=== PATIENT | female | born 1950 | race Caucasian/White ===

== ENCOUNTER → 2019-10-19 11:06 | Outpatient (BNVA) | payer MEDICARE, SELFPAY | PROVIDERS: Family Provider Nurse Practitioner; Visit Provider Nurse Practitioner | DX: E11.65 Type 2 diabetes mellitus with hyperglycemia (principal); E55.9 Vitamin D deficiency, unspecified; E03.9 Hypothyroidism, unspecified; J40 Bronchitis, not specified as acute or chronic; I10 Essential (primary) hypertension | CPT/HCPCS: 80053; 80061; 81000; 82044; 82306; 83036; 84443 ==

== ENCOUNTER 2019-12-28 08:28 | Inpatient (IN) | payer MEDICARE, SELFPAY ==
[2019-12-28] VITALS (12 sets, daily range): BP systolic 110–148; BP diastolic 42–72; PULSE 63–80; RESP 14–24; TEMP 36.5–37.1; O2SAT 91–99; BMI 33.5
--- NOTE | 2019-12-28 08:36 | ECG_ITS ---
[facility] Test Date: 2019-12-28 Pat Name: Teresa Garcia Department: Room: Gender: Female Industrial Relations Representative: : 1950 Requested By: Lucas Erazo Order Number: [id number] Tyler MD: Liz Farah M.D. Measurements Intervals [place] Rate: 76 P: 61 DC: 168 QRS: -9 QRSD: 85 T: 23 QT: 415 QTc: 468 Interpretive Statements SINUS RHYTHM NONSPECIFIC T-WAVE ABNORMALITY No previous ECG available for comparison Electronically Signed On 12-28-2019 18:29:19 CDT by Liz Farah M.D. [id number]
--- NOTE | 2019-12-28 08:36 | XR_ITS ---
WS: [id number] PORTABLE CHEST HISTORY: chest pain COMPARISON: 01/27/2018 Lungs are well-aerated. No pneumonia. Long-term stability granuloma RIGHT lower lobe. No pleural effu savage or pneumothorax. Cardiac size: Mildly enlarged cardiac silhouette. Mediastinum/Aorta: Mild atherosclerosis aorta. No osseous abnormality seen. XR/XR chest 1V portable [id number] IMPRESSION: Stable chest with no acute cardiopulmonary disease.
--- NOTE | 2019-12-28 08:58 | CT_ITS ---
WS: [id number] CT HEAD NONCONTRAST HISTORY: visual losses TECHNIQUE: Contiguous axial imaging performed through the brain in 2.5 mm imaging. Bone and soft tiss ue windows. Sagittal and coronal reformats reviewed. All CT scans at [facility] use at ast one of these dose optimization techniques: automated exposure control; mA and/or kV adjustment pe r patient size (includes targeted exams where dose is matched to clinical indication); or iterative r econstruction. DLP: 778.14 mGy.cm COMPARISON: None available. No acute intracranial hemorrhage, midline shift or mass effect. Mild bilateral symmetric atrophy. Areas of decreased attenuation. No focal loss of avilez-white matter differentiation. Ventricles: Normal size with no hydrocephalus. No inferior displacement of cerebellar tonsils. Moderate atherosclerosis intracranial carotid arterie s. Paranasal sinuses: As visualized are clear. Mastoid air cells: Well pneumatized. Calvarium and scalp: Skull is intact with no soft tissue edema or swelling. CT/CT head wo con* [id number] IMPRESSION: 1. No acute intracranial hemorrhage or edema. 2. Mild atrophy and chronic ischemic disease.
--- NOTE | 2019-12-28 08:59 | W.ED.CHESTPA ---
HPI - Chest Pain General: Chief Complaint: Chest Pain Stated Complaint: CHEST PAIN Time Seen by Provider: 12/28/19 08:35 History of Present Illness: HPI narrative: 69-year-old female comes in complaining of a chest heaviness. She states she is had this for several days now about 2 to 3 days a little worse this morning radiates into her neck and jaw and her left shoulder at times it will go away after she rested for 20 to 30 minutes. She also is reporting getting the chills she just cannot get warm at times she has had a productive minimally productive cough with some yellow sputum she denies fever she denies abdominal pain no GI or symptoms. No other sick contacts in the home she lives at home with her finally she had a brief episode this morning where she had some vertiginous-like symptoms and could not focus in her left eye that lasted for just a couple minutes and then resolved. She is not previously been known to have coronary artery disease. MD complaint: chest pain Pertinent past history: other (Diabetes mellitus) Onset (ago): day(s) (2-3) Timing of current episode: episodic Prior episodes: No Onset: during exertion Pain location: substernal Pain radiation: left arm, neck, jaw/teeth and left shoulder Severity: moderate Quality: heaviness Relieving factors: rest Exacerbating factors: exertion Context: recent illness (Productive cough with shortness of breath) Associated symptoms: Reports dyspnea, nausea and other (Cough); Deny fever(s) Treatment prior to arrival: none Review of Systems Const: Denies: fever(s), chills, body aches, change in appetite, fatigue or malaise ENMT: Denies: throat pain, ear or mastoid pain, nasal discharge or nasal congestion Card: Reports: chest pain (Chest heaviness) and dyspnea on exertion; Denies: edema or orthopnea Resp: Reports: dyspnea GI: Reports: nausea : Denies: flank pain, difficulty voiding, dysuria, urinary frequency or urinary urgency Skin/Breast: Denies: rash or pruritus PFSH ED PFSH: Medical History Adult hypothyroidism Controlled type 2 diabetes mellitus with hyperglycemia, without long-term current use of insulin Diverticulosis Environmental and seasonal allergies Hypertension Mixed hyperlipidemia Vitamin D deficiency Surgical History History of cholecystectomy History of foot surgery left History of lumbar surgery Rods in lumbar History of tubal ligation Family History (Updated 12/28/19 @ 11:07 by Tere Manriquez DO) Father Diabetes Mother CAD (coronary artery disease) Other Dementia Social History (Updated 12/28/19 @ 11:07 by Tere Manriquez DO) Smoking and tobacco status: current every day smoker Second hand smoke exposure: Yes Smoking risk assessment/counseling performed?: Yes Alcohol intake: never Desire information about alcohol rehabilitation?: No Counseling given: No Desire information about substance/drug rehabilitation?: No Counseling given: No Adopted: No Caregiver/support person: No Lives independently: Yes Household members: spouse Housing: House Marital status: Number of children: 3 service: No Current occupational status: unemployed History of recent travel: No Current gender identity: Female Physical Exam Const: COMMON NORMALS: no acute distress GENERAL APPEARANCE: cooperative and comfortable ORIENTATION/CONSCIOUSNESS: Yes awake, Yes oriented to person, Yes oriented to place and Yes oriented to time HENMT: COMMON NORMALS: normocephalic, atraumatic, hearing grossly normal bilaterally, external ears normal, EAC's normal, TM's normal bilaterally, Normal nasal mucous membranes and turbinates present, moist oral mucous membranes and oropharynx normal HEAD & SCALP: normocephalic and atraumatic NOSE: Normal nasal mucous membranes and turbinates present EXTERNAL EAR: Yes external ears normal EXTERNAL AUDITORY CANAL: EAC's normal TYMPANIC MEMBRANE: TM's normal bilaterally Eye: COMMON NORMALS: Equal, round and reactive pupils present, EOMs intact bilaterally, conjunctivae normal and no scleral icterus CONJUNCTIVA: Yes conjunctivae normal PUPIL: Yes Equal, round and reactive pupils present Neck/C-Spine: COMMON NORMALS: full ROM, no lymphadenopathy, supple and no JVD Lymph: LYMPHATIC: no lymphadenopathy noted and no lymphedema noted Resp: COMMON NORMALS: normal respiratory effort, No retractions, No use of accessory muscles and clear to auscultation bilaterally AUSCULTATION: clear to auscultation bilaterally Cardio: COMMON NORMALS: no JVD, regular rate, regular rhythm and No murmurs present (Cardio) RATE: regular rate RHYTHM: regular rhythm GI: COMMON NORMALS: Soft to palpation and No hepatosplenomegaly present AUSCULTATION: Yes normoactive bowel sounds PALPATION: Yes Soft to palpation, No Tenderness to palpation present (GI), No Guarding due to palpation present (GI) and Yes No hepatosplenomegaly present Extremity: COMMON NORMALS: normal to inspection, capillary refill normal, no clubbing, cyanosis or edema, no calf tenderness and no pedal edema Neuro: SENSORIUM/ORIENTATION: Yes oriented to person, Yes oriented to place and Yes oriented to time Skin: COMMON NORMALS: no rashes or lesions noted GENERAL SKIN EXAM: no rashes or lesions noted Course Vital Signs: Vital signs: Vital Signs Temperature 97.8 F 12/28/19 08:34 Pulse Rate 74 12/28/19 09:41 Respiratory Rate 18 12/28/19 09:41 Blood Pressure 148/72 12/28/19 09:41 Pulse Oximetry 97 12/28/19 09:41 MDM - Chest Pain MDM Narrative: Medical decision making narrative: Patient has multiple risk factors and elevated initial troponin concerning with her symptoms she has high heart score as well we will go ahead and put her on observation discussed with Dr. Manriquez she did have a normal stress test in 2017 but likely will require another. Lab Data: Labs: Lab Results 12/28/19 12/28/19 12/28/19 Range/Units 09:00 09:00 09:00 WBC 10.6 H (4.0-10.0) 10^3/ uL RBC 4.06 L (4.1-5.3) 10^6/u L Hgb 12.5 (11.5-15.3) g/dL Hct 39.1 (37.0-47.0) % MCV 96.3 (81-99) fL MCH 30.8 (28.0-34.0) pg MCHC 32.0 (30.0-36.0) g/dL RDW 12.1 (12.1-15.1) % Plt Count 377 (130-400) 10^3/c mm MPV 8.2 (7.4-10.4) fL Neut % (Auto) 74.5 % Lymph % (Auto) 12.5 % [place] % (Auto) 11.7 % Eos % (Auto) 0.8 % Baso % (Auto) 0.2 % Neut # (Auto) 7.9 H (1.8-7.7) 10^3/u L Lymph # (Auto) 1.3 (0.8-4.8) 10^3/u L [place] # (Auto) 1.2 H (0.2-0.9) 10^3/u L Eos # (Auto) 0.1 (0.0-0.8) 10^3/u L Baso # (Auto) 0.0 (0.0-0.1) 10^3/u L Nucleated RBC % (a uto) 0 % Nucleated RBCs # 0.0 /100WBC PT 13.30 (10.5-13.3) SECO NDS INR 0.98 (0.8-1.2) APTT 27.4 (23.9-36.7) SECO NDS Sodium 138 (136-145) mmol/L Potassium 4.1 (3.5-5.1) mmol/L Chloride 99 (98-107) mmol/L Carbon Dioxide 19 L (22-29) mmol/L Anion Gap 24.1 H (5-19) BUN 15 (8-23) mg/dL Creatinine 1.0 H (0.5-0.9) mg/dL Glucose 216 H (65-115) mg/dL Calculated Osmolal ity 289 (285-295) mOsm/k g Calcium 9.6 (8.5-10.5) mg/dL Total Bilirubin 0.3 (0.15-1.2) mg/dL AST 21 (0-32) U/L ALT 15 (0-33) U/L Alkaline Phosphata se 85 (35-105) IU/L Creatine Kinase 146 (26-192) U/L Troponin T Baselin e (0-10) ng/L Troponin T 120 Min [place] (0-10) ng/L Delta Troponin T (0-10) ABS# Total Protein 6.9 (6.6-8.7) g/dL Albumin 3.9 (3.5-5.2) g/dL Globulin 3.0 (1.3-4.6) g/dL 12/28/19 12/28/19 Range/Units 09:00 10:56 WBC (4.0-10.0) 10^3/ uL RBC (4.1-5.3) 10^6/u L Hgb (11.5-15.3) g/dL Hct (37.0-47.0) % MCV (81-99) fL MCH (28.0-34.0) pg MCHC (30.0-36.0) g/dL RDW (12.1-15.1) % Plt Count (130-400) 10^3/c mm MPV (7.4-10.4) fL Neut % (Auto) % Lymph % (Auto) % [place] % (Auto) % Eos % (Auto) % Baso % (Auto) % Neut # (Auto) (1.8-7.7) 10^3/u L Lymph # (Auto) (0.8-4.8) 10^3/u L [place] # (Auto) (0.2-0.9) 10^3/u L Eos # (Auto) (0.0-0.8) 10^3/u L Baso # (Auto) (0.0-0.1) 10^3/u L Nucleated RBC % (a uto) % Nucleated RBCs # /100WBC PT (10.5-13.3) SECO NDS INR (0.8-1.2) APTT (23.9-36.7) SECO NDS Sodium (136-145) mmol/L Potassium (3.5-5.1) mmol/L Chloride (98-107) mmol/L Carbon Dioxide (22-29) mmol/L Anion Gap (5-19) BUN (8-23) mg/dL Creatinine (0.5-0.9) mg/dL Glucose (65-115) mg/dL Calculated Osmolal ity (285-295) mOsm/k g Calcium (8.5-10.5) mg/dL Total Bilirubin (0.15-1.2) mg/dL AST (0-32) U/L ALT (0-33) U/L Alkaline Phosphata se (35-105) IU/L Creatine Kinase (26-192) U/L Troponin T Baselin e 34 H (0-10) ng/L Troponin T 120 Min [place] 32.45 H (0-10) ng/L Delta Troponin T -1.55 L (0-10) ABS# Total Protein (6.6-8.7) g/dL Albumin (3.5-5.2) g/dL Globulin (1.3-4.6) g/dL EKG Data^: EKG 1: Attestation: I personally reviewed and interpreted this EKG as follows: EKG interpretation date: 12/28/19 EKG interpretation time: 09:02 Other EKG comments: Sinus rhythm rate of 78. Right bundle branch block T waves inverted in V1 through [address] depression also isolated T wave inversion in lead III Q waves noted in V1 through 4 Discharge Plan Discharge Patient Disposition: Placed in Observation Admit Provider: Tere Manriquez Clinical Impression: Chest pain, Adult hypothyroidism, Controlled type 2 diabetes mellitus with hyperglycemia, without long-term current use of insulin, Hypertension Condition: Stable Coding Level of Care Code ED Outside Energy Sales Representatives for Chg Fwd Exam Comprehensive
[2019-12-28 09:07] LABS: Basophils % 0.2 %; Eosinophils # 0.1 10^3/uL (0.0-0.8); Eosinophils % 0.8 %; Hematocrit 39.1 % (37.0-47.0); Hemoglobin 12.5 g/dL (11.5-15.3); Lymphocytes # 1.3 10^3/uL (0.8-4.8); Lymphocytes % 12.5 %; Mean Corpuscular Hemoglobin 30.8 pg (28.0-34.0); Mean Corpuscular Volume 96.3 fL (81-99); Mean Platelet Volume 8.2 fL (7.4-10.4); Monocytes # 1.2 10^3/uL (0.2-0.9); Monocytes % 11.7 %; Neutrophils # 7.9 10^3/uL (1.8-7.7); Neutrophils % 74.5 %; Nucleated Red Blood Cells % 0 %; Platelet Count 377 10^3/cmm (130-400); Red Blood Count 4.06 10^6/uL (4.1-5.3); Red Cell Distribution Width 12.1 % (12.1-15.1); White Blood Count 10.6 10^3/uL (4.0-10.0)
[2019-12-28 09:17] LABS: INR 0.98 (0.8-1.2)
[2019-12-28 09:18] LABS: Partial Thromboplastin Time 27.4 SECONDS (23.9-36.7)
[2019-12-28 09:29] LABS: Troponin(5th) Baseline 34 ng/L (0-10)
[2019-12-28 09:49] LABS: Alanine Aminotransferase 15 U/L (0-33); Albumin Level 3.9 g/dL (3.5-5.2); Alkaline Phosphatase 85 IU/L (35-105); Anion Gap 24.1 (5-19); Aspartate Amino Transferase 21 U/L (0-32); Blood Urea Nitrogen 15 mg/dL (8-23); Calcium 9.6 mg/dL (8.5-10.5); Carbon Dioxide 19 mmol/L (22-29); Chloride 99 mmol/L (98-107); Creatine Phosphokinase 146 U/L (26-192); Glucose 216 mg/dL (65-115); Osmolality Calculated 289 mOsm/kg (285-295); Potassium 4.1 mmol/L (3.5-5.1); Sodium 138 mmol/L (136-145); Total Bilirubin 0.3 mg/dL (0.15-1.2); Total Protein 6.9 g/dL (6.6-8.7)
--- NOTE | 2019-12-28 10:36 | ECG_ITS ---
[facility] Test Date: 2019-12-28 Pat Name: Teresa Garcia Department: Room: Gender: Female Lead Front End Developer: : 1950 Requested By: Lucas Erazo Order Number: [id number] Tyler MD: Liz Farah M.D. Measurements Intervals [place] Rate: 64 P: 57 UT: 159 QRS: -11 QRSD: 81 T: 52 QT: 457 QTc: 474 Interpretive Statements SINUS RHYTHM WITH OCCASIONAL SUPRAVENTRICULAR PREMATURE COMPLEXES Compared to ECG 12/28/2019 08:40:29 T-wave abnormality no longer present Electronically Signed On 12-28-2019 18:38:11 CDT by Liz Farah M.D. [id number]
--- NOTE | 2019-12-28 11:02 | P.HP_ITS ---
Providers/Chief Complaint Admitting Physician: Tere Manriquez DO Chief Complaint: CHEST PAIN History of Present Illness Teresa Garcia is a 69 year old female with a past medical history of diabetes, hypertension, hyperlipidemia, tobacco abuse and hypothyroidism that presented to the emergency department today for chest tightness in the left side of her chest with radiation to the left neck and left shoulder. She reports that she has been feeling ill for the past 2 weeks. She states that she has had cough that is persisted with some sputum production. Patient reports chills over the past 48 hours but denies any fevers. No sick contacts, has been to the grocery store but no prolonged exposure in any public places, no exposure to anyone under investigation are positive for CO VID-19. Patient states that she is not on any oxygen at home, does not wear CPAP or BiPAP. Continues to smoke, uses nebulized treatments as needed but has not had to use them in some time. Patient denies any hemoptysis. She reports no known aggravating symptoms, no alleviating symptoms. She reports that she has had increased fatigue over the past 2 weeks. Recently had increase in levothyroxine dosing from 50 mcg to 100 mcg, is scheduled to follow-up with her primary care provider in the next 2 to 3 weeks. Patient denies any recent medication changes. Stated that she has chronic swelling in the lower extremities that is improved today. She did noted some nausea this morning with episode of dizziness and lightheadedness, this then r esolved on its own. No episodes of vomiting, no abdominal pain, no increase in heartburn or reflux, no melanotic stools Patient was seen and evaluated in the emergency department due to concern for chest pain she was admitted for observation for further monitoring and evaluation. Review of Systems Const: Reports: chills; Denies: fever(s) Eyes: Reports: change in vision (Occurred this morning with vertigo symptoms but have now resolved); Denies: photophobia ENMT: Reports: nasal congestion and other (Chronic sinus drainage and co ngestion) Card: Reports: chest pain and edema; Denies: palpitations Resp: Reports: dyspnea and productive cough; Denies: hemoptysis GI: Reports: nausea; Denies: abdominal pain, vomiting, diarrhea, constipation, hematochezia or melena : Denies: dysuria or hematuria Musc: Denies: extremity pain or muscle cramps Skin/Breast: Denies: rash or new lesions Neuro: Reports: headache(s) (Reports sinus headache that is been chronic) and dizziness Psych: Denies: anxiety or depression Endo: Reports: polyuria; Denies: hot flashes Wale/Lymph: Denies: easy bruising or easy bleeding Medications/Allergies Home Medications Medication Instructions Recorded Confirmed Last Taken Type albuterol sulfate 90 mcg/actuation 2 puff INHALATION QID PRN 10/19/19 12/28/19 12/27/19 History aerosol inhaler amlodipine 10 mg tablet 10 mg PO DAILY #90 tab 10/19/19 12/28/19 12/27/19 Rx aspirin 81 mg tablet,delayed 81 mg PO DAILY 10/19/19 12/28/19 12/28/19 History release benazepril 40 mg tablet 40 mg PO DAILY #90 tab 10/19/19 12/28/19 12/28/19 Rx furosemide 40 mg tablet 40 mg PO DAILY #90 tab 10/19/19 12/28/19 12/28/19 Rx glipizide 5 mg tablet, extended 5 mg PO BID #180 tab 10/19/19 12/28/19 12/28/19 Rx release 24 hr potassium chloride 10 mEq 10 meq PO BID #180 tab 10/19/19 12/28/19 12/28/19 Rx tablet,extended release rosuvastatin 20 mg tablet 20 mg PO DAILY #90 tab 10/19/19 12/28/19 12/27/19 Rx levothyroxine 100 mcg tablet 100 mcg PO DAILY #90 tab 10/21/19 12/28/19 12/28/19 Rx metoprolol succinate 25 mg 25 mg PO DAILY #90 tab 11/13/19 12/28/19 12/28/19 Rx tablet,extended release 24 hr Allergies Allergy/AdvReac Type Severity Reaction Status Date / Time Penicillins Allergy Severe Rash Verified 08/25/19 13:29 Sulfa (Sulfonamide Allergy Severe Rash Verified 08/25/19 13:29 Antibiotics) Latex, Natural Rubber AdvReac Severe Rash Verified 08/25/19 13:29 adhesive AdvReac Intermediate Rash Verified 08/25/19 13:29 trazodone AdvReac Do not Verified 08/25/19 13:29 tolerate PFSH Acute PFSH: Medical History Adult hypothyroidism Controlled type 2 diabetes mellitus with hyperglycemia, without long-term current use of insulin Diverticulosis Environmental and seasonal allergies Hypertension Mixed hyperlipidemia Vitamin D deficiency Surgical History History of cholecystectomy History of foot surgery left History of lumbar surgery Rods in lumbar History of tubal ligation Family History (Updated 12/28/19 @ 11:07 by Tere Manriquez DO) Father Diabetes Mother CAD (coronary artery disease) Other Dementia Social History (Updated 12/28/19 @ 11:07 by Tere Manriquez DO) Smoking and tobacco status: current every day smoker Second hand smoke exposure: Yes Smoking risk assessment/counseling performed?: Yes Alcohol intake: never Desire information about alcohol rehabilitation?: No Counseling given: No Desire information about substance/drug rehabilitation?: No Counseling given: No Adopted: No Caregiver/support person: No Lives independently: Yes Household members: spouse Housing: House Marital status: Number of children: 3 service: No Current occupational status: unemployed History of recent travel: No Current gender identity: Female Vitals/I&O/Wt Last Vital Signs Temp 97.8 F 12/28/19 08:34 Pulse 74 12/28/19 09:41 Resp 18 12/28/19 09:41 BP 148/72 12/28/19 09:41 Pulse Ox 97 12/28/19 09:41 Weight last 48 hrs Weight 83.007 kg Physical Exam Const: COMMON NORMALS: patient oriented x3 and alert GENERAL APPEARANCE: cooperative ORIENTATION/CONSCIOUSNESS: Yes awake, Yes oriented to person, Yes oriented to place and Yes oriented to time HENMT: COMMON NORMALS: normocephalic and atraumatic HEAD & SCALP: normocephalic and atraumatic Eye: COMMON NORMALS: Equal, round and reactive pupils present PUPIL: Yes Equal, round and reactive pupils present Neck/C-Spine: COMMON NORMALS: supple GENERAL: Yes normal visual inspection Resp: COMMON NORMALS: normal respiratory effort and clear to auscultation bilaterally EFFORT & INSPECTION: Yes able to speak in complete sentences AUSCULTATION: clear to auscultation bilaterally, no rhonchi and no wheezes Cardio: COMMON NORMALS: regular rate and regular rhythm RATE: regular rate RHYTHM: regular rhythm OTHER: Systolic murmur, Grade II GI: COMMON NORMALS: Soft to palpation and non-tender INSPECTION: No abdominal distension AUSCULTATION: Yes normoactive bowel sounds PALPATION: Yes Soft to palpation Extremity: OTHER: Patient with nonpitting edema in the lower extremities bilaterally, does have calf tenderness on the right. Neuro: COMMON NORMALS: patient oriented x3, CN's II-XII intact bilaterally, moves all extremities and no focal motor deficits SENSORIUM/ORIENTATION: Yes alert, Yes oriented to person, Yes oriented to place and Yes oriented to time SPEECH: speech normal Psych: COMMON NORMALS: mental status grossly normal and cooperative Skin: OTHER: Chronic erythema in the anterior shins bilaterally, secondary to venous stasis Data : 12/28/19 09:00 12/28/19 09:00 CT Head: I personally reviewed and interpreted this imaging study as follows: Radiologist's impression: No acute intracranial hemorrhage, midline shift or mass effect. Mild bilateral symmetric atrophy. Areas of decreased attenuation. No focal loss of garcia-white matter differentiation. Ventricles: Normal size with no hydrocephalus. No inferior displacement of cerebellar tonsils. Moderate atherosclerosis intr acranial carotid arteries. Paranasal sinuses: As visualized are clear. Mastoid air cells: Well pneumatized. Calvarium and scalp: Skull is intact with no soft tissue edema or swelling. CT/CT head wo con* [id number] IMPRESSION: 1. No acute intracranial hemorrhage or edema. 2. Mild atrophy and chronic ischemic disease. CXR: I personally reviewed and interpreted this imaging study as follows: Radiologist's impression: Lungs are well-aerated. No pneumonia. Long-term stability granuloma RIGHT lower lobe. No pleural effusion or pneumothorax. Cardiac size: Mildly enlarged cardiac silhouette. Mediastinum/Aorta: Mild atherosclerosis aorta. No osseous abnormality seen. XR/XR chest 1V portable [id number] IMPRESSION: Stable chest with no acute cardiopulmonary disease. A&P Assessment and plan (1) Left chest pressure: Placed on observation Serial EKG and troponin, EKG in the ED shows no acute ST segment changes at this time Monitor on telemetry Echocardiogram ordered for further evaluation due to systolic murmur and chest pressure along with presyncopal symptoms Lexiscan MIBI ordered for further evaluation, n.p.o. at midnight for stress test Status: Acute (2) Pre-syncope: Continue with neurologic checks Further cardiac work-up as noted above Faint systolic murmur will further evaluate with echocardiogram, last echocardiogram from 2016 reviewed Telemetry monitoring with serial EKG and troponin Carotid ultrasound ordered and pending CT head performed and as noted above Status: Acute (3) Hypertension: Continue metoprolol succinate 25 mg daily Continue benazepril 40 mg daily Continue amlodipine 10 mg daily, may need to discuss with primary care provider if continuing to have lower extremity edema as this can contribute to chronic lower extremity edema. Status: Chronic (4) Controlled type 2 diabetes mellitus with hyperglycemia, without long-term current use of insulin: Holding home glipizide at this time as do not wish for patient to have any hypoglycemic events in the inpatient setting Low-dose sliding scale insulin as needed Last hemoglobin A1c of 6.3 from 10/19/2019 Status: Chronic (5) Mixed hyperlipidemia: Continue on rosuvastatin 20 mg at bedtime Status: Chronic (6) Adult hypothyroidism: Due to concern for chest pressure and presyncopal symptoms will recheck TSH, patient reports recent increase in levothyroxine from 50mcg to 100 mcg daily Status: Chronic Additional A&P Information Dyspnea and chronic cough: We will check d-dimer, chest x-ray shows right chronic granuloma with no acute changes. Due to elevated d-dimer will check CT scan of the chest with PE protocol. Patient is not tachycardic but is on beta-blockers with chest pain and dyspnea and elevated d-dimer will further evaluate with CT scan and follow-up with results. Right lower extremity tenderness to palpation: We will check lower extremity chuy ous duplex Longstanding history of tobacco abuse: Strongly encourage cessation, oxygen per protocol, patient is on albuterol on an as-needed basis at home, would recommend outpatient pulmonary function testing and further follow-up based on results. DVT prophylaxis: SCDs, Lovenox Diet: Carbohydrate consistent, n.p.o. at midnight for stress test CODE STATUS: Full code Attestations Medical Necessity Statement*: Observation placement due to chest pain, expected stay less than 2 midnights Coding Level of Care Code Acute Cistern Room Operator for Chg Fwd Exam Comprehensive Diagnoses Left chest pressure R07.89 Pre-syncope R55 Hypertension I10 Controlled type 2 diabetes mellitus with hyperglycemia, without long-term current use of insulin E11.65 Mixed hyperlipidemia E78.2 Adult hypothyroidism E03.9
[2019-12-28 11:16] LABS: Troponin 5 2HR 32.45 ng/L (0-10)
[2019-12-28 11:19] LABS: Troponin 5 2HR Delta -1.55 ABS# (0-10)
--- NOTE | 2019-12-28 11:55 | USCV_ITS ---
Teresa Garcia Age: 69 Gender: F : 1950 Exam Date: 12/28/2019 15:41 Ordering Phys: Tere Manriquez DO Technologist: Jarod Murrell [place] [facility] [place] PRE [place] Risk Factors: None Previous Vascular Surgery: None Right Brachial BP: / Left Brachial BP: / Right Left Velocity (cm/s) Spectral Plaque Velocity (cm/s) Spectral Plaque Syst/Diast Broadening Syst/Diast Broadening 64.50/ 14.80 Prox CCA 62.55 / 12.00 65.20/ 14.20 Mid CCA 75.05 / 14.65 64.50/ 8.40 Distal CCA 71.85 / 12.60 49.80/ 10.70 Hetro Prox ICA 81.40 / 13.20 Hetro 65.90/ 13.00 Mid ICA 78.50 / 8.50 50.60/ 11.50 Distal ICA 71.00 / 14.20 78.90 ECA 70.30 1.01 ICA/CCA 1.04 Antegrade Vertebral Antegrade 37.80/ 5.90 cm/s 64.30/ 11.40 cm/s Bi Subclavian Bi 123.4 92.70 0 FINDINGS Minimal plaques at the bifurcations bilaterally. Intimal thickening in the common carotid arteries bilaterally. Antegrade flow in the vertebral arteries bilaterally. Normal Doppler flow velocities in the external and subclavian arteries bilaterally. CONCLUSIONS Minimal plaques at the bifurcations bilaterally. Intimal thickening in the common carotid arteries bilaterally. No significant stenosis or any unstable lesions, based on the above findings Dr Sagar Antunez MD [facility] (Electronically Signed) Final Date: 29 December 2019 07:08 S
--- NOTE | 2019-12-28 11:55 | USCV_ITS ---
Teresa Garcia Age: 69 Gender: F : 1950 Exam Date: 12/28/2019 15:25 Ordering Phys: Tere Manriquez DO Technologist: Jarod Murrell [place] [facility] [place]: SYNCOPE PRE BP: 141 / 107 HR: 72 Rhythm: Sinus Technical Quality: Adequate MEASUREMENTS (Male / Female) Normal Values 2D ECHO LV Diastolic Diameter PLAX 4.7 cm 4.2 - 5.9 / 3.9 - 5.3 cm LV Systolic Diameter PLAX 3.4 cm IVS Diastolic Thickness 0.7 cm 0.6 - 1.0 / 0.6 - 0.9 cm IVS Systolic Thickness 1.4 cm LVPW Diastolic Thickness 1.1 cm 0.6 - 1.0 / 0.6 - 0.9 cm LVPW Systolic Thickness 1.4 cm LVOT Diameter 2.0 cm LV Ejection Fraction 2D Teich 52.6 % LV Ejection Fraction MOD 2C 64.3 % LV Ejection Fraction 2C AL 66.5 % LA Diameter 3.8 cm LA Width 3.6 cm LA Height 4.8 cm RA Width 4.0 cm RA Height 4.8 cm Aorta at Sinotubular Diameter 2.1 cm M-MODE LV Diastolic Diameter MM 4.4 cm 4.2 - 5.9 / 3.9 - 5.3 cm LV Systolic Diameter MM 2.7 cm LV Ejection Fraction MM Teich 70.0 % IVS Diastolic Thickness MM 1.3 cm 0.6 - 1.0 / 0.6 - 0.9 cm IVS Systolic Thickness MM 1.9 cm LVPW Diastolic Thickness MM 1.5 cm 0.6 - 1.0 / 0.6 - 0.9 cm LVPW Systolic Thickness MM 2.1 cm RV Diastolic Diameter MM 1.8 cm Aortic Annulus Diameter 3.2 cm LA Ao Ratio MM 1.2 MV E Point Septal Separation 0.8 cm DOPPLER AV Peak Velocity 196.0 cm/s LVOT Peak Velocity 101.0 cm/s AV Area Cont Eq vti 1.5 cm squared AV Area Cont Eq pk 1.7 cm squared MV Area PHT 2.6 cm squared Mitral E to A Ratio 0.8 MV E' Velocity 7.0 cm/s Mitral E to MV E' Ratio 9.0 Mitral E to LV E' Lateral Ratio 11.3 Mitral E to LV E' Septal Ratio 7.5 TR Peak Velocity 258.0 cm/s TR Peak Gradient 26.5 mmHg TV Peak E Velocity 81.0 cm/s Right Atrial Pressure 3.0 mmHg Pulmonary Artery Systolic Pressu 29.6 mmHg FINDINGS Left Ventricle Normal left ventricular size and systolic function, EF 59 %. Mild left ventricular hypertrophy. Grade I/IV diastolic dysfunction (abnormal relaxation filling pattern), normal to mildly elevated filling pressures. Right Ventricle Normal right ventricular size and systolic function. Right Atrium Normal right atrial size. Left Atrium Mildly increased left atrial size. Mitral Valve Thickened mitral valve. Moderate mitral annular calcification. Aortic Valve Thickened aortic valve. Trace aortic valve regurgitation. Aortic valve sclerosis. Tricuspid Valve The valve morphology could not be delineated well.trace tricuspid valve regurgitation. Pulmonic Valve Pulmonic valve not well visualized. Pericardium No pericardial effusion. Aorta Normal aortic annulus size. CONCLUSIONS Normal left ventricular size and systolic function, EF 59 %. Mild left ventricular hypertrophy. Grade I/IV diastolic dysfunction (abnormal relaxation filling pattern), normal to mildly elevated filling pressures. Mildly increased left atrial size. Thickened mitral valve. Moderate mitral annular calcification. Thickened aortic valve. Trace aortic valve regurgitation. Aortic valve sclerosis. There is no pericardial effusion. Trace of tricuspid regurgitation. Estimated pulmonary artery peak systolic pressure of 27 mmHg Technically difficult study because of the poor ultrasonic window. Dr Sagar Antunez MD [facility] (Electronically Signed) Final Date: 28 December 2019 19:12 S
--- NOTE | 2019-12-28 12:19 | USCV_ITS ---
NOTE: Report was unsigned for reason: Order was edited. Original Signature date and time was: 12/29/19 @ 07:10 GarciaTeresa Age: 69 Gender: F : 1950 Exam Date: 12/28/2019 15:55 Ordering Phys: Tere Manriquez DO Technologist: Jarod Murrell Exam Location: [facility] – [place] Indication: BILAT LEG EDEMA HISTORY: Lower extremity edema. PROCEDURES: The venous duplex Doppler examination of both lower extremities was performed in the standard fashion. The following venous structures were evaluated: common femoral vein, profunda vein, proximal portion of the greater saphenous vein, superficial femoral vein, and the popliteal vein. Bilaterally, the common femoral, superficial femoral, profunda femoral, popliteal, posterior tibial, greater saphenous veins, and the peroneal trunk were identified and interrogated in the standard fashion. These veins were found to be easily compressible with spontaneous blood flow. No evidence of insufficiency or thrombus noted. FINDINGS: Normal 2-D Doppler and augmentation and compressibility throughout the lower extremity venous structures. Additional imaging through the proximal calf veins also reveals no thrombus. Limited evaluation of the greater saphenous vein is patent with no thrombus.. The veins were found to be easily compressible with spontaneous blood flow. Non pulsatile flow pattern. CONCLUSIONS No evidence of DVT in the above-mentioned identifiable veins. Dr Sagar Antunez MD [facility] (Electronically Signed) Final Date: 29 December 2019 07:10 S MTDD
[2019-12-28 12:25] LABS: Glucose Point of Care 155 mg/dL (70-110)
[2019-12-28] MEDS: enoxaparin 40 mg/0.4 mL Syringe SUBCUT (12:36)
[2019-12-28] MEDS: amlodipine 10 mg Tablet PO (12:36)
[2019-12-28 12:54] LABS: D Dimer 1.02 ug/mIFEU (0-0.59)
[2019-12-28 13:07] LABS: Magnesium 2.1 mg/dL (1.7-2.3); NT Pro B Type Natriuretic Pept 406 pg/mL (0-125); Phosphorus 3.4 mg/dL (2.5-4.5); Thyroid Stimulating Hormone 1.17 uIU/mL (0.27-4.20)
--- NOTE | 2019-12-28 13:08 | CTR_ITS ---
PROCEDURE INFORMATION: Exam: CT Angiography Chest With Contrast Exam date and time: 12/28/2019 1:11 PM Age: 69 years old Clinical indication: Pain; Shortness of breath; Chest pressure; Prior surgery; Surgery type: Gb; Additional info: Chest pain, dyspnea, elevated d-dimer TECHNIQUE: Imaging protocol: Computed tomographic angiography of the chest with intravenous contrast. 3D rendering: MIP and/or 3D reconstructed images were created by the technologist. Radiation optimization: All CT scans at this facility use at least one of these dose optimization techniques: automated exposure control; mA and/or kV adjustment per patient size (includes targeted exams where dose is matched to clinical indication); or iterative reconstruction. Contrast material: VISI 320; Contrast volume: 49 ml; Contrast route: INTRAVENOUS (IV); COMPARISON: No relevant prior studies available. RADIATION DOSE METRICS: Total DLP (mGy-cm): 564.15 FINDINGS: Pulmonary arteries: There is no evidence of filling defects within the pulmonary arterial circulation to suggest pulmonary embolism. Aorta: There are mild atherosclerotic changes in the aortic arch without evidence of aneurysm or dissection. Lungs: There is calcified granuloma in the right lower lobe. There is mild dependent atelectasis at the lung bases. Pleural space: Unremarkable. No pneumothorax. No pleural effusion. Heart: There is mild atherosclerotic calcification of the coronary arteries. Lymph nodes: There are calcified right hilar Lymph nodes in keeping with old granulomatous disease. There is mild mediastinal adenopathy with paratracheal lymph nodes measuring up to 12 x 21 mm and also mildly prominent prevascular nodes measuring up to 8 x 16 mm. Bones/joints: Unremarkable. No acute fracture. Soft tissues: Unremarkable. CT/CT angio chest PE protcl [id number] IMPRESSION: 1. No evidence of pulmonary embolism. 2. Borderline mediastinal adenopathy 3. Old granulomatous disease Radiation Dose CTDIVOL = (mGy): DLP = 564.15 (mGy-cm)
[2019-12-28] MEDS: lisinopril 20 mg Tablet 40 MG PO (14:09)
--- NOTE | 2019-12-28 14:36 | ECG_ITS ---
[facility] ED Test Date: 2019-12-28 Pat Name: Teresa Garcia Department: Room: 106 Gender: Female Manager Route: : 1950 Requested By: Lucas Erazo Order Number: [id number] Tyler MD: Liz Farah M.D. Measurements Intervals [place] Rate: 62 P: 57 MS: 167 QRS: -14 QRSD: 85 T: 68 QT: 465 QTc: 474 Interpretive Statements SINUS RHYTHM NONSPECIFIC T-WAVE ABNORMALITY Compared to ECG 12/28/2019 11:05:20 T-wave abnormality now present Electronically Signed On 12-28-2019 18:35:33 CDT by Liz Farah M.D. [id number]
[2019-12-28] MEDS: ipratropium-albuterol 3 mL Neb INHALATION ×2 (14:52→19:38)
[2019-12-28 17:10] LABS: Glucose Point of Care 113 mg/dL (70-110)
[2019-12-28] MEDS: docusate sodium 100 mg Capsule PO (17:18)
[2019-12-28] MEDS: potassium chloride ER 10 mEq Tablet PO (17:18)
[2019-12-28] MEDS: iodixanol 320 mg/mL 100mL Btl IV (18:07)
[2019-12-28 20:09] LABS: Glucose Point of Care 220 mg/dL (70-110)
--- NOTE | 2019-12-28 20:14 | PC.NURSE ---
Addendum entered by Alejandra Cabrera RN 12/28/19 20:18: Informed Dr Jasso of patient allergy. Dr Jasso to place new order for other medication. Original Note: Patient requesting something to help with sleep tonight. Informed Dr Jasso of patient request and received a one time order for Trazadone 25mg PO.
[2019-12-28] MEDS: atorvastatin 40 mg Tablet 80 MG PO (20:28)
[2019-12-28] MEDS: HYDROcodone-acetaminophen 5-325 mg Tablet 1 TAB PO (20:29)
[2019-12-28] MEDS: diphenhydrAMINE 25 mg Capsule PO (20:29)
[2019-12-28] MEDS: morphine 4 mg/mL SDV 1 mL 2 MG IVP (21:35)
--- NOTE | 2019-12-28 21:47 | PM.CONSULT ---
Providers/Reason For Consult Consulting Physican/Specialty*: Oj Antunez MD/cardiology Reason for Consult*: Patient with multiple risk factors for coronary artery disease, presenting with unstable angina Attending Physician: Tere Manriquez DO History of Present Illness History of Present Illness Teresa Garcia is a 69 year old female type 2 diabetes, dyslipidemia, overweight and smoking abuse, present with complaints of chest pain started 630 this morning. Patient was up and about in the house at that time. Without any warning, she started having the tightness and heavy feeling in the chest. It was a moderate density(6/10) . She had associated shortness of breath and some nausea. No palpitation, dizziness or syncopal episode. Because of the persistence of the symptom, the ambulance was called in. In the ambulance, the patient was given sublingual nitroglycerin x1. According the patient, she had some relief. However she continued to have the tight feeling in the chest for several hours and finally it subsided. At the time of my examination, patient is pain-free. He denies any fever, chills or cough. She has been having a cough for the last couple of weeks. Denies any abdominal pain or dysuria. No headache or blurring of vision. Specific complaints. She has been smoking for the last more than 30 years. Lately she is smoking only half pack a day. No alcohol abuse or any other substance abuse. She been using the inhalers and nebulizer at home for shortness of breath. Patient has no previous history for any coronary disease, myocardial infarction or congestive heart failure. In October 2016, she was seen in the emergency room with chest pain. Her initial cardiac work-up was negative. She had a myocardial perfusion imaging subsequently which did not reveal any evidence of ischemia. She was seen by Dr. German at that time. She has not had any follow-up evaluations. Review of Systems Narrative: CONSTITUTIONAL: She might have had a low-grade fever lately EYES: No blurring of vision or other visual disturbances lately. ENT: No hoarseness of voice, auditory disturbances or sore throat. Carotid bruit bilaterally CARDIOVASCULAR: Soft systolic murmur at the base of the heart. No diastolic murmurs. No pericardial rub. RESPIRATORY: No significant cough. GASTROINTESTINAL: No hematemesis or melena. GENITOURINARY: No dysuria or hematuria. INTEGUMENTARY: No skin rashes or history of skin cancer. NEURO: No transient ischemic attacks or amaurosis. PSYCHIATRIC: No history of psychosis or major depression. HEMATOLOGIC: No bleeding disorders or significant anemia. ENDOCRINE: No history of polyuria or polydipsia. MUSCULOSKELETAL: No recent joint pain or swelling. ALLERGY/IMMUNOLOGY: As mentioned above. Meds/Allergies Home Medications and Allergies Home Medications Medication Instructions Recorded Confirmed Last Taken Type albuterol sulfate 90 mcg/actuation 2 puff INHALATION QID PRN 10/19/19 12/28/19 12/27/19 History aerosol inhaler amlodipine 10 mg tablet 10 mg PO DAILY #90 tab 10/19/19 12/28/19 12/27/19 Rx aspirin 81 mg tablet,delayed 81 mg PO DAILY 10/19/19 12/28/19 12/28/19 History release benazepril 40 mg tablet 40 mg PO DAILY #90 tab 10/19/19 12/28/19 12/28/19 Rx furosemide 40 mg tablet 40 mg PO DAILY #90 tab 10/19/19 12/28/19 12/28/19 Rx glipizide 5 mg tablet, extended 5 mg PO BID #180 tab 10/19/19 12/28/19 12/28/19 Rx release 24 hr potassium chloride 10 mEq 10 meq PO BID #180 tab 10/19/19 12/28/19 12/28/19 Rx tablet,extended release rosuvastatin 20 mg tablet 20 mg PO DAILY #90 tab 10/19/19 12/28/19 12/27/19 Rx levothyroxine 100 mcg tablet 100 mcg PO DAILY #90 tab 10/21/19 12/28/19 12/28/19 Rx metoprolol succinate 25 mg 25 mg PO DAILY #90 tab 11/13/19 12/28/19 12/28/19 Rx tablet,extended release 24 hr Allergies Allergy/AdvReac Type Severity Reaction Status Date / Time Penicillins Allergy Severe Rash Verified 08/25/19 13:29 Sulfa (Sulfonamide Allergy Severe Rash Verified 08/25/19 13:29 Antibiotics) Latex, Natural Rubber AdvReac Severe Rash Verified 08/25/19 13:29 adhesive AdvReac Intermediate Rash Verified 08/25/19 13:29 trazodone AdvReac Do not Verified 08/25/19 13:29 tolerate Current Medications Current Medications Generic Name Dose Route Start Last Admin Trade Name Freq PRN Reason Stop Dose Admin Hydrocodone Bitart/Acetaminophen 1 tab 12/28/19 11:55 12/28/19 20:29 Eden 5-325 Mg PO 1 tab Q4H PRN Administration MODERATE TO SEVERE PAIN Albuterol/Ipratropium 3 ml 12/28/19 15:00 12/28/19 19:38 Duoneb INHALATION 3 ml Q6H.RESPIRATORY SURENDRA Administration Amlodipine Besylate 10 mg 12/28/19 11:55 12/28/19 12:36 Norvasc PO 10 mg DAILY SURENDRA Administration Atorvastatin Calcium 80 mg 12/28/19 21:00 12/28/19 20:28 Lipitor PO 80 mg BEDTIME SURENDRA Administration Docusate Sodium 100 mg 12/28/19 18:00 12/28/19 17:18 Colace PO 100 mg BID SURENDRA Administration Enoxaparin Sodium 40 mg 12/28/19 11:55 12/28/19 12:36 Lovenox SUBCUT 40 mg Q24H SURENDRA Administration Insulin Aspart 0 unit 12/28/19 21:00 12/28/19 20:28 Novolog SUBCUT 2 unit BEDTIME SURENDRA Administration Protocol Insulin Aspart 0 unit 12/28/19 12:00 12/28/19 17:16 Novolog SUBCUT Not Given TIDWM [facility] Protocol Lisinopril 40 mg 12/28/19 14:00 12/28/19 14:09 Prinivil PO 40 mg DAILY SURENDRA Administration Morphine Sulfate 2 mg 12/28/19 11:55 12/28/19 21:35 Morphine IVP 2 mg Q4H PRN Administration SEVERE PAIN Potassium Chloride 10 meq 12/28/19 18:00 12/28/19 17:18 Klor-Con 10 PO 10 meq BID SURENDRA Administration PFSH Acute PFSH: Medical History Adult hypothyroidism Controlled type 2 diabetes mellitus with hyperglycemia, without long-term current use of insulin Diverticulosis Environmental and seasonal allergies Hypertension Mixed hyperlipidemia Vitamin D deficiency Surgical History History of cholecystectomy History of foot surgery left History of lumbar surgery Rods in lumbar History of tubal ligation Family History (Updated 12/28/19 @ 11:07 by Tere Manriquez DO) Father Diabetes Mother CAD (coronary artery disease) Other Dementia Social History (Updated 12/28/19 @ 11:07 by Tere Manriquez DO) Smoking and tobacco status: current every day smoker Second hand smoke exposure: Yes Smoking risk assessment/counseling performed?: Yes Alcohol intake: never Desire information about alcohol rehabilitation?: No Counseling given: No Desire information about substance/drug rehabilitation?: No Counseling given: No Adopted: No Caregiver/support person: No Lives independently: Yes Household members: spouse Housing: House Marital status: Number of children: 3 service: No Current occupational status: unemployed History of recent travel: No Current gender identity: Female Vitals/I&O/Wt Last Vital Signs Temp 97.7 F 12/28/19 19:07 Pulse 74 12/28/19 19:42 Resp 18 12/28/19 19:38 BP 141/53 12/28/19 19:07 Pulse Ox 99 12/28/19 19:38 12/28/19 12/28/19 12/28/19 06:59 14:59 22:59 Intake Total 240 / 240 Balance 240 / 240 Weight last 48 hrs Weight 183 lb Physical Exam Narrative: EXAM NARRATIVE: GENERAL: The patient is alert and oriented times three. Not in any acute distress. HEENT: No significant pallor, icterus or lymphadenopathy. The pupils are reactant to light. Oral cavity: There are no mucous membrane lesions. Funduscopic examination: Fundus is not visualized NECK: Trachea appears to be central. No masses noted. No JVD or thyromegaly appreciated. No bruit bilaterally RESPIRATORY: Chest is symmetrical. No intercostals muscle retraction or any accessory muscle activation. There is no chest wall tenderness. Breath sounds are heard bilaterally. No rales or rhonchi heard. No evidence of any consolidation. BREASTS: Deferred. HEART: The PMI could not be palpated no other palpable precordial events. First and second heart sounds are normal. No S3. Ejection systolic murmur grade 3/6 in the aortic area. No diastolic murmurs. No pericardial rub. ABDOMEN: No vessel pulsations or distention. No tenderness. No organomegaly appreciated. No abdominal bruit. Bowel sounds are normally heard. : Deferred. RECTAL: Deferred. LYMPHATIC: No lymphadenopathy noted in the neck or groin. EXTREMITIES: No edema or cyanosis. No clubbing. The pulses are symmetrical bilaterally. The radial, femoral, dorsalis pedis and the posterior tibial pulses are palpated and found to be in good volume and amplitude. MUSCULOSKELETAL: No acute joint deformities or swelling SKIN: There are no significant scars or skin rash noted. NEUROPSYCHIATRIC: The patient is alert and oriented x3. Appears to be in a good mood. The higher functions are grossly within normal limits. No tremors or rigidity noted. Data Labs: Other Labs: Laboratory Last Values WBC 10.6 10^3/uL (4.0 -10.0) H 12/28/19 09:00 RBC 4.06 10^6/uL (4.1 -5.3) L 12/28/19 09:00 Hgb 12.5 g/dL (11.5-1 5.3) 12/28/19 09:00 Hct 39.1 % (37.0-47.0 ) 12/28/19 09:00 MCV 96.3 fL (81-99) 12/28/19 09:00 MCH 30.8 pg (28.0-34. 0) 12/28/19 09:00 MCHC 32.0 g/dL (30.0-3 6.0) 12/28/19 09:00 RDW 12.1 % (12.1-15.1 ) 12/28/19 09:00 Plt Count 377 10^3/cmm (130 -400) 12/28/19 09:00 MPV 8.2 fL (7.4-10.4) 12/28/19 09:00 Neut % (Auto) 74.5 % 12/28/19 09:00 Lymph % (Auto) 12.5 % 12/28/19 09:00 [place] % (Auto) 11.7 % 12/28/19 09:00 Eos % (Auto) 0.8 % 12/28/19 09:00 Baso % (Auto) 0.2 % 12/28/19 09:00 Neut # (Auto) 7.9 10^3/uL (1.8- 7.7) H 12/28/19 09:00 Lymph # (Auto) 1.3 10^3/uL (0.8- 4.8) 12/28/19 09:00 [place] # (Auto) 1.2 10^3/uL (0.2- 0.9) H 12/28/19 09:00 Eos # (Auto) 0.1 10^3/uL (0.0- 0.8) 12/28/19 09:00 Baso # (Auto) 0.0 10^3/uL (0.0- 0.1) 12/28/19 09:00 Nucleated RBC % (a uto) 0 % 12/28/19 09:00 Nucleated RBCs # 0.0 /100WBC 12/28/19 09:00 PT 13.30 SECONDS (10 .5-13.3) 12/28/19 09:00 INR 0.98 (0.8-1.2) 12/28/19 09:00 APTT 27.4 SECONDS (23. 9-36.7) 12/28/19 09:00 D-Dimer 1.02 ug/mIFEU (0- 0.59) H 12/28/19 09:00 Sodium 138 mmol/L (136-1 45) 12/28/19 09:00 Potassium 4.1 mmol/L (3.5-5 .1) 12/28/19 09:00 Chloride 99 mmol/L (98-107 ) 12/28/19 09:00 Carbon Dioxide 19 mmol/L (22-29) L 12/28/19 09:00 Anion Gap 24.1 (5-19) H 12/28/19 09:00 BUN 15 mg/dL (8-23) 12/28/19 09:00 Creatinine 1.0 mg/dL (0.5-0. 9) H 12/28/19 09:00 Glucose 216 mg/dL (65-115 ) H 12/28/19 09:00 POC Glucose 220 mg/dL (70-110 ) 12/28/19 20:03 Calculated Osmolal ity 289 mOsm/kg (285- 295) 12/28/19 09:00 Calcium 9.6 mg/dL (8.5-10 .5) 12/28/19 09:00 Phosphorus 3.4 mg/dL (2.5-4. 5) 12/28/19 09:00 Magnesium 2.1 mg/dL (1.7-2. 3) 12/28/19 09:00 Total Bilirubin 0.3 mg/dL (0.15-1 .2) 12/28/19 09:00 AST 21 U/L (0-32) 12/28/19 09:00 ALT 15 U/L (0-33) 12/28/19 09:00 Alkaline Phosphata se 85 IU/L (35-105) 12/28/19 09:00 Creatine Kinase 146 U/L (26-192) 12/28/19 09:00 Troponin I 6 Hour 51.40 ng/L (0-10) H 12/28/19 15:54 Troponin I Hi Sens Del 17.40 ng/L (0-12) H* 12/28/19 15:54 Troponin T Baselin e 34 ng/L (0-10) H 12/28/19 09:00 Troponin T 120 Min barrow 32.45 ng/L (0-10) H 12/28/19 10:56 Delta Troponin T -1.55 ABS# (0-10) L 12/28/19 10:56 NT-Pro-B Natriuret Pep 406 pg/mL (0-125) H 12/28/19 09:00 Total Protein 6.9 g/dL (6.6-8.7 ) 12/28/19 09:00 Albumin 3.9 g/dL (3.5-5.2 ) 12/28/19 09:00 Globulin 3.0 g/dL (1.3-4.6 ) 12/28/19 09:00 TSH 1.17 uIU/mL (0.27 -4.20) 12/28/19 09:00 Myocardial perfusion imaging in October 2016 revealed no evidence of ischemia. Imaging^: Echo: My impression: Echo cardiogram done on 12/28/2019 normal left ventricular size and systolic function, EF 59 %. Mild left ventricular hypertrophy. Grade I/IV diastolic dysfunction (abnormal relaxation filling pattern), normal to mildly elevated filling pressures. Mildly increased left atrial size. Thickened mitral valve. Moderate mitral annular calcification. Thickened aortic valve. Trace aortic valve regurgitation. Aortic valve sclerosis. There is no pericardial effusion. Trace of tricuspid regurgitation. Estimated pulmonary artery peak systolic pressure of 27 mmHg Technically difficult study because of the poor ultrasonic window. CXR: My impression: Normal cardiac silhouette with no lung infiltrate. No acute pathology noted. EKG^: EKG 1: My Interpretation: EKG revealed normal sinus rhythm with some nonspecific T wave changes. Minimal left axis deviation. A&P Assessment and plan (1) Unstable angina: In view of the patient's multiple risk factors, clinical presentation and the slightly elevated troponin I her symptoms may suggest an unstable angina. Hemodynamically she seems to be stable. The EKG changes are nonspecific. We may continue the serial cardiac enzymes and EKGs. Patient may be treated with subcu Lovenox, beta-ya, aspirin, statin and other symptomatic measures. Echocardiogram and a carotid duplex admission would be appropriate to evaluate the heart murmur, carotid bruit Status: Acute (2) Mixed hyperlipidemia: May continue on the current medications. Status: Chronic (3) Hypertension: Patient currently has stage II hypertension. Try to optimize the antihypertensive medications. Status: Chronic Qualifiers: Hypertension type: essential hypertension Qualified Code(s): I10 - Essential (primary) hypertension (4) Controlled type 2 diabetes mellitus with hyperglycemia, without long-term current use of insulin: Close monitoring of blood sugar and management as per the primary. Status: Chronic Additional A&P Information After reviewing the above and also based on the patient's clinical progress, further recommendations will be made. Most likely she may benefit from a cardiac catheterization, to further evaluate the coronary status and decide on further management. Coding Level of Care Code Acute Digital Marketing Associate for Chg Fwd History Comprehensive Exam Comprehensive Medical Decision Making High Complexity Diagnoses Unstable angina I20.0 Mixed hyperlipidemia E78.2 Hypertension I10 Hypertension type: essential hypertension Controlled type 2 diabetes mellitus with hyperglycemia, without long-term current use of insulin E11.65 Time Spent (min) 60
[2019-12-28] MEDS: enoxaparin 80 mg/0.8 mL Syringe SUBCUT (23:20)
--- NOTE | 2019-12-28 23:22 | PC.NURSE ---
Administered Lovenox as ordered. Assisted patient up to bathroom. Patient reports pain to chest is much improved as well as her chronic pain to hips and back. Patient reports having rods in her back.
[2019-12-29] VITALS (70 sets, daily range): BP systolic 102–141; BP diastolic 41–71; PULSE 64–90; RESP 13–33; TEMP 36.6–37; O2SAT 88–97
[2019-12-29 04:45] LABS: Basophils % 0.3 %; Eosinophils # 0.1 10^3/uL (0.0-0.8); Eosinophils % 1.4 %; Hemoglobin 11.7 g/dL (11.5-15.3); Lymphocytes # 2.5 10^3/uL (0.8-4.8); Lymphocytes % 26.9 %; Mean Corpuscular HGB Conc 32.5 g/dL (30.0-36.0); Mean Corpuscular Hemoglobin 31.3 pg (28.0-34.0); Mean Corpuscular Volume 96.3 fL (81-99); Mean Platelet Volume 8.6 fL (7.4-10.4); Monocytes # 1.2 10^3/uL (0.2-0.9); Monocytes % 13.3 %; Neutrophils # 5.3 10^3/uL (1.8-7.7); Neutrophils % 57.8 %; Nucleated Red Blood Cells % 0 %; Platelet Count 359 10^3/cmm (130-400); Red Blood Count 3.74 10^6/uL (4.1-5.3); Red Cell Distribution Width 12.6 % (12.1-15.1); White Blood Count 9.2 10^3/uL (4.0-10.0)
[2019-12-29 05:08] LABS: Anion Gap 17.5 (5-19); Blood Urea Nitrogen 17 mg/dL (8-23); Calcium 9.3 mg/dL (8.5-10.5); Carbon Dioxide 23 mmol/L (22-29); Chloride 104 mmol/L (98-107); Glucose 101 mg/dL (65-115); Osmolality Calculated 287 mOsm/kg (285-295); Potassium 4.5 mmol/L (3.5-5.1); Sodium 140 mmol/L (136-145)
--- NOTE | 2019-12-29 06:00 | ECG_ITS ---
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 Interpretive Statements NAME OF STUDY: LEXISCAN SESTAMIBI STRESS TEST INDICATION: Chest Pain PROCEDURE: At the baseline, the EKG revealed sinus rhythm with some nonspecific T wave changes. The baseline blood pressure was 134/60 mm Hg with a heart rate of 74 beats/min. Lexiscan was infused over a period of 20 seconds. A total of 0.4 milligrams of Lexiscan was infused. The stress phase was continued for a total of 5 minutes. Heart rate at the end of the stress phase was 95 with a blood pressure 128/44. The EKG at the peak infusion revealed no significant changes. Sestamibi was injected 20 seconds after the Lexiscan infusion. Blood pressure at the end of the recovery phase was 141/55 with a heart rate of 85 per minute. CONCLUSION: 1. No significant EKG changes with the LexiScan infusion 2. No LexiScan induced chest pain or cardiac arrhythmia 3. Normal blood pressure and heart rate response 4. Sestamibi/sestamibi perfusion scan pending; see separate report. Electronically Signed On 12-30-2019 18:19:01 CDT by Sagar Antunez M.D. [email or web address]
[2019-12-29 06:16] LABS: Glucose Point of Care 130 mg/dL (70-110)
--- NOTE | 2019-12-29 08:10 | SUR.PREOP ---
Patient reports no pain or discomfort prior to the start of the procedure.
[2019-12-29] MEDS: regadenoson 0.4 Mg/5 ml Syringe IVP (08:21)
[2019-12-29] MEDS: aminophylline 25 mg/mL SDV 10 mL IVP (08:32)
[2019-12-29] MEDS: amlodipine 10 mg Tablet PO (10:07)
[2019-12-29] MEDS: docusate sodium 100 mg Capsule PO ×2 (10:07→17:40)
[2019-12-29] MEDS: metoprolol succinate ER (24 HR) 25 mg Tablet PO (10:07)
[2019-12-29] MEDS: aspirin 81 mg EC Tablet PO (10:08)
[2019-12-29] MEDS: levothyroxine 100 mcg Tablet PO (10:08)
[2019-12-29] MEDS: FUROsemide 40 mg Tablet PO (10:08)
[2019-12-29] MEDS: potassium chloride ER 10 mEq Tablet PO ×2 (10:08→17:40)
[2019-12-29] MEDS: lisinopril 20 mg Tablet 40 MG PO (10:08)
[2019-12-29] MEDS: enoxaparin 80 mg/0.8 mL Syringe SUBCUT (10:18)
[2019-12-29] MEDS: ipratropium-albuterol 3 mL Neb INHALATION ×2 (10:57→22:00)
--- NOTE | 2019-12-29 11:10 | P.PN_ITS ---
Subjective Subjective: Interval history: Patient awake in bed at time of exam today. She reported having shortness of breath at time of stress test. Discussed with patient concern for changes on stress test and the need for further cardiac intervention with cardiac cath. Long discussion with patient about the procedure, she verbalized understanding. Reported that she feels anxious about the upcoming procedure. Discussed with patient and she reported that she has been feeling fatigued over the past several weeks, has had no energy to perform any daily activities that she wants previously enjoyed. Vitals/I&O/Wt Last Vital Signs Temp 98.1 F 12/29/19 07:55 Pulse 79 12/29/19 10:58 Resp 16 12/29/19 10:58 BP 141/55 12/29/19 08:40 Pulse Ox 97 12/29/19 10:58 12/28/19 12/29/19 12/29/19 22:59 06:59 14:59 Intake Total 1200 / 1440 Balance 1200 / 1440 Weight last 48 hrs Weight 87.09 kg Weight 83.007 kg Physical Exam Const: COMMON NORMALS: patient oriented x3 and alert GENERAL APPEARANCE: cooperative ORIENTATION/CONSCIOUSNESS: Yes awake, Yes oriented to person, Yes oriented to place and Yes oriented to time HENMT: COMMON NORMALS: normocephalic and atraumatic HEAD & SCALP: n ormocephalic and atraumatic Eye: COMMON NORMALS: Equal, round and reactive pupils present PUPIL: Yes Equal, round and reactive pupils present Neck/C-Spine: COMMON NORMALS: supple GENERAL: Yes normal visual inspection Resp: COMMON NORMALS: normal respiratory effort and clear to auscultation bilaterally EFFORT & INSPECTION: Yes able to speak in complete sentences AUSCULTATION: clear to auscultation bilaterally, no rhonchi and no wheezes Cardio: COMMON NORMALS: regular rate and regular rhythm RATE: regular rate RHYTHM: regular rhythm OTHER: Systolic murmur, Grade II GI: COMMON NORMALS: Soft to palpation and non-tender INSPECTION: No abdominal distension AUSCULTATION: Yes normoactive bowel sounds PALPATION: Yes Soft to palpation Extremity: OTHER: Trace edema in the lower extremities bilaterally, nonpitting Neuro: COMMON NORMALS: patient oriented x3, CN's II-XII intact bilaterally, moves all extremities and no focal motor deficits SENSORIUM/ORIENTATION: Yes alert, Yes oriented to person, Yes oriented to place and Yes oriented to time SPEECH: speech normal Psych: COMMON NORMALS: mental status grossly normal and cooperative Skin: OTHER: Chronic erythema in the anterior shins bilaterally, secondary to venous stasis Data : 12/29/19 03:46 12/29/19 03:46 A&P Assessment and plan (1) Left chest pressure: Change to inpatient admission due to concern for abnormal stress test Plan for cardiac cath by cardiology today With concern for unstable angina echocardiogram was ordered, cardiology consultation was obtained on date of admission. Due to mild increase in troponin patient underwent stress testing for further evaluation, abnormal stress test now patient plan for cardiac cath today Status: Acute (2) Pre-syncope: Carotid ultrasound shows no significant stenosis CT head performed as noted in H&P, no acute processes Believe this could be cardiogenic in nature Status: Acute (3) Hypertension: Continue metoprolol succinate 25 mg daily Continue benazepril 40 mg daily Continue amlodipine 10 mg daily, may need to discuss with primary care provider if continuing to have lower extremity edema as this can contribute to chronic lower extremity edema. Status: Chronic Qualifiers: Hypertension type: essential hypertension Qualified Code(s): I10 - Es sential (primary) hypertension (4) Controlled type 2 diabetes mellitus with hyperglycemia, without long-term current use of insulin: Holding home glipizide at this time as do not wish for patient to have any hypoglycemic events in the inpatient setting Low-dose sliding scale insulin as needed Last hemoglobin A1c of 6.3 from 10/19/2019 Status: Chronic (5) Mixed hyperlipidemia: Continue on rosuvastatin 20 mg at bedtime Status: Chronic (6) Adult hypothyroidism: TSH within normal limits Levothyroxine 100 mcg daily Status: Chronic Additional A&P Information Dyspnea and chronic cough: CTA of the chest shows negative for PE. Believe patient has underlying COPD, recommend outpatient pulmonary function testing. Right lower extremity tenderness to palpation: Resolved, ultrasound negative for DVT Longstanding history of tobacco abuse: Strongly encourage cessation, oxygen per protocol, patient is on albuterol on an as-needed basis at home, would recommend outpatient pulmonary function testing and further follow-up based on results. DVT prophylaxis: SCDs, Lovenox, treatment dose Diet: N.p.o. for cardiac cath CODE STATUS: Full code Attestations Medical Necessity Statement*: Change to inpatient admission as patient requires further hospitalization due to concern for chest pain with abnormal stress test and unstable angina Coding Level of Care Code Acute Sound Printer for Chg Fwd Diagnoses Left chest pressure R07.89 Pre-syncope R55 Hypertension I10 Hypertension type: essential hypertension Controlled type 2 diabetes mellitus with hyperglycemia, without long-term current use of insulin E11.65 Mixed hyperlipidemia E78.2 Adult hypothyroidism E03.9
--- NOTE | 2019-12-29 11:55 | NMCV_ITS ---
NM garth perf SPECT r/s* [id number] Teresa Garcia Age: 69 Gender: F : 1950 Exam Date: 12/29/2019 07:27 Ordering Phys: Tere Manriquez DO Technologist: DELMI Higgins Exam Location: [facility] Indications: CHEST PAIN STRESS TEST Please see separate stress test report in [facility] for full findings IMAGE PROTOCOL Rest/Stress 1 Lexiscan Day Radiopharmaceutical Dose (mCi) Administration Site Administered by Rest: Tc-99m 11.0 IV DELMI Higgins Sestamibi Stress:Tc-99m 32.7 IV Idalia Ortiz, AUTOMATIC GRINDING MACHINE OPERATOR Sestamibi Rest: 29-Dec-2019 60 Discovery 630 Stress: 29-Dec-2019 30 Discovery 630 0.4mg Lexiscan. Supine position only as patient was unable to lay prone. SPECT RESULTS Technical Quality: Good Raw Data Analysis: Normal Image Corrections: No attenuation or motion correction applied Summed Stress Score: 5 Summed Rest Score: 5 Summed Difference Score: 1 PERFUSION FINDINGS Small to moderate area of decreases uptake in the mid inferolateral, apical lateral, apical inferior and LV apex. Some reversibility was noted in the apical segments. FUNCTIONAL RESULTS (calculated via Gated SPECT) Stress Image LV EF (%): 81 Stress EDV (mL):58 TID: 1.1 Stress ESV (mL):11 FUNCTIONAL FINDINGS: Segmental wall motion analysis revealed moderate hypokinesia of the LV apex IMPRESSIONS 1. Myocardial perfusion may revealing a small to moderate area of decreased tracer uptake in the inferolateral, apical lateral, inferior and LV apex with minimal reversibility in the apical segments, suggestive of myocardial scarring with a very small area of possible makayla-infarction ischemia in the distribution of the left circumflex artery/distal right coronary artery. 2. Normal LV ejection fraction of 81%. 3. LV wall motion abnormality as mentioned above. 4. Normal LV volume. Compared to previous study report from 2017, the perfusion abnormality appears to be new Dr Sagar Antunez MD [facility] (Electronically Signed) Final Date: 29 December 2019 09:46 S
[2019-12-29 12:00] LABS: Glucose Point of Care 221 mg/dL (70-110)
--- NOTE | 2019-12-29 13:03 | PC.CHAP ---
Pastoral Care Encounter/Spiritual Assessment Type of Contact [] Declined clipper automatic visit [] Patient/Family/Request visit [] Outpatient visit [] Follow-up visit [] Physician referral [] Code/Alert [x] Routine visit [] Staff referral [] Actively dying [] Patient sleeping [] Family support [] [] Out of room [] Palliative care [] [x] Receiving care in room [] Pre-surgical visit [] Trauma [] Long length of stay [] ICU visit [] Other: Relational/Emotional Strength [x] Patient feels connected with others/family/visitors/staff [] Distress [] Loneliness/isolation [] Abandonment Spirituality of Patient [x] Person of Thais [] Attends Methodist of their Thais [x] Believes in Prayer [] Reads Bible or Hoahaoism materials [] There are Spiritual issues to be addressed Protective Services Case Worker Interventions [x] Prayer [x] Active listening [x] Non-anxious presence [x] Spiritual/emotional support [] Crisis/trauma care [x] Spiritual counseling [] Bereavement support [] Provided bereavement packet [] Provided Bible/devotional materials [] Provided toy/stuffed animal, coloring book to patient or family member [] Provided Communion [] Anointing/[place] [] Salvation [x] Completed spiritual assessment [] Other: Impact on Illness or Injury [] Angry [] Fearful [] Anxious [] Often cries [] Exhaustion [] Unable to work [] Unable to attend buddhism [] Unable to walk/stand [] Unable to read [] Unable to drive [] Unable to eat/drink [] Unable to sleep [] Unable to be with family [] Patient intubated [] Other: Summary Heart proceedure this after noon, will know later, feels good has a good attitude Time spent with patient 10 mins
[2019-12-29 16:58] LABS: Glucose Point of Care 107 mg/dL (70-110)
--- NOTE | 2019-12-29 17:24 | P.PN_ITS ---
Subjective Subjective: Interval history: Patient had few episodes of chest tightness/heaviness through the night. She had a myocardial perfusion imaging this morning. She was found to have a small to moderate area of decreased tracer uptake in the mid inferolateral, apical lateral, apical inferior and LV apex with very small areas of reversible defect in the apical segments. She denies any new symptoms. Medications: Reviewed: Yes Medication Review Details: Current Medications Acetaminophen (Tylenol) 650 mg PO Q6H PRN PRN Reason: Mild/Mod Pain Or Temp >/= 101 Hydrocodone Bitart/Acetaminophen ([place] 5-325 Mg) 1 tab PO Q4H PRN PRN Reason: MODERATE TO SEVERE PAIN Last Admin: 12/28/19 20:29 Dose: 1 tab Documented by: Albuterol Sulfate (Ventolin) 2 puff INHALATION QID.RESPIRATORY PRN PRN Reason: Shortness Of Breath Albuterol/Ipratropium (Duoneb) 3 ml INHALATION Q6H.RESPIRATORY SURENDRA Last Admin: 12/29/19 09:08 Dose: Not Given Documented by: Albuterol/Ipratropium (Duoneb) 3 ml INHALATION Q6H.RESPIRATORY PRN PRN Reason: SHORTNESS OF BREATH Last Admin: 12/29/19 10:57 Dose: 3 ml Documented by: Aminophylline (Aminophylline) 25 mg IVP Q2M PRN PRN Reason: see dose instructions Stop: 12/30/19 06:50 Last Admin: 12/29/19 08:32 Dose: 25 mg Documented by: Amlodipine Besylate (Norvasc) 10 mg PO DAILY [facility] Last Admin: 12/29/19 10:07 Dose: 10 mg Documented by: Aspirin (Aspirin Ec) 81 mg PO DAILY [facility] Last Admin: 12/29/19 10:08 Dose: 81 mg Documented by: Atorvastatin Calcium (Lipitor) 80 mg PO BEDTIME [facility] Last Admin: 12/28/19 20:28 Dose: 80 mg Documented by: Dextrose (D50w) 25 ml IVP ONCE PRN; Protocol PRN Reason: hypoglycemia protocol Dextrose (D50w) 50 ml IVP PRN PRN; Protocol PRN Reason: hypoglycemia protocol Diphenhydramine HCl (Benadryl) 50 mg PO ONCE ONE Stop: 12/29/19 17:31 Docusate Sodium (Colace) 100 mg PO BID [facility] Last Admin: 12/29/19 10:07 Dose: 100 mg Documented by: Enoxaparin Sodium (Lovenox) 80 mg SUBCUT Q12H [facility] Last Admin: 12/29/19 10:18 Dose: 80 mg Documented by: Furosemide (Lasix) 40 mg PO DAILY [facility] Last Admin: 12/29/19 10:08 Dose: 40 mg Documented by: Glucagon (Glucagen) 1 mg IM ONCE PRN; Protocol PRN Reason: Adult Acute Hypoglycemia Prot. Dextrose (D5w) 500 mls @ 100 mls/hr IV ONCE PRN; Protocol PRN Reason: Adult Acute Hypoglycemia Prot Sodium Chloride (Sodium Chloride 0.9%) 1,000 mls @ 50 mls/hr IV .Q20H ONE Stop: 12/30/19 13:29 Insulin Aspart (Novolog) 0 unit SUBCUT BEDTIME [facility]; Protocol Last Admin: 12/28/19 20:28 Dose: 2 unit Documented by: Insulin Aspart (Novolog) 0 unit SUBCUT TIDWM [facility]; Protocol Last Admin: 12/29/19 16:59 Dose: Not Given Documented by: Levothyroxine Sodium (Synthroid) 100 mcg PO DAILY [facility] Last Admin: 12/29/19 10:08 Dose: 100 mcg Documented by: Lisinopril (Prinivil) 40 mg PO DAILY [facility] Last Admin: 12/29/19 10:08 Dose: 40 mg Documented by: Metoprolol Succinate (Toprol Xl) 25 mg PO DAILY [facility] Last Admin: 12/29/19 10:07 Dose: 25 mg Documented by: Morphine Sulfate (Morphine) 2 mg IVP Q4H PRN PRN Reason: SEVERE PAIN Last Admin: 12/28/19 21:35 Dose: 2 mg Documented by: Naloxone HCl (Narcan) 0.1 mg IVP Q2M PRN PRN Reason: OPIATERV Nitroglycerin (Nitrostat) 0.4 mg SUBLINGUAL Q5M PRN PRN Reason: CHEST PAIN Stop: 12/30/19 06:50 Ondansetron HCl (Zofran) 4 mg PO Q8H PRN PRN Reason: NAUSEA Ondansetron HCl (Zofran) 4 mg IVP Q2M PRN PRN Reason: NAUSEA Potassium Chloride (Klor-Con 10) 10 meq PO BID [facility] Last Admin: 06/23/20 10:08 Dose: 10 meq Documented by: Vitals/I&O/Wt Last Vital Signs Temp 98.2 F 12/29/19 16:00 Pulse 73 12/29/19 16:00 Resp 23 H 12/29/19 16:00 BP 133/57 12/29/19 16:00 Pulse Ox 93 12/29/19 16:00 12/29/19 12/29/19 12/29/19 06:59 14:59 22:59 Intake Total 1200 / 1440 120 / 120 Balance 1200 / 1440 120 / 120 Weight last 48 hrs Weight 192 lb Weight 183 lb Physical Exam Narrative: EXAM NARRATIVE: GENERAL: The patient is alert and oriented times three. Not in any acute distress. HEENT: No significant pallor, icterus or lymphadenopathy. The pupils are reactant to light. Oral cavity: There are no mucous membrane lesions. NECK: Trachea appears to be central. No masses noted. No JVD or thyromegaly dianelys reciated. No bruit bilaterally RESPIRATORY: Chest is symmetrical. No intercostals muscle retraction or any accessory muscle activation. There is no chest wall tenderness. Breath sounds are heard bilaterally. No rales or rhonchi heard. No evidence of any consolidation. BREASTS: Deferred. HEART: The PMI could not be palpated no other palpable precordial events. First and second heart sounds are normal. No S3. Ejection systolic murmur grade 3/6 in the aortic area. No diastolic murmurs. No pericardial rub. ABDOMEN: No vessel pulsations or distention. No tenderness. No organomegaly appreciated. No abdominal bruit. Bowel sounds are normally heard. : Deferred. RECTAL: Deferred. LYMPHATIC: No lymphadenopathy noted in the neck or groin. EXTREMITIES: No edema or cyanosis. No clubbing. The pulses are symmetrical bilaterally. The radial, femoral, dorsalis pedis and the posterior tibial pulses are palpated and found to be in good volume and amplitude. MUSCULOSKELETAL: No acute joint deformities or swelling SKIN: There are no significant scars or skin rash noted. NEUROPSYCHIATRIC: The patient is alert and oriented x3. Appears to be in a good mood. The higher functions are grossly within normal limits. No tremors or rigidity noted. Data : 12/29/19 03:46 12/29/19 03:46 A&P Assessment and plan (1) Chest pain: Patient clinical features may suggest a non-ST elevation myocardial infarction. She has a small area of ischemia, based on the perfusion scan. I discussed with the patient and her daughter in detail, the implication of the test findings. In view of her recurrent episodes of chest pain, in order to further evaluate her coronary status, a cardiac catheterization would be approp riate. The option of continue the medical treatment and optimizing the medication also was discussed. The patient and the family wanted to go ahead with the angiogram because of recurrent episodes of chest pain/shortness of breath. The risk of bleeding, hematoma, vascular injury, myocardial infarction, CVA, renal failure and other concomitant complications were explained in detail. Patient understood this well and consented to proceed. Status: Acute Qualifiers: Chest pain type: other chest pain Qualified Code(s): R07.89 - Other chest pain (2) Mixed hyperlipidemia: May continue on the current medications. Status: Chronic (3) Hypertension: Currently the blood pressure is in normal range. May continue on the current medications. Status: Chronic Qualifiers: Hypertension type: essential hypertension Qualified Code(s): I10 - Essential (primary) hypertension (4) Controlled type 2 diabetes mellitus with hyperglycemia, without long-term current use of insulin: Close monitoring of blood sugar and management as per the primary. Status: Chronic Additional A&P Information Based on the cardiac catheterization data, further recommendations will be made. Attestations Medical Necessity Statement*: Patient requires continued hospital stay for close monitoring and further management Coding Level of Care Code Acute Roll Coverer for [facility] Diagnoses Chest pain R07.89 Chest pain type: other chest pain Mixed hyperlipidemia E78.2 Hypertension I10 Hypertension type: essential hypertension Controlled type 2 diabetes mellitus with hyperglycemia, without long-term current use of insulin E11.65
[2019-12-29] MEDS: diphenhydrAMINE 50 mg Capsule PO (17:40)
[2019-12-29] MEDS: sodium chloride 0.9% 1,000 ML 50 ML IV (17:40)
--- NOTE | 2019-12-29 18:00 | XACV_ITS ---
Exam Room: [facility] Ht: 157 cm Wt: 87 kg BSA: 1.99 m2 Gender: Female : 1950 Any Known Allergies: Other Exam Priority: Routine Procedure(s): Procedure Description: Diagnostic procedure Procedure Description: Left Heart Catheterization Procedure Description: Left ventriculography Procedure Description: Coronary Angiography Diagnostic Cath Status: Elective Diagnostic Findings Atypical chest pain with several risk factors. Coronary angiography recommended. Anatomy reveals right coronary artery dominance. The left main, LAD, circumflex and right coronary arteries are normal. Interventional RX Recommendation: none Diagnostic RX Recommendation: none Anticoagulation: Heparin Ejection Fraction: 65.0 % Pressures Phase:Rest AO : 111 mmHg / 53 mmHg ( 64 mmHg ) @ 2:00:00 PM 75 mmHg / 40 mmHg ( 55 mmHg ) @ 2:01:00 PM 122 mmHg / 49 mmHg ( 76 mmHg ) @ 2:07:00 PM 123 mmHg / 49 mmHg ( 76 mmHg ) @ 2:07:00 PM LV : 138 mmHg / -8 mmHg / @ 2:06:00 PM 139 mmHg / -5 mmHg / @ 2:07:00 PM 139 mmHg / -4 mmHg / @ 2:07:00 PM Valves Phase:DefaultPhase AV : 17.0 mmHg @ 7:12:00 PM AV Mean Gradient: 14.0 mmHg @ 7:12:00 PM Clinical Evaluation EBL: 5mL-10mL Procedural Details Procedure Consent Obtained. Pre-Procedure Time Out. Identified patient by full name and date of as verbalized by the patient/guarantor. Does the consent match the physician's order: Yes. Accurate & Complete Informed Consent: Yes. Inpatient/Outpatient History & Physical on Chart: Yes. If H&P is completed, is and addenduem needed: No; If yes, is the addendum complete: N/A. Visualize and Verify Site with Patient/Guarantor: N/A. Relevant Radiology Images available: N/A. Pre-op teaching completed and patient verbalized understanding. The risks, benefits, and alternatives of sedation and/or procedure were discussed by physician. The patient agrees to continue. Procedure started. [facility] Clinical Fraility Score: 3: Managing Well. 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 Chest Pain Symptom Assessment: Atypical Angina. Cardiovascular Instability: No. Correct patient, site and procedure confirmed by cath team. PERRLA. Strong, equal hand packaging sales bilaterally. Lungs clear x 5 lobes. IV Site on Arrival: 20 gauge in the left anticubital. IV Fluids: 0.9% NaCl at KVO. 0 mL infused prior to laborer livestock. Pre Procedural Pulses: bilateral dorsalis pedis was 3+. Pre Procedural Pulses: bilateral posterior tibial was 3+. Pre Procedural Pulses: bilateral radial was 3+. Oxygen started at 2liters/min via nasal canula. Physician arrived. Equipment: 6F - Radial. Cardiac Cath Pack. ACIST Manifold Kit Model BT 2000. Heparinized Saline (2 units/mL), 1000 mL bag. bilateral groins was prepped with chloroprep then draped in the usual sterile fashion. right radial was prepped with chloroprep then draped in the usual sterile fashion. Baseline sample Acquired. HR: 73 BPM. Physician scrubbed in. Immediate Pre-Procedure Time Out. Correct Patient: Yes; Correct Procedure: Yes; Correct Site: Yes; Correct Patient Position: Yes; Correct Supplies: Yes; Dried Flammable Prep: Yes; Blood Products Available: N/A;. Lidocaine 1% infiltrated to the right radial. Arterial access obtained. A 6 nepali TIG catheter in over wire. Multiple views taken of left coronary artery. Catheter redirected to the RCA. Multiple views taken of right coronary artery. Catheter out. A 6 nepali Angled Pig catheter in over wire. EDP Sample taken: LV 138/-9,17; HR: 90 BPM; SpO2: 89%. LV gram performed in HERRERA @ 10 mL/second for a total of 30 mL. EDP Sample taken: LV 139/-6,19; HR: 89 BPM; SpO2: 88%. Pullback taken: LV 139/-5,19; AO 122/49(76); Mean: 14mmHg, Peak to Peak: 17mmHg, SEP: 22sec/min; HR: 89 BPM; SpO2: 84%. Catheter out. Physician scrubbed out. A TR Band was successful obtaining hemostatsis at the Right Radial artery insertion site. TR band placed. Hemostasis obtained. Post Procedure: Pulses reassessed and unchanged. PERRLA. Strong, equal hand packaging sales bilaterally. No VTE prophylaxis required. Medication's Wasted: Nitro = 49.8 mg. Medication's Wasted: Lidocaine 1% = 18 mL. Medication's Wasted: Heparin = 1000 units. Total IV fluids: 75 mL. Post-op diagnosis: chest pain. Complications: none. Estimated blood loss: 5mL-10mL. Procedure completed. Patient transferred by wheelchair to 1st floor. Vital chart was stopped. Site: Right Radial artery Sheath Size: 6 Fr Hemostasis Method: TR Band Hemostasis Success: Successful Procedure Medications Start: 6:49 PM Stop: 6:49 PM Medication: Versed Amount: 1 mg Route: I.V. Start: 6:49 PM Stop: 6:49 PM Medication: Fentanyl Amount: 50 mcg Route: I.V. Start: 6:57 PM Stop: 6:57 PM Medication: Verapamil Amount: 5 mg Route: I.A. Start: 6:57 PM Stop: 6:57 PM Medication: Nitrogylcerin Amount: 200 mcg Route: I.A. Start: 7:00 PM Stop: 7:00 PM Medication: Heparin Amount: 5000 units Route: I.V. Start: 7:01 PM Stop: 7:01 PM Medication: Versed Amount: 1 mg Route: I.V. Start: 7:01 PM Stop: 7:01 PM Medication: Fentanyl Amount: 50 mcg Route: I.V. I, the attending physician, have reviewed and verified all procedure medications. Yes, all medications given per verbal order History/Risk Factors Hypertension: Yes Dyslipidemia: Yes Diabetic Therapy: Insulin Peripheral Arterial Disease (PAD): No Myocardial Infarction (FL): No Obesity: No Renal Disease: No Tobacco Use: Current/Recent(w/in 1 year) Prior Interventions PCI: No CABG: No Valve Surgery: No Report Signatures Finalized by:Dr. Jordi Bales MD on 12/29/2019 7:21:10 PM
--- NOTE | 2019-12-29 18:55 | PC.NURSE ---
Received report from Ana Lance RN. Patient currently in cardiac label drier.
--- NOTE | 2019-12-29 19:48 | PC.NURSE ---
Patient received from label machine operator at 1924 via wheelchair. Patient is s/p [facility] with right radial access and has TR band in place. No s/s of bleeding or hematoma formation observed. Instructed patient on site care and restrictions. Patient demonstrated and verbalized understanding stating I don't want to do anything to cause me problems.
[2019-12-29 20:29] LABS: Glucose Point of Care 128 mg/dL (70-110)
[2019-12-29] MEDS: quetiapine 25 mg Tablet PO (21:14)
[2019-12-29] MEDS: sodium chloride 0.9% 1,000 ML 100 ML IV (21:14)
[2019-12-29] MEDS: atorvastatin 40 mg Tablet 80 MG PO (21:14)
--- NOTE | 2019-12-29 21:22 | PC.NURSE ---
Initiated TR band removal at 2014 removing 3ml of air from the band. Continued to remove 3ml of air every 10 to 15min until all air removed and band removed at this time. No s/s of bleeding or hematoma formation observed. Covered site with 2x2 and bio-occlusive. Reinforced site care and restrictions. Patient verbalized complete understanding. Informed Dr Jasso of patient request for something to help with sleep. Order was placed by Dr Jasso.
--- NOTE | 2019-12-29 22:02 | PC.NURSE ---
Patient c/o severe itching to legs. Applied thin layer of Aloe Ariel cream to bilateral lower legs. Patient expressed thanks.
[2019-12-30] VITALS: BP 127/58; PULSE 80; RESP 24
[2019-12-30 00:03] VITALS: BP 127/58; PULSE 77; RESP 26; O2SAT 99
[2019-12-30 03:35] VITALS: BP 111/51; PULSE 73; RESP 24; TEMP 36.8; O2SAT 92
[2019-12-30 03:53] LABS: Basophils % 0.6 %; Eosinophils # 0.2 10^3/uL (0.0-0.8); Eosinophils % 2.5 %; Hematocrit 33.5 % (37.0-47.0); Lymphocytes # 2.3 10^3/uL (0.8-4.8); Lymphocytes % 33.8 %; Mean Corpuscular HGB Conc 32.8 g/dL (30.0-36.0); Mean Corpuscular Hemoglobin 31.4 pg (28.0-34.0); Mean Corpuscular Volume 95.7 fL (81-99); Mean Platelet Volume 8.3 fL (7.4-10.4); Monocytes # 1.1 10^3/uL (0.2-0.9); Monocytes % 16.5 %; Neutrophils # 3.1 10^3/uL (1.8-7.7); Neutrophils % 46.5 %; Nucleated Red Blood Cells % 0 %; Platelet Count 317 10^3/cmm (130-400); Red Cell Distribution Width 12.7 % (12.1-15.1); White Blood Count 6.8 10^3/uL (4.0-10.0)
[2019-12-30 04:17] LABS: Anion Gap 17.1 (5-19); Blood Urea Nitrogen 18 mg/dL (8-23); Carbon Dioxide 22 mmol/L (22-29); Chloride 102 mmol/L (98-107); Glucose 121 mg/dL (65-115); Osmolality Calculated 282 mOsm/kg (285-295); Potassium 4.1 mmol/L (3.5-5.1); Sodium 137 mmol/L (136-145)
[2019-12-30] MEDS: sodium chloride 0.9% 1,000 ML 100 ML IV (04:46)
--- NOTE | 2019-12-30 05:29 | PC.NURSE ---
Patient up to bathroom and up to chair. Coffee provided as requested. Patient offered shower this am but refused for now stating, I am supposed to go home today. Dressing to right wrist remains c,d,i. No s/s of bleeding or hematoma formation observed.
[2019-12-30 06:19] LABS: Glucose Point of Care 187 mg/dL (70-110)
[2019-12-30] MEDS: levothyroxine 100 mcg Tablet PO (08:26)
[2019-12-30] MEDS: docusate sodium 100 mg Capsule PO (08:26)
[2019-12-30] MEDS: FUROsemide 40 mg Tablet PO (08:26)
[2019-12-30] MEDS: potassium chloride ER 10 mEq Tablet PO (08:26)
[2019-12-30] MEDS: lisinopril 20 mg Tablet 40 MG PO (08:27)
[2019-12-30] MEDS: metoprolol succinate ER (24 HR) 25 mg Tablet PO (08:27)
[2019-12-30] MEDS: amlodipine 10 mg Tablet PO (08:28)
[2019-12-30] MEDS: aspirin 81 mg EC Tablet PO (08:29)
[2019-12-30] MEDS: ipratropium-albuterol 3 mL Neb INHALATION (09:48)
--- NOTE | 2019-12-30 09:51 | P.DS_ITS ---
Discharge Providers Date of Admission: 12/29/19 11:16 Date of Discharge: December 30, 2019 Attending Provider at Admission: Tere Manriquez DO Attending Provider at Discharge: Tere Manriquez DO Diagnoses at Discharge Discharge Diagnosis (1) Chest pain: Status: Acute Problem details: With normal coronary angiogram on 12/29/2019 Qualifiers: Chest pain type: other chest pain Qualified Code(s): R07.89 - Other chest pain (2) Mixed hyperlipidemia: Status: Chronic (3) Hypertension: Status: Chronic Qualifiers: Hypertension type: essential hypertension Qualified Code(s): I10 - Essential (primary) hypertension (4) Controlled type 2 diabetes mellitus with hyperglycemia, without long-term current use of insulin: Status: Chronic Reason for Visit Reason for Visit: CHEST PAIN Hospital Course Hospital Course: Patient was seen and evaluated in the emergency department noted to have concern for chest pain and dyspnea as well as presyncopal episode. Patient was admitted for further evaluation and treatment. Had serial EKG and troponin, EKG showed nonspecific changes. Third troponin did have increase in delta therefore cardiology was consulted due to question of non-ST elevation CO. Due to very minimal delta patient was scheduled for cardiac stress testing, cardiac stress testing revealed small area with question of ischemic changes that appeared to be reversible. Patient was taken for cardiac cath on 12/29/2019, coronary arteries were noted to be normal with no obstructive coronar y artery disease. Normal LVEF. Patient also had a CTA of her chest performed which showed granulomatous disease, prior, no acute pulmonary embolism, no infiltrate. Discussed with patient the recommendation to stop smoking and recommendation for outpatient pulmonary function testing. Patient did report some increasing depression over the past several months, discussed with patient consideration of treatment and she verbalized that she did not wish to start any medical management at this time. Discussed with patient and encouraged tobacco cessation, discussed nicotine teen supplementation and medications, she verbalized understanding, counseling of 5 minutes. On date of discharge patient denied any chest pain or shortness of breath, stated that feels she was feeling well and ready for discharge to home Physical Exam Const: COMMON NORMALS: patient oriented x3 and alert GENERAL APPEARANCE: cooperative ORIENTATION/CONSCIOUSNESS: Yes awake, Yes oriented to person, Yes oriented to place and Yes oriented to time HENMT: COMMON NORMALS: normocephalic and atraumatic HEAD & SCALP: normocephalic and atraumatic Eye: COMMON NORMALS: Equal, round and reactive pupils present PUPIL: Yes Equal, round and reactive pupils present Neck/C-Spine: COMMON NORMALS: supple GENERAL: Yes normal visual inspection Resp: COMMON NORMALS: normal respiratory effort and clear to auscultation bilaterally EFFORT & INSPECTION: Yes able to speak in complete sentences AUSCULTATION: clear to auscultation bilaterally, no rhonchi and no wheezes Cardio: COMMON NORMALS: regular rate and regular rhythm RATE: regular rate RHYTHM: regular rhythm OTHER: Systolic murmur, Grade II GI: COMMON NORMALS: Soft to palpation and non-tender INSPECTION: No abdominal distension AUSCULTATION: Yes normoactive bowel sounds PALPATION: Yes Soft to palpation Extremity: OTHER: Trace edema in the lower extremities bilaterally, nonpitting Neuro: COMMON NORMALS: patient oriented x3, CN's II-XII intact bilaterally, moves all extremities and no focal motor deficits SENSORIUM/ORIENTATION: Yes alert, Yes oriented to person, Yes oriented to place and Yes oriented to time SPEECH: speech normal Psych: COMMON NORMALS: mental status grossly normal and cooperative Skin: OTHER: Chronic erythema in the anterior shins bilaterally, secondary to venous stasis Discharge Data Data Completed and Pending: Completed Studies During Hospitalization Category Date Time Status CT angio chest PE protcl [id number] Rout ine Cat Scan 12/28/19 13:[address] head wo con* [id number] Stat Cat Scan 12/28/19 08:58 Completed STYLE ADVISOR request for service Routin e Exams 12/29/19 18:00 Completed Sestamibi Stress Test Request Routi ne Exams 12/29/19 06:00 Draft XR chest 1V trevor ble [id number] Stat Exams 12/28/19 08:36 Completed NM garth perf SPECT r/s* [id number] Routin e Nuc Med 12/29/19 11:55 Completed CV carotid duplex BI* [id number] Routine Ultrasound 12/28/19 11:55 Completed CV echo complete* [id number] Routine Ultrasound 12/28/19 11:55 [place] [id number] Routin e Ultrasound 12/28/19 12:19 Completed Pending at discharge Category Date Time Status Sestamibi Stress Test Request Routi ne Exams 12/28/19 11:55 Stop Req Basic Metabolic P [place] AM LABS Lab 12/31/19 04:00 Ordered Complete Blood Co unt w/Auto AM LABS Lab 12/31/19 04:00 Ordered Labs from last 24 hours 12/30/19 12/30/19 12/30/19 06:15 03:37 03:37 WBC 6.8 RBC 3.50 L Hgb 11.0 L Hct 33.5 L MCV 95.7 MCH 31.4 MCHC 32.8 RDW 12.7 Plt Count 317 MPV 8.3 Neut % (Auto) 46.5 Lymph % (Auto) 33.8 [place] % (Auto) 16.5 Eos % (Auto) 2.5 Baso % (Auto) 0.6 Neut # (Auto) 3.1 Lymph # (Auto) 2.3 [place] # (Auto) 1.1 H Eos # (Auto) 0.2 Baso # (Auto) 0.0 Nucleated RBC % (a uto) 0 Nucleated RBCs # 0.0 Sodium 137 Potassium 4.1 Chloride 102 Carbon Dioxide 22 Anion Gap 17.1 BUN 18 Creatinine 1.1 H Glucose 121 H POC Glucose 187 Calculated Osmolal ity 282 L Calcium 9.0 12/29/19 12/29/19 12/29/19 20:16 16:47 11:47 WBC RBC Hgb Hct MCV MCH MCHC RDW Plt Count MPV Neut % (Auto) Lymph % (Auto) [place] % (Auto) Eos % (Auto) Baso % (Auto) Neut # (Auto) Lymph # (Auto) [place] # (Auto) Eos # (Auto) Baso # (Auto) Nucleated RBC % (a uto) Nucleated RBCs # Sodium Potassium Chloride Carbon Dioxide Anion Gap BUN Creatinine Glucose POC Glucose 128 107 221 Calculated Osmolal ity Calcium Vitals: Last Vital Signs Temp 98.3 F 12/30/19 03:35 Pulse 73 12/30/19 03:35 Resp 24 H 12/30/19 03:35 BP 111/51 12/30/19 03:35 Pulse Ox 92 12/30/19 03:35 Discharge Plan Discharge Patient Disposition: Home, Self-Care Condition: Stable Prescriptions: New nitroglycerin 0.4 mg tablet, sublingual 0.4 mg SUBLINGUAL Q5M PRN (Reason: chest pain) Qty: 20 RF: 0 Continued aspirin 81 mg tablet,delayed release (DR/EC) 81 mg PO DAILY RF: 0 albuterol sulfate [Ventolin HFA] 90 mcg/actuation HFA aerosol inhaler 2 puff INHALATION QID PRN (Reason: Shortness Of Breath) RF: 0 amlodipine 10 mg tablet 10 mg PO DAILY Qty: 90 RF: 0 benazepril 40 mg tablet 40 mg PO DAILY Qty: 90 RF: 0 furosemide 40 mg tablet 40 mg PO DAILY Qty: 90 RF: 0 glipizide 5 mg tablet extended release 24hr 5 mg PO BID Qty: 180 RF: 0 potassium chloride 10 mEq tablet extended release 10 meq PO BID Qty: 180 RF: 0 rosuvastatin [Crestor] 20 mg tablet 20 mg PO DAILY Qty: 90 RF: 0 levothyroxine 100 mcg tablet 100 mcg PO DAILY Qty: 90 RF: 0 metoprolol succinate [Toprol XL] 25 mg tablet extended release 24 hr 25 mg PO DAILY Qty: 90 RF: 0 Discharge Orders: Discharge Order (Routine); Ordered 12/30/19 Ordered By: Tere Manriquez Other Ambulatory Orders: Pulmonary Function Screen with Bronchodilator (Routine) Timeframe: 1 Month Facility: [facility] - Location: Respiratory Therapy Ordered By: Tere Manriquez Referrals: Karla Gallegos FNP-C [Family Provider] - 4-7 days (Recommend outpatient pulmonary function testing in 2 to 4 weeks) Discharge Diet: Advance as tolerated and Diabetic Discharge Activity: Increase activity as tolerated Activity Restrictions/Additional Instructions: You were admitted for chest pain and dizziness which resulted in a presyncopal episode, near passing out episode. You had a stress test performed as well as a CT scan of your chest performed. Also had a cardiac catheterization which revealed normal coronary arteries with no obstructive coronary artery disease. CT scan did show some prior granulomatous disease, would recommend outpatient follow-up per screening guidelines with a low-dose CT scan due to history of tobacco abuse Follow-up with your primary care provider in 5 to 7 days Recommend outpatient pulmonary function test for further evaluation due to long history of tobacco use On date of discharge discussed concern for depression, could be situational due to significant changes with CO VID-19, continue to monitor symptoms closely and would recommend further discussion with your primary care provider about the symptoms. Discussed medication options, however patient wished to hold off at this time. Recommended tobacco cessation, consider use of nicotine patches or nicotine gum with a gradual taper off. Discussed with patient consideration of bupropion 100 mg twice daily to help with depression and tobacco cessation, however patient wished to hold off at this time, recommend to continue to discuss with your primary care provider. Call your physician or present to the ED for any acute illness or concern. Continue to monitor blood sugars and present a log to your primary care provider for adjustment of medication as indicated With chronic swelling in the legs follow-up with your primary care provider, sometimes amlodipine can contribute to this, if this persist would recommend further discussion with your primary care provider for potentially adjusting blood pressure medications. Discharge Attestations Time Spent in Discharge Care*: greater than 30 min Specific Discharge Activities: Specific discharge activities: educating patient, educating and/or supporting family/caregiver and documenting/other paperwork Time Spent in Smoking Cessation: Time spent discussing smoking cessation with patient: 3 to 10 minutes Details of Smoking Cessation Education: Discussed tobacco cessation including risk of benefits of stopping smoking. Discussed consideration of medication to help including bupropion, however patient did not wish to start any medications at this time. Quality Metrics Clinical Quality Measures During this hospital stay, did patient experience: None Coding Level of Care Code Acute Senior Planning Manager for Ian Navarro Diagnoses Chest pain R07.89 Chest pain type: other chest pain Mixed hyperlipidemia E78.2 Hypertension I10 Hypertension type: essential hypertension Controlled type 2 diabetes mellitus with hyperglycemia, without long-term current use of insulin E11.65
--- NOTE | 2019-12-30 09:51 | PC.CHAP ---
Pastoral Care Encounter/Spiritual Assessment Type of Contact [] Declined gas appliance servicer visit [] Patient/Family/Request visit [] Outpatient visit [] Follow-up visit [] Physician referral [] Code/Alert [x] Routine visit [] Staff referral [] Actively dying [] Patient sleeping [] Family support [] [] Out of room [] Palliative care [] [] Receiving care in room [] Pre-surgical visit [] Trauma [] Long length of stay [] ICU visit [] Other: Relational/Emotional Strength [] Patient feels connected with others/family/visitors/staff [] Distress [] Loneliness/isolation [] Abandonment Spirituality of Patient [] Person of Thais [] Attends Rastafarian of their Thais [] Believes in Prayer [] Reads Bible or Scientologist materials [] There are Spiritual issues to be addressed Capacity Planning Manager Interventions [x] Prayer [x] Active listening [x] Non-anxious presence [x] Spiritual/emotional support [] Crisis/trauma care [] Spiritual counseling [] Bereavement support [] Provided bereavement packet [] Provided Bible/devotional materials [] Provided toy/stuffed animal, coloring book to patient or family member [] Provided Communion [] Anointing/[place] [] Salvation [x] Completed spiritual assessment [] Other: Impact on Illness or Injury [] Angry [] Fearful [] Anxious [] Often cries [] Exhaustion [] Unable to work [] Unable to attend mandaeism [] Unable to walk/stand [] Unable to read [] Unable to drive [] Unable to eat/drink [] Unable to sleep [] Unable to be with family [] Patient intubated [] Other: Summary Patient setting up.Feeling stronger Time spent with patient 10 min
[2019-12-30 10:28] VITALS: BP 111/51; PULSE 73; RESP 24; TEMP 36.8; O2SAT 92
[2019-12-30 11:00] VITALS: BP 111/51; PULSE 73; RESP 24; TEMP 36.8; O2SAT 92
--- NOTE | 2019-12-30 15:16 | PC.RESP ---
Smoking Cessation information and a schedule of classes sent to patient.
== END 2019-12-30 11:00 | disposition home or self-care (01) | DRG 287 ==
LOC: ER 09:16 → CSU 11:26
PROVIDERS: Family Medicine; Internal Medicine Cardiovascular Disease; Admitting Provider Family Medicine; Family Provider Nurse Practitioner; Visit Provider Family Medicine
DX: I20.0 Unstable angina (principal); E78.2 Mixed hyperlipidemia; F17.210 Nicotine dependence, cigarettes, uncomplicated; I10 Essential (primary) hypertension; E11.65 Type 2 diabetes mellitus with hyperglycemia; E03.9 Hypothyroidism, unspecified; E55.9 Vitamin D deficiency, unspecified; E66.3 Overweight; Z68.34 Body mass index [BMI] 34.0-34.9, adult; Z79.4 Long term (current) use of insulin
CPT/HCPCS: 12345; 36415; 36416; 70450; 71045; 71275; 78452; 80048; 80053; 82550; 82962; 83735; 83880; 84100; 84443; 84484; 85025; 85378; 85610; 85730; 93005; 93017; 93306; 93452; 93880; 93970; 93971; 94640; 94664; 96372; 96374; 99283; A9500; C1769; C1887; C1894; G0378; J0280; J1644; J1650; J1815; J2001; J2250; J2270; J2785; J3010; J3490; J7030; Q0163; Q9967

== ENCOUNTER → 2020-01-04 11:32 | Outpatient (BNVA) | payer MEDICARE, SELFPAY | PROVIDERS: Family Provider Nurse Practitioner; Visit Provider Nurse Practitioner | DX: E11.65 Type 2 diabetes mellitus with hyperglycemia (principal); I10 Essential (primary) hypertension; E03.9 Hypothyroidism, unspecified; F41.9 Anxiety disorder, unspecified | CPT/HCPCS: 83036 ==

== ENCOUNTER → 2020-02-01 16:06 | Outpatient (BNVA) | payer MEDICARE, SELFPAY | PROVIDERS: Family Provider Nurse Practitioner; Visit Provider Nurse Practitioner | DX: J02.9 Acute pharyngitis, unspecified (principal); R50.9 Fever, unspecified; Z11.59 Encounter for screening for other viral diseases; J40 Bronchitis, not specified as acute or chronic; B37.0 Candidal stomatitis | CPT/HCPCS: 80053; 81000; 85025; 87071; 87635; 87880 ==

== ENCOUNTER → 2020-03-28 09:39 | Outpatient (BNVA) | payer MEDICARE, SELFPAY | PROVIDERS: Family Provider Nurse Practitioner; Visit Provider Nurse Practitioner | DX: E03.9 Hypothyroidism, unspecified (principal); E11.65 Type 2 diabetes mellitus with hyperglycemia | CPT/HCPCS: 80053; 80061; 81000; 82043; 83036; 84443 ==

== ENCOUNTER 2020-06-07 15:43 | Outpatient (CLI) | payer MEDICARE, SELFPAY ==
--- NOTE | 2020-06-07 15:50 | CT_ITS ---
WS: [id number] CT HEAD NONCONTRAST HISTORY: S09.90XA - Unspecified injury of head, initial encounter TECHNIQUE: Contiguous axial imaging performed through the brain in 2.5 mm imaging. Bone and soft tiss ue windows. All CT scans at [facility] use at least one of these dose optimization techniq ues: automated exposure control; mA and/or kV adjustment per patient size (includes targeted exams wh ere dose is matched to clinical indication); or iterative reconstruction. DLP: 992.04 mGycm COMPARISON: 12/28/2019 No acute intracranial hemorrhage, midline shift or mass effect. Very mild atrophy. Minimal chronic ischemic disease. Ventricles: Normal size with no hydrocephalus. Paranasal sinuses: As visualized are clear. Mastoid air cells: Well pneumatized. Calvarium and scalp: No skull fracture. There is a small scalp hematoma centered over the posterior L EFT parietal occipital region. CT/CT head wo con* [id number] IMPRESSION: 1. No acute intracranial hemorrhage or edema. 2. Small scalp hematoma LEFT parietal occipital region. Notified HANK James at 06/07/2020 4:12 PM.
== END 2020-06-07 15:44 | disposition home or self-care (01) ==
LOC: RADWPI 15:50
PROVIDERS: PCP Nurse Practitioner; Visit Provider Nurse Practitioner
DX: S00.03XA Contusion of scalp, initial encounter (principal); W19.XXXA Unspecified fall, initial encounter
CPT/HCPCS: 70450; 73630

== ENCOUNTER → 2020-06-24 09:16 | Outpatient (BNVA) | payer MEDICARE, SELFPAY | PROVIDERS: PCP Nurse Practitioner; Visit Provider Nurse Practitioner | DX: E11.65 Type 2 diabetes mellitus with hyperglycemia (principal); E55.9 Vitamin D deficiency, unspecified; E78.2 Mixed hyperlipidemia; E03.9 Hypothyroidism, unspecified | CPT/HCPCS: 80053; 80061; 82306; 84443 ==

== ENCOUNTER → 2020-06-27 09:55 | Outpatient (BNVA) | payer MEDICARE, SELFPAY | PROVIDERS: PCP Nurse Practitioner; Visit Provider Nurse Practitioner | DX: E11.65 Type 2 diabetes mellitus with hyperglycemia (principal); J44.9 Chronic obstructive pulmonary disease, unspecified; E55.9 Vitamin D deficiency, unspecified; E78.2 Mixed hyperlipidemia; E03.9 Hypothyroidism, unspecified | CPT/HCPCS: 83036; 85025 ==

== ENCOUNTER → 2020-09-23 08:06 | Outpatient (BNVA) | payer MEDICARE, SELFPAY | PROVIDERS: PCP Nurse Practitioner; Visit Provider Nurse Practitioner | DX: E55.9 Vitamin D deficiency, unspecified (principal); E11.65 Type 2 diabetes mellitus with hyperglycemia; E78.2 Mixed hyperlipidemia; E03.9 Hypothyroidism, unspecified | CPT/HCPCS: 80053; 80061; 82306; 83036; 84443; 85025 ==

== ENCOUNTER → 2020-10-21 08:58 | Outpatient (BNVA) | payer MEDICARE, SELFPAY | PROVIDERS: PCP Nurse Practitioner; Referring Provider Internal Medicine; Visit Provider Internal Medicine | DX: Z20.822 Contact with and (suspected) exposure to COVID-19 (principal) | CPT/HCPCS: 87635 ==

== ENCOUNTER 2020-10-26 12:52 | Outpatient (CLI) | payer MEDICARE, SELFPAY ==
--- NOTE | 2020-10-26 13:30 | MM_ITS ---
WS: [id number] BILATERAL DIGITAL SCREENING MAMMOGRAPHY WITH CAD CLINICAL INFORMATION: Z12.39 - Encounter for other screening for malignant neoplasm of breast HISTORY: Screening mammogram. No current complaints. COMPARISON: May 14, 2019 TECHNIQUE: Bilateral CC and MLO views. FINDINGS: Scattered fibroglandular densities bilaterally. No suspicious focal mass, asymmetry, calcifications, or architectural distortion. No evidence of malignancy. Punctate calcifications. Secretory calcificat ions. MM/[place] [id number] IMPRESSION: BI-RADS: 2-Benign FOLLOW UP: 1 Year Follow-up Recommend return to annual screening mammography.
== END 2020-10-26 12:53 | disposition home or self-care (01) ==
LOC: RADSHAW 12:56
PROVIDERS: PCP Nurse Practitioner; Visit Provider Nurse Practitioner
DX: Z12.31 Encounter for screening mammogram for malignant neoplasm of breast (principal)
CPT/HCPCS: 77067

== ENCOUNTER 2020-10-28 08:30 | Day surgery (SDC) | payer MEDICARE, SELFPAY ==
--- NOTE | 2020-10-28 09:17 | ANES.PREANE2 ---
Pre-Anesthetic Assessment Pre-Anesthetic Assessment: Height/Weight: Height 1.57 m Proposed Procedure: Operation Date: 10/28/20 09:45 Proposed Procedures p Colonoscopy G0105 Z80.0(Not Applicable) - Danial Melendez MD Was Beta Heather taken within 24 hours: Yes Was Clonidine taken within 24 hours: N/A Social: Social History: Tobacco and No alcohol Exam: Pre-Anes Outpt Exam: alert, oriented x 3 and regular rate & rhythm Airway: Submandibular: WNL Cervical ROM: WNL MP: 2 Dentition: False Pulmonary: Pulmonary: COPD CV/HEM: CV/HEM: HTN Metabolic: Metabolic: DM and Thyroid Neuropsych: Neuropsych: Anxiety, Depression and Neuropathy Anesthetic Plan: ASA status: 3 Anesthesia: MAC Risk of > 500 ml blood loss (7ml/kg in children): No PFSH Anesthesia PFSH: Medical History Adult hypothyroidism Controlled type 2 diabetes mellitus with hyperglycemia, without long-term current use of insulin COPD (chronic obstructive pulmonary disease) Diverticulosis Environmental and seasonal allergies Hypertension Mixed hyperlipidemia Unstable angina Vitamin D deficiency Surgical History History of cholecystectomy History of foot surgery left History of lumbar surgery Rods in lumbar History of tubal ligation Family History Father Diabetes Mother CAD (coronary artery disease) Other Dementia Social History Smoking and tobacco status: current every day smoker Second hand smoke exposure: Yes Smoking risk assessment/counseling performed?: Yes Alcohol intake: never Desire information about alcohol rehabilitation?: No Counseling given: No Desire information about substance/drug rehabilitation?: No Counseling given: No Adopted: No Caregiver/support person: No Lives independently: Yes Household members: spouse Housing: House Marital status: Number of children: 3 service: No Current occupational status: unemployed History of recent travel: No Current gender identity: Female Data Anesthesia Cardiac Studies: No Data to Display
[2020-10-28 09:19] VITALS: BP 159/76; PULSE 77; RESP 18; TEMP 36.7; O2SAT 98
[2020-10-28] MEDS: sodium chloride 0.9% 1,000 ML 30 ML IV (09:22)
--- NOTE | 2020-10-28 09:28 | W.PM.OPSFHP ---
Same Day Surgery H&P Indication for Procedure/HPI DATE OF PROCEDURE: October 28, 2020 CHIEF COMPLAINT/INDICATIONFOR SURGICAL PROCEDURE: Family history of colon cancer PREOP DIAGNOSIS: Family history of colon cancer PLANNED PROCEDRUE: Operation Date: 10/28/20 09:45 Proposed Procedures p Colonoscopy G0105 Z80.0(Not Applicable) - Danial Melendez MD Medications/Allergies* Home Medications Medication Instructions Recorded Confirmed Type albuterol sulfate 90 mcg/actuation 2 puff INHALATION QID PRN 10/19/19 10/28/20 History aerosol inhaler aspirin 81 mg tablet,delayed 81 mg PO DAILY 10/19/19 10/27/20 History release cholecalciferol (vitamin D3) 25 mcg PO DAILY 10/27/20 10/28/20 History [Vitamin D3] guaifenesin [Diabetic Tussin EX] 100 mg PO Q4H PRN 10/27/20 10/28/20 History omega-3 fatty acids-vitamin E 1 cap PO DAILY 10/27/20 10/28/20 History [Fish Oil] vitamin E 400 unit PO DAILY 10/27/20 10/28/20 History Allergies/Adverse Reactions Allergy/AdvReac Type Severity Reaction Status Date / Time Penicillins Allergy Severe Rash Verified 10/28/20 09:22 Sulfa (Sulfonamide Allergy Severe Rash Verified 10/28/20 09:22 Antibiotics) Latex, Natural Rubber AdvReac Severe Rash Verified 10/28/20 09:22 adhesive AdvReac Intermediate Rash Verified 10/28/20 09:22 trazodone AdvReac Do not Verified 10/28/20 09:22 tolerate Current Medications: Generic Name Dose Route Start Last Admin Trade Name Freq PRN Reason Stop Dose Admin Sodium Chloride 1,000 mls @ 30 mls/hr 10/28/20 09:15 10/28/20 09:22 Sodium Chloride 0.9% IV 10/29/20 09:14 30 mls/hr .Q24H SURENDRA Administration Pertinent History/Comorbid Conditions* Medical History (Updated 10/19/20 @ 11:17 by Danial Melendez MD) Adult hypothyroidism Controlled type 2 diabetes mellitus with hyperglycemia, without long-term current use of insulin COPD (chronic obstructive pulmonary disease) Diverticulosis Environmental and seasonal allergies Hypertension Mixed hyperlipidemia Unstable angina Vitamin D deficiency Surgical History (Updated 10/19/19 @ 11:06 by Glennette R Rosy, LAST REMODELER REPAIRER-C) History of cholecystectomy History of foot surgery left History of lumbar surgery Rods in lumbar History of tubal ligation Family History (Updated 12/28/19 @ 11:07 by Tere Manriquez DO) Diabetes Father CAD (coronary artery disease) Mother Dementia Social History Smoking and tobacco status: current every day smoker Second hand smoke exposure: Yes Smoking risk assessment/counseling performed?: Yes Alcohol intake: never Desire information about alcohol rehabilitation?: No Counseling given: No Desire information about substance/drug rehabilitation?: No Counseling given: No Adopted: No Caregiver/support person: No Lives independently: Yes Household members: spouse Housing: House Marital status: Number of children: 3 service: No Current occupational status: unemployed History of recent travel: No Current gender identity: Female Pertinent Exam Findings alert, oriented x 3, clear to auscultation bilaterally, regular rate & rhythm and procedure specific exam findings Recommendations Surgery/Procedure today Coding Level of Care Code Acute Route Service Representative for Ina Navarro
[2020-10-28 09:32] VITALS: BMI 34.0
[2020-10-28 09:38] LABS: Glucose Point of Care 140 mg/dL (70-110)
[2020-10-28 10:35] VITALS: BP 123/62; PULSE 73; RESP 16; TEMP 36.6; O2SAT 98
--- NOTE | 2020-10-28 10:36 | ANE.PACU2 ---
Inpatient post-anesthesia follow up: Airway intact: Yes Vital signs: Temperature 98.0 F Pulse Rate 77 Respiratory Rate 18 Blood Pressure 159/76 Pulse Oximetry 98 Oxygen Delivery Me thod Room Air Oxygen Flow Rate Fraction of Inspir ed Oxygen Hydration adequate: Yes Nausea and vomiting: No Pain level: 1 Mental status: Baseline
[2020-10-28 10:44] VITALS: BP 104/56; PULSE 68; RESP 16; O2SAT 93
[2020-10-28 10:45] VITALS: BP 104/56; PULSE 68; RESP 16; O2SAT 93
== END 2020-10-28 11:06 | disposition home or self-care (01) ==
PROVIDERS: PCP Nurse Practitioner; Visit Provider Internal Medicine
PROC: 0DJD8ZZ Inspection of Lower Intestinal Tract, Via Natural or Artificial Opening Endoscopic (ICD-10-PCS; CPT 45378; principal; 2020-10-28 09:45)
DX: D12.5 Benign neoplasm of sigmoid colon (principal); Z80.0 Family history of malignant neoplasm of digestive organs; J44.9 Chronic obstructive pulmonary disease, unspecified; I10 Essential (primary) hypertension; E11.9 Type 2 diabetes mellitus without complications; E11.40 Type 2 diabetes mellitus with diabetic neuropathy, unspecified; F41.9 Anxiety disorder, unspecified; F32.9 Major depressive disorder, single episode, unspecified; E03.9 Hypothyroidism, unspecified; E78.2 Mixed hyperlipidemia; F17.210 Nicotine dependence, cigarettes, uncomplicated
CPT/HCPCS: 36416; 45385; 82962; 88305; 96360; 96361; J2704; J7030

== ENCOUNTER → 2020-12-16 09:26 | Outpatient (BNVA) | payer MEDICARE, SELFPAY | PROVIDERS: PCP Nurse Practitioner; Visit Provider Nurse Practitioner | DX: E11.40 Type 2 diabetes mellitus with diabetic neuropathy, unspecified (principal); E03.9 Hypothyroidism, unspecified; E11.65 Type 2 diabetes mellitus with hyperglycemia; E55.9 Vitamin D deficiency, unspecified; E78.2 Mixed hyperlipidemia | CPT/HCPCS: 80053; 80061; 82306; 82607; 83036; 84443 ==

== ENCOUNTER → 2021-03-14 09:23 | Outpatient (BNVA) | payer MEDICARE, SELFPAY | PROVIDERS: PCP Nurse Practitioner; Visit Provider Nurse Practitioner | DX: E11.65 Type 2 diabetes mellitus with hyperglycemia (principal) | CPT/HCPCS: 80053; 83036 ==

== ENCOUNTER → 2021-05-31 08:38 | Outpatient (BNVA) | payer MEDICARE, SELFPAY | PROVIDERS: PCP Nurse Practitioner; Visit Provider Nurse Practitioner | DX: E03.9 Hypothyroidism, unspecified (principal); E11.65 Type 2 diabetes mellitus with hyperglycemia; E55.9 Vitamin D deficiency, unspecified | CPT/HCPCS: 80053; 80061; 82306; 83036; 84443; 85025 ==

== ENCOUNTER → 2021-08-29 09:14 | Outpatient (BNVA) | payer MEDICARE, SELFPAY | PROVIDERS: PCP Nurse Practitioner; Visit Provider Nurse Practitioner | DX: E11.65 Type 2 diabetes mellitus with hyperglycemia (principal); E03.9 Hypothyroidism, unspecified | CPT/HCPCS: 80053; 80061; 83036; 84443 ==

== ENCOUNTER → 2021-09-04 08:58 | Outpatient (BNVA) | payer MEDICARE, SELFPAY | PROVIDERS: PCP Nurse Practitioner; Visit Provider Nurse Practitioner | DX: R19.7 Diarrhea, unspecified (principal); E11.65 Type 2 diabetes mellitus with hyperglycemia; I10 Essential (primary) hypertension; J44.9 Chronic obstructive pulmonary disease, unspecified; E11.40 Type 2 diabetes mellitus with diabetic neuropathy, unspecified; B37.9 Candidiasis, unspecified; E03.9 Hypothyroidism, unspecified; E78.2 Mixed hyperlipidemia; F41.9 Anxiety disorder, unspecified; J30.89 Other allergic rhinitis | CPT/HCPCS: 81000; 85025 ==

== ENCOUNTER → 2021-09-05 09:15 | Outpatient (BNVA) | payer MEDICARE, SELFPAY | PROVIDERS: PCP Nurse Practitioner; Visit Provider Nurse Practitioner | DX: R19.7 Diarrhea, unspecified (principal) | CPT/HCPCS: 83630; 87506 ==

== ENCOUNTER → 2021-09-08 08:54 | Outpatient (BNVA) | payer MEDICARE, SELFPAY | PROVIDERS: PCP Nurse Practitioner; Visit Provider Nurse Practitioner | DX: R05.9 Cough, unspecified (principal); J44.9 Chronic obstructive pulmonary disease, unspecified | CPT/HCPCS: 71046 ==

== ENCOUNTER → 2021-09-18 13:56 | Outpatient (BNVA) | payer MEDICARE, SELFPAY | PROVIDERS: PCP Nurse Practitioner; Visit Provider Nurse Practitioner | DX: J44.9 Chronic obstructive pulmonary disease, unspecified (principal) | CPT/HCPCS: 85025 ==

== ENCOUNTER 2021-11-14 09:04 | Outpatient (CLI) | payer MEDICARE, SELFPAY ==
--- NOTE | 2021-11-14 09:21 | MM_ITS ---
WS: [id number] BILATERAL SCREENING DIGITAL BREAST TOMOSYNTHESIS MAMMOGRAM WITH CAD HISTORY: Z12.39 - Encounter for other screening for malignant neoplasm. COMPARISON: 10/26/2020, 05/14/2019 Bilateral CC and MLO views with tomosynthesis and synthetic mammography submitted. Computer aided det ection analyzed. Breast composition: There are scattered areas of fibroglandular density. No suspicious masses, microc alcifications or architectural distortion. Numerous calcifications throughout the breasts. There are rodlike and round calcifications. Several groups of calcifications in the LEFT breast have been prese nt over the last several years. No increase in size or number. MM/[place] [id number] IMPRESSION: BI-RADS: 2-Benign FOLLOW UP: 1 Year Follow-up
== END 2021-11-14 09:05 | disposition home or self-care (01) ==
LOC: RAD 09:07
PROVIDERS: PCP Nurse Practitioner; Visit Provider Nurse Practitioner
DX: Z12.31 Encounter for screening mammogram for malignant neoplasm of breast (principal)
CPT/HCPCS: 77063; 77067

== ENCOUNTER → 2021-11-27 08:43 | Outpatient (BNVA) | payer MEDICARE, SELFPAY | PROVIDERS: PCP Nurse Practitioner; Visit Provider Nurse Practitioner | DX: E55.9 Vitamin D deficiency, unspecified (principal); E11.65 Type 2 diabetes mellitus with hyperglycemia; E03.9 Hypothyroidism, unspecified | CPT/HCPCS: 80053; 80061; 82306; 83036; 84443 ==

== ENCOUNTER → 2022-02-20 08:28 | Outpatient (BNVA) | payer MEDICARE, SELFPAY | PROVIDERS: PCP Nurse Practitioner; Visit Provider Nurse Practitioner | DX: E55.9 Vitamin D deficiency, unspecified (principal); E03.9 Hypothyroidism, unspecified; E11.65 Type 2 diabetes mellitus with hyperglycemia | CPT/HCPCS: 80053; 80061; 82306; 83036; 84443 ==

== ENCOUNTER → 2022-05-14 08:35 | Outpatient (BNVA) | payer MEDICARE, SELFPAY | PROVIDERS: PCP Nurse Practitioner; Visit Provider Nurse Practitioner | DX: E03.9 Hypothyroidism, unspecified (principal); E11.40 Type 2 diabetes mellitus with diabetic neuropathy, unspecified; E11.65 Type 2 diabetes mellitus with hyperglycemia; E55.9 Vitamin D deficiency, unspecified; I10 Essential (primary) hypertension | CPT/HCPCS: 80053; 80061; 82306; 83036; 84443; 85025 ==

== ENCOUNTER → 2022-07-03 09:30 | Outpatient (BNVA) | payer MEDICARE, SELFPAY | PROVIDERS: PCP Nurse Practitioner; Visit Provider Nurse Practitioner Family | DX: J44.9 Chronic obstructive pulmonary disease, unspecified (principal); I51.7 Cardiomegaly | CPT/HCPCS: 71046 ==

== ENCOUNTER → 2022-08-13 09:24 | Outpatient (BNVA) | payer MEDICARE, SELFPAY | PROVIDERS: PCP Nurse Practitioner; Visit Provider Nurse Practitioner | DX: E11.65 Type 2 diabetes mellitus with hyperglycemia (principal) | CPT/HCPCS: 80053; 80061; 82043; 83036; 85025 ==

== ENCOUNTER → 2022-09-28 15:17 | Outpatient (BNVA) | payer MEDICARE, SELFPAY | PROVIDERS: PCP Nurse Practitioner; Visit Provider Student in an Organized Health Care Education/Training Program | DX: M18.12 Unilateral primary osteoarthritis of first carpometacarpal joint, left hand (principal); M19.032 Primary osteoarthritis, left wrist | CPT/HCPCS: 20600; 73130; 99204; J3301; J3490 ==

== ENCOUNTER → 2022-10-31 08:52 | Outpatient (BNVA) | payer MEDICARE, SELFPAY | PROVIDERS: PCP Nurse Practitioner; Visit Provider Nurse Practitioner | DX: E11.65 Type 2 diabetes mellitus with hyperglycemia (principal); E55.9 Vitamin D deficiency, unspecified; I10 Essential (primary) hypertension; E03.9 Hypothyroidism, unspecified | CPT/HCPCS: 80053; 80061; 82306; 83036; 84443; 85025 ==

== ENCOUNTER 2022-11-15 09:52 | Outpatient (CLI) | payer MEDICARE, SELFPAY ==
--- NOTE | 2022-11-15 09:58 | MM_ITS ---
WS: [id number] . SCREENING DIGITAL BREAST TOMOSYNTHESIS MAMMOGRAM WITH CAD HISTORY: Screening COMPARISON: 11/14/2021, 10/26/2020 Bilateral CC and MLO with tomosynthesis and synthetic mammography submitted. Computer aided detection analyzed. Breast composition: There are scattered areas of fibroglandular density. Cluster of calcifications in the posterior medial inferior LEFT breast needs to be further evaluated. The remaining calcification s are stable. No masses. MM/[place] [id number] IMPRESSION: BI-RADS: 0-Incomplete: Need additional imaging evaluation FOLLOW UP: Need Additional Imaging LEFT BREAST: Magnification views of suspicious calcification CC and MLO. True M L. Views
== END 2022-11-15 09:53 | disposition home or self-care (01) ==
PROVIDERS: PCP Nurse Practitioner; Visit Provider Nurse Practitioner
DX: Z12.39 Encounter for other screening for malignant neoplasm of breast (principal)
CPT/HCPCS: 77063; 77067

== ENCOUNTER 2022-11-26 12:21 | Outpatient (CLI) | payer MEDICARE, SELFPAY ==
--- NOTE | 2022-11-26 12:32 | MM_ITS ---
WS: [id number] ADDITIONAL VIEWS LEFT MAMMOGRAM WITH DIGITAL BREAST TOMOSYNTHESIS. HISTORY: Calcifications LEFT breast. Seen on screening mammogram. COMPARISON: 11/15/2022, 11/14/2021 and 10/26/2020 Magnification views LEFT breast in CC, MLO projections and true ML submitted with digital breast cadence synthesis and SM. Calcifications are very difficult to visualize. Cluster of calcifications in the posterior medial drake ast is very vague. These could be arterial calcifications. 6 month follow-up will be necessary to con firm stability. MM/[id number] IMPRESSION: BI-RADS: 3-Probably Benign FOLLOW UP: 6 Month Follow-up Follow up: Magnification views calcifications LEFT breast.
== END 2022-11-26 12:22 | disposition home or self-care (01) ==
LOC: RAD 12:28
PROVIDERS: PCP Nurse Practitioner; Visit Provider Nurse Practitioner
DX: R92.1 Mammographic calcification found on diagnostic imaging of breast (principal); R92.8 Other abnormal and inconclusive findings on diagnostic imaging of breast
CPT/HCPCS: 77061; G0279

== ENCOUNTER 2022-12-06 12:26 | Outpatient (CLI) | payer MEDICARE, SELFPAY ==
--- NOTE | 2022-12-06 12:45 | CT_ITS ---
WS: [id number] LDCT LUNG CANCER SCREENING HISTORY: F17.210 - Nicotine dependence, cigarettes, uncomplicated TECHNIQUE: Axial imaging performed from the apices to 1 cm below the costophrenic angles. Coronal and sagittal reformats are submitted with axial MIP series. All CT scans at [facility] use at least one of these dose optimization techniques: automated exposure control; mA and/or kV adjustment per patient size (includes targeted exams where dose is matched to clinical indication); or iterativ e reconstruction. DLP: 83.09 mGy.cm DIvol: Mean CTDIvol: 1.80 (mGy) COMPARISON: 12/28/2019 Diagnostic quality: Satisfactory Lungs: Pulmonary nodule or mass. No endobronchial lesions. Benign calcified granuloma RIGHT lower lob e. Heart: Normal size heart with no pericardial effusion.. Other findings: Mild atherosclerosis aorta. Small subcentimeter mediastinal and hilar lymph nodes. So ft tissue masses upper poles of each kidney. Very similar to prior studies. Cortical scarring upper p ole RIGHT kidney. Mild thickening the LEFT adrenal gland. Moderate increase in thoracic kyphosis. CT/CT lung screening [id number] IMPRESSION: LUNG-RADS: 1-Negative FOLLOW UP: 12 Month: Continue annual screening with LDCT OTHER FINDINGS (S MODIFIER): None.
--- NOTE | 2022-12-06 13:30 | XR_ITS ---
WS: [id number] DEXA (DUAL ENERGY X-RAY ABSORPTIOMETRY) Bone mineral density was performed using a [employer] machine. HISTORY: Z78.0 - Asymptomatic menopausal state COMPARISON: None available. Left forearm BMD: 0.675 g/cm2. T score: -2.3 Z score: -0.1 Total hip BMD: Left: 0.849 g/cm2. T score: -1.3 Z score: 0.1 Right: 0.940 g/cm2. T score: -0.5 Z score: 0.8 10 year probability of a major osteoporotic fracture is 25.8%. XR/XR DEXA axial skeleton* [id number] IMPRESSION: OSTEOPENIA based upon the WHO classification for females.
== END 2022-12-06 12:27 | disposition home or self-care (01) ==
PROVIDERS: PCP Nurse Practitioner; Visit Provider Nurse Practitioner
DX: Z12.2 Encounter for screening for malignant neoplasm of respiratory organs (principal); F17.210 Nicotine dependence, cigarettes, uncomplicated; Z13.820 Encounter for screening for osteoporosis; Z78.0 Asymptomatic menopausal state; M85.80 Other specified disorders of bone density and structure, unspecified site
CPT/HCPCS: 71271; 77080

== ENCOUNTER → 2023-01-18 08:58 | Outpatient (BNVA) | payer MEDICARE, SELFPAY | PROVIDERS: PCP Nurse Practitioner; Visit Provider Nurse Practitioner | DX: E11.65 Type 2 diabetes mellitus with hyperglycemia (principal); E55.9 Vitamin D deficiency, unspecified | CPT/HCPCS: 80053; 80061; 82306; 83036; 84443; 85025 ==

== ENCOUNTER → 2023-03-06 11:56 | Outpatient (BNVA) | payer MEDICARE, SELFPAY | PROVIDERS: PCP Nurse Practitioner; Visit Provider Internal Medicine Cardiovascular Disease | DX: R55 Syncope and collapse (principal) | CPT/HCPCS: 93005; 99205 ==

== ENCOUNTER 2023-03-28 09:46 | Outpatient (CLI) | payer MEDICARE, SELFPAY ==
[2023-03-28 10:12] VITALS: BMI 31.8
--- NOTE | 2023-03-28 10:13 | ECG_ITS ---
[facility] Test Date: 2023-03-28 Pat Name: Teresa Garcia Department: Room: Gender: Female Development Expert: Cindymatteo ZavalaMarbella : 1950 Requested By: Sagar Antunez Order Number: [id number] Reading MD: Sagar Antunez M.D. Interpretive Statements NAME OF STUDY: LEXISCAN SESTAMIBI STRESS TEST INDICATION: Chest Pain, PROCEDURE: At the baseline, the EKG revealed sinus rhythm with a diffuse nonspecific T wave changes. The baseline heart was bpm with a blood pressue of mm of Hg Lexiscan was infused over a period of 20 seconds. A total of 0.4 milligrams of Lexiscan was infused. The stress phase was continued for a total of 5 minutes. Heart rate at the end of the stress phase was 82 bpm with a blood pressure 137/54 mm of Hg. The EKG at the peak infusion revealed no significant changes. Sestamibi was injected 20 seconds after the Lexiscan infusion. Heart rate at the end of the recovery phase was left anterior descending artery bpm with a blood pressure of 137/56 mm of Hg. CONCLUSION: 1. No significant EKG changes with the LexiScan infusion 2. No LexiScan induced chest pain or cardiac arrhythmia 3. Normal blood pressure and heart rate response 4. Sestamibi/sestamibi perfusion scan pending; see separate report. Electronically Signed On 03-29-2023 20:01:56 CDT by aSgar Antunez M.D. [email or web address]
--- NOTE | 2023-03-28 10:13 | NMCV_ITS ---
NM garth perf SPECT r/s* [id number] Teresa Garcia Age: 72 Gender: F : 1950 Exam Date: 03/28/2023 10:13 Ordering Phys: Sagar Antunez MD ([email or web address]) Technologist: DELMI Ramos Exam Location: [facility] Indications: cp STRESS TEST Please see separate stress test report in [facility] for full findings IMAGE PROTOCOL Rest/Stress 1 Day Radiopharmaceutical Dose (mCi) Administration Site Administered by Rest: Tc-99m 10.7 IV DELMI Ramos Sestamibi Stress:Tc-99m 32.5 IV DELMI Ramos Sestamijag Rest: 28-Mar-2023 60 Discovery 630 Stress: 28-Mar-2023 30 Discovery 630 0.4mg Lexiscan. Images obtained in supine and prone position. SPECT RESULTS Technical Quality: Excellent Raw Data Analysis: Normal Image Corrections: No attenuation or motion correction applied Summed Stress Score: 0 Summed Rest Score: 4 Summed Difference Score: 0 PERFUSION FINDINGS Fairly uniform myocardial tracer uptake with no significant perfusion abnormalities. FUNCTIONAL RESULTS (calculated via Gated SPECT) Stress Image LV EF (%): 79 Stress EDV (mL):61 TID: 0.81 Stress ESV (mL):13 FUNCTIONAL FINDINGS: Segmental wall motion analysis revealing no gross wall motion abnormalities IMPRESSIONS 1. Myocardial perfusion imaging is normal. 2. LV ejection fraction estimated to be 79%. 3. LV wall motion analysis revealing no gross wall motion abnormalities. 4. Normal LV volume Low probability for coronary ischemia, based on the above findings Dr Sagar Antunez MD FACC (Electronically Signed) Final Date: 28 March 2023 14:02 S
[2023-03-28] MEDS: regadenoson 0.4 Mg/5 ml Syringe IVP (11:55)
[2023-03-28 12:04] VITALS: BP 137/76; PULSE 81
== END 2023-03-28 09:47 | disposition home or self-care (01) ==
LOC: CDL 09:46
PROVIDERS: PCP Nurse Practitioner; Visit Provider Internal Medicine Cardiovascular Disease
DX: Z98.61 Coronary angioplasty status (principal)
CPT/HCPCS: 36415; 78452; 93017; 96374; A9500; J2785

== ENCOUNTER → 2023-04-11 09:07 | Outpatient (BNVA) | payer MEDICARE, SELFPAY | PROVIDERS: PCP Nurse Practitioner; Visit Provider Nurse Practitioner | DX: E03.9 Hypothyroidism, unspecified (principal); E11.65 Type 2 diabetes mellitus with hyperglycemia; E55.9 Vitamin D deficiency, unspecified; E78.2 Mixed hyperlipidemia | CPT/HCPCS: 80053; 80061; 82306; 83036; 84443; 85025 ==

== ENCOUNTER 2023-06-03 08:52 | Outpatient (CLI) | payer MEDICARE, SELFPAY ==
--- NOTE | 2023-06-03 08:59 | MM_ITS ---
WS: [id number] DIAGNOSTIC LEFT DIGITAL BREAST TOMOSYNTHESIS MAMMOGRAPHY WITH CAD HISTORY: Follow-up calcifications. COMPARISON: 11/26/2022, 11/15/2022 and 10/26/2020 TECHNIQUE: LEFT breast magnification views of the calcifications in the posterior medial breast. Breast composition: There are scattered areas of fibroglandular density. Calcifications are reidentif ied in a small cluster in the posterior medial breast. These have not significantly changed since tommie or study. IMPRESSION: MM/[place] [id number] BI-RADS: 3-Probably Benign FOLLOW UP: 6 Month Follow-up Patient return in 6 months for diagnostic mammogram. Additional magnification v iews of the LEFT breast calcifications should be performed at that time.
== END 2023-06-03 08:53 | disposition home or self-care (01) ==
LOC: RAD 08:53
PROVIDERS: PCP Nurse Practitioner; Visit Provider Nurse Practitioner
DX: R92.8 Other abnormal and inconclusive findings on diagnostic imaging of breast (principal); R92.1 Mammographic calcification found on diagnostic imaging of breast
CPT/HCPCS: 77061; G0279

== ENCOUNTER → 2023-08-01 13:13 | Outpatient (BNVA) | payer MEDICARE, SELFPAY | PROVIDERS: PCP Nurse Practitioner; Visit Provider Nurse Practitioner Family | DX: L82.0 Inflamed seborrheic keratosis (principal); L82.1 Other seborrheic keratosis; D22.5 Melanocytic nevi of trunk | CPT/HCPCS: 11102; 17000; 17110; 99213 ==

== ENCOUNTER → 2023-09-26 09:05 | Outpatient (BNVA) | payer MEDICARE, SELFPAY | PROVIDERS: PCP Nurse Practitioner; Visit Provider Nurse Practitioner | DX: M81.0 Age-related osteoporosis without current pathological fracture (principal); E11.65 Type 2 diabetes mellitus with hyperglycemia; E03.9 Hypothyroidism, unspecified; E11.9 Type 2 diabetes mellitus without complications | CPT/HCPCS: 80053; 80061; 82306; 82607; 83036; 84443; 85025 ==

== ENCOUNTER 2023-12-03 15:25 | Outpatient (CLI) | payer MEDICARE, SELFPAY ==
--- NOTE | 2023-12-03 15:30 | MM_ITS ---
WS: [id number] DIAGNOSTIC BILATERAL DIGITAL BREAST TOMOSYNTHESIS MAMMOGRAPHY WITH CAD HISTORY: R92.8 - Other abnormal and inconclusive findings on prior imaging. Follow-up calcifications. COMPARISON: 06/03/2023, 11/26/2022, 11/14/2021 TECHNIQUE: Bilateral craniocaudad, mediolateral oblique, and mediolateral views are submitted with to mosynthesis and SM. Magnification views calcifications LEFT breast. Computer aided detection utilized . Breast composition: There are scattered areas of fibroglandular density. Numerous benign calcifications in each breast. The previously described calcifications in the posteri or medial LEFT breast are reidentified and very similar in appearance to 06/03/2023 without progressi on. There are no new areas of distortion or mass. MM/[place] [id number] IMPRESSION: BI-RADS: 3-Probably Benign FOLLOW UP: 6 Month Follow-up 6-month diagnostic mammogram follow-up of calcifications in the LEFT breast wit h magnification views.
== END 2023-12-03 15:26 | disposition home or self-care (01) ==
PROVIDERS: PCP Nurse Practitioner; Visit Provider Nurse Practitioner
DX: Z12.31 Encounter for screening mammogram for malignant neoplasm of breast (principal); R92.323 Mammographic fibroglandular density, bilateral breasts; R92.1 Mammographic calcification found on diagnostic imaging of breast
CPT/HCPCS: 77062; G0279

== ENCOUNTER → 2023-12-12 08:23 | Outpatient (BNVA) | payer MEDICARE, SELFPAY | PROVIDERS: PCP Nurse Practitioner; Visit Provider Nurse Practitioner | DX: E55.9 Vitamin D deficiency, unspecified (principal); I10 Essential (primary) hypertension; E53.8 Deficiency of other specified B group vitamins; E11.65 Type 2 diabetes mellitus with hyperglycemia; E11.40 Type 2 diabetes mellitus with diabetic neuropathy, unspecified | CPT/HCPCS: 80053; 80061; 82306; 82607; 83036; 84443; 85025 ==

== ENCOUNTER → 2023-12-24 09:58 | Outpatient (BNVA) | payer MEDICARE, SELFPAY | PROVIDERS: PCP Nurse Practitioner; Visit Provider Nurse Practitioner | DX: M25.50 Pain in unspecified joint (principal) | CPT/HCPCS: 85651; 86140; 86431 ==

== ENCOUNTER → 2024-01-07 10:14 | Outpatient (BNVA) | payer MEDICARE, SELFPAY | PROVIDERS: PCP Nurse Practitioner; Visit Provider Physician Assistant | DX: M18.11 Unilateral primary osteoarthritis of first carpometacarpal joint, right hand (principal); M19.031 Primary osteoarthritis, right wrist | CPT/HCPCS: 20600; 20605; 73130; 99213; J3301; J3490 ==

== ENCOUNTER → 2024-01-16 11:12 | Outpatient (CLI) | payer MEDICARE, SELFPAY ==
--- NOTE | 2024-01-16 11:15 | CT_ITS ---
WS: [email or web address] LDCT LUNG CANCER SCREENING TECHNIQUE: Noncontrast CT of the chest with coronal and sagittal reformatted images. CLINICAL INFORMATION: Z87.891 - Personal history of nicotine dependence COMPARISON: 12/06/2022 DLP: 72.02 mGy.cm DIvol: Mean CTDIvol: 1.70 (mGy) All CT scans at [facility] use at least one of these dose optimization techniques: automat ed exposure control; mA and/or kV adjustment per patient size (includes targeted exams where dose is matched to clinical indication); or iterative reconstruction. FINDINGS: Fibrosis in the lung apices. No suspicious pulmonary parenchymal abnormalities. Normal caliber thoracic aorta. Aortic calcification. Coronary calcification. Stable mediastinal and p arabronchial lymph nodes. No axillary lymphadenopathy. RIGHT renal cortical cyst measuring 2.[address] able nodular thickening LEFT adrenal gland. RIGHT adrenal gland is normal. Cortical scarring in the L EFT upper kidney with a small hemorrhagic or proteinaceous cortical cyst. Normal GE junction. Moderate thoracic kyphosis. Advanced spondylitic changes thoracic spine. Mild tho racic curve. Cardiomegaly. CT/CT lung screening [id number] IMPRESSION: LUNG-RADS: 1-Negative FOLLOW UP: 12 Month: Continue annual screening with LDCT
== END | disposition home or self-care (01) ==
LOC: RAD 11:12
PROVIDERS: PCP Nurse Practitioner; Visit Provider Nurse Practitioner
DX: M19.041 Primary osteoarthritis, right hand (principal); M19.042 Primary osteoarthritis, left hand; M05.79 Rheumatoid arthritis with rheumatoid factor of multiple sites without organ or systems involvement; N18.9 Chronic kidney disease, unspecified; Z79.899 Other long term (current) drug therapy; Z71.85 Encounter for immunization safety counseling; F17.200 Nicotine dependence, unspecified, uncomplicated; Z11.1 Encounter for screening for respiratory tuberculosis
CPT/HCPCS: 71271; 99204

== ENCOUNTER 2024-02-28 15:01 | Outpatient (CLI) | payer MEDICARE, SELFPAY ==
--- NOTE | 2024-02-28 15:15 | US_ITS ---
WS: [id number] RENAL ULTRASOUND HISTORY: N28.1 - Cyst of kidney, acquired COMPARISON: 04/09/2016 TECHNIQUE: 2-D and color Doppler imaging of the kidney submitted. Right kidney: 9.8 cm x 3.6 cm x 3.7 cm. Cortex: 1.2 cm Normal size. No hydronephrosis. Simple cyst superior pole 2.5 x 2.4 x 2.9 cm. Left kidney: 9.9 cm x 4.8 cm x 4.3 cm. Cortex: 1.0 cm Normal size kidney. Cortical cyst superior pole 1.5 x 1.6 x 1.8 cm. No hydronephrosis. Aorta: Normal. Urinary Bladder: Nondistended. US/US renal BI* [id number] IMPRESSION: 1. No hydronephrosis. Normal size kidneys. 2. Simple superior pole bilateral cortical cyst.
== END 2024-02-28 15:02 | disposition home or self-care (01) ==
LOC: RAD 15:04
PROVIDERS: PCP Nurse Practitioner; Visit Provider Nurse Practitioner
DX: N28.1 Cyst of kidney, acquired (principal)
CPT/HCPCS: 76770

== ENCOUNTER → 2024-03-05 08:49 | Outpatient (BNVA) | payer MEDICARE, SELFPAY | PROVIDERS: PCP Nurse Practitioner; Visit Provider Nurse Practitioner | DX: E55.9 Vitamin D deficiency, unspecified (principal); E11.65 Type 2 diabetes mellitus with hyperglycemia; M06.9 Rheumatoid arthritis, unspecified; Z79.899 Other long term (current) drug therapy | CPT/HCPCS: 80053; 80061; 80076; 82306; 82565; 82607; 83036; 84443; 85025; 85651; 86140; 86480; 86704; 86803; 87340 ==

== ENCOUNTER → 2024-04-30 11:31 | Outpatient (BNVA) | payer MEDICARE, SELFPAY | PROVIDERS: PCP Nurse Practitioner; Visit Provider Internal Medicine Rheumatology | DX: Z79.899 Other long term (current) drug therapy (principal); M05.79 Rheumatoid arthritis with rheumatoid factor of multiple sites without organ or systems involvement; Z71.85 Encounter for immunization safety counseling; M19.041 Primary osteoarthritis, right hand; M19.042 Primary osteoarthritis, left hand | CPT/HCPCS: 99214 ==

== ENCOUNTER → 2024-05-14 09:31 | Outpatient (BNVA) | payer MEDICARE, SELFPAY | PROVIDERS: PCP Nurse Practitioner; Visit Provider Nurse Practitioner | DX: E11.9 Type 2 diabetes mellitus without complications (principal); E55.9 Vitamin D deficiency, unspecified | CPT/HCPCS: 80053; 80061; 82306; 82607; 83036; 83721; 84443; 85025 ==

== ENCOUNTER 2024-06-29 15:07 | Outpatient (CLI) | payer MEDICARE, SELFPAY ==
[2024-06-29 15:32] LABS: Basophils % 0.5 %; Eosinophils # 0.1 10^3/uL (0.0-0.8); Hematocrit 36.4 % (36-47); Lymphocytes # 1.3 10^3/uL (0.8-4.8); Lymphocytes % 14.6 %; Mean Corpuscular HGB Conc 32.7 g/dL (30-55); Mean Corpuscular Hemoglobin 31.2 pg (27-33); Mean Corpuscular Volume 95.3 fl (85-98); Monocytes # 1.4 10^3/uL (0.2-0.9); Monocytes % 15.8 %; Neutrophils # 5.93 10^3/uL (1.8-7.7); Neutrophils % 67.5 %; Nucleated Red Blood Cells % 0 %; Platelet Count 412 10^3/cmm (157-399); Red Blood Count 3.82 10^6/uL (3.85-5.65); White Blood Count 8.78 10^3/uL (3.29-11.43)
[2024-06-29 15:58] LABS: Alanine Aminotransferase 32 U/L (0-33); Alkaline Phosphatase 61 U/L (35-105); Aspartate Amino Transferase 39 U/L (0-32); C Reactive Protein 4.2 mg/L (0.0-4.9); Erythrocyte Sedimentation Rate 30 mm/hr (0-15); Globulin 3.2 g/dL (1.3-4.6); Total Bilirubin 0.3 mg/dL (0.15-1.2); Total Protein 7.2 g/dL (6.6-8.7)
== END 2024-06-29 15:08 | disposition home or self-care (01) ==
LOC: LAB 15:13
PROVIDERS: PCP Nurse Practitioner; Visit Provider Internal Medicine Rheumatology
DX: Z79.899 Other long term (current) drug therapy (principal); M05.79 Rheumatoid arthritis with rheumatoid factor of multiple sites without organ or systems involvement
CPT/HCPCS: 36415; 80076; 82565; 85025; 85651; 86140

== ENCOUNTER → 2024-07-21 08:46 | Outpatient (BNVA) | payer MEDICARE, SELFPAY | PROVIDERS: PCP Nurse Practitioner; Visit Provider Clinical Nurse Specialist Adult Health | DX: E11.65 Type 2 diabetes mellitus with hyperglycemia (principal); R19.7 Diarrhea, unspecified; J22 Unspecified acute lower respiratory infection; Z79.4 Long term (current) use of insulin | CPT/HCPCS: 80053; 82962; 85025; 85651; 86140 ==

== ENCOUNTER → 2024-07-27 14:59 | Outpatient (BNVA) | payer MEDICARE, SELFPAY | PROVIDERS: PCP Nurse Practitioner; Visit Provider Nurse Practitioner | DX: E11.9 Type 2 diabetes mellitus without complications (principal) | CPT/HCPCS: 80053; 82607; 83036 ==

== ENCOUNTER 2024-07-28 11:24 | Outpatient (CLI) | payer MEDICARE, SELFPAY ==
--- NOTE | 2024-07-28 11:36 | MM_ITS ---
WS: [email or web address] DIAGNOSTIC LEFT DIGITAL TOMOSYNTHESIS MAMMOGRAPHY WITH CAD. HISTORY: 6-month follow-up LEFT breast calcifications. COMPARISON: 12/03/2023, 06/03/2023, 11/26/2022 Technique: Magnification views LEFT CC and MLO. LEFT ML view. Breast composition: The breasts are almost entirely fatty. Reidentified is the cluster of calcifications previously described in the posterior medial LEFT breas t. Minimal if any change in the calcification. There may be slight increase in size and number. No so ft tissue mass. MM/MM diag LT tomosynthesis [id number] IMPRESSION: BI-RADS: 3 - Probably Benign. FOLLOW UP: 6 Month Follow-up Patient to return in 6 months for bilateral mammogram. Additional magnification views can be performed at that time.
== END 2024-07-28 11:25 | disposition home or self-care (01) ==
LOC: RAD 11:25
PROVIDERS: PCP Nurse Practitioner; Visit Provider Nurse Practitioner
DX: R92.8 Other abnormal and inconclusive findings on diagnostic imaging of breast (principal); R92.342 Mammographic extreme density, left breast; R92.1 Mammographic calcification found on diagnostic imaging of breast
CPT/HCPCS: 77061; G0279

== ENCOUNTER → 2024-07-30 09:54 | Outpatient (BNVA) | payer MEDICARE, SELFPAY | PROVIDERS: PCP Nurse Practitioner; Visit Provider Nurse Practitioner | DX: I10 Essential (primary) hypertension (principal); R19.7 Diarrhea, unspecified; J44.9 Chronic obstructive pulmonary disease, unspecified | CPT/HCPCS: 71046; 80053; 85025; 87045; 87427; 87449; 87493 ==

== ENCOUNTER → 2024-08-04 09:46 | Outpatient (BNVA) | payer MEDICARE, SELFPAY | PROVIDERS: PCP Nurse Practitioner; Visit Provider Nurse Practitioner Family | DX: D22.5 Melanocytic nevi of trunk (principal); L57.8 Other skin changes due to chronic exposure to nonionizing radiation; L81.4 Other melanin hyperpigmentation; L82.1 Other seborrheic keratosis; L82.0 Inflamed seborrheic keratosis; R20.8 Other disturbances of skin sensation; R58 Hemorrhage, not elsewhere classified; L29.89 Other pruritus; L53.8 Other specified erythematous conditions; D48.5 Neoplasm of uncertain behavior of skin | CPT/HCPCS: 11102; 17110; 99213 ==

== ENCOUNTER → 2024-09-07 10:41 | Outpatient (BNVA) | payer MEDICARE, SELFPAY | PROVIDERS: PCP Nurse Practitioner; Visit Provider Internal Medicine Rheumatology | DX: M05.79 Rheumatoid arthritis with rheumatoid factor of multiple sites without organ or systems involvement (principal); Z79.899 Other long term (current) drug therapy; Z71.85 Encounter for immunization safety counseling; M19.041 Primary osteoarthritis, right hand; M19.042 Primary osteoarthritis, left hand | CPT/HCPCS: 99214 ==

== ENCOUNTER → 2024-10-28 09:08 | Outpatient (BNVA) | payer MEDICARE, SELFPAY | PROVIDERS: PCP Nurse Practitioner; Visit Provider Internal Medicine Rheumatology | DX: M05.79 Rheumatoid arthritis with rheumatoid factor of multiple sites without organ or systems involvement (principal); Z79.899 Other long term (current) drug therapy | CPT/HCPCS: 85025 ==

== ENCOUNTER 2024-11-02 13:03 | Inpatient (IN) | payer MEDICARE, SELFPAY ==
--- NOTE | 2024-11-02 13:19 | ECG_ITS ---
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: : 1950 Requested By: Yasemin Erazo Order Number: [id number] Reading MD: LEANNA FRIAS Measurements Intervals [place] Rate: 109 P: 74 DC: 160 QRS: -4 QRSD: 86 T: 106 QT: 344 QTc: 463 Interpretive Statements SINUS TACHYCARDIA ST DEVIATION AND MODERATE T-WAVE ABNORMALITY, CONSIDER LATERAL ISCHEMIA [-0.1+ mV T-WAVE IN I/aVL/V5/V6] Compared to ECG 03/06/2023 12:14:27 T-wave abnormality now present Possible ischemia now present Sinus rhythm no longer present Electronically Signed On 11-02-2024 20:57:57 CDT by LEANNA FRIAS [id number]
--- NOTE | 2024-11-02 13:19 | XRR_ITS ---
PROCEDURE INFORMATION: Exam: XR Chest Exam date and time: 11/02/2024 1:33 PM Age: 74 years old Clinical indication: Shortness of breath TECHNIQUE: Imaging protocol: Radiologic exam of the chest. Views: 1 view. COMPARISON: CR XR chest 2V* [id number] 07/30/2024 9:52 AM FINDINGS: Lungs: The pulmonary vessels are within normal limits. The lungs are clear. Pleural spaces: No pneumothorax. Heart/Mediastinum: The cardiomediastinal silhouette is within normal limits. Bones/joints: Osseous structure is unremarkable. XR/XR chest 1V portable [id number] IMPRESSION: No acute pulmonary finding.
[2024-11-02 13:20] VITALS: BP 132/57; PULSE 103; RESP 20; TEMP 36.9; O2SAT 95
--- NOTE | 2024-11-02 13:38 | W.ED.SOB ---
HPI - SOB/Dyspnea General: Chief Complaint: Shortness of Breath/Dyspnea Stated Complaint: SOB - headache Time Seen by Provider: 11/02/24 13:14 History of Present Illness: HPI Narrative: 74-year-old female with a history of hypertension, obesity, diabetes, COPD and hypothyroidism who presents the emergency room with headache and shortness of breath. She says has been going on for about 3 days. She presents by ambulance. She said she has been feeling more short of breath for the last few days. She has had shakes/tremors. She says she has not had a fever. She has some generalized weakness but no focal motor deficits. No confusion. Related Data Home Medications ?Medication ?Instructions ?Recorded ?Confirmed aspirin 81 mg tablet,delayed 81 mg PO DAILY 10/19/19 11/02/24 release cholecalciferol (vitamin D3) 25 25 mcg PO DAILY 10/27/20 11/02/24 mcg (1,000 unit) capsule (Vitamin D3) vitamin E 268 mg (400 unit) capsule 400 unit PO DAILY 10/27/20 11/02/24 mnbkjuttszvw-puuossmyqzd-zabmn 100 mcg IM Q30D 04/30/24 11/02/24 amlodipine 5 mg tablet 10 mg PO DAILY 11/02/24 11/02/24 calcium 500 mg (as 1 tab PO BID 11/02/24 11/02/24 carbonate)-vitamin D3 15 mcg (600 unit) tablet (Os-Jose Luis 500 + D3) dextromethorphan-guaifenesin 10 10 ml PO Q4H PRN Congestion 11/02/24 11/02/24 mg-100 mg/5 mL oral liquid fluconazole 150 mg tablet 150 mg PO DAILY 11/02/24 11/02/24 omega-3 fatty acids 1,000 mg 1,000 mg PO DAILY 11/02/24 11/02/24 capsule Previous Rx's ?Medication ?Instructions ?Recorded Diabetic shoes #1 ea 10/14/20 nitroglycerin 0.4 mg sublingual 0.4 mg sublingual Q5M PRN chest 01/22/23 tablet pain #20 tabs lancets (Accu-Chek Softclix #100 ea 04/16/23 Lancets) right cmc splint #1 ea 01/07/24 metformin 500 mg tablet,extended 1,500 mg (3 x 500 mg) PO DAILY 05/18/24 release 24 hr #270 tabs Held on 07/27/24. Instructions: Diarrhea albuterol sulfate 90 mcg/actuation 2 puff inhalation QID PRN 07/27/24 aerosol inhaler (Ventolin HFA) Shortness Of Breath #25.5 grams alendronate 70 mg tablet (Fosamax) 70 mg PO .weekly #12 tabs 07/27/24 benazepril 40 mg tablet 40 mg PO DAILY #90 tabs 07/27/24 blood sugar diagnostic (Accu-Chek #100 ea 07/27/24 Guide test strips) doxepin 25 mg capsule 25 - 50 mg (1 - 2 x 25 mg) PO 07/27/24 DAILY #180 caps duloxetine 20 mg capsule,delayed 20 mg PO BID #180 caps 07/27/24 release (Cymbalta) fenofibrate nanocrystallized 145 145 mg PO DAILY #90 tabs 07/27/24 mg tablet (Tricor) fluticasone 250 mcg-salmeterol 50 1 inh inhalation Q12H #180 ea 07/27/24 mcg/dose blistr powdr for inhalation (Advair Diskus) furosemide 40 mg tablet 40 mg PO DAILY #90 tabs 07/27/24 glipizide 5 mg tablet, extended 5 mg PO BID #180 tabs 07/27/24 release 24 hr hydralazine 25 mg tablet 25 mg PO Q12H #180 tabs 07/27/24 insulin glargine 100 unit/mL (3 35 unit (0.35 mL) SUBCUT QAM #31.5 07/27/24 mL) subcutaneous pen (Lantus mL Solostar U-100 Insulin) levothyroxine 100 mcg tablet 100 mcg PO DAILY #90 tabs 07/27/24 metoprolol succinate 100 mg 100 mg PO DAILY #90 tabs 07/27/24 tablet,extended release 24 hr pen needle, diabetic 33 gauge x #100 ea 07/27/24 potassium chloride 10 mEq 10 meq PO BID #180 tabs 07/27/24 tablet,extended release cholestyramine-aspartame 4 gram 4 g PO TID #210 grams 07/30/24 oral powder (Questran Light) leflunomide 20 mg tablet 20 mg PO DAILY #90 tabs 03/03/25 prednisone 5 mg tablet 5 mg PO DAILY #90 tabs 09/07/24 tizanidine 2 mg tablet 2 mg PO .at bedtime PRN muscle 10/14/24 spasticity #90 tabs Allergies Allergy/AdvReac Type Severity Reaction Status Date / Time Penicillins Allergy Severe Rash Verified 11/02/24 11:14 Sulfa (Sulfonamide Allergy Severe Rash Verified 11/02/24 11:14 Antibiotics) Latex, Natural Rubber AdvReac Severe Rash Verified 11/02/24 11:14 adhesive AdvReac Intermediate Rash Verified 11/02/24 11:14 leflunomide AdvReac Intermediate diarrhea Verified 11/02/24 11:14 trazodone AdvReac Do not Verified 11/02/24 11:14 tolerate Review of Systems Narrative: Constitutional symptoms: Negative except as documented in HPI. Skin symptoms: Negative except as documented in HPI. Eye symptoms: Negative except as documented in HPI. ENMT symptoms: Negative except as documented in HPI. Respiratory symptoms: Negative except as documented in HPI. Cardiovascular symptoms: Negative except as documented in HPI. Gastrointestinal symptoms: Negative except as documented in HPI. Genitourinary symptoms: Negative except as documented in HPI. Musculoskeletal symptoms: Negative except as documented in HPI. Neurologic symptoms: Negative except as documented in HPI. Psychiatric symptoms: Negative except as documented in HPI. Endocrine symptoms: Negative except as documented in HPI. PFSH ED PFSH: Medical History Diabetes mellitus with hyperglycemia, with long-term current use of insulin Osteoarthritis of hands, bilateral Immunization counseling High risk medication use Seropositive rheumatoid arthritis of multiple sites Osteoporosis Cigarette smoker COPD (chronic obstructive pulmonary disease) Unstable angina Hypertension Environmental and seasonal allergies Vitamin D deficiency Mixed hyperlipidemia Diverticulosis Adult hypothyroidism Surgical History History of lumbar surgery Rods in lumbar History of cholecystectomy History of tubal ligation History of foot surgery left Family History Father Diabetes Mother CAD (coronary artery disease) Other Dementia Social History Smoking and tobacco/nicotine status: current every day tobacco/nicotine user Second hand smoke exposure: Yes Alcohol intake: never Substance/Drug Use: never Adopted: No Caregiver/support person: No Lives independently: Yes Household members: spouse Housing: House Marital status: Number of children: 3 service: No Current occupational status: unemployed Do you think of yourself as: Straight/Heterosexual Current gender identity: Female Physical Exam Narrative: EXAM NARRATIVE: General: Alert, no acute distress. Skin: Warm, dry. Head: Normocephalic, atraumatic. Neck: Supple, trachea midline. Eye: Extraocular movements are intact. Ears, nose, mouth and throat: Oral mucosa moist. Cardiovascular: Regular, tachycardic, Normal peripheral perfusion. Respiratory: some expiratory wheeze, mild increased wob, breath sounds are equal, Symmetrical chest wall expansion. Gastrointestinal: Soft, Nontender, Non distended, Normal bowel sounds. Musculoskeletal: Normal ROM, no deformity. Neurological: Alert and oriented, No focal neurological deficit observed. Psychiatric: Cooperative, appropriate mood & affect. Course Vital Signs: Vital signs: Vital Signs Temperature 98.4 F 11/02/24 13:20 Pulse Rate 103 H 11/02/24 13:20 Respiratory Rate 20 H 11/02/24 13:20 Blood Pressure 132/57 11/02/24 13:20 Pulse Oximetry 95 11/02/24 13:20 Oxygen Delivery Me thod Room Air 11/02/24 13:20 Clincial Decision Support The following clinical decision support tools were used to aid in care of the patient HEART Score -> History: Moderately Suspicious, EKG: Non-specific Changes, Age: 65 or more yrs, Risk Factors: >/=3 Risk Factors, Troponin: Baseline Trop >45 ng/L. Resulting HEART Score: 8. MDM - SOB/Dyspnea Medical Decision Making Differential diagnosis for patient with shortness of breath includes but is not limited to and based on the above HPI, review of systems and physical exam: Pneumonia. Bronchitis. Asthma or COPD with acute exacerbation. Acute coronary syndrome / ND. Pulmonary embolism. Anxiety. Congestive heart failure. Viral infections including influenza and Covid-19. Atrial fibrillation. Anxiety. Pleural effusion. Pneumothorax. Orders placed to evaluate differential diagnosis based on the above differential, HPI and physical exam EKG: Time 1314. Rate 109. Sinus tachycardia, nonspecific ST changes, no ectopy, normal SD & QRS intervals, This was reviewed and interpreted by myself the ER physician at 1316. Chest x-ray: No acute process. No infiltrate. No pneumothorax. This was reviewed and interpreted by myself the emergency room physician. I also reviewed the radiology report. Repeat EKG: Time 1508. Rate 103. Sinus tachycardia, nonspecific ST changes/depression, no ectopy, normal SD & QRS intervals, This was reviewed and interpreted by myself the ER physician at 1510. No significant changes from EKG done previously today in the emergency room Lab Review: Laboratory results were reviewed and interpreted by myself the emergency room physician. No leukocytosis. No anemia. Renal function is slightly worse than previous but near her baseline. BUN and creatinine are 24 and 1.4. Flu COVID and RSV are negative. Urinalysis is negative for infection but she does have quite a bit of glucose and her glucose in her serum is over 300. proBNP is slightly elevated over previous. It is 2000 where it was 400 on previous measurement. HEART Pathway for Early Discharge in Acute Chest Pain from [facility] on 11/02/2024 All calculations should be rechecked by clinician prior to use RESULT SUMMARY: 8 points HEART Pathway Score High risk 12-65% 30-day MACE Cardiology consultation and admission recommended. Further testing indicated. INPUTS: History ?> 1 = Moderately suspicious EKG ?> 1 = Non-specific repolarization disturbance Age ?> 2 = >=5 Risk factors ?> 2 = >= risk factors or history of atherosclerotic disease Initial troponin ?> 2 = >3x normal limit I reviewed the patient's medical record. Reexamination: Patient remained stable. No increased work of breathing. No altered mental status. No focal motor deficits. I discussed findings with the patient and her family. They agree that admission for continued workup seems appropriate. Consultation: I spoke with Dr. Mix who is on-call for the hospital service who agrees to admission. Assessment and plan: Chest pain Edema Congestive heart failure -I discussed the patient with the hospitalist on-call who is admitting the patient. - Discussed findings and plan with patient. Answered any questions. - All laboratory values were reviewed and interpreted personally by myself, the ER physician - All imaging was reviewed and interpreted personally by myself, the ER physician. - Evaluation and treatment of this problem were appropriate in the emergency setting Lab Data 11/02/24 13:45 11/02/24 13:45 Labs/Radiology: Radiology Impressions Chest X-Ray 11/02/24 13:19 IMPRESSION: No acute pulmonary finding. Laboratory Results WBC 7.84 10^3/uL (3.29-11.43) 11/02/24 13:45 RBC 3.97 10^6/uL (3.85-5.65) 11/02/24 13:45 Hgb 12.30 g/dL (11.27-16.99) 11/02/24 13:45 Hct 38.9 % (36-47) 11/02/24 13:45 MCV 98.0 fl (85-98) 11/02/24 13:45 MCH 31.0 pg (27-33) 11/02/24 13:45 MCHC 31.6 g/dL (30-55) 11/02/24 13:45 RDW 14.6 % (12.1-15.1) 11/02/24 13:45 Plt Count 346 10^3/cmm (157-399) 11/02/24 13:45 MPV 9.1 fL (7.4-10.4) 11/02/24 13:45 Neut % (Auto) 77.9 % 11/02/24 13:45 Lymph % (Auto) 10.3 % 11/02/24 13:45 [place] % (Auto) 10.6 % 11/02/24 13:45 Eos % (Auto) 0.3 % 11/02/24 13:45 Baso % (Auto) 0.4 % 11/02/24 13:45 Neut # (Auto) 6.11 10^3/uL (1.8-7.7) 11/02/24 13:45 Lymph # (Auto) 0.8 10^3/uL (0.8-4.8) 11/02/24 13:45 [place] # (Auto) 0.8 10^3/uL (0.2-0.9) 11/02/24 13:45 Eos # (Auto) 0.0 10^3/uL (0.0-0.8) 11/02/24 13:45 Baso # (Auto) 0.0 10^3/uL (0.0-0.1) 11/02/24 13:45 Nucleated RBC % (auto) 0 % 11/02/24 13:45 Nucleated RBCs # 0.0 /100WBC 11/02/24 13:45 Sodium 137 mmol/L (136-145) 11/02/24 13:45 Potassium 3.5 mmol/L (3.5-5.1) 11/02/24 13:45 Chloride 97 mmol/L (98-107) L 11/02/24 13:45 Carbon Dioxide 24 mmol/L (22-29) 11/02/24 13:45 Anion Gap 19.5 (5-19) H 11/02/24 13:45 BUN 24 mg/dL (8-23) H 11/02/24 13:45 Creatinine 1.4 mg/dL (0.5-0.9) H 11/02/24 13:45 GFR Calculation Not Reportable 11/02/24 13:45 Glucose 337 mg/dL (65-115) H 11/02/24 13:45 Calculated Osmolality 301 mOsm/kg (285-295) H 11/02/24 13:45 Lactic Acid 2.7 mmol/L (0.5-2.2) H 11/02/24 13:45 Calcium 9.3 mg/dL (8.5-10.5) 11/02/24 13:45 Magnesium 1.8 mg/dL (1.7-2.3) 11/02/24 13:45 Total Bilirubin 0.5 mg/dL (0.15-1.2) 11/02/24 13:45 AST 48 U/L (0-32) H 11/02/24 13:45 ALT 33 U/L (0-33) 11/02/24 13:45 Alkaline Phosphatase 59 U/L (35-105) 11/02/24 13:45 Troponin T Baseline 60 ng/L (0-10) H 11/02/24 13:45 C-Reactive Protein 3.2 mg/L (0.0-4.9) 11/02/24 13:45 NT-Pro-B Natriuret Pep 2283 pg/mL (0-450) H 11/02/24 13:45 Total Protein 7.0 g/dL (6.6-8.7) 11/02/24 13:45 Albumin 4.1 g/dL (3.5-5.2) 11/02/24 13:45 Globulin 2.9 g/dL (1.3-4.6) 11/02/24 13:45 TSH 1.57 uIU/mL (0.27-4.20) 11/02/24 13:45 Urine Color Yellow (Yellow) 11/02/24 13:35 Urine Appearance Clear (CLEAR) 11/02/24 13:35 Urine pH 6.0 (5-7) 11/02/24 13:35 Ur Specific [place] 1.010 (1.005-1.030) 11/02/24 13:35 Urine Protein Negative (Negative) 11/02/24 13:35 Urine Glucose (UA) 3+ (Normal) H 11/02/24 13:35 Urine Ketones Negative (Negative) 11/02/24 13:35 Urine Blood Negative (Negative) 11/02/24 13:35 Urine Nitrate Negative (Negative) 11/02/24 13:35 Urine Bilirubin Negative (Negative) 11/02/24 13:35 Urine Urobilinogen 0.2 mg/dL (Negative) 11/02/24 13:35 Ur Leukocyte Esterase Negative (Negative) 11/02/24 13:35 Urine RBC 0-2 /hpf (0-2) 11/02/24 13:35 Urine WBC 0-5 /hpf (0-5) 11/02/24 13:35 Ur Squamous Epith Cells 0-5 /hpf (0-5) 11/02/24 13:35 Amorphous Sediment Not Reportable 11/02/24 13:35 Urine Bacteria None seen /hpf (NONE) 11/02/24 13:35 Hyaline Casts 1.21 /lpf 11/02/24 13:35 Influenza A (PCR) Negative (Negative) 11/02/24 13:35 Influenza Type B (PCR) Negative (Negative) 11/02/24 13:35 RSV (PCR) Negative (Negative) 11/02/24 13:35 SARS-CoV-2 (PCR) Negative (Negative) 11/02/24 13:35 All radiology interpretation(s) finalized by discharge Discharge Plan Discharge Patient Disposition: Admitted As Inpatient Clinical Impression: Chest pain, Congestive heart failure, Dyspnea Condition: Stable Coding Level of Care Code ED Poultry Buyer for Ian Navarro
[2024-11-02 13:47] LABS: Bilirubin Urine Negative (Negative); Blood Urine Negative (Negative); Glucose Urine UA 3+ (Normal); Ketones Urine Negative (Negative); Leukocyte Esterase Urine Negative (Negative); Nitrate Urine Negative (Negative); Protein Urine Negative (Negative); Urine Appearance Clear (CLEAR); Urine Color Yellow (Yellow); Urobilinogen Urine 0.2 mg/dL (Negative)
[2024-11-02 13:49] LABS: Bacteria Urine None Seen /hpf; Hyaline Casts Urine 1.21 /lpf; RBC Urine 0-2 /hpf (0-2); Squamous Epithelial Cell Urine 0-5 /hpf (0-5); WBC Urine 0-5 /hpf (0-5)
[2024-11-02 13:53] LABS: Basophils % 0.4 %; Eosinophils % 0.3 %; Hematocrit 38.9 % (36-47); Lymphocytes # 0.8 10^3/uL (0.8-4.8); Lymphocytes % 10.3 %; Mean Corpuscular HGB Conc 31.6 g/dL (30-55); Mean Platelet Volume 9.1 fL (7.4-10.4); Monocytes # 0.8 10^3/uL (0.2-0.9); Monocytes % 10.6 %; Neutrophils # 6.11 10^3/uL (1.8-7.7); Neutrophils % 77.9 %; Nucleated Red Blood Cells % 0 %; Platelet Count 346 10^3/cmm (157-399); Red Blood Count 3.97 10^6/uL (3.85-5.65); Red Cell Distribution Width 14.6 % (12.1-15.1); White Blood Count 7.84 10^3/uL (3.29-11.43)
[2024-11-02 13:57] LABS: Add Urine Culture? No
[2024-11-02 14:17] LABS: Lactic Sepsis W/Reflex 2.7 mmol/L (0.5-2.2)
[2024-11-02 14:19] LABS: Troponin(5th) Baseline 60 ng/L (0-10)
[2024-11-02 14:22] LABS: Influenza A NEGATIVE (Negative); Influenza B NEGATIVE (Negative); Respiratory Syncytial Virus Ce NEGATIVE (Negative); SARS-CoV-2 PCR NEGATIVE (Negative)
[2024-11-02 14:27] LABS: Alanine Aminotransferase 33 U/L (0-33); Albumin Level 4.1 g/dL (3.5-5.2); Alkaline Phosphatase 59 U/L (35-105); Anion Gap 19.5 (5-19); Aspartate Amino Transferase 48 U/L (0-32); Blood Urea Nitrogen 24 mg/dL (8-23); C Reactive Protein 3.2 mg/L (0.0-4.9); Calcium 9.3 mg/dL (8.5-10.5); Carbon Dioxide 24 mmol/L (22-29); Chloride 97 mmol/L (98-107); Creatinine Clr Calc Pharmacy 32.6732; Globulin 2.9 g/dL (1.3-4.6); Glucose 337 mg/dL (65-115); Magnesium 1.8 mg/dL (1.7-2.3); NT Pro B Type Natriuretic Pept 2283 pg/mL (0-450); Osmolality Calculated 301 mOsm/kg (285-295); Potassium 3.5 mmol/L (3.5-5.1); Sodium 137 mmol/L (136-145); Thyroid Stimulating Hormone 1.57 uIU/mL (0.27-4.20); Total Bilirubin 0.5 mg/dL (0.15-1.2)
[2024-11-02] MEDS: insulin regular-human 100 units/1 mL 10 UNIT IVP (15:04)
--- NOTE | 2024-11-02 15:08 | ECG_ITS ---
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
[2024-11-02 15:37] LABS: Reflex Lactate Order REFLEX LACTIC ORDERD
[2024-11-02 15:39] VITALS: BP 149/72; PULSE 107; O2SAT 96
--- NOTE | 2024-11-02 16:08 | PM.HP ---
Providers/Chief Complaint Admitting Physician: Emory Aquino MD Primary Care Provider: Karla Gallegos, [employer] Chief Complaint: SOB - headache History of Present Illness Teresa Garcia is a 74 year old female with a past medical history of rheumatoid arthritis, chronic pain, leflunomide type 2 diabetes, COPD, hyperlipidemia, hypothyroidism, who presents [facility] due to increased lower extremity edema, shortness of breath, she reports increased shortness of breath on exertion, lower extreme edema, does report sinus symptoms does report a cough, no fevers, chills, nausea, vomiting, abdominal pain, no dysuria, denies chest pain does report shortness of breath, Review of Systems Const: Reports: fatigue and malaise Card: Denies: chest pain Resp: Reports: dyspnea GI: Denies: abdominal pain Medications/Allergies Home Medications ?Medication ?Instructions ?Recorded ?Confirmed ?Last Taken ?Type aspirin 81 mg tablet,delayed 81 mg PO DAILY 10/19/19 11/02/24 11/02/24 History release Diabetic shoes #1 ea 10/14/20 11/02/24 Unknown Rx cholecalciferol (vitamin D3) 25 25 mcg PO DAILY 10/27/20 11/02/24 11/02/24 History mcg (1,000 unit) capsule (Vitamin D3) vitamin E 268 mg (400 unit) capsule 400 unit PO DAILY 10/27/20 11/02/24 11/02/24 History nitroglycerin 0.4 mg sublingual 0.4 mg sublingual Q5M PRN chest 01/22/23 11/02/24 Unknown Rx tablet pain #20 tabs lancets (Accu-Chek Softclix #100 ea 04/16/23 11/02/24 Unknown Rx Lancets) right cmc splint #1 ea 01/07/24 11/02/24 Unknown Rx vckzqgoovdyg-pcuazimaqne-phwow 100 mcg IM Q30D 04/30/24 11/02/24 Unknown History metformin 500 mg tablet,extended 1,500 mg (3 x 500 mg) PO DAILY 05/18/24 11/02/24 11/02/24 Rx release 24 hr #270 tabs Held on 07/27/24. Instructions: Diarrhea albuterol sulfate 90 mcg/actuation 2 puff inhalation QID PRN 07/27/24 11/02/24 Unknown Rx aerosol inhaler (Ventolin HFA) Shortness Of Breath #25.5 grams alendronate 70 mg tablet (Fosamax) 70 mg PO .weekly #12 tabs 07/27/24 11/02/24 Unknown Rx benazepril 40 mg tablet 40 mg PO DAILY #90 tabs 07/27/24 11/02/24 11/02/24 Rx blood sugar diagnostic (Accu-Chek #100 ea 07/27/24 11/02/24 Unknown Rx Guide test strips) doxepin 25 mg capsule 25 - 50 mg (1 - 2 x 25 mg) PO 07/27/24 11/02/24 11/02/24 Rx DAILY #180 caps duloxetine 20 mg capsule,delayed 20 mg PO BID #180 caps 07/27/24 11/02/24 11/02/24 Rx release (Cymbalta) fenofibrate nanocrystallized 145 145 mg PO DAILY #90 tabs 07/27/24 11/02/24 11/02/24 Rx mg tablet (Tricor) fluticasone 250 mcg-salmeterol 50 1 inh inhalation Q12H #180 ea 07/27/24 11/02/24 11/02/24 Rx mcg/dose blistr powdr for inhalation (Advair Diskus) furosemide 40 mg tablet 40 mg PO DAILY #90 tabs 07/27/24 11/02/24 11/02/24 Rx glipizide 5 mg tablet, extended 5 mg PO BID #180 tabs 07/27/24 11/02/24 11/02/24 Rx release 24 hr hydralazine 25 mg tablet 25 mg PO Q12H #180 tabs 07/27/24 11/02/24 11/02/24 Rx insulin glargine 100 unit/mL (3 35 unit (0.35 mL) SUBCUT QAM #31.5 07/27/24 11/02/24 11/02/24 Rx mL) subcutaneous pen (Lantus mL Solostar U-100 Insulin) levothyroxine 100 mcg tablet 100 mcg PO DAILY #90 tabs 07/27/24 11/02/24 11/02/24 Rx metoprolol succinate 100 mg 100 mg PO DAILY #90 tabs 07/27/24 11/02/24 11/02/24 Rx tablet,extended release 24 hr pen needle, diabetic 33 gauge x #100 ea 07/27/24 11/02/24 Unknown Rx potassium chloride 10 mEq 10 meq PO BID #180 tabs 07/27/24 11/02/24 11/02/24 Rx tablet,extended release cholestyramine-aspartame 4 gram 4 g PO TID #210 grams 07/30/24 11/02/24 11/02/24 Rx oral powder (Questran Light) leflunomide 20 mg tablet 20 mg PO DAILY #90 tabs 09/07/24 11/02/24 11/02/24 Rx prednisone 5 mg tablet 5 mg PO DAILY #90 tabs 09/07/24 11/02/24 11/02/24 Rx tizanidine 2 mg tablet 2 mg PO .at bedtime PRN muscle 10/14/24 11/02/24 Unknown Rx spasticity #90 tabs amlodipine 5 mg tablet 10 mg PO DAILY 11/02/24 11/02/24 11/02/24 History calcium 500 mg (as 1 tab PO BID 11/02/24 11/02/24 11/02/24 History carbonate)-vitamin D3 15 mcg (600 unit) tablet (Os-[place] 500 + D3) dextromethorphan-guaifenesin 10 10 ml PO Q4H PRN Congestion 11/02/24 11/02/24 Unknown History mg-100 mg/5 mL oral liquid fluconazole 150 mg tablet 150 mg PO DAILY 11/02/24 11/02/24 11/02/24 History omega-3 fatty acids 1,000 mg 1,000 mg PO DAILY 11/02/24 11/02/24 11/02/24 History capsule Allergies Allergy/AdvReac Type Severity Reaction Status Date / Time Penicillins Allergy Severe Rash Verified 11/02/24 11:14 Sulfa (Sulfonamide Allergy Severe Rash Verified 11/02/24 11:14 Antibiotics) Latex, Natural Rubber AdvReac Severe Rash Verified 11/02/24 11:14 adhesive AdvReac Intermediate Rash Verified 11/02/24 11:14 leflunomide AdvReac Intermediate diarrhea Verified 11/02/24 11:14 trazodone AdvReac Do not Verified 11/02/24 11:14 tolerate PFSH Acute PFSH: Medical History Diabetes mellitus with hyperglycemia, with long-term current use of insulin Osteoarthritis of hands, bilateral Immunization counseling High risk medication use Seropositive rheumatoid arthritis of multiple sites Osteoporosis Cigarette smoker COPD (chronic obstructive pulmonary disease) Unstable angina Hypertension Environmental and seasonal allergies Vitamin D deficiency Mixed hyperlipidemia Diverticulosis Adult hypothyroidism Surgical History History of lumbar surgery Rods in lumbar History of cholecystectomy History of tubal ligation History of foot surgery left Family History Father Diabetes Mother CAD (coronary artery disease) Other Dementia Social History Smoking and tobacco/nicotine status: current every day tobacco/nicotine user Second hand smoke exposure: Yes Alcohol intake: never Substance/Drug Use: never Adopted: No Caregiver/support person: No Lives independently: Yes Household members: spouse Housing: House Marital status: Number of children: 3 service: No Current occupational status: unemployed Do you think of yourself as: Straight/Heterosexual Current gender identity: Female Vitals/I&O/Wt Last Vital Signs Temp 98.4 F 11/02/24 13:20 Pulse 107 H 11/02/24 15:39 Resp 20 H 11/02/24 13:20 BP 149/72 11/02/24 15:39 Pulse Ox 96 11/02/24 15:39 O2 Del Method Room Air 11/02/24 15:39 Weight last 48 hrs Weight 76.204 kg Physical Exam Const: COMMON NORMALS: no acute distress and patient oriented x3 HENMT: COMMON NORMALS: normocephalic HEAD & SCALP: normocephalic Eye: COMMON NORMALS: Equal, round and reactive pupils present Neck/C-Spine: COMMON NORMALS: no JVD Resp: COMMON NORMALS: normal respiratory effort, No retractions, No use of accessory muscles and clear to auscultation bilaterally AUSCULTATION: clear to auscultation bilaterally Cardio: COMMON NORMALS: regular rate, regular rhythm, S1 normal heart sound present and S2 normal heart sound present RATE: regular rate RHYTHM: regular rhythm HEART SOUNDS: S1 normal heart sound present and S2 normal heart sound present GI: COMMON NORMALS: Normal to inspection, nondistended, normoactive bowel sounds present, Soft to palpation and non-tender Extremity: COMMON NORMALS: no calf tenderness Neuro: COMMON NORMALS: patient oriented x3, CN's II-XII intact bilaterally and moves all extremities Psych: COMMON NORMALS: mental status grossly normal Skin: NARRATIVE SKIN EXAM: 2+ pitting edema Sepsis: Is patient septic: No Focused sepsis exam performed: Yes Focused sepsis exam: Pitting edema, no mottling Date exam was performed: 11/02/24 Time exam was performed: 16:10 Data 11/02/24 13:45 11/02/24 13:45 Micro: Microbiology 11/02/24 13:45 Blood Culture - Preliminary Blood SPECIMEN COLLECTED 11/02/24 13:45 Blood Culture - Preliminary Blood SPECIMEN COLLECTED A&P Assessment and plan (1) NSTEMI (non-ST elevated myocardial infarction): (2) Congestive heart failure: Plan NSTEMI - Complaints of shortness of breath - Serial EKGs, serial troponins, telemetry monitoring - Continue aspirin, statin, metoprolol - Cardiac echo Diastolic CHF exacerbation - Lasix 40 IV twice daily - Monitor urine output, monitor creatinine - Cardiac echo Bilateral edema, venous ultrasound Type II days mellitus, continue Lantus 20 units daily, low-dose sliding scale, History of rheumatoid arthritis, continue prednisone hold leflunomide Full code Lovenox for DVT prophylaxis PDMP PDMP Reviewed: Not Reviewed Attestations Medical Necessity Statement*: Patient requires hospitalization for NSTEMI, diastolic CHF, inpatient, greater than 2 midnights Diagnoses NSTEMI (non-ST elevated myocardial infarction) I21.4 Congestive heart failure I50.9
[2024-11-02 16:13] LABS: Troponin 5 2HR 63.29 ng/L (0-10); Troponin 5 2HR Delta 3.29 ABS# (0-10)
--- NOTE | 2024-11-02 16:13 | USCV_ITS ---
Teresa Garcia Age: 74 Gender: F : 1950 Exam Date: 11/02/2024 20:46 Ordering Phys: Emory Aquino MD Technologist: Anival Alcaraz [place] [facility] [place]: SOB, history of COPD, HL, rheumatoid arthritis, now with bilateral lower extremity edema. BP: 136 / 78 HR: 94 Rhythm: Sinus Technical Quality: Adequate MEASUREMENTS (Male / Female) Normal Values 2D ECHO LV Diastolic Diameter PLAX 3.7 cm 4.2 - 5.9 / 3.9 - 5.3 cm IVS Diastolic Thickness 1.7 cm 0.6 - 1.0 / 0.6 - 0.9 cm IVS Systolic Thickness 2.2 cm LVPW Diastolic Thickness 1.5 cm 0.6 - 1.0 / 0.6 - 0.9 cm LVPW Systolic Thickness 2.3 cm LVOT Diameter 1.5 cm LV Ejection Fraction 2D Teich 72.9 % LV Ejection Fraction MOD 4C 59.8 % LV Ejection Fraction MOD 2C 56.2 % LV Ejection Fraction 2C AL 59.6 % LA Diameter 3.4 cm Aorta at Sinotubular Diameter 2.5 cm IVC Diameter 0.9 cm M-MODE LA Ao Ratio MM 1.5 AV Cusp Separation MM 1.3 cm DOPPLER AV Peak Velocity 219.0 cm/s LVOT Peak Velocity 135.0 cm/s AV Area Cont Eq vti 1.2 cm squared AV Area Cont Eq pk 1.1 cm squared MV Peak Velocity 175.0 cm/s MV Area PHT 2.4 cm squared Mitral E to A Ratio 0.6 TV Peak Velocity 317.7 cm/s TR Peak Velocity 319.0 cm/s TR Peak Gradient 40.7 mmHg TV Peak E Velocity 46.0 cm/s PV Peak Velocity 132.0 cm/s FINDINGS Left Ventricle Left ventricle is normal in size. LV systolic function is normal with EF of 60-65%. No regional wall motion abnormalities. Moderate left ventricular hypertrophy. Grade 1 diastolic dysfunction Right Ventricle Normal in size and function Right Atrium Normal in size Left Atrium Normal in size Mitral Valve Moderate mitral annular calcification. Mild mitral regurgitation Aortic Valve Grossly normal. Mild to moderate aortic stenosis with aortic valve area of 1.23cm2 and mean gradient across aortic valve of 8.15mmHg. Tricuspid Valve Mild tricuspid regurgitation. RVSP is 40-45mmHg. This is consistent with mild pulmonary hypertension. Pulmonic Valve Not well visualized Pericardium Normal Aorta Normal in size IVC Appears to bne normal CONCLUSIONS LV systolic function is normal with EF of 60-65% Moderate left ventricular hypertrophy. Grade 1 diastolic dysfunction Mild mitral regurgitation Mild to moderate aortic stenosis with aortic valve area of 1.23cm2 and mean gradient across aortic valve of 8.15mmHg. Mild tricuspid regurgitation. mild pulmonary hypertension. Manoj Carrillo MD (Electronically Signed) Final Date: 03 November 2024 20:39 S
[2024-11-02 16:26] LABS: Glucose Point of Care 208 mg/dL (70-110)
[2024-11-02 16:36] LABS: D Dimer 0.52 ug/mLFEU (0-0.59)
[2024-11-02 16:50] LABS: Procalcitonin 0.07 ng/mL (0-0.5); Thyroid Stimulating Hormone 1.67 uIU/mL (0.27-4.20)
[2024-11-02 16:50] LABS: ABG PCO2 36.2 mmHg (35-45); ABG PH Result 7.47 (7.35-7.45); Arterial Blood Gas Hematocrit 38.8 % (37-47); Base Excess ABG 2.6 mmol/L (-2.0-2.0); Blood Gas Allen Test Pos; Blood Gas Operator Identificat BROMA; Blood Gas Sample Site Radial, right; Blood Gas Sample Type Arterial; Carboxyhemoglobin 1.4 %THgb (0.4-20.1); HCO3 ABG 26.2 mmol/L (22-26); HGB O2 Sat 90.6 % (95-100); Ionized Calcium Level - ABG 1.2 mmol/L (1.1-1.4); Methemoglobin 0.9 % (0.4-1.5); Oxygen Device ROOM AIR; Oxygen Saturation ABG 92.8; PO2 ABG 73.3 mmHg (80.0-100.0); PO2 FiO2 Ratio Arterial Blood 349; Potassium Level - ABG 3.5 mmol/L (3.5-5.0); Total Hemoglobin 12.7 g/dL (12-16)
[2024-11-02] MEDS: potassium chloride ER 20 mEq Tablet PO (16:59)
[2024-11-02] MEDS: hyDRALAzine 25 mg Tablet PO (16:59)
[2024-11-02] MEDS: enoxaparin 40 mg/0.4 mL Syringe SUBCUT (16:59)
[2024-11-02] MEDS: FUROsemide 10 mg/mL SDV 4mL 40 MG IVP (17:00)
[2024-11-02 17:06] LABS: Lactic Acid level (Lactate) 1.9 mmol/L (0.5-2.2)
[2024-11-02 17:24] VITALS: BP 136/78; PULSE 102; O2SAT 94
[2024-11-02 19:01] LABS: Glucose Point of Care 245 mg/dL (70-110)
[2024-11-02] MEDS: potassium chloride ER 10 mEq Tablet PO (19:09)
[2024-11-02] MEDS: duloxetine 20 mg Capsule PO (19:09)
[2024-11-02] MEDS: insulin lispro 100 unit/1 mL SUBCUT (19:10)
--- NOTE | 2024-11-02 19:19 | ECG_ITS ---
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1950 Requested By: Yasemin Erazo Order Number: [id number] Reading MD: LEANNA FRIAS Measurements Intervals [place] Rate: 108 P: 47 IL: 149 QRS: 13 QRSD: 88 T: 134 QT: 352 QTc: 473 Interpretive Statements SINUS TACHYCARDIA POSSIBLE LEFT ATRIAL ENLARGEMENT [-0.1mV P-WAVE IN V1/V2] ST DEVIATION AND MODERATE T-WAVE ABNORMALITY, CONSIDER LATERAL ISCHEMIA [-0.1+ mV T-WAVE IN I/aVL/V5/V6] Compared to ECG 11/02/2024 15:08:39 T-wave abnormality now present Possible ischemia now present ST (T wave) deviation no longer present Electronically Signed On 11-02-2024 21:00:24 CDT by LEANNA FRIAS [id number]
[2024-11-02 19:45] VITALS: BP 174/72; PULSE 108; O2SAT 95
[2024-11-02 20:14] LABS: Troponin 5 6HR 69.58 ng/L (0-10); Troponin 5 6HR Delta 9.58 ng/L (0-12)
[2024-11-02 21:23] VITALS: BMI 30.5
[2024-11-02 21:27] VITALS: BP 150/62; PULSE 87; RESP 18; TEMP 36.4; O2SAT 95
[2024-11-03] VITALS (7 sets, daily range): BP systolic 125–167; BP diastolic 64–84; PULSE 68–119; RESP 15–19; TEMP 36.4–36.8; O2SAT 93–95
[2024-11-03 04:59] LABS: Basophils # 0.1 10^3/uL (0.0-0.1); Basophils % 0.8 %; Eosinophils # 0.1 10^3/uL (0.0-0.8); Eosinophils % 1.8 %; Lymphocytes # 1.8 10^3/uL (0.8-4.8); Lymphocytes % 27.2 %; Mean Corpuscular HGB Conc 31.6 g/dL (30-55); Mean Corpuscular Volume 98.1 fl (85-98); Mean Platelet Volume 9.2 fL (7.4-10.4); Monocytes # 1.3 10^3/uL (0.2-0.9); Monocytes % 18.9 %; Neutrophils # 3.39 10^3/uL (1.8-7.7); Neutrophils % 50.8 %; Nucleated Red Blood Cells % 0 %; Platelet Count 328 10^3/cmm (157-399); Red Blood Count 3.77 10^6/uL (3.85-5.65); Red Cell Distribution Width 14.8 % (12.1-15.1); White Blood Count 6.66 10^3/uL (3.29-11.43)
[2024-11-03 05:17] LABS: Alanine Aminotransferase 28 U/L (0-33); Albumin Level 3.3 g/dL (3.5-5.2); Alkaline Phosphatase 47 U/L (35-105); Anion Gap 16.5 (5-19); Aspartate Amino Transferase 41 U/L (0-32); Blood Urea Nitrogen 25 mg/dL (8-23); Calcium 8.5 mg/dL (8.5-10.5); Carbon Dioxide 24 mmol/L (22-29); Chloride 100 mmol/L (98-107); Creatinine Clr Calc Pharmacy 30.4219; Globulin 3.1 g/dL (1.3-4.6); Glucose 134 mg/dL (65-115); Magnesium 1.7 mg/dL (1.7-2.3); Osmolality Calculated 290 mOsm/kg (285-295); Potassium 3.5 mmol/L (3.5-5.1); Sodium 137 mmol/L (136-145); Total Bilirubin 0.5 mg/dL (0.15-1.2); Total Protein 6.4 g/dL (6.6-8.7)
[2024-11-03 05:30] LABS: NT Pro B Type Natriuretic Pept 2411 pg/mL (0-450)
[2024-11-03] MEDS: FUROsemide 10 mg/mL SDV 4mL 40 MG IVP (05:35)
[2024-11-03] MEDS: hyDRALAzine 25 mg Tablet PO ×2 (05:35→17:17)
[2024-11-03 07:06] LABS: Glucose Point of Care 185 mg/dL (70-110)
[2024-11-03] MEDS: insulin lispro 100 unit/1 mL SUBCUT ×3 (07:42→17:17)
[2024-11-03] MEDS: insulin glargine 100 units/1 mL 25 UNIT SUBCUT (07:42)
[2024-11-03] MEDS: cholecalciferol (vitamin D3) 1,000 unit Tablet 1000 UNIT PO (07:42)
[2024-11-03] MEDS: lisinopril 20 mg Tablet 40 MG PO (07:42)
[2024-11-03] MEDS: metoprolol succinate ER (24 HR) 100 mg Tablet PO (07:43)
[2024-11-03] MEDS: amlodipine 5 mg Tablet 10 MG PO (07:43)
[2024-11-03] MEDS: doxepin 25 mg Capsule PO (07:43)
[2024-11-03] MEDS: predniSONE 5 mg Tablet PO (07:43)
[2024-11-03] MEDS: aspirin 81 mg EC Tablet PO (07:43)
[2024-11-03] MEDS: calcium carb-vit d 600mg/400unit 1 Tablet 1 EACH PO ×2 (07:43→17:18)
[2024-11-03] MEDS: omega-3 fatty acids 1,000 mg Capsule 1000 MG PO (07:43)
[2024-11-03] MEDS: duloxetine 20 mg Capsule PO ×2 (07:43→17:18)
[2024-11-03] MEDS: fenofibrate 145 mg Tablet PO (07:44)
[2024-11-03] MEDS: levothyroxine 100 mcg Tablet PO (07:44)
[2024-11-03] MEDS: potassium chloride ER 10 mEq Tablet PO ×2 (07:44→17:18)
--- NOTE | 2024-11-03 10:06 | PC.CHAP ---
Pastoral Care Encounter/Spiritual Assessment Type of Contact [] Declined mechanical engineering manager visit [] Patient/Family/Request visit [] Outpatient visit [] Follow-up visit [] Physician referral [] Code/Alert [x] Routine visit [] Staff referral [] Actively dying [] Patient sleeping [] Family support [] [] Out of room [] Palliative care [] [] Receiving care in room [] Pre-surgical visit [] Trauma [] Long length of stay [] ICU visit [] Other: Relational/Emotional Strength [x] Patient feels connected with others/family/visitors/staff [] Distress [] Loneliness/isolation [] Abandonment Spirituality of Patient [x] Person of Thais [] Attends Anabaptist of their Thais [x] Believes in Prayer [] Reads Bible or Baptism materials [] There are Spiritual issues to be addressed Special Education Science Teacher Interventions [x] Prayer [x] Active listening [] Non-anxious presence [x] Spiritual/emotional support [] Crisis/trauma care [] Spiritual counseling [] Bereavement support [] Provided bereavement packet [] Provided Bible/devotional materials [] Provided toy/stuffed animal, coloring book to patient or family member [] Provided Communion [] Anointing/Midnight [] Salvation [x] Completed spiritual assessment [] Other: Impact on Illness or Injury [] Angry [] Fearful [] Anxious [] Often cries [] Exhaustion [] Unable to work [] Unable to attend episcopal [] Unable to walk/stand [] Unable to read [] Unable to drive [] Unable to eat/drink [] Unable to sleep [] Unable to be with family [] Patient intubated [] Other: Summary Time spent with patient 5 min
[2024-11-03 10:42] LABS: Glucose Point of Care 280 mg/dL (70-110)
--- NOTE | 2024-11-03 11:01 | ECG_ITS ---
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
--- NOTE | 2024-11-03 16:25 | P.PN_ITS ---
Subjective 2 Subjective: Patient was seen this morning, her edema is improving, she does report persistent shortness of breath with exertion, no nausea, no vomiting, abdominal pain, Vitals/I&O/Wt Last Vital Signs Temp 98.3 F 11/03/24 11:03 Pulse 86 11/03/24 11:03 Resp 15 11/03/24 11:03 BP 125/75 11/03/24 11:03 Pulse Ox 94 11/03/24 11:03 O2 Del Method Room Air 11/03/24 11:03 O2 Flow Rate 3 11/03/24 04:10 11/03/24 11/03/24 11/03/24 06:59 14:59 22:59 Intake Total 480 / 480 360 / 360 Balance 480 / 480 360 / 360 Weight last 48 hrs Weight 75.863 kg Weight 75.841 kg Weight 76.204 kg Physical Exam 2 Const: COMMON NORMALS: no acute distress and patient oriented x3 Neck/C-Spine: COMMON NORMALS: no JVD Resp: COMMON NORMALS: normal respiratory effort, No retractions and No use of accessory muscles AUSCULTATION: crackles and wheezes Cardio: COMMON NORMALS: no JVD, regular rate, regular rhythm, S1 normal heart sound present and S2 normal heart sound present RATE: regular rate RHYTHM: regular rhythm HEART SOUNDS: S1 normal heart sound present and S2 normal heart sound present GI: COMMON NORMALS: Normal to inspection, nondistended, normoactive bowel sounds present and non-tender Extremity: COMMON NORMALS: no pedal edema Neuro: COMMON NORMALS: patient oriented x3 Psych: COMMON NORMALS: mental status grossly normal Data 11/03/24 04:41 11/03/24 04:41 Micro: Microbiology 11/02/24 13:45 Blood Culture - Preliminary Blood NEGATIVE TO DATE 11/02/24 13:45 Blood Culture - Preliminary Blood NEGATIVE TO DATE A&P Assessment and plan (1) NSTEMI (non-ST elevated myocardial infarction): (2) Congestive heart failure: Plan NSTEMI - Complaints of shortness of breath - Serial EKGs, serial troponins, telemetry monitoring - Continue aspirin, statin, metoprolol - Cardiac echo pending - N.p.o. midnight, for stress test tomorrow Diastolic CHF exacerbation - Lasix 40 IV twice daily - Monitor urine output, monitor creatinine - Cardiac echo pending Bilateral edema, venous ultrasound Type II days mellitus, continue Lantus 20 units daily, low-dose sliding scale, History of rheumatoid arthritis, continue prednisone hold leflunomide Full code Lovenox for DVT prophylaxis Blood stress test tomorrow, cardiac echo, IV diuresis PDMP PDMP Reviewed: Not Reviewed Attestations 2 Medical Necessity Statement*: Patient requires hospitalization for NSTEMI, CHF Diagnoses NSTEMI (non-ST elevated myocardial infarction) I21.4 Congestive heart failure I50.9
[2024-11-03 16:56] LABS: Glucose Point of Care 219 mg/dL (70-110)
[2024-11-03] MEDS: enoxaparin 30 mg/0.3 mL Syringe SUBCUT (17:18)
[2024-11-03 20:45] LABS: Glucose Point of Care 201 mg/dL (70-110)
[2024-11-04 05:46] VITALS: BP 142/74; PULSE 70; RESP 20; TEMP 36.6; O2SAT 94
[2024-11-04 05:48] LABS: Basophils % 0.5 %; Eosinophils # 0.2 10^3/uL (0.0-0.8); Hematocrit 37.3 % (36-47); Lymphocytes # 1.6 10^3/uL (0.8-4.8); Lymphocytes % 21.6 %; Mean Corpuscular HGB Conc 31.9 g/dL (30-55); Mean Corpuscular Hemoglobin 31.2 pg (27-33); Mean Corpuscular Volume 97.6 fl (85-98); Mean Platelet Volume 9.3 fL (7.4-10.4); Monocytes # 1.4 10^3/uL (0.2-0.9); Neutrophils # 4.32 10^3/uL (1.8-7.7); Neutrophils % 57.4 %; Nucleated Red Blood Cells % 0 %; Platelet Count 333 10^3/cmm (157-399); Red Blood Count 3.82 10^6/uL (3.85-5.65); Red Cell Distribution Width 14.6 % (12.1-15.1); White Blood Count 7.54 10^3/uL (3.29-11.43)
[2024-11-04 06:10] LABS: Alanine Aminotransferase 31 U/L (0-33); Albumin Level 3.7 g/dL (3.5-5.2); Alkaline Phosphatase 51 U/L (35-105); Aspartate Amino Transferase 44 U/L (0-32); Blood Urea Nitrogen 32 mg/dL (8-23); Calcium 9.8 mg/dL (8.5-10.5); Carbon Dioxide 25 mmol/L (22-29); Chloride 102 mmol/L (98-107); Creatinine Clr Calc Pharmacy 30.4263; Globulin 3.2 g/dL (1.3-4.6); Glucose 163 mg/dL (65-115); Magnesium 1.9 mg/dL (1.7-2.3); Osmolality Calculated 300 mOsm/kg (285-295); Sodium 140 mmol/L (136-145); Total Bilirubin 0.5 mg/dL (0.15-1.2); Total Protein 6.9 g/dL (6.6-8.7)
[2024-11-04 06:47] LABS: Glucose Point of Care 208 mg/dL (70-110)
--- NOTE | 2024-11-04 07:01 | PC.NURSE ---
Pt to [facility] for stress test
[2024-11-04 07:52] VITALS: BP 138/60; PULSE 90
[2024-11-04] MEDS: regadenoson 0.4 Mg/5 ml Syringe IVP (07:56)
[2024-11-04 08:40] VITALS: BP 151/78; PULSE 76; RESP 18; TEMP 36.8; O2SAT 96
[2024-11-04] MEDS: insulin glargine 100 units/1 mL 25 UNIT SUBCUT (08:45)
[2024-11-04] MEDS: insulin lispro 100 unit/1 mL SUBCUT ×3 (08:45→17:12)
[2024-11-04] MEDS: duloxetine 20 mg Capsule PO ×2 (08:45→17:13)
[2024-11-04] MEDS: aspirin 81 mg EC Tablet PO (08:46)
[2024-11-04] MEDS: fenofibrate 145 mg Tablet PO (08:46)
[2024-11-04] MEDS: calcium carb-vit d 600mg/400unit 1 Tablet 1 EACH PO ×2 (08:46→17:13)
[2024-11-04] MEDS: lisinopril 20 mg Tablet 40 MG PO (08:46)
[2024-11-04] MEDS: omega-3 fatty acids 1,000 mg Capsule 1000 MG PO (08:46)
[2024-11-04] MEDS: potassium chloride ER 10 mEq Tablet PO ×2 (08:46→17:13)
[2024-11-04] MEDS: cholecalciferol (vitamin D3) 1,000 unit Tablet 1000 UNIT PO (08:46)
[2024-11-04] MEDS: amlodipine 5 mg Tablet 10 MG PO (08:46)
[2024-11-04] MEDS: predniSONE 5 mg Tablet PO (08:46)
[2024-11-04] MEDS: metoprolol succinate ER (24 HR) 100 mg Tablet PO (08:46)
[2024-11-04] MEDS: FUROsemide 10 mg/mL SDV 4mL 40 MG IVP (08:46)
[2024-11-04] MEDS: levothyroxine 100 mcg Tablet PO (08:46)
[2024-11-04] MEDS: doxepin 25 mg Capsule PO (08:46)
--- NOTE | 2024-11-04 10:26 | PC.SOCIAL ---
IMM Update Updated pt on IMM. No questions voiced. Provided pt a copy. Initialed, dated, & timed a copy & placed in chart.
--- NOTE | 2024-11-04 11:01 | NMCV_ITS ---
NM garth perf SPECT r/s* [id number] Teresa Garcia Age: 74 Gender: F : 1950 Exam Date: 11/04/2024 07:00 Ordering Phys: Emory Aquino MD Technologist: DELMI Willoughby Exam Location: [facility] Indications: cp STRESS TEST Please see separate stress test report in [facility] for full findings IMAGE PROTOCOL Rest/Stress 1 Lexiscan Day Radiopharmaceutical Dose (mCi) Administration Site Administered by Rest: Tc-99m 10.7 IV Una Israel, TEXTILE CONVERTER Sestamibi Stress:Tc-99m 32.4 IV Una Perezgle, TEXTILE CONVERTER Sestamibi Rest: 04-Nov-2024 60 Discovery 630 Stress: 04-Nov-2024 30 Discovery 630 0.4mg Lexiscan. Supine position only as patient was unable to lay prone. SPECT RESULTS Technical Quality: Good Raw Data Analysis: Normal Image Corrections: No attenuation or motion correction applied Summed Stress Score: 2 Summed Rest Score: 0 Summed Difference Score: 2 PERFUSION FINDINGS There is a small area of partially reversible perfusion defect seen in the apical lateral wall. This is consistent with small area of prior infarct with minimal makayla-infarct ischemia in the left circumflex artery territory. FUNCTIONAL RESULTS (calculated via Gated SPECT) Stress Image LV EF (%): 79 Stress EDV (mL):56 TID: 0.92 Stress ESV (mL):12 FUNCTIONAL FINDINGS: There is normal left ventricular systolic function. IMPRESSIONS 1. Small area of prior infarct with minimal makayla-infarct ischemia seen in the left circumflex artery territory. 2. LV systolic function is normal Manoj Carrillo MD (Electronically Signed) Final Date: 04 November 2024 12:02 S
[2024-11-04 11:15] LABS: Glucose Point of Care 272 mg/dL (70-110)
[2024-11-04 12:03] VITALS: BP 127/77; PULSE 93; RESP 16; TEMP 36.6; O2SAT 93
[2024-11-04 16:03] VITALS: BP 116/77; PULSE 75; RESP 16; TEMP 36.5; O2SAT 95
[2024-11-04 16:28] LABS: Glucose Point of Care 254 mg/dL (70-110)
--- NOTE | 2024-11-04 17:08 | P.CONIM_ITS ---
<Statement entered by Manoj Carrillo M.D - 11/06/24 10:13> Patient was evaluated and cared for in conjunction with an advanced practice practitioner.? I personally examined the patient and reviewed the chart and all pertinent data including imaging, telemetry, and laboratory results.? I discussed the patient in detail with the advanced practice practitioner.? Please see? their note for complete consult note, testing results and agreed upon plan of care for the patient. Patient's presentation is consistent with diastolic CHF exacerbation. Stress test does not show significant abnormalities/ischemia. At this time medical therapy is appropriate. GENERAL: Patient is alert, awake and oriented x3. HEART: Regular S1 and S2 LUNGS: Clear to auscultate bilaterally. CENTRAL NERVOUS SYSTEM: Grossly nonfocal. EXTREMITIES: Lower extremities with 1+ edema bilaterally. Providers/Reason For Consult 2 Consulting Physician/Specialty*: Dr. Carrillo Reason for Consult*: Shortness of breath, CHF exacerbation, abnormal stress test Requesting Physician: Dr. Aquino Attending Physician: Emory Aquino MD Primary Care Provider: HANK James History of Present Illness History of Present Illness Teresa Garcia is a 74 year old female With a history of hypertension, obesity, diabetes, CKD, COPD and hypothyroidism who presented to the ER with headache and shortness of breath and edema. She states it been going on for a few days. She states she has chronic shortness of breath on exertion. Denies any chest pain at this time.In 2019 she has had an angiogram that was negative for coronary blockages. Echo in the hospital showed EF of 60 to 65% with moderate left ventricular hypertrophy grade 1 diastolic dysfunction with mild to moderate aortic stenosis with aortic valve area of 1.23 cm and normal mean gradient of 8.15 mmHg.Mild pulmonary hypertension was seen. She has been getting Lasix 40 every 12 with significant improvement of her edema per patient and family member.Troponins were elevated but stable at 60?60 3?69.58.Creatinine was 1.5. A stress test was done that showed small area of prior infarct with minimal makayla- infarct ischemia seen in the left circumflex territory with normal LV function. Prone imaging was not done.EKG showed sinus tachycardia with no acute ST or T wave abnormalities.Currently she states she feels better and her swelling is down. She denies any orthopnea as well.If he was elevated at 2411.Vital signs are stable.O2 saturation 95% room air. Review of Systems 2 Narrative: Consitutional: denies fever, chills, body aches, or changes in appetite, denies abnormal weight loss Eyes: Denies changes in vision Card: Denies chest pain, palpitations, irregular heart rhythm, edema, syncope, orthopnea, leg pain with exertion Resp: reports shortness of breath on exertion relieved with rest, denies hemoptysis, denies cough GI: denies abdominal pain, denies nausea or voimting, denies blood in stool : denies blood in urine, denies dysuria Musc: Denies extremity pain, denies limited range of motion or recent injury Skin: Denies rash, lesions, or wounds, denies changes to skin color Neuro: Denies nubmness in extremities, h/a, s/s of stroke Wale: Denies easy bruiding/bleeding Medications/Allergies Home Medications ?Medication ?Instructions ?Recorded ?Confirmed ?Last Taken ?Type aspirin 81 mg tablet,delayed 81 mg PO DAILY 10/19/19 0 11/02/24 11/02/24 History release Diabetic shoes #1 ea 10/14/20 11/02/24 Unkn own Rx cholecalciferol (vitamin D3) 25 25 mcg PO DAILY 11/02/24 11/02/24 History mcg (1,000 unit) capsule (Vitamin D3) vitamin E 268 mg (400 unit) capsule 400 unit PO DAILY 10/27/20 11/02/24 11/02/24 History nitroglycerin 0.4 mg sublingual 0.4 mg sublingual Q5M PRN chest 01/22/23 11/02/24 Unknown Rx tablet pain #20 tabs lancets (Accu-Chek Softclix #100 ea 04/16/23 11/02/24 Unknown Rx Lancets) right cmc splint #1 ea 01/07/24 11/02/24 Unkn own Rx [id number] 100 mcg IM Q30D 4 11/02/24 Unknown History metformin 500 mg tablet,extended 1,500 mg (3 x 500 mg) PO DAILY 05/18/24 11/02/24 11/02/24 Rx release 24 hr #270 tabs albuterol sulfate 90 mcg/actuation 2 puff inhalation Q ID PRN 07/27/24 11/02/24 Unknown Rx aerosol inhaler (Ventolin HFA) Shortness Of Breath #25 .5 grams alendronate 70 mg tablet (Fosamax) 70 mg PO .weekly #1 2 tabs 07/27/24 11/02/24 Unknown Rx benazepril 40 mg tablet 40 mg PO DAILY #90 tabs 07/0911/02/24 11/02/24 Rx blood sugar diagnostic (Accu-Chek #100 ea 07/27/24 Unknown Rx Guide test strips) doxepin 25 mg capsule 25 - 50 mg (1 - 2 x 25 mg) P O 07/27/24 11/02/24 11/02/24 Rx DAILY #180 caps duloxetine 20 mg capsule,delayed 20 mg PO BID #180 cap s 07/27/24 11/02/24 11/02/24 Rx release (Cymbalta) fenofibrate nanocrystallized 145 145 mg PO DAILY #90 t abs 07/27/24 11/02/24 11/02/24 Rx mg tablet (Tricor) fluticasone 250 mcg-salmeterol 50 1 inh inhalation Q12 H #180 ea 07/27/24 11/02/24 11/02/24 Rx mcg/dose blistr powdr for inhalation (Advair Diskus) furosemide 40 mg tablet 40 mg PO DAILY #90 tabs 07/0911/02/24 11/02/24 Rx glipizide 5 mg tablet, extended 5 mg PO BID #180 tabs 07/27/24 11/02/24 11/02/24 Rx release 24 hr hydralazine 25 mg tablet 25 mg PO Q12H #180 tabs 07/0911/02/24 11/02/24 Rx insulin glargine 100 unit/mL (3 35 unit (0.35 mL) SUBC UT QAM #31.5 07/27/24 11/02/24 11/02/24 Rx mL) subcutaneous pen (Lantus mL Solostar U-100 Insulin) levothyroxine 100 mcg tablet 100 mcg PO DAILY #90 tabs 07/27/24 11/02/24 11/02/24 Rx metoprolol succinate 100 mg 100 mg PO DAILY #90 tabs 0 07/27/24 11/02/24 11/02/24 Rx tablet,extended release 24 hr pen needle, diabetic 33 gauge x #100 ea 07/27/2411/02 Unknown Rx potassium chloride 10 mEq 10 meq PO BID #180 tabs 07/0911/02/24 11/02/24 Rx tablet,extended release cholestyramine-aspartame 4 gram 4 g PO TID #210 grams 07/30/24 11/02/24 11/02/24 Rx oral powder (Questran Light) leflunomide 20 mg tablet 20 mg PO DAILY #90 tabs 09/2911/02/24 11/02/24 Rx prednisone 5 mg tablet 5 mg PO DAILY #90 tabs 09/0711/02/24 11/02/24 Rx tizanidine 2 mg tablet 2 mg PO .at bedtime PRN musc le 10/14/24 11/02/24 Unknown Rx spasticity #90 tabs amlodipine 5 mg tablet 10 mg PO DAILY 11/02/2410/0711/02/24 History calcium 500 mg (as 1 tab PO BID 11/02/2411/02/24 History carbonate)-vitamin D3 15 mcg (600 unit) tablet (Os-Jose Luis 500 + D3) dextromethorphan-guaifenesin 10 10 ml PO Q4H PRN Alexge stion 11/02/24 11/02/24 Unknown History mg-100 mg/5 mL oral liquid fluconazole 150 mg tablet 150 mg PO DAILY 11/02/2411/02/24 History omega-3 fatty acids 1,000 mg 1,000 mg PO DAILY 5 11/02/24 11/02/24 History capsule Allergies Allergy/AdvReac Type Severity Reaction Status Date / Time Penicillins Allergy Severe Rash Verified 11/02/24 11:14 Sulfa (Sulfonamide Allergy Severe Rash Verified 11/02/24 11:14 Antibiotics) Latex, Natural Rubber AdvReac Severe Rash Verified 11/02/24 11:14 adhesive AdvReac Intermediate Rash Verified 11/02/24 11:14 leflunomide AdvReac Intermediate diarrhea Verified 11/02/24 11:14 trazodone AdvReac Do not Verified 11/02/24 11:14 tolerate Current Medications Generic Name Dose Route Start Last Admin Trade Name Monika PRN Reason Stop Dose Admin Amlodipine Besylate 10 mg 11/03/24 09:00 11/04/24 08:46 Amlodipine 5 Mg Tablet PO 10 mg DAILY SURENDRA Administration Aspirin 81 mg 11/03/24 09:00 11/04/24 08:46 Aspirin 81 Mg Ec Tablet PO 81 mg DAILY SURENDRA Administration Calcium Carbonate 1 each 11/03/24 09:00 11/04/24 08:46 Calcium Carb-Vit D 600mg/400unit 1 Tablet PO 1 each BID SURENDRA Administration Doxepin HCl 25 mg 11/03/24 09:00 11/04/24 08:46 Doxepin 25 Mg Capsule PO 25 mg DAILY SURENDRA Administration Duloxetine HCl 20 mg 11/02/24 18:00 11/04/24 08:45 Duloxetine 20 Mg Capsule PO 20 mg BID SURENDRA Administration Enoxaparin Sodium 30 mg 11/03/24 17:00 11/03/24 17:18 Enoxaparin 30 Mg/0.3 Ml Syringe SUBCUT 30 mg Q24H SURENDRA Administration Fenofibrate 145 mg 11/03/24 09:00 11/04/24 08:46 Fenofibrate 145 Mg Tablet PO 145 mg DAILY SURENDRA Administration Furosemide 40 mg 11/04/24 09:00 11/04/24 08:46 Furosemide 10 Mg/Ml Sdv 4ml IVP 40 mg Q24H SURENDRA Administration Hydralazine HCl 25 mg 11/02/24 16:13 11/04/24 06:30 Hydralazine 25 Mg Tablet PO Not Given Q12H [facility] Insulin Glargine 25 unit 11/03/24 06:00 11/04/24 08:45 Insulin Glargine 100 Units/1 Ml SUBCUT 25 unit QAM [facility] Administration Insulin Human Lispro 0 unit 11/02/24 18:00 11/04/24 11:35 Insulin Lispro 100 Unit/1 Ml SUBCUT 8 unit TIDWM [facility] Administration Protocol Levothyroxine Sodium 100 mcg 11/03/24 09:00 11/04/24 08:46 Levothyroxine 100 Mcg Tablet PO 100 mcg DAILY SURENDRA Administration Lisinopril 40 mg 11/03/24 09:00 11/04/24 08:46 Lisinopril 20 Mg Tablet PO 40 mg DAILY SURENDRA Administration Metoprolol Succinate 100 mg 11/03/24 09:00 11/04/24 08:46 Metoprolol Succinate Er (24 Hr) 100 Mg Tablet PO 100 mg DAILY SURENDRA Administration Non-Formulary Medication 4 gm 11/02/24 21:00 11/04/24 11:24 Cholestyramine-Aspartame [Questran Light] PO Not Given TID SURENDRA Hldci-7-Gfqy Ethyl Esters 1,000 mg 11/03/24 09:00 11/04/24 08:46 [place]-3 Fatty Acids 1,000 Mg Capsule PO 1,000 mg DAILY SURENDRA Administration Potassium Chloride 10 meq 11/02/24 18:00 11/04/24 08:46 Potassium Chloride Er 10 Meq Tablet PO 10 meq BID SURENDRA Administration Prednisone 5 mg 11/03/24 09:00 11/04/24 08:46 Prednisone 5 Mg Tablet PO 5 mg DAILY SURENDRA Administration Vitamin D 1,000 unit 11/03/24 09:00 11/04/24 08:46 Cholecalciferol (Vitamin D3) 1,000 Unit Tablet PO 1,000 unit DAILY SURENDRA Administration PFSH Acute 2 PFSH: Medical History Diabetes mellitus with hyperglycemia, with long-term current use of insulin Osteoarthritis of hands, bilateral Immunization counseling High risk medication use Seropositive rheumatoid arthritis of multiple sites Osteoporosis Cigarette smoker COPD (chronic obstructive pulmonary disease) Unstable angina Hypertension Environmental and seasonal allergies Vitamin D deficiency Mixed hyperlipidemia Diverticulosis Adult hypothyroidism Surgical History History of lumbar surgery Rods in lumbar History of cholecystectomy History of tubal ligation History of foot surgery left Family History Father Diabetes Mother CAD (coronary artery disease) Other Dementia Social History Smoking and tobacco/nicotine status: current every day tobacco/nicotine user Second hand smoke exposure: Yes Alcohol intake: never Substance/Drug Use: never Adopted: No Caregiver/support person: No Lives independently: Yes Household members: spouse Housing: House Marital status: Number of children: 3 service: No Current occupational status: unemployed Do you think of yourself as: Straight/Heterosexual Current gender identity: Female Vitals/I&O/Wt Last Vital Signs Temp 97.7 F 11/04/24 16:03 Pulse 75 11/04/24 16:03 Resp 16 11/04/24 16:03 BP 116/77 11/04/24 16:03 Pulse Ox 95 11/04/24 16:03 O2 Del Method Room Air 11/04/24 16:03 O2 Flow Rate 0 11/04/24 08:00 11/04/24 11/04/24 11/04/24 06:59 14:59 22:59 Intake Total 600 / 1500 360 / 360 Balance 600 / 1500 360 / 360 Weight last 48 hrs Weight 167 lb 4 oz Weight 167 lb 4 oz Weight 167 lb 3.2 oz Physical Exam 2 Narrative: General: No apparent distress, healthy appearing, well nourished HENMT: normoceophalic Respiratory: Normal respiratory effort, clear to auscultation bilaterally throughout all lung beach, no use of accessory muscles Cardio: No JVD, regular rate, regular rhythm, S1 S2 normal, no murmurs, peripheral pulses 2+ radial palpated bilaterally GI: Normal to inspection, nondistended Extremities: Full ROM, normal, normal capillary refill, no cyanosis, 1+ pitting edema bilateral lower extremities Neuro: Alert and oriented x4, no focal motor deficits Psych: Affect normal, denies suicidal ideation, mental status grossly normal Skin: No rashes or lesions noted, no wounds Data 11/04/24 05:16 11/04/24 05:16 Micro: Microbiology 11/02/24 13:45 Blood Culture - Preliminary Blood NEGATIVE TO DATE 11/02/24 13:45 Blood Culture - Preliminary Blood NEGATIVE TO DATE A&P Assessment and plan (1) Mixed hyperlipidemia: (2) Hypertension: (3) Cigarette smoker: (4) Palpitations: (5) Congestive heart failure: Plan Patient has signs and symptoms most consistent with diastolic heart failure. Patient has improved from diuresis. She appears to be back to baseline per patient. Denies any chest pain. Stress test mildly abnormal without prone imaging as well. At this time we will recommend continued medical management with diuretics. Continue to monitor I&O and patient response. Thank you, Dr. Aquino, for allowing us to care for this very plesant 74 year old female. PDMP PDMP Reviewed: Not Reviewed Coding Level of Care Code Acute Code for Chg Fwd Diagnoses Mixed hyperlipidemia E78.2 Essential hypertension I10 Hypertension type: essential hypertension Cigarette smoker F17.210 Palpitations R00.2 Congestive heart failure I50.9
[2024-11-04] MEDS: enoxaparin 30 mg/0.3 mL Syringe SUBCUT (17:13)
[2024-11-04] MEDS: hyDRALAzine 25 mg Tablet PO (17:13)
--- NOTE | 2024-11-04 17:15 | P.DS_ITS ---
Discharge Providers Date of Admission: 11/02/24 16:04 Date of Discharge: November 04, 2024 Attending Provider at Admission: Emory Aquino MD Attending Provider at Discharge: Emory Aquino MD Primary Care Provider: HANK James Diagnoses at Discharge Discharge Diagnosis (1) NSTEMI (non-ST elevated myocardial infarction): Status: Acute (2) Congestive heart failure: Status: Acute Reason for Visit Reason for Visit: SOB - headache Hospital Course Hospital Course Teresa Garcia is a 74 year old female with a past medical history of rheumatoid arthritis, chronic pain, leflunomide type 2 diabetes, COPD, hyperlipidemia, hypothyroidism, who presents [facility] due to increased lower extremity edema, shortness of breath, she reports increased shortness of breath on exertion, lower extreme edema, does report sinus symptoms does report a cough, no fevers, chills, nausea, vomiting, abdominal pain, no dysuria, denies chest pain does report shortness of breath, Patient was admitted to [facility] for NSTEMI stress test IMPRESSIONS 1. Small area of prior infarct with minimal makayla-infarct ischemia seen in the left circumflex artery territory. 2. LV systolic function is normal echo CONCLUSIONS LV systolic function is normal with EF of 60-65% Moderate left ventricular hypertrophy. Grade 1 diastolic dysfunction Mild mitral regurgitation Mild to moderate aortic stenosis with aortic valve area of 1.23cm2 and mean gradient across aortic valve of 8.15mmHg. Mild tricuspid regurgitation. mild pulmonary hypertension. -Cardiology consulted, recommended medical management continue aspirin, beta- ya Diastolic CHF exacerbation, received IV Lasix, overall clinically improved, discharged on home Lasix dosing For aortic valve stenosis, follow-up with cardiology as outpatient Physical Exam Const: COMMON NORMALS: no acute distress and patient oriented x3 Resp: COMMON NORMALS: normal respiratory effort, No retractions, No use of accessory muscles and clear to auscultation bilaterally AUSCULTATION: clear to auscultation bilaterally Cardio: COMMON NORMALS: regular rate, regular rhythm, S1 normal heart sound present and S2 normal heart sound present RATE: regular rate RHYTHM: regular rhythm HEART SOUNDS: S1 normal heart sound present and S2 normal heart sound present GI: COMMON NORMALS: Normal to inspection, nondistended, normoactive bowel sounds present and non-tender Extremity: COMMON NORMALS: no pedal edema Neuro: COMMON NORMALS: patient oriented x3 Psych: COMMON NORMALS: mental status grossly normal Discharge Data Studies Completed and Pending Completed Studies During Hospitalization Category Date Time Status Sestamibi Stress Test Request Routine Exams 11/03/24 11:01 Draft XR chest 1V portable [id number] Stat Exams 11/02/24 13:19 Completed NM garth perf SPECT r/s* [id number] Routine Nuc Med 11/04/24 11:01 Completed CV. echo complete* [id number] Routine Ultrasound 11/02/24 16:13 Completed Pending at discharge Category Date Time Status Blood Culture Stat Lab 11/02/24 13:45 Results Complete Blood Count w/Auto AM LABS Lab 11/05/24 04:00 Ordered Comprehensive Metabolic Panel AM LABS Lab 11/05/24 04:00 Ordered Magnesium AM LABS Lab 11/05/24 04:00 Ordered Radiology Impressions Chest X-Ray 11/02/24 13:19 IMPRESSION: No acute pulmonary finding. Laboratory Results WBC 7.54 10^3/uL (3.29-11.43) 11/04/24 05:16 RBC 3.82 10^6/uL (3.85-5.65) L 11/04/24 05:16 Hgb 11.90 g/dL (11.27-16.99) 11/04/24 05:16 Hct 37.3 % (36-47) 11/04/24 05:16 MCV 97.6 fl (85-98) 11/04/24 05:16 MCH 31.2 pg (27-33) 11/04/24 05:16 MCHC 31.9 g/dL (30-55) 11/04/24 05:16 RDW 14.6 % (12.1-15.1) 11/04/24 05:16 Plt Count 333 10^3/cmm (157-399) 11/04/24 05:16 MPV 9.3 fL (7.4-10.4) 11/04/24 05:16 Neut % (Auto) 57.4 % 11/04/24 05:16 Lymph % (Auto) 21.6 % 11/04/24 05:16 [place] % (Auto) 18.0 % 11/04/24 05:16 Eos % (Auto) 2.0 % 11/04/24 05:16 Baso % (Auto) 0.5 % 11/04/24 05:16 Neut # (Auto) 4.32 10^3/uL (1.8-7.7) 11/04/24 05:16 Lymph # (Auto) 1.6 10^3/uL (0.8-4.8) 11/04/24 05:16 [place] # (Auto) 1.4 10^3/uL (0.2-0.9) H 11/04/24 05:16 Eos # (Auto) 0.2 10^3/uL (0.0-0.8) 11/04/24 05:16 Baso # (Auto) 0.0 10^3/uL (0.0-0.1) 11/04/24 05:16 Nucleated RBC % (auto) 0 % 11/04/24 05:16 Nucleated RBCs # 0.0 /100WBC 11/04/24 05:16 D-Dimer 0.52 ug/mLFEU (0-0.59) 11/02/24 13:45 Specimen Type Arterial 11/02/24 16:38 Sample Site Radial, right 11/02/24 16:38 ABG pH 7.47 (7.35-7.45) H 11/02/24 16:38 ABG pCO2 36.2 mmHg (35-45) 11/02/24 16:38 ABG pO2 73.3 mmHg (80.0-100.0) L 11/02/24 16:38 ABG PO2/FiO2 Ratio 349 11/02/24 16:38 ABG HCO3 26.2 mmol/L (22-26) H 11/02/24 16:38 ABG O2 Saturation 92.8 11/02/24 16:38 ABG Base Excess 2.6 mmol/L (-2.0-2.0) H 11/02/24 16:38 Apolinar Test Pos 11/02/24 16:38 A-a O2 Gradient 4.0 mmHg (5-10) L 11/02/24 16:38 Hematocrit 38.8 % (37-47) 11/02/24 16:38 Hgb O2 Saturation 90.6 % (95-100) L 11/02/24 16:38 Carboxyhemoglobin 1.4 %THgb (0.4-20.1) 11/02/24 16:38 Methemoglobin 0.9 % (0.4-1.5) 11/02/24 16:38 Total Hemoglobin 12.7 g/dL (12-16) 11/02/24 16:38 Sodium 139.0 mmol/L (131-143) 11/02/24 16:38 Potassium 3.5 mmol/L (3.5-5.0) 11/02/24 16:38 Glucose 168.0 mg/dL (70-115) H 11/02/24 16:38 Ionized Calcium 1.2 mmol/L (1.1-1.4) 11/02/24 16:38 O2 Delivery Device Room air 11/02/24 16:38 FiO2 21.0 % 11/02/24 16:38 Line Assigner ID Broma 11/02/24 16:38 Sodium 140 mmol/L (136-145) 11/04/24 05:16 Potassium 4.0 mmol/L (3.5-5.1) 11/04/24 05:16 Chloride 102 mmol/L (98-107) 11/04/24 05:16 Carbon Dioxide 25 mmol/L (22-29) 11/04/24 05:16 Anion Gap 17.0 (5-19) 11/04/24 05:16 BUN 32 mg/dL (8-23) H 11/04/24 05:16 Creatinine 1.5 mg/dL (0.5-0.9) H 11/04/24 05:16 GFR Calculation Not Reportable 11/04/24 05:16 Glucose 163 mg/dL (65-115) H 11/04/24 05:16 POC Glucose 254 mg/dL (70-110) H 11/04/24 16:12 Calculated Osmolality 300 mOsm/kg (285-295) H 11/04/24 05:16 Lactic Acid 2.7 mmol/L (0.5-2.2) H 11/02/24 13:45 Lactic Acid (Sepsis) 1.9 mmol/L (0.5-2.2) 11/02/24 16:42 Calcium 9.8 mg/dL (8.5-10.5) 11/04/24 05:16 Magnesium 1.9 mg/dL (1.7-2.3) 11/04/24 05:16 Total Bilirubin 0.5 mg/dL (0.15-1.2) 11/04/24 05:16 AST 44 U/L (0-32) H 11/04/24 05:16 ALT 31 U/L (0-33) 11/04/24 05:16 Alkaline Phosphatase 51 U/L (35-105) 11/04/24 05:16 Troponin T Baseline 60 ng/L (0-10) H 11/02/24 13:45 Troponin T 120 Minute 63.29 ng/L (0-10) H 11/02/24 15:30 Delta Troponin T 3.29 ABS# (0-10) 11/02/24 15:30 Troponin T Hi Sens 6Hr 69.58 ng/L (0-10) H 11/02/24 19:38 Troponin T Hi Sens 6Hr Delta 9.58 ng/L (0-12) 11/02/24 19:38 C-Reactive Protein 3.2 mg/L (0.0-4.9) 11/02/24 13:45 NT-Pro-B Natriuret Pep 2411 pg/mL (0-450) H 11/03/24 04:41 Total Protein 6.9 g/dL (6.6-8.7) 11/04/24 05:16 Albumin 3.7 g/dL (3.5-5.2) 11/04/24 05:16 Globulin 3.2 g/dL (1.3-4.6) 11/04/24 05:16 Procalcitonin 0.07 ng/mL (0-0.5) 11/02/24 13:45 TSH 1.57 uIU/mL (0.27-4.20) 11/02/24 13:45 TSH 1.67 uIU/mL (0.27-4.20) 11/02/24 13:45 Urine Color Yellow (Yellow) 11/02/24 13:35 Urine Appearance Clear (CLEAR) 11/02/24 13:35 Urine pH 6.0 (5-7) 11/02/24 13:35 Ur Specific [place] 1.010 (1.005-1.030) 11/02/24 13:35 Urine Protein Negative (Negative) 11/02/24 13:35 Urine Glucose (UA) 3+ (Normal) H 11/02/24 13:35 Urine Ketones Negative (Negative) 11/02/24 13:35 Urine Blood Negative (Negative) 11/02/24 13:35 Urine Nitrate Negative (Negative) 11/02/24 13:35 Urine Bilirubin Negative (Negative) 11/02/24 13:35 Urine Urobilinogen 0.2 mg/dL (Negative) 11/02/24 13:35 Ur Leukocyte Esterase Negative (Negative) 11/02/24 13:35 Urine RBC 0-2 /hpf (0-2) 11/02/24 13:35 Urine WBC 0-5 /hpf (0-5) 11/02/24 13:35 Ur Squamous Epith Cells 0-5 /hpf (0-5) 11/02/24 13:35 Amorphous Sediment Not Reportable 11/02/24 13:35 Urine Bacteria None seen /hpf (NONE) 11/02/24 13:35 Hyaline Casts 1.21 /lpf 11/02/24 13:35 Influenza A (PCR) Negative (Negative) 11/02/24 13:35 Influenza Type B (PCR) Negative (Negative) 11/02/24 13:35 RSV (PCR) Negative (Negative) 11/02/24 13:35 SARS-CoV-2 (PCR) Negative (Negative) 11/02/24 13:35 Vitals Last Vital Signs Temp 97.7 F 11/04/24 16:03 Pulse 75 11/04/24 16:03 Resp 16 11/04/24 16:03 BP 116/77 11/04/24 16:03 Pulse Ox 95 11/04/24 16:03 O2 Del Method Room Air 11/04/24 16:03 O2 Flow Rate 0 11/04/24 08:00 Discharge Plan Discharge Patient Disposition: Home Condition: Stable Prescriptions: Continued aspirin 81 mg tablet,delayed release (DR/EC) 81 mg PO DAILY nitroglycerin 0.4 mg tablet, sublingual 0.4 mg SUBLINGUAL Q5M PRN (Reason: chest pain) Qty: 20 0RF Rx Instructions: do not exceed 3 doses per episode prednisone 5 mg tablet 5 mg PO DAILY Qty: 90 1RF leflunomide 20 mg tablet 20 mg PO DAILY Qty: 90 0RF kuidhqkopupp-lphorjijqzf-topxv 100 mcg IM Q30D metformin 500 mg tablet extended release 24 hr 1,500 mg PO DAILY Qty: 270 1RF albuterol sulfate [Ventolin HFA] 90 mcg/actuation HFA aerosol inhaler 2 puff INHALATION QID PRN (Reason: Shortness Of Breath) Qty: 25.5 1RF alendronate [Fosamax] 70 mg tablet 70 mg PO .weekly Qty: 12 1RF benazepril 40 mg tablet 40 mg PO DAILY Qty: 90 1RF doxepin 25 mg capsule 25 - 50 mg PO DAILY Qty: 180 1RF duloxetine [Cymbalta] 20 mg capsule,delayed release(DR/EC) 20 mg PO BID Qty: 180 1RF fenofibrate nanocrystallized [Tricor] 145 mg tablet 145 mg PO DAILY Qty: 90 1RF fluticasone propion-salmeterol [Advair Diskus] 250-50 mcg/dose blister with device 1 inh inhalation Q12H Qty: 180 1RF furosemide 40 mg tablet 40 mg PO DAILY Qty: 90 1RF glipizide 5 mg tablet extended release 24hr 5 mg PO BID Qty: 180 1RF hydralazine 25 mg tablet 25 mg PO Q12H Qty: 180 1RF insulin glargine [Lantus Solostar U-100 Insulin] 100 unit/mL (3 mL) insulin pen 35 unit SUBCUT QAM Qty: 31.5 1RF levothyroxine 100 mcg tablet 100 mcg PO DAILY Qty: 90 1RF metoprolol succinate 100 mg tablet extended release 24 hr 100 mg PO DAILY Qty: 90 1RF potassium chloride 10 mEq tablet extended release 10 meq PO BID Qty: 180 1RF Questran Light 4 gram powder 4 g PO TID Qty: 210 0RF tizanidine 2 mg tablet 2 mg PO .at bedtime PRN (Reason: muscle spasticity) Qty: 90 0RF vitamin E 400 unit Capsule 400 unit PO DAILY cholecalciferol (vitamin D3) [Vitamin D3] 25 mcg (1,000 unit) Capsule 25 mcg PO DAILY omega-3 fatty acids 1,000 mg Capsule 1,000 mg PO DAILY fluconazole 150 mg tablet 150 mg PO DAILY dextromethorphan-guaifenesin [Diabetic Tussin] 10-100 mg/5 mL Liquid 10 ml PO Q4H PRN (Reason: Congestion) amlodipine 5 mg tablet 10 mg PO DAILY calcium carbonate-vitamin D3 [Os-Jose Luis 500 + D3] 500 mg-15 mcg (600 unit) tablet 1 tab PO BID No Action (DME) Diabetic shoes See Rx Instructions .Route .MEDSUPPLY Qty: 1 0RF Rx Instructions: As directed (DME) lancets [Accu-Chek Softclix Lancets] Misc See Rx Instructions .Route Qty: 100 3RF Rx Instructions: use 1 day (DME) right cmc splint See Rx Instructions .Route .MEDSUPPLY Qty: 1 0RF Rx Instructions: As directed (DME) Accu-Chek Guide test strips Strip See Rx Instructions .Route Qty: 100 5RF Rx Instructions: use one daily (DME) pen needle, diabetic 33 gauge x 5/32 needle See Rx Instructions .ROUTE .MEDSUPPLY Qty: 100 5RF Rx Instructions: 1 time day Discharge Orders: Discharge Order (Routine); Ordered 11/04/24 Ordered By: Emory Aquino Referrals: Karla Gallegos FNP-C [Primary Care Provider, [facility]] - 11/10/24 11:40 am Manoj Carrillo M.D [Physician, Cardiology] - 1 week Referral Note: We have notified your physician's clinic of the need for a follow-up appointment to be scheduled. If you have not heard from them within the next 2 business days, please call them directly. Discharge Diet: Cardiac Discharge Activity: Resume usual activity Patient Instructions: Shortness of Breath (GEN), CHF Stoplight, Opioid Safety Activity Restrictions/Additional Instructions: - If any chest pain or shortness of breath go to emergency room Discharge Attestations Time Spent in Discharge Care*: greater than 30 min Quality Metrics Clinical Quality Measures [ No reported AMI, CVA or VTE this stay] Coding Level of Care Code 76101 Total time (in minutes) for Discharge: 45 Diagnoses NSTEMI (non-ST elevated myocardial infarction) I21.4 Congestive heart failure I50.9
[2024-11-04 17:18] VITALS: BP 116/77; PULSE 75; RESP 16; TEMP 36.5; O2SAT 95
--- NOTE | 2024-11-04 17:20 | PC.NURSE ---
Discharge instructions provided to pt and her daughter. No questions or concerns voiced at this time. To private vehicle via wheelchair with all belongings.
== END 2024-11-04 17:45 | disposition home or self-care (01) | DRG 280 ==
LOC: ER 15:33 → ER IP 16:04 → MEDSURG 18:10
PROVIDERS: Admitting Provider Family Medicine; Emergency Provider Emergency Medicine; PCP Nurse Practitioner; Visit Provider Family Medicine
DX: I11.0 Hypertensive heart disease with heart failure (principal); I50.33 Acute on chronic diastolic (congestive) heart failure; I21.4 Non-ST elevation (NSTEMI) myocardial infarction; M06.9 Rheumatoid arthritis, unspecified; G89.29 Other chronic pain; J44.9 Chronic obstructive pulmonary disease, unspecified; E03.9 Hypothyroidism, unspecified; E66.9 Obesity, unspecified; M19.042 Primary osteoarthritis, left hand; M19.041 Primary osteoarthritis, right hand; M05.89 Other rheumatoid arthritis with rheumatoid factor of multiple sites; M81.0 Age-related osteoporosis without current pathological fracture; E78.2 Mixed hyperlipidemia; F17.200 Nicotine dependence, unspecified, uncomplicated; E11.9 Type 2 diabetes mellitus without complications; Z79.82 Long term (current) use of aspirin; Z79.899 Other long term (current) drug therapy; Z79.84 Long term (current) use of oral hypoglycemic drugs; Z79.69 Long term (current) use of other immunomodulators and immunosuppressants; Z68.30 Body mass index [BMI] 30.0-30.9, adult; Z79.890 Hormone replacement therapy; Z88.0 Allergy status to penicillin; Z88.2 Allergy status to sulfonamides; Z88.8 Allergy status to other drugs, medicaments and biological substances; Z91.048 Other nonmedicinal substance allergy status; Z79.4 Long term (current) use of insulin; Z11.52 Encounter for screening for COVID-19; Z91.040 Latex allergy status
CPT/HCPCS: 36415; 36416; 36600; 71045; 78452; 80051; 80053; 81001; 82330; 82805; 82962; 83605; 83735; 83880; 84145; 84443; 84484; 85025; 85378; 86140; 87040; 87637; 93005; 93017; 93306; 96372; 96374; 96375; 97116; 97161; 97165; 99285; A9500; J1650; J1815; J1940; J2785; J7512; J9999

== ENCOUNTER → 2024-11-24 12:55 | Outpatient (BNVA) | payer MEDICARE, SELFPAY | PROVIDERS: PCP Nurse Practitioner; Visit Provider Internal Medicine | DX: I11.0 Hypertensive heart disease with heart failure (principal); I50.30 Unspecified diastolic (congestive) heart failure; Z09 Encounter for follow-up examination after completed treatment for conditions other than malignant neoplasm; E78.2 Mixed hyperlipidemia; I35.0 Nonrheumatic aortic (valve) stenosis; Z79.82 Long term (current) use of aspirin; F17.200 Nicotine dependence, unspecified, uncomplicated | CPT/HCPCS: 99214 ==

== ENCOUNTER 2024-12-24 09:58 | Inpatient (IN) | payer MEDICARE, SELFPAY ==
[2024-12-24] VITALS (15 sets, daily range): BP systolic 112–157; BP diastolic 47–75; PULSE 64–98; RESP 17–22; TEMP 36.5–36.7; O2SAT 92–96; BMI 29.8
--- NOTE | 2024-12-24 10:14 | W.ED.WEAKNES ---
HPI - Weakness General: Chief complaint: Weakness Stated complaint: weakness - diarrhea Time Seen by Provider: 12/24/24 10:00 History of Present Illness: 74-year-old female brought in via EMS. Patient complains of not feeling well for quite some time. She reports that she is having some dark stool that is loose has been going on for a week or 2. He reports now she is having some pain in her belly and in her mid and upper back. Denies any significant changes. Over the last couple days. Associated symptoms: Reports nausea; Denies chest pain or dysuria Review of Systems Card: Denies: chest pain or palpitations Resp: Reports: wheezing (mild); Denies: dyspnea GI: Reports: abdominal pain, nausea and diarrhea : Denies: flank pain, difficulty voiding or dysuria Musc: Reports: back pain Skin/Breast: Denies: rash or pruritus Psych: Denies: anxiety or depression [facility] ED PFSH: Medical History (Updated 12/24/24 @ 13:06 by Hardeep Warren DO) Diastolic dysfunction with chronic heart failure Diabetes mellitus with hyperglycemia, with long-term current use of insulin Osteoarthritis of hands, bilateral Immunization counseling High risk medication use Seropositive rheumatoid arthritis of multiple sites Osteoporosis Cigarette smoker COPD (chronic obstructive pulmonary disease) Unstable angina Hypertension Environmental and seasonal allergies Vitamin D deficiency Mixed hyperlipidemia Diverticulosis Adult hypothyroidism Surgical History History of lumbar surgery Rods in lumbar History of cholecystectomy History of tubal ligation History of foot surgery left Family History Father Diabetes Mother CAD (coronary artery disease) Other Dementia Social History Smoking and tobacco/nicotine status: current every day tobacco/nicotine user Second hand smoke exposure: Yes Alcohol intake: never Substance/Drug Use: never Adopted: No Caregiver/support person: No Lives independently: Yes Household members: spouse Housing: House Marital status: Number of children: 3 service: No Current occupational status: unemployed Do you think of yourself as: Straight/Heterosexual Current gender identity: Female Physical Exam Const: COMMON NORMALS: no acute distress, patient oriented x3 and no limitations Resp: COMMON NORMALS: normal respiratory effort and clear to auscultation bilaterally AUSCULTATION: clear to auscultation bilaterally Cardio: COMMON NORMALS: regular rate and regular rhythm RATE: regular rate RHYTHM: regular rhythm GI: COMMON NORMALS: Soft to palpation PALPATION: Yes Soft to palpation and Yes Tenderness to palpation present (GI) (diffuse but more in epigastric ) Neuro: COMMON NORMALS: patient oriented x3, moves all extremities and no focal motor deficits Psych: COMMON NORMALS: mental status grossly normal, cooperative and normal affect Course Vital Signs: Vital signs: Vital Signs Temperature 97.8 F 12/24/24 10:01 Pulse Rate 76 12/24/24 12:30 Respiratory Rate 22 H 12/24/24 10:01 Blood Pressure 113/50 12/24/24 12:30 Pulse Oximetry 95 12/24/24 12:30 Oxygen Delivery Me thod Room Air 12/24/24 12:30 MDM - Weakness Medical Decision Making Patient diagnostic studies were ordered and reviewed. Patient has mild increase in her white count. She has BUN and creatinine consistent with acute on chronic kidney injury likely due to some dehydration from her chronic diarrhea. Family clarifies that she has been having chronic diarrhea for a couple years and they are unsure why. She has also been taking a lot of Pepto and Maalox for her diarrhea. I did obtain a CT abdomen pelvis that shows no acute findings. Patient will be gently rehydrated as she is currently on Lasix and do not want to over hydrate too quickly. Patient will be admitted to Dr. Aquino for further inpatient management. Patient was stable upon admission to the floor. Lab Data 12/24/24 10:38 12/24/24 10:38 Radiology Impressions Abdomen/Pelvis CT 12/24/24 11:17 IMPRESSION: 1. No acute findings. 2. A benign renal cyst or cysts have been detected. No further follow-up imaging is required. 3. Sigmoi buttock d diverticulosis COMMENTS: Consistent with the [place] [employer]'s Incidental Findings Committee white paper (J Am Richard Radiol 2018): Any incidental renal lesion less than 1 cm or classified as too small to characterize, or any incidental cystic renal lesion characterized as simple-appearing, is likely benign. No follow-up imaging is recommended for these lesions per consensus recommendations based on imaging criteria. ADDENDUM: 12/24/24 1227 Impression 3. should read sigmoid diverticulosis . Laboratory Results WBC 12.12 10^3/uL (3.29-11.43) H 12/24/24 10:38 RBC 3.38 10^6/uL (3.85-5.65) L 12/24/24 10:38 Hgb 10.50 g/dL (11.27-16.99) L 12/24/24 10:38 Hct 31.7 % (36-47) L 12/24/24 10:38 MCV 93.8 fl (85-98) 12/24/24 10:38 MCH 31.1 pg (27-33) 12/24/24 10:38 MCHC 33.1 g/dL (30-55) 12/24/24 10:38 RDW 13.9 % (12.1-15.1) 12/24/24 10:38 Plt Count 417 10^3/cmm (157-399) H 12/24/24 10:38 MPV 9.1 fL (7.4-10.4) 12/24/24 10:38 Neut % (Auto) 79.5 % 12/24/24 10:38 Lymph % (Auto) 7.1 % 12/24/24 10:38 [place] % (Auto) 12.5 % 12/24/24 10:38 Eos % (Auto) 0.1 % 12/24/24 10:38 Baso % (Auto) 0.2 % 12/24/24 10:38 Neut # (Auto) 9.64 10^3/uL (1.8-7.7) H 12/24/24 10:38 Lymph # (Auto) 0.9 10^3/uL (0.8-4.8) 12/24/24 10:38 [place] # (Auto) 1.5 10^3/uL (0.2-0.9) H 12/24/24 10:38 Eos # (Auto) 0.0 10^3/uL (0.0-0.8) 12/24/24 10:38 Baso # (Auto) 0.0 10^3/uL (0.0-0.1) 12/24/24 10:38 Nucleated RBC % (auto) 0 % 12/24/24 10:38 Nucleated RBCs # 0.0 /100WBC 12/24/24 10:38 Sodium 138 mmol/L (136-145) 12/24/24 10:38 Potassium 4.5 mmol/L (3.5-5.1) 12/24/24 10:38 Chloride 96 mmol/L (98-107) L 12/24/24 10:38 Carbon Dioxide 22 mmol/L (22-29) 12/24/24 10:38 Anion Gap 24.5 (5-19) H 12/24/24 10:38 BUN 61 mg/dL (8-23) H 12/24/24 10:38 Creatinine 3.4 mg/dL (0.5-0.9) H 12/24/24 10:38 GFR Calculation Not Reportable 12/24/24 10:38 Glucose 79 mg/dL (65-115) 12/24/24 10:38 Calculated Osmolality 302 mOsm/kg (285-295) H 12/24/24 10:38 Lactic Acid 2.3 mmol/L (0.5-2.2) H 12/24/24 10:38 Calcium 10.9 mg/dL (8.5-10.5) H 12/24/24 10:38 Magnesium 2.2 mg/dL (1.7-2.3) 12/24/24 10:38 Total Bilirubin 0.5 mg/dL (0.15-1.2) 12/24/24 10:38 AST 43 U/L (0-32) H 12/24/24 10:38 ALT 26 U/L (0-33) 12/24/24 10:38 Alkaline Phosphatase 41 U/L (35-105) 12/24/24 10:38 Total Protein 6.9 g/dL (6.6-8.7) 12/24/24 10:38 Albumin 3.6 g/dL (3.5-5.2) 12/24/24 10:38 Globulin 3.3 g/dL (1.3-4.6) 12/24/24 10:38 Urine Color Dark yellow (Yellow) A 12/24/24 12:00 Urine Appearance Clear (CLEAR) 12/24/24 12:00 Urine pH 6.5 (5-7) 12/24/24 12:00 Ur Specific [place] 1.017 (1.005-1.030) 12/24/24 12:00 Urine Protein 1+ (Negative) A 12/24/24 12:00 Urine Glucose (UA) Negative (Normal) 12/24/24 12:00 Urine Ketones Negative (Negative) 12/24/24 12:00 Urine Blood Negative (Negative) 12/24/24 12:00 Urine Nitrate Negative (Negative) 12/24/24 12:00 Urine Bilirubin Negative (Negative) 12/24/24 12:00 Urine Urobilinogen 1.0 mg/dL (Negative) 12/24/24 12:00 Ur Leukocyte Esterase 1+ (Negative) A 12/24/24 12:00 Urine RBC 0-2 /hpf (0-2) 12/24/24 12:00 Urine WBC 11-20 /hpf (0-5) H 12/24/24 12:00 Ur Squamous Epith Cells 11-20 /hpf (0-5) H 12/24/24 12:00 Amorphous Sediment Not Reportable 12/24/24 12:00 Urine Bacteria 1+ /hpf (NONE) H 12/24/24 12:00 Hyaline Casts 23.57 /lpf 12/24/24 12:00 All radiology interpretation(s) finalized by discharge Discharge Plan Discharge Patient Disposition: Admitted As Inpatient Clinical Impression: Acute kidney injury, Dehydration, Chronic diarrhea Condition: Stable Coding Level of Care Code ED Lead Manufacturing Engineer for Chg Fwd Related Data Home Medications ?Medication ?Instructions ?Recorded ?Confirmed aspirin 81 mg tablet,delayed 81 mg PO DAILY 10/19/19 12/24/24 release cholecalciferol (vitamin D3) 25 25 mcg PO DAILY 10/27/20 12/24/24 mcg (1,000 unit) capsule (Vitamin D3) vitamin E 268 mg (400 unit) capsule 400 unit PO DAILY 10/27/20 12/24/24 amlodipine 5 mg tablet 10 mg PO DAILY 11/02/24 12/24/24 calcium 500 mg (as 1 tab PO BID 11/02/24 12/24/24 carbonate)-vitamin D3 15 mcg (600 unit) tablet (Os-Jose Luis 500 + D3) omega-3 fatty acids 1,000 mg 1,000 mg PO DAILY 11/02/24 12/24/24 capsule cholestyramine 4 gram oral powder 4 g PO TID 12/24/24 12/24/24 (Questran Light) cyanocobalamin (vitamin B-12) 1,000 mcg SUBCUT Q30D 12/24/24 12/24/24 1,000 mcg/mL injection solution guaifenesin 100 mg/5 mL oral liquid 200 mg PO Q4H PRN Cough 12/24/24 12/24/24 Previous Rx's ?Medication ?Instructions ?Recorded Diabetic shoes #1 ea 10/14/20 nitroglycerin 0.4 mg sublingual 0.4 mg sublingual Q5M PRN chest 01/22/23 tablet pain #20 tabs lancets (Accu-Chek Softclix #100 ea 04/16/23 Lancets) right cmc splint #1 ea 01/07/24 alendronate 70 mg tablet (Fosamax) 70 mg PO .weekly #12 tabs 07/27/24 blood sugar diagnostic (Accu-Chek #100 ea 07/27/24 Guide test strips) doxepin 25 mg capsule 25 - 50 mg (1 - 2 x 25 mg) PO 07/27/24 DAILY #180 caps duloxetine 20 mg capsule,delayed 20 mg PO BID #180 caps 07/27/24 release (Cymbalta) fenofibrate nanocrystallized 145 145 mg PO DAILY #90 tabs 07/27/24 mg tablet (Tricor) fluticasone 250 mcg-salmeterol 50 1 inh inhalation Q12H #180 ea 07/27/24 mcg/dose blistr powdr for inhalation (Advair Diskus) furosemide 40 mg tablet 40 mg PO DAILY #90 tabs 07/27/24 glipizide 5 mg tablet, extended 5 mg PO BID #180 tabs 07/27/24 release 24 hr insulin glargine 100 unit/mL (3 35 unit (0.35 mL) SUBCUT QAM #31.5 07/27/24 mL) subcutaneous pen (Lantus mL Solostar U-100 Insulin) levothyroxine 100 mcg tablet 100 mcg PO DAILY #90 tabs 07/27/24 metoprolol succinate 100 mg 100 mg PO DAILY #90 tabs 07/27/24 tablet,extended release 24 hr pen needle, diabetic 33 gauge x #100 ea 07/27/24 potassium chloride 10 mEq 10 meq PO BID #180 tabs 07/27/24 tablet,extended release prednisone 5 mg tablet 5 mg PO DAILY #90 tabs 09/07/24 tizanidine 2 mg tablet 2 mg PO .at bedtime PRN muscle 10/14/24 spasticity #90 tabs leflunomide 20 mg tablet 20 mg PO DAILY #90 tabs 11/24/24 spironolactone 25 mg tablet 25 mg PO DAILY #90 tabs 12/01/24 valsartan 320 mg tablet (Diovan) 320 mg PO DAILY #90 tabs 12/01/24 hydralazine 25 mg tablet 25 mg PO TID #270 tabs 12/02/24 albuterol sulfate 90 mcg/actuation 2 puff inhalation QID PRN 12/19/24 aerosol inhaler (Ventolin HFA) Shortness Of Breath #25.5 grams Allergies Allergy/AdvReac Type Severity Reaction Status Date / Time Penicillins Allergy Severe Rash Verified 11/24/24 13:28 Sulfa (Sulfonamide Allergy Severe Rash Verified 11/24/24 13:28 Antibiotics) Latex, Natural Rubber AdvReac Severe Rash Verified 11/24/24 13:28 adhesive AdvReac Intermediate Rash Verified 11/24/24 13:28 trazodone AdvReac Do not Verified 11/24/24 13:28 tolerate
[2024-12-24] MEDS: sodium chloride 0.9% 500 ML IV (10:16)
[2024-12-24 10:51] LABS: Basophils % 0.2 %; Eosinophils % 0.1 %; Hematocrit 31.7 % (36-47); Lymphocytes # 0.9 10^3/uL (0.8-4.8); Lymphocytes % 7.1 %; Mean Corpuscular HGB Conc 33.1 g/dL (30-55); Mean Corpuscular Hemoglobin 31.1 pg (27-33); Mean Corpuscular Volume 93.8 fl (85-98); Mean Platelet Volume 9.1 fL (7.4-10.4); Monocytes # 1.5 10^3/uL (0.2-0.9); Monocytes % 12.5 %; Neutrophils # 9.64 10^3/uL (1.8-7.7); Neutrophils % 79.5 %; Nucleated Red Blood Cells % 0 %; Platelet Count 417 10^3/cmm (157-399); Red Blood Count 3.38 10^6/uL (3.85-5.65); Red Cell Distribution Width 13.9 % (12.1-15.1); White Blood Count 12.12 10^3/uL (3.29-11.43)
[2024-12-24] MEDS: ketorolac 30 mg/mL INJ 7.5 MG IVP (11:02)
[2024-12-24 11:10] LABS: Slide Review Slide Review Perform
[2024-12-24 11:12] LABS: Alanine Aminotransferase 26 U/L (0-33); Albumin Level 3.6 g/dL (3.5-5.2); Alkaline Phosphatase 41 U/L (35-105); Anion Gap 24.5 (5-19); Aspartate Amino Transferase 43 U/L (0-32); Blood Urea Nitrogen 61 mg/dL (8-23); Calcium 10.9 mg/dL (8.5-10.5); Carbon Dioxide 22 mmol/L (22-29); Chloride 96 mmol/L (98-107); Globulin 3.3 g/dL (1.3-4.6); Glucose 79 mg/dL (65-115); Magnesium 2.2 mg/dL (1.7-2.3); Osmolality Calculated 302 mOsm/kg (285-295); Potassium 4.5 mmol/L (3.5-5.1); Sodium 138 mmol/L (136-145); Total Bilirubin 0.5 mg/dL (0.15-1.2); Total Protein 6.9 g/dL (6.6-8.7)
[2024-12-24 11:14] LABS: Lactic Sepsis W/Reflex 2.3 mmol/L (0.5-2.2)
--- NOTE | 2024-12-24 11:17 | CTR_ITS ---
PROCEDURE INFORMATION: Exam: CT Abdomen And Pelvis Without Contrast Exam date and time: 12/24/2024 11:43 AM Age: 74 years old Clinical indication: Abdominal pain; Generalized; Prior surgery; Surgery date: 6+ months; Surgery type: Gb, lumbar; Back pain, lower back pain, diarrhea x 2 years, dehydration; Additional info: Abd pain, back pain, diarrhea TECHNIQUE: Imaging protocol: Computed tomography of the abdomen and pelvis without contrast. Radiation optimization: All CT scans at this facility use at least one of these dose optimization techniques: automated exposure control; mA and/or kV adjustment per patient size (includes targeted exams where dose is matched to clinical indication); or iterative reconstruction. COMPARISON: CT abdomen pelvis wo con [id number] 06/29/2019 9:54 AM RADIATION DOSE METRICS: Total DLP (mGy-cm): 667.2 FINDINGS: Lungs: Lung bases are clear. No pleural effusion. Liver: Normal. No mass. Gallbladder and biliary ducts: The gallbladder has been resected. Pancreas: Normal. No ductal dilation. Spleen: Normal. No splenomegaly. Adrenal glands: Normal. No mass. Kidneys and ureters: 3 cm simple cyst involves the right kidney. Stomach and bowel: Multiple diverticula involve the sigmoid colon. There is no sign of diverticulitis. Appendix: No evidence of appendicitis. Intraperitoneal space: Unremarkable. No free air. No significant fluid collection. Vasculature: Unremarkable. No abdominal aortic aneurysm. Lymph nodes: Unremarkable. No enlarged lymph nodes. Urinary bladder: Unremarkable as visualized. Reproductive: Unremarkable as visualized. Bones/joints: Metallic surgical hardware can be seen in the lumbar spine. Soft tissues: Unremarkable. CT/CT abdomen pelvis wo con [id number] IMPRESSION: 1. No acute findings. 2. A benign renal cyst or cysts have been detected. No further follow-up imaging is required. 3. Sigmoi buttock d diverticulosis COMMENTS: Consistent with the [employer]'s Incidental Findings Committee white paper (J Am Richard Radiol 2018): Any incidental renal lesion less than 1 cm or classified as too small to characterize, or any incidental cystic renal lesion characterized as simple-appearing, is likely benign. No follow-up imaging is recommended for these lesions per consensus recommendations based on imaging criteria.
--- NOTE | 2024-12-24 11:23 | PC.NURSE ---
this nurse took over pt care at 1120.
[2024-12-24] MEDS: sodium chloride 0.9% 1,000 ML 125 ML IV (11:37)
--- NOTE | 2024-12-24 12:03 | PC.NURSE ---
pt was taken to the restroom where pt urinated, pt states that she did not have to have a bm for the stool sample, pt aware of stool sample ordered. urine was clean catch.
[2024-12-24 12:15] LABS: Bilirubin Urine Negative (Negative); Blood Urine Negative (Negative); Glucose Urine UA Negative (Normal); Ketones Urine Negative (Negative); Leukocyte Esterase Urine 1+ (Negative); Nitrate Urine Negative (Negative); Protein Urine 1+ (Negative); Specific Gravity, Urine 1.017 (1.005-1.030); Urine Appearance Clear (CLEAR); Urine Color Dark Yellow (Yellow); pH Urine 6.5 (5-7)
[2024-12-24 12:20] LABS: Add Urine Microscopic? YES; Bacteria Urine 1+ /hpf; Hyaline Casts Urine 23.57 /lpf; RBC Urine 0-2 /hpf (0-2)
[2024-12-24 12:24] LABS: UA Slide Review UA Slide Review Perf
[2024-12-24 12:25] LABS: Add Urine Culture? No
[2024-12-24 12:34] LABS: Reflex Lactate Order REFLEX LACTIC ORDERD
--- NOTE | 2024-12-24 13:18 | PC.NURSE ---
Pt requesting food, Dr. Aquino in room and this nurse asked if pt could eat/drink, per Dr. Aquino okayed. Pt given pudding, jello, and a sprite zero.
--- NOTE | 2024-12-24 13:33 | PC.NURSE ---
pt report called to Janell angela. [id number].
--- NOTE | 2024-12-24 13:51 | PM.HP ---
Providers/Chief Complaint Admitting Physician: Emory Aquino MD Primary Care Provider: Karla Gallegos, MACHINE ENGRAVER-C Chief Complaint: weakness - diarrhea History of Present Illness Teresa Garcia is a 74 year old female with a with a past medical history of CHF, type 2 diabetes mellitus, osteoarthritis, chronic prednisone, seropositive rheumatoid arthritis, COPD, hypertension, who presents [facility] due to acute on chronic diarrhea, weakness, fatigue, poor appetite. Patient reports that she has chronic history of diarrhea, denies any fevers, no chills, no nausea, no vomiting, she is status post cholecystectomy, she is on Questran as outpatient but she is not sure if she is taking it? She is on chronic prednisone, Review of Systems Const: Denies: fever(s) or chills Card: Denies: chest pain Resp: Denies: dyspnea GI: Reports: nausea and diarrhea; Denies: abdominal pain or vomiting Medications/Allergies Home Medications ?Medication ?Instructions ?Recorded ?Confirmed ?Last Taken ?Type aspirin 81 mg tablet,delayed 81 mg PO DAILY 10/19/19 12/24/24 12/24/24 History release Diabetic shoes #1 ea 10/14/20 12/24/24 Unknown Rx cholecalciferol (vitamin D3) 25 25 mcg PO DAILY 10/27/20 12/24/24 12/23/24 History mcg (1,000 unit) capsule (Vitamin D3) vitamin E 268 mg (400 unit) capsule 400 unit PO DAILY 10/27/20 12/24/24 12/24/24 History nitroglycerin 0.4 mg sublingual 0.4 mg sublingual Q5M PRN chest 01/22/23 12/24/24 Unknown Rx tablet pain #20 tabs lancets (Accu-Chek Softclix #100 ea 04/16/23 12/24/24 Unknown Rx Lancets) right cmc splint #1 ea 01/07/24 12/24/24 Unknown Rx alendronate 70 mg tablet (Fosamax) 70 mg PO .weekly #12 tabs 07/27/24 12/24/24 Unknown Rx blood sugar diagnostic (Accu-Chek #100 ea 07/27/24 12/24/24 Unknown Rx Guide test strips) doxepin 25 mg capsule 25 - 50 mg (1 - 2 x 25 mg) PO 0112/24/24 12/24/24 Rx DAILY #180 caps duloxetine 20 mg capsule,delayed 20 mg PO BID #180 caps 07/27/24 12/24/24 12/24/24 Rx release (Cymbalta) fenofibrate nanocrystallized 145 145 mg PO DAILY #90 tabs 07/27/24 12/24/24 12/24/24 Rx mg tablet (Tricor) fluticasone 250 mcg-salmeterol 50 1 inh inhalation Q12H #180 ea 07/27/24 12/24/24 11/02/24 Rx mcg/dose blistr powdr for inhalation (Advair Diskus) furosemide 40 mg tablet 40 mg PO DAILY #90 tabs 07/27/24 12/24/24 12/24/24 Rx glipizide 5 mg tablet, extended 5 mg PO BID #180 tabs 07/27/24 12/24/24 12/24/24 Rx release 24 hr insulin glargine 100 unit/mL (3 35 unit (0.35 mL) SUBCUT QAM #31.5 07/27/24 12/24/24 12/24/24 Rx mL) subcutaneous pen (Lantus mL Solostar U-100 Insulin) levothyroxine 100 mcg tablet 100 mcg PO DAILY #90 tabs 07/27/24 12/24/24 12/24/24 Rx metoprolol succinate 100 mg 100 mg PO DAILY #90 tabs 07/27/24 12/24/24 12/24/24 Rx tablet,extended release 24 hr pen needle, diabetic 33 gauge x #100 ea 07/27/24 12/24/24 Unknown Rx potassium chloride 10 mEq 10 meq PO BID #180 tabs 07/27/24 12/24/24 12/24/24 Rx tablet,extended release prednisone 5 mg tablet 5 mg PO DAILY #90 tabs 09/07/24 12/24/24 12/24/24 Rx tizanidine 2 mg tablet 2 mg PO .at bedtime PRN muscle 10/14/24 12/24/24 12/24/24 Rx spasticity #90 tabs amlodipine 5 mg tablet 10 mg PO DAILY 11/02/24 12/24/24 12/24/24 History calcium 500 mg (as 1 tab PO BID 11/02/24 12/24/24 12/24/24 History carbonate)-vitamin D3 15 mcg (600 unit) tablet (Os-Jose Luis 500 + D3) omega-3 fatty acids 1,000 mg 1,000 mg PO DAILY 11/02/24 12/24/24 12/24/24 History capsule leflunomide 20 mg tablet 20 mg PO DAILY #90 tabs 11/24/24 12/24/24 12/24/24 Rx spironolactone 25 mg tablet 25 mg PO DAILY #90 tabs 12/01/24 12/24/24 12/24/24 Rx valsartan 320 mg tablet (Diovan) 320 mg PO DAILY #90 tabs 12/01/24 12/24/24 12/24/24 Rx hydralazine 25 mg tablet 25 mg PO TID #270 tabs 12/02/24 12/24/24 12/24/24 Rx albuterol sulfate 90 mcg/actuation 2 puff inhalation QID PRN 12/19/24 12/24/24 Unknown Rx aerosol inhaler (Ventolin HFA) Shortness Of Breath #25.5 grams cholestyramine 4 gram oral powder 4 g PO TID 12/24/24 12/24/24 Unknown History (Questran Light) cyanocobalamin (vitamin B-12) 1,000 mcg SUBCUT Q30D 12/24/24 12/24/24 Unknown History 1,000 mcg/mL injection solution guaifenesin 100 mg/5 mL oral liquid 200 mg PO Q4H PRN Cough 12/24/24 12/24/24 Unknown History Allergies Allergy/AdvReac Type Severity Reaction Status Date / Time Penicillins Allergy Severe Rash Verified 11/24/24 13:28 Sulfa (Sulfonamide Allergy Severe Rash Verified 11/24/24 13:28 Antibiotics) Latex, Natural Rubber AdvReac Severe Rash Verified 11/24/24 13:28 adhesive AdvReac Intermediate Rash Verified 11/24/24 13:28 trazodone AdvReac Do not Verified 11/24/24 13:28 tolerate PFSH Acute PFSH: Medical History Diastolic dysfunction with chronic heart failure Diabetes mellitus with hyperglycemia, with long-term current use of insulin Osteoarthritis of hands, bilateral Immunization counseling High risk medication use Seropositive rheumatoid arthritis of multiple sites Osteoporosis Cigarette smoker COPD (chronic obstructive pulmonary disease) Unstable angina Hypertension Environmental and seasonal allergies Vitamin D deficiency Mixed hyperlipidemia Diverticulosis Adult hypothyroidism Surgical History History of lumbar surgery Rods in lumbar History of cholecystectomy History of tubal ligation History of foot surgery left Family History Father Diabetes Mother CAD (coronary artery disease) Other Dementia Social History Smoking and tobacco/nicotine status: current every day tobacco/nicotine user Second hand smoke exposure: Yes Alcohol intake: never Substance/Drug Use: never Adopted: No Caregiver/support person: No Lives independently: Yes Household members: spouse Housing: House Marital status: Number of children: 3 service: No Current occupational status: unemployed Do you think of yourself as: Straight/Heterosexual Current gender identity: Female Vitals/I&O/Wt Last Vital Signs Temp 97.8 F 12/24/24 10:01 Pulse 76 12/24/24 13:00 Resp 22 H 12/24/24 10:01 BP 127/51 12/24/24 13:00 Pulse Ox 94 12/24/24 13:00 O2 Del Method Room Air 12/24/24 13:00 12/23/24 12/24/24 12/24/24 22:59 06:59 14:59 Intake Total 500 / 500 Balance 500 / 500 Weight last 48 hrs Weight 74.389 kg Physical Exam Const: COMMON NORMALS: no acute distress ORIENTATION/CONSCIOUSNESS: Yes awake, Yes oriented to person, Yes oriented to place and Yes oriented to time Lymph: LYMPHATIC: no lymphadenopathy noted Resp: COMMON NORMALS: normal respiratory effort, No retractions, No use of accessory muscles and clear to auscultation bilaterally AUSCULTATION: clear to auscultation bilaterally Cardio: COMMON NORMALS: no JVD, regular rate, regular rhythm, S1 normal heart sound present and S2 normal heart sound present RATE: regular rate RHYTHM: regular rhythm HEART SOUNDS: S1 normal heart sound present and S2 normal heart sound present GI: COMMON NORMALS: Normal to inspection, nondistended, normoactive bowel sounds present, Soft to palpation and non-tender Extremity: COMMON NORMALS: no pedal edema Neuro: COMMON NORMALS: patient oriented x3 and CN's II-XII intact bilaterally Psych: COMMON NORMALS: mental status grossly normal Data 12/24/24 10:38 12/24/24 10:38 A&P Assessment and plan (1) Chronic diarrhea: (2) Dehydration: (3) Acute kidney injury: Plan Acute on chronic diarrhea CT/CT abdomen pelvis wo con [id number] IMPRESSION: 1. No acute findings. 2. A benign renal cyst or cysts have been detected. No further follow-up imaging is required. 3. Sigmoi buttock d diverticulosis - Etiology unclear - Perhaps related to gallbladder pain syndrome continue cholestyramine - Stool studies, CMV, cortisol, cosyntropin testing Acute kidney injury, creatinine 3.1. IV fluids Diastolic CHF Type 2 diabetes mellitus, decrease Lantus to 15 minutes daily, low-dose of scale Rheumatoid arthritis, continue home prednisone PDMP PDMP Reviewed: Not Reviewed Attestations Medical Necessity Statement*: Patient requires hospitalization for dehydration, JAMES, inpatient, greater than 2 midnights Diagnoses Chronic diarrhea K52.9 Dehydration E86.0 Acute kidney injury N17.9
[2024-12-24 14:04] LABS: C Reactive Protein 24.5 mg/L (0.0-4.9)
[2024-12-24 14:08] LABS: Erythrocyte Sedimentation Rate 66 mm/hr (0-15)
[2024-12-24 14:28] LABS: Lactic Acid level (Lactate) 1.2 mmol/L (0.5-2.2)
[2024-12-24 14:45] LABS: Cortisol Random 17.23 ug/dL (2.47-19.5)
[2024-12-24 15:12] LABS: Thyroid Stimulating Hormone 1.88 uIU/mL (0.27-4.20)
[2024-12-24] MEDS: cosyntropin 0.25 mg SDV IVP (15:34)
--- NOTE | 2024-12-24 15:38 | PC.NURSE ---
Notified lab Cosyntropin was given at 1536
[2024-12-24 16:24] LABS: Cosyntropin Baseline 8.65 mcg/dL
[2024-12-24 16:25] LABS: NT Pro B Type Natriuretic Pept 2268 pg/mL (0-450)
[2024-12-24 16:26] LABS: Glucose Point of Care 50 mg/dL (70-110)
[2024-12-24 16:37] LABS: Cosyntropin 30 Minute 27.29 mcg/dL
[2024-12-24 16:51] LABS: Glucose Point of Care 65 mg/dL (70-110)
[2024-12-24 17:09] LABS: Cosyntropin 1 Hour 40.74 mcg/dL
--- NOTE | 2024-12-24 17:11 | PC.NURSE ---
notified Dr. Aquino of patients blood sugar 50. Gave 2 orange juice, recheck and up to 65. Giving patient something to eat and rechecking. Will notify Dr. Aquino once it is complete
[2024-12-24] MEDS: enoxaparin 30 mg/0.3 mL Syringe SUBCUT (17:31)
[2024-12-24] MEDS: duloxetine 20 mg Capsule PO (17:31)
[2024-12-24] MEDS: hyDRALAzine 25 mg Tablet PO (17:31)
[2024-12-24 17:40] LABS: C.Diff PCR (Lab) POSITIVE (Negative)
[2024-12-24 17:49] LABS: Glucose Point of Care 92 mg/dL (70-110)
[2024-12-24] MEDS: vancomycin 125 mg Capsule PO ×2 (18:42→23:32)
--- NOTE | 2024-12-24 19:01 | PC.NURSE ---
Patient pulled IV out accidently. Night nursing trying to put one back in
[2024-12-24 20:29] LABS: Clostridioides Difficile Toxin NEGATIVE (Negative)
[2024-12-24 20:30] LABS: Glucose Point of Care 225 mg/dL (70-110)
[2024-12-24] MEDS: insulin lispro 100 unit/1 mL SUBCUT (20:59)
[2024-12-24] MEDS: cholestyramine powder 4 gm Pkt PO (21:00)
[2024-12-24] MEDS: acetaminophen 325 mg Tablet 650 MG PO (22:17)
[2024-12-24] MEDS: cefTRIAXone 1,000 mg SDV 1000 MG IVP (23:32)
[2024-12-24] MEDS: sodium chloride 0.9% 1,000 ML 75 ML IV (23:33)
[2024-12-25] VITALS (7 sets, daily range): BP systolic 109–165; BP diastolic 59–76; PULSE 67–81; RESP 16–19; TEMP 36.3–36.9; O2SAT 94–96
[2024-12-25 05:27] LABS: Basophils % 0.3 %; Eosinophils # 0.1 10^3/uL (0.0-0.8); Hematocrit 29.6 % (36-47); Lymphocytes # 1.7 10^3/uL (0.8-4.8); Mean Corpuscular HGB Conc 32.1 g/dL (30-55); Mean Corpuscular Hemoglobin 31.7 pg (27-33); Mean Corpuscular Volume 98.7 fl (85-98); Mean Platelet Volume 9.1 fL (7.4-10.4); Monocytes # 1.5 10^3/uL (0.2-0.9); Monocytes % 15.4 %; Neutrophils # 6.34 10^3/uL (1.8-7.7); Neutrophils % 65.6 %; Nucleated Red Blood Cells % 0 %; Platelet Count 320 10^3/cmm (157-399); Red Cell Distribution Width 13.8 % (12.1-15.1); White Blood Count 9.68 10^3/uL (3.29-11.43)
[2024-12-25 05:44] LABS: Alanine Aminotransferase 24 U/L (0-33); Alkaline Phosphatase 40 U/L (35-105); Anion Gap 19.1 (5-19); Aspartate Amino Transferase 39 U/L (0-32); Blood Urea Nitrogen 58 mg/dL (8-23); Calcium 8.9 mg/dL (8.5-10.5); Carbon Dioxide 20 mmol/L (22-29); Chloride 99 mmol/L (98-107); Globulin 3.2 g/dL (1.3-4.6); Osmolality Calculated 291 mOsm/kg (285-295); Potassium 4.1 mmol/L (3.5-5.1); Sodium 134 mmol/L (136-145); Total Bilirubin 0.3 mg/dL (0.15-1.2); Total Protein 6.2 g/dL (6.6-8.7)
[2024-12-25] MEDS: vancomycin 125 mg Capsule PO ×3 (05:50→17:16)
[2024-12-25 06:23] LABS: Glucose Point of Care 45 mg/dL (70-110)
[2024-12-25 06:27] LABS: Glucose 38 mg/dL (65-115)
[2024-12-25 06:57] LABS: Glucose Point of Care 85 mg/dL (70-110)
[2024-12-25] MEDS: cholestyramine powder 4 gm Pkt PO ×3 (08:32→17:16)
[2024-12-25] MEDS: aspirin 81 mg EC Tablet PO (09:48)
[2024-12-25] MEDS: fenofibrate 145 mg Tablet PO (09:48)
[2024-12-25] MEDS: spironolactone 25 mg Tablet PO (09:48)
[2024-12-25] MEDS: metoprolol succinate ER (24 HR) 100 mg Tablet PO (09:48)
[2024-12-25] MEDS: duloxetine 20 mg Capsule PO ×2 (09:48→17:16)
[2024-12-25] MEDS: losartan 50 mg Tablet 100 MG PO (09:48)
[2024-12-25] MEDS: hyDRALAzine 25 mg Tablet PO ×2 (09:48→17:16)
[2024-12-25] MEDS: doxepin 25 mg Capsule PO (09:48)
[2024-12-25] MEDS: levothyroxine 100 mcg Tablet PO (09:48)
[2024-12-25] MEDS: predniSONE 5 mg Tablet PO (09:48)
[2024-12-25] MEDS: dextrose 5%-sod chloride 0.9% 1,000 ML 75 ML IV (09:49)
--- NOTE | 2024-12-25 10:33 | PC.SOCIAL ---
IMM Updated Updated pt on IMM. no questions voiced. Provided pt a copy. Initialed, dated, & timed a copy & placed in chart.
[2024-12-25 10:38] LABS: Glucose Point of Care 89 mg/dL (70-110)
--- NOTE | 2024-12-25 14:17 | PM.PN ---
Subjective Subjective: Patient was seen this morning, she is sitting up in a chair, she tells me her diarrhea is improving, no fevers, no chills, no cough Vitals/I&O/Wt Last Vital Signs Temp 97.7 F 12/25/24 11:41 Pulse 75 12/25/24 11:41 Resp 17 12/25/24 11:41 BP 151/75 12/25/24 11:41 Pulse Ox 96 12/25/24 11:41 O2 Del Method Room Air 12/25/24 07:38 12/24/24 12/25/24 12/25/24 22:59 06:59 14:59 Intake Total 2384 / 2884 300 / 3184 1283.75 / 1283.75 Balance 2384 / 2884 300 / 3184 1283.75 / 1283.75 Weight last 48 hrs Weight 74.888 kg Weight 74.021 kg Weight 74.389 kg Physical Exam Const: COMMON NORMALS: no acute distress and patient oriented x3 Resp: COMMON NORMALS: normal respiratory effort, No retractions, No use of accessory muscles and clear to auscultation bilaterally AUSCULTATION: clear to auscultation bilaterally Cardio: COMMON NORMALS: regular rate, regular rhythm, S1 normal heart sound present and S2 normal heart sound present RATE: regular rate RHYTHM: regular rhythm HEART SOUNDS: S1 normal heart sound present and S2 normal heart sound present GI: COMMON NORMALS: Normal to inspection, nondistended, normoactive bowel sounds present and non-tender Extremity: COMMON NORMALS: no pedal edema Neuro: COMMON NORMALS: patient oriented x3 Psych: COMMON NORMALS: mental status grossly normal Data 12/25/24 05:13 12/25/24 05:13 Micro: Microbiology 12/24/24 14:42 Stool Lactoferrin - Final Stool Occult Blood (FIT) - Final A&P Assessment and plan (1) Chronic diarrhea: (2) Dehydration: (3) Acute kidney injury: (4) C. difficile colitis: Plan Acute on chronic diarrhea CT/CT abdomen pelvis wo con [id number] IMPRESSION: 1. No acute findings. 2. A benign renal cyst or cysts have been detected. No further follow-up imaging is required. 3. Sigmoi buttock d diverticulosis - C. difficile positive, C. difficile colitis, placed on isolation precautions, start p.o. vancomycin - Perhaps related to gallbladder pain syndrome continue cholestyramine - Stool studies, CMV, cortisol, cosyntropin testing within normal limits Acute kidney injury, creatinine 3.2, encourage p.o. intake stop IV fluids due to risk of fluid overload Hypoglycemia, monitor blood sugars closely blood sugars improving to 89 Diastolic CHF Type 2 diabetes mellitus, decrease Lantus to 15 minutes daily, low-dose of scale Rheumatoid arthritis, continue home prednisone Plan for today p.o. vancomycin will stop insulin sliding scale monitor blood sugars every 4 hours, stop IV fluids due to risk of fluid overload, blood sugars are improving we will monitor closely PDMP PDMP Reviewed: Not Reviewed Attestations Medical Necessity Statement*: Patient requires hospitalization for dehydration, JAMES, hypoglycemia, acute diarrhea, acute C. difficile colitis Coding Level of Care Code Acute Code for [facility] Diagnoses Chronic diarrhea K52.9 Dehydration E86.0 Acute kidney injury N17.9 C. difficile colitis A04.72
[2024-12-25 14:34] LABS: Glucose Point of Care 177 mg/dL (70-110)
[2024-12-25 14:56] LABS: Estmated Average Glucose 171; Hemoglobin A1C 7.6 % (4.0-6.0)
[2024-12-25 16:01] LABS: Cytomegalovirus Antibody (IGG) >10.00 U/mL; Cytomegalovirus Antibody (IGM) <30.00 AU/mL
[2024-12-25] MEDS: albuterol 2.5 mg/3 mL Neb INHALATION (16:08)
[2024-12-25 16:27] LABS: Glucose Point of Care 192 mg/dL (70-110)
[2024-12-25] MEDS: enoxaparin 30 mg/0.3 mL Syringe SUBCUT (17:16)
[2024-12-25 20:53] LABS: Glucose Point of Care 212 mg/dL (70-110)
[2024-12-25] MEDS: cefTRIAXone 1,000 mg SDV 1000 MG IVP (21:06)
[2024-12-26] VITALS (8 sets, daily range): BP systolic 128–160; BP diastolic 65–89; PULSE 66–85; RESP 17–18; TEMP 36.5–36.9; O2SAT 94–96
[2024-12-26] MEDS: vancomycin 125 mg Capsule PO ×5 (01:22→23:00)
[2024-12-26 04:04] LABS: Basophils % 0.4 %; Eosinophils # 0.1 10^3/uL (0.0-0.8); Eosinophils % 1.4 %; Hematocrit 31.2 % (36-47); Lymphocytes # 1.2 10^3/uL (0.8-4.8); Mean Corpuscular HGB Conc 31.4 g/dL (30-55); Mean Corpuscular Hemoglobin 30.2 pg (27-33); Mean Platelet Volume 9.3 fL (7.4-10.4); Monocytes % 13.2 %; Neutrophils # 4.92 10^3/uL (1.8-7.7); Neutrophils % 68.4 %; Nucleated Red Blood Cells % 0 %; Platelet Count 342 10^3/cmm (157-399); Red Blood Count 3.25 10^6/uL (3.85-5.65); Red Cell Distribution Width 13.8 % (12.1-15.1); White Blood Count 7.19 10^3/uL (3.29-11.43)
[2024-12-26 04:10] LABS: Anion Gap 18.1 (5-19); Blood Urea Nitrogen 48 mg/dL (8-23); Carbon Dioxide 18 mmol/L (22-29); Chloride 106 mmol/L (98-107); Glucose 79 mg/dL (65-115); Osmolality Calculated 298 mOsm/kg (285-295); Potassium 4.1 mmol/L (3.5-5.1); Sodium 138 mmol/L (136-145)
[2024-12-26 06:46] LABS: Glucose Point of Care 89 mg/dL (70-110)
[2024-12-26] MEDS: albuterol 2.5 mg/3 mL Neb INHALATION (10:00)
[2024-12-26] MEDS: duloxetine 20 mg Capsule PO ×2 (10:26→17:15)
[2024-12-26] MEDS: losartan 50 mg Tablet 100 MG PO (10:26)
[2024-12-26] MEDS: aspirin 81 mg EC Tablet PO (10:26)
[2024-12-26] MEDS: fenofibrate 145 mg Tablet PO (10:26)
[2024-12-26] MEDS: cholestyramine powder 4 gm Pkt PO ×3 (10:26→17:15)
[2024-12-26] MEDS: predniSONE 5 mg Tablet PO (10:27)
[2024-12-26] MEDS: hyDRALAzine 25 mg Tablet PO ×2 (10:27→17:15)
[2024-12-26] MEDS: doxepin 25 mg Capsule PO (10:27)
[2024-12-26] MEDS: spironolactone 25 mg Tablet PO (10:27)
[2024-12-26] MEDS: metoprolol succinate ER (24 HR) 100 mg Tablet PO (10:27)
[2024-12-26] MEDS: levothyroxine 100 mcg Tablet PO (10:28)
[2024-12-26 11:03] LABS: Glucose Point of Care 122 mg/dL (70-110)
--- NOTE | 2024-12-26 15:23 | P.PN_ITS ---
Subjective 2 Subjective: Patient was seen this morning, currently alert oriented x 3, following all commands, she is complaining of persistent diarrhea but improving, encouraged continued p.o. intake of fluids Vitals/I&O/Wt Last Vital Signs Temp 97.7 F 12/26/24 12:11 Pulse 85 12/26/24 12:11 Resp 17 12/26/24 12:11 BP 160/65 12/26/24 12:11 Pulse Ox 96 12/26/24 12:11 O2 Del Method Room Air 12/26/24 12:11 12/26/24 12/26/24 12/26/24 06:59 14:59 22:59 Intake Total 850 / 3111.25 720 / 720 Balance 850 / 3111.25 720 / 720 Weight last 48 hrs Weight 73.074 kg Weight 74.888 kg Physical Exam 2 Const: COMMON NORMALS: no acute distress and patient oriented x3 HENMT: COMMON NORMALS: normocephalic HEAD & SCALP: normocephalic Resp: COMMON NORMALS: normal respiratory effort, No retractions, No use of accessory muscles and clear to auscultation bilaterally AUSCULTATION: clear to auscultation bilaterally Cardio: COMMON NORMALS: regular rate, regular rhythm, S1 normal heart sound present and S2 normal heart sound present RATE: regular rate RHYTHM: r egular rhythm HEART SOUNDS: S1 normal heart sound present and S2 normal heart sound present GI: COMMON NORMALS: Normal to inspection, nondistended, normoactive bowel sounds present and non-tender Extremity: COMMON NORMALS: no pedal edema Neuro: COMMON NORMALS: patient oriented x3 Psych: COMMON NORMALS: mental status grossly normal Data 12/26/24 03:41 12/26/24 03:41 A&P Assessment and plan (1) Chronic diarrhea: (2) Dehydration: (3) Acute kidney injury: (4) C. difficile colitis: Plan Acute on chronic diarrhea CT/CT abdomen pelvis wo con [id number] IMPRESSION: 1. No acute findings. 2. A benign renal cyst or cysts have been detected. No further follow-up imaging is required. 3. Sigmoi buttock d diverticulosis - C. difficile positive, C. difficile colitis, placed on isolation precautions, continue p.o. vancomycin - Perhaps related to gallbladder pain syndrome continue cholestyramine - Stool studies, CMV, cortisol, cosyntropin testing within normal limits Acute kidney injury, creatinine 2.5, encourage p.o. intake stop IV fluids due to risk of fluid overload Hypoglycemia resolved, start low-dose sliding scale Diastolic CHF Type 2 diabetes mellitus low-dose sliding scale Rheumatoid arthritis, continue home prednisone Urinary tract infection, IV Rocephin Plan for today p.o. vancomycin PDMP PDMP Reviewed: Not Reviewed Attestations 2 Medical Necessity Statement*: Patient requires hospitalization for C. difficile colitis, UTI, dehydration, JAMES Diagnoses Chronic diarrhea K52.9 Dehydration E86.0 Acute kidney injury N17.9 C. difficile colitis A04.72
[2024-12-26 15:38] LABS: Glucose Point of Care 280 mg/dL (70-110)
[2024-12-26] MEDS: enoxaparin 30 mg/0.3 mL Syringe SUBCUT (17:14)
[2024-12-26] MEDS: insulin lispro 100 unit/1 mL SUBCUT (17:16)
[2024-12-26 21:05] LABS: Glucose Point of Care 131 mg/dL (70-110)
[2024-12-26] MEDS: cefTRIAXone 1,000 mg SDV 1000 MG IVP (21:30)
[2024-12-26] MEDS: zolpidem 5 mg Tablet PO (23:01)
[2024-12-27] VITALS (12 sets, daily range): BP systolic 129–180; BP diastolic 52–75; PULSE 63–82; RESP 17–20; TEMP 36.4–36.9; O2SAT 95–98
[2024-12-27 01:40] LABS: Glucose Point of Care 116 mg/dL (70-110)
[2024-12-27] MEDS: ondansetron 2 mg/ML SDV 2 mL 4 MG IVP ×2 (03:48→23:32)
[2024-12-27 05:00] LABS: Basophils % 0.6 %; Eosinophils # 0.1 10^3/uL (0.0-0.8); Eosinophils % 2.2 %; Hematocrit 32.8 % (36-47); Lymphocytes # 1.2 10^3/uL (0.8-4.8); Lymphocytes % 18.4 %; Mean Corpuscular HGB Conc 31.1 g/dL (30-55); Mean Corpuscular Hemoglobin 31.1 pg (27-33); Mean Platelet Volume 9.1 fL (7.4-10.4); Monocytes % 16.2 %; Neutrophils # 3.87 10^3/uL (1.8-7.7); Nucleated Red Blood Cells % 0 %; Platelet Count 347 10^3/cmm (157-399); Red Blood Count 3.28 10^6/uL (3.85-5.65); Red Cell Distribution Width 13.8 % (12.1-15.1); White Blood Count 6.25 10^3/uL (3.29-11.43)
[2024-12-27 05:17] LABS: Anion Gap 20.4 (5-19); Blood Urea Nitrogen 36 mg/dL (8-23); Calcium 8.5 mg/dL (8.5-10.5); Carbon Dioxide 15 mmol/L (22-29); Chloride 108 mmol/L (98-107); Glucose 109 mg/dL (65-115); Osmolality Calculated 297 mOsm/kg (285-295); Potassium 4.4 mmol/L (3.5-5.1); Sodium 139 mmol/L (136-145)
[2024-12-27] MEDS: vancomycin 125 mg Capsule PO ×3 (05:30→17:23)
[2024-12-27 06:45] LABS: Glucose Point of Care 129 mg/dL (70-110)
[2024-12-27 07:14] LABS: Gliadin Ab.IgA <1.0 U/mL; Gliadin Ab.IgG <1.0 U/mL
[2024-12-27 07:29] LABS: Tissue Transglutaminase IgA Ab <1.0 U/mL; Tissue transglutaminase Ab.IgG <1.0 U/mL
[2024-12-27] MEDS: cholestyramine powder 4 gm Pkt PO ×3 (08:25→17:22)
[2024-12-27] MEDS: levothyroxine 100 mcg Tablet PO (08:26)
[2024-12-27] MEDS: spironolactone 25 mg Tablet PO (08:26)
[2024-12-27] MEDS: fenofibrate 145 mg Tablet PO (08:26)
[2024-12-27] MEDS: aspirin 81 mg EC Tablet PO (08:26)
[2024-12-27] MEDS: metoprolol succinate ER (24 HR) 100 mg Tablet PO (08:26)
[2024-12-27] MEDS: duloxetine 20 mg Capsule PO ×2 (08:26→17:23)
[2024-12-27] MEDS: losartan 50 mg Tablet 100 MG PO (08:26)
[2024-12-27] MEDS: doxepin 25 mg Capsule PO (08:26)
[2024-12-27] MEDS: hyDRALAzine 25 mg Tablet PO ×2 (08:27→17:23)
[2024-12-27] MEDS: predniSONE 5 mg Tablet PO (08:27)
[2024-12-27 10:58] LABS: Glucose Point of Care 173 mg/dL (70-110)
[2024-12-27] MEDS: insulin lispro 100 unit/1 mL SUBCUT ×2 (11:54→17:23)
[2024-12-27 13:00] LABS: Blood Urea Nitrogen 34 mg/dL (8-23); Calcium 8.5 mg/dL (8.5-10.5); Carbon Dioxide 16 mmol/L (22-29); Chloride 105 mmol/L (98-107); Glucose 212 mg/dL (65-115); Osmolality Calculated 298 mOsm/kg (285-295); Sodium 137 mmol/L (136-145)
[2024-12-27 13:05] LABS: Anion Gap 20.4 (5-19); Potassium 4.4 mmol/L (3.5-5.1)
[2024-12-27 16:38] LABS: Glucose Point of Care 224 mg/dL (70-110)
--- NOTE | 2024-12-27 17:12 | P.PN_ITS ---
Subjective 2 Subjective: Patient was seen this morning, currently alert and oriented x 3, following commands she reports an episode of diarrhea early this morning, lasting a few hours, feeling nauseous after, and has resolved Vitals/I&O/Wt Last Vital Signs Temp 97.6 F 12/27/24 16:36 Pulse 65 12/27/24 16:36 Resp 19 H 12/27/24 16:36 BP 177/71 12/27/24 16:36 Pulse Ox 97 12/27/24 16:36 O2 Del Method Room Air 12/27/24 16:36 12/27/24 12/27/24 12/27/24 06:59 14:59 22:59 Intake Total 480 / 480 Output Total Balance 478 / 478 Weight last 48 hrs Weight 76.022 kg Weight 73.074 kg Physical Exam 2 Const: COMMON NORMALS: no acute distress and patient oriented x3 Resp: COMMON NORMALS: normal respiratory effort, No retractions, No use of accessory muscles and clear to auscultation bilaterally AUSCULTATION: clear to auscultation bilaterally Cardio: COMMON NORMALS: regular rate, regular rhythm, S1 normal heart sound present and S2 normal heart sound present RATE: regular rate RHYTHM: r egular rhythm HEART SOUNDS: S1 normal heart sound present and S2 normal heart sound present GI: COMMON NORMALS: Normal to inspection, nondistended, normoactive bowel sounds present and non-tender Extremity: COMMON NORMALS: no clubbing, cyanosis or edema and no pedal edema Neuro: COMMON NORMALS: patient oriented x3 Psych: COMMON NORMALS: mental status grossly normal Data 12/27/24 04:33 12/27/24 12:25 A&P Assessment and plan (1) Chronic diarrhea: (2) Dehydration: (3) Acute kidney injury: (4) C. difficile colitis: Plan Acute on chronic diarrhea CT/CT abdomen pelvis wo con [id number] IMPRESSION: 1. No acute findings. 2. A benign renal cyst or cysts have been detected. No further follow-up imaging is required. 3. Sigmoi buttock d diverticulosis - C. difficile positive, C. difficile colitis, placed on isolation precautions, continue p.o. vancomycin - Perhaps related to gallbladder pain syndrome continue cholestyramine - Stool studies, CMV, cortisol, cosyntropin testing within normal limits Acute kidney injury, creatinine 1 point, encourage p.o. intake stop IV fluids due to risk of fluid overload Increase anion gap metabolic acidosis likely secondary dehydration, encourage p.o. intake, start bicarb tablets Hypoglycemia resolved, start low-dose sliding scale Diastolic CHF Type 2 diabetes mellitus low-dose sliding scale Rheumatoid arthritis, continue home prednisone Urinary tract infection, IV Rocephin Plan for today p.o. vancomycin Plan for today, continue p.o. intake encouragement, p.o. vancomycin, recheck BMP this afternoon, start Lovenox PDMP PDMP Reviewed: Not Reviewed Attestations 2 Medical Necessity Statement*: Patient requires hospitalization for C. difficile colitis, diarrhea Diagnoses Chronic diarrhea K52.9 Dehydration E86.0 Acute kidney injury N17.9 C. difficile colitis A04.72
[2024-12-27] MEDS: enoxaparin 30 mg/0.3 mL Syringe SUBCUT (17:23)
[2024-12-27] MEDS: sodium bicarbonate 650 mg Tablet PO (17:23)
[2024-12-27] MEDS: amlodipine 10 mg Tablet PO (17:23)
[2024-12-27 20:33] LABS: Glucose Point of Care 184 mg/dL (70-110)
[2024-12-27] MEDS: cefTRIAXone 1,000 mg SDV 1000 MG IVP (21:25)
[2024-12-27] MEDS: temazepam 15 mg Capsule PO (21:38)
[2024-12-28] MEDS: sodium bicarbonate 650 mg Tablet PO ×2 (00:31→08:41)
[2024-12-28] MEDS: vancomycin 125 mg Capsule PO ×2 (00:32→06:14)
[2024-12-28 01:09] LABS: Glucose Point of Care 141 mg/dL (70-110)
[2024-12-28 04:00] VITALS: BP 134/61; PULSE 73; RESP 18; TEMP 37.1; O2SAT 95
[2024-12-28 06:00] VITALS: PULSE 69
[2024-12-28 06:24] LABS: Basophils % 0.6 %; Eosinophils # 0.2 10^3/uL (0.0-0.8); Eosinophils % 2.4 %; Lymphocytes # 1.1 10^3/uL (0.8-4.8); Lymphocytes % 16.5 %; Mean Corpuscular HGB Conc 30.6 g/dL (30-55); Mean Corpuscular Hemoglobin 31.3 pg (27-33); Mean Corpuscular Volume 102.3 fl (85-98); Mean Platelet Volume 9.1 fL (7.4-10.4); Monocytes # 0.9 10^3/uL (0.2-0.9); Monocytes % 13.6 %; Neutrophils # 4.46 10^3/uL (1.8-7.7); Neutrophils % 66.5 %; Nucleated Red Blood Cells % 0 %; Platelet Count 370 10^3/cmm (157-399); Red Blood Count 3.52 10^6/uL (3.85-5.65); Red Cell Distribution Width 13.7 % (12.1-15.1); White Blood Count 6.71 10^3/uL (3.29-11.43)
[2024-12-28 06:43] LABS: Glucose Point of Care 126 mg/dL (70-110)
[2024-12-28 06:46] LABS: Anion Gap 18.5 (5-19); Blood Urea Nitrogen 26 mg/dL (8-23); Calcium 8.5 mg/dL (8.5-10.5); Carbon Dioxide 17 mmol/L (22-29); Chloride 107 mmol/L (98-107); Glucose 120 mg/dL (65-115); Osmolality Calculated 292 mOsm/kg (285-295); Potassium 4.5 mmol/L (3.5-5.1); Sodium 138 mmol/L (136-145)
[2024-12-28 07:10] VITALS: BP 159/73; PULSE 86; RESP 19; TEMP 36.5; O2SAT 97
[2024-12-28] MEDS: fenofibrate 145 mg Tablet PO (08:40)
[2024-12-28] MEDS: aspirin 81 mg EC Tablet PO (08:40)
[2024-12-28] MEDS: doxepin 25 mg Capsule PO (08:41)
[2024-12-28] MEDS: metoprolol succinate ER (24 HR) 100 mg Tablet PO (08:41)
[2024-12-28] MEDS: spironolactone 25 mg Tablet PO (08:41)
[2024-12-28] MEDS: losartan 50 mg Tablet 100 MG PO (08:41)
[2024-12-28] MEDS: levothyroxine 100 mcg Tablet PO (08:41)
[2024-12-28] MEDS: hyDRALAzine 25 mg Tablet PO (08:41)
[2024-12-28] MEDS: amlodipine 10 mg Tablet PO (08:41)
[2024-12-28] MEDS: predniSONE 5 mg Tablet PO (08:41)
[2024-12-28] MEDS: cholestyramine powder 4 gm Pkt PO (08:41)
[2024-12-28] MEDS: duloxetine 20 mg Capsule PO (08:41)
[2024-12-28 08:42] VITALS: PULSE 83; RESP 18; O2SAT 97
[2024-12-28 10:19] VITALS: BP 159/73; PULSE 83; RESP 16; TEMP 36.5; O2SAT 97
--- NOTE | 2024-12-28 11:35 | PC.SOCIAL ---
IMM Update pg 2 of IMM Updated and reviewed w/ patient. Copy provided and copy dated, initialed and placed in chart.
[2024-12-28 17:49] LABS: Immunoglobulin A 167 mg/dL (70-320)
--- NOTE | 2025-01-10 12:52 | PM.DCS ---
Discharge Providers Date of Admission: 12/24/24 13:24 Date of Discharge: January 10, 2025 Attending Provider at Admission: Emory Aquino MD Attending Provider at Discharge: Emory Aquino MD Primary Care Provider: HANK James Diagnoses at Discharge Discharge Diagnosis (1) Chronic diarrhea: Status: Inactive (2) Dehydration: Status: Acute (3) Acute kidney injury: Status: Acute (4) C. difficile colitis: Status: Acute Reason for Visit Reason for Visit: weakness - diarrhea Hospital Course Hospital Course Teresa Garcia is a 74 year old female with a with a past medical history of CHF, type 2 diabetes mellitus, osteoarthritis, chronic prednisone, seropositive rheumatoid arthritis, COPD, hypertension, who presents [facility] due to acute on chronic diarrhea, weakness, fatigue, poor appetite. Patient reports that she has chronic history of diarrhea, denies any fevers, no chills, no nausea, no vomiting, she is status post cholecystectomy, she is on Questran as outpatient but she is not sure if she is taking it? She is on chronic prednisone, Patient was admitted to [facility] for acute on chronic diarrhea, acute C. difficile colitis CT/CT abdomen pelvis wo con [id number] IMPRESSION: 1. No acute findings. 2. A benign renal cyst or cysts have been detected. No further follow-up imaging is required. 3. Sigmoi buttock d diverticulosis - C. difficile positive, C. difficile colitis, placed on isolation precautions, continue p.o. vancomycin during inpatient stay - Perhaps related to gallbladder pain syndrome continue cholestyramine - Overall clinically improved, discharged on p.o. vancomycin, cholestyramine Acute kidney injury, initially managed with IV fluids, transition to p.o. hydration For UTI received IV Rocephin during inpatient stay Physical Exam Const: COMMON NORMALS: no acute distress and patient oriented x3 Resp: COMMON NORMALS: normal respiratory effort, No retractions, No use of accessory muscles and clear to auscultation bilaterally AUSCULTATION: clear to auscultation bilaterally Cardio: COMMON NORMALS: regular rate, regular rhythm, S1 normal heart sound present and S2 normal heart sound present RATE: regular rate RHYTHM: regular rhythm HEART SOUNDS: S1 normal heart sound present and S2 normal heart sound present GI: COMMON NORMALS: Normal to inspection, nondistended, normoactive bowel sounds present and non-tender Extremity: COMMON NORMALS: no pedal edema Neuro: COMMON NORMALS: patient oriented x3 Psych: COMMON NORMALS: mental status grossly normal Discharge Data Studies Completed and Pending Completed Studies During Hospitalization Category Date Time Status CT abdomen pelvis jennifer shah [id number] Stat Cat Scan 12/24/24 11:17 Completed OVA and Parasites, Conc and PE Routine Lab 12/24/24 14:42 Completed Salmonella / Shigella / Campy Routine Lab 12/24/24 14:42 Completed Radiology Impressions Abdomen/Pelvis CT 12/24/24 11:17 IMPRESSION: 1. No acute findings. 2. A benign renal cyst or cysts have been detected. No further follow-up imaging is required. 3. Sigmoi buttock d diverticulosis COMMENTS: Consistent with the [employer]'s Incidental Findings Committee white paper (J Am Richard Radiol 2018): Any incidental renal lesion less than 1 cm or classified as too small to characterize, or any incidental cystic renal lesion characterized as simple-appearing, is likely benign. No follow-up imaging is recommended for these lesions per consensus recommendations based on imaging criteria. ADDENDUM: 12/24/24 1227 Impression 3. should read sigmoid diverticulosis . Laboratory Results WBC 6.71 10^3/uL (3.29-11.43) 12/28/24 06:03 RBC 3.52 10^6/uL (3.85-5.65) L 12/28/24 06:03 Hgb 11.00 g/dL (11.27-16.99) L 12/28/24 06:03 Hct 36.0 % (36-47) 12/28/24 06:03 MCV 102.3 fl (85-98) H 12/28/24 06:03 MCH 31.3 pg (27-33) 12/28/24 06:03 MCHC 30.6 g/dL (30-55) 12/28/24 06:03 RDW 13.7 % (12.1-15.1) 12/28/24 06:03 Plt Count 370 10^3/cmm (157-399) 12/28/24 06:03 MPV 9.1 fL (7.4-10.4) 12/28/24 06:03 Neut % (Auto) 66.5 % 12/28/24 06:03 Lymph % (Auto) 16.5 % 12/28/24 06:03 [place] % (Auto) 13.6 % 12/28/24 06:03 Eos % (Auto) 2.4 % 12/28/24 06:03 Baso % (Auto) 0.6 % 12/28/24 06:03 Neut # (Auto) 4.46 10^3/uL (1.8-7.7) 12/28/24 06:03 Lymph # (Auto) 1.1 10^3/uL (0.8-4.8) 12/28/24 06:03 [place] # (Auto) 0.9 10^3/uL (0.2-0.9) 12/28/24 06:03 Eos # (Auto) 0.2 10^3/uL (0.0-0.8) 12/28/24 06:03 Baso # (Auto) 0.0 10^3/uL (0.0-0.1) 12/28/24 06:03 Nucleated RBC % (auto) 0 % 12/28/24 06:03 Nucleated RBCs # 0.0 /100WBC 12/28/24 06:03 ESR 66 mm/hr (0-15) H 12/24/24 10:38 Sodium 138 mmol/L (136-145) 12/28/24 06:03 Potassium 4.5 mmol/L (3.5-5.1) 12/28/24 06:03 Chloride 107 mmol/L (98-107) 12/28/24 06:03 Carbon Dioxide 17 mmol/L (22-29) L 12/28/24 06:03 Anion Gap 18.5 (5-19) 12/28/24 06:03 BUN 26 mg/dL (8-23) H 12/28/24 06:03 Creatinine 1.7 mg/dL (0.5-0.9) H 12/28/24 06:03 GFR Calculation Not Reportable 12/28/24 06:03 Glucose 120 mg/dL (65-115) H 12/28/24 06:03 POC Glucose 126 mg/dL (70-110) H 12/28/24 06:15 Estimat Average Glucose 171 12/25/24 05:13 Hemoglobin A1c 7.6 % (4.0-6.0) H 12/25/24 05:13 Calculated Osmolality 292 mOsm/kg (285-295) 12/28/24 06:03 Lactic Acid 2.3 mmol/L (0.5-2.2) H 12/24/24 10:38 Lactic Acid (Sepsis) 1.2 mmol/L (0.5-2.2) 12/24/24 13:38 Calcium 8.5 mg/dL (8.5-10.5) 12/28/24 06:03 Magnesium 2.2 mg/dL (1.7-2.3) 12/24/24 10:38 Total Bilirubin 0.3 mg/dL (0.15-1.2) 12/25/24 05:13 AST 39 U/L (0-32) H 12/25/24 05:13 ALT 24 U/L (0-33) 12/25/24 05:13 Alkaline Phosphatase 40 U/L (35-105) 12/25/24 05:13 C-Reactive Protein 24.5 mg/L (0.0-4.9) H 12/24/24 10:38 NT-Pro-B Natriuret Pep 2268 pg/mL (0-450) H 12/24/24 14:52 Total Protein 6.2 g/dL (6.6-8.7) L 12/25/24 05:13 Albumin 3.0 g/dL (3.5-5.2) L 12/25/24 05:13 Globulin 3.2 g/dL (1.3-4.6) 12/25/24 05:13 Procalcitonin 0.10 ng/mL (0-0.5) 12/24/24 10:38 TSH 1.88 uIU/mL (0.27-4.20) 12/24/24 10:38 Random Cortisol 17.23 ug/dL (2.47-19.5) 12/24/24 10:38 Cortisol Response 12/24/24 14:52 Urine Color Dark yellow (Yellow) A 12/24/24 12:00 Urine Appearance Clear (CLEAR) 12/24/24 12:00 Urine pH 6.5 (5-7) 12/24/24 12:00 Ur Specific [place] 1.017 (1.005-1.030) 12/24/24 12:00 Urine Protein 1+ (Negative) A 12/24/24 12:00 Urine Glucose (UA) Negative (Normal) 12/24/24 12:00 Urine Ketones Negative (Negative) 12/24/24 12:00 Urine Blood Negative (Negative) 12/24/24 12:00 Urine Nitrate Negative (Negative) 12/24/24 12:00 Urine Bilirubin Negative (Negative) 12/24/24 12:00 Urine Urobilinogen 1.0 mg/dL (Negative) 12/24/24 12:00 Ur Leukocyte Esterase 1+ (Negative) A 12/24/24 12:00 Urine RBC 0-2 /hpf (0-2) 12/24/24 12:00 Urine WBC 11-20 /hpf (0-5) H 12/24/24 12:00 Ur Squamous Epith Cells 11-20 /hpf (0-5) H 12/24/24 12:00 Amorphous Sediment Not Reportable 12/24/24 12:00 Urine Bacteria 1+ /hpf (NONE) H 12/24/24 12:00 Hyaline Casts 23.57 /lpf 12/24/24 12:00 IgA 167 mg/dL (70-320) 12/24/24 14:52 Tiss Transglutamin IgG <1.0 U/mL 12/24/24 14:52 Tiss Transglutamin IgA <1.0 U/mL 12/24/24 14:52 Anti-Gliadin IgG ELIZABETH Res <1.0 U/mL 12/24/24 14:52 Anti-Gliad IgA ELIZABETH Res <1.0 U/mL 12/24/24 14:52 C. difficile (PCR) Positive (Negative) H 12/24/24 14:42 C.difficile Tox Confrm Negative (Negative) 12/24/24 14:42 CMV IgG Ab >10.00 U/mL H 12/24/24 10:38 CMV IgM Ab <30.00 AU/mL 12/24/24 10:38 Vitals Last Vital Signs Temp 97.7 F 12/28/24 10:19 Pulse 83 12/28/24 10:19 Resp 16 12/28/24 10:19 BP 159/73 12/28/24 10:19 Pulse Ox 97 12/28/24 10:19 O2 Del Method Room Air 12/28/24 08:42 Discharge Plan Discharge Patient Disposition: Home Condition: Stable Prescriptions: New glucagon HCl [Glucagon (HCl) Emergency Kit] 1 mg recon soln 1 mg IM Q20M PRN (Reason: hypoglycemia) Qty: 1 0RF Rx Instructions: until target blood sugar attained Continued aspirin 81 mg tablet,delayed release (DR/EC) 81 mg PO DAILY nitroglycerin 0.4 mg tablet, sublingual 0.4 mg SUBLINGUAL Q5M PRN (Reason: chest pain) Qty: 20 0RF Rx Instructions: do not exceed 3 doses per episode prednisone 5 mg tablet 5 mg PO DAILY Qty: 90 1RF alendronate [Fosamax] 70 mg tablet 70 mg PO .weekly Qty: 12 1RF doxepin 25 mg capsule 25 - 50 mg PO DAILY Qty: 180 1RF duloxetine [Cymbalta] 20 mg capsule,delayed release(DR/EC) 20 mg PO BID Qty: 180 1RF fenofibrate nanocrystallized [Tricor] 145 mg tablet 145 mg PO DAILY Qty: 90 1RF fluticasone propion-salmeterol [Advair Diskus] 250-50 mcg/dose blister with device 1 inh inhalation Q12H Qty: 180 1RF furosemide 40 mg tablet 40 mg PO DAILY Qty: 90 1RF glipizide 5 mg tablet extended release 24hr 5 mg PO BID Qty: 180 1RF levothyroxine 100 mcg tablet 100 mcg PO DAILY Qty: 90 1RF metoprolol succinate 100 mg tablet extended release 24 hr 100 mg PO DAILY Qty: 90 1RF potassium chloride 10 mEq tablet extended release 10 meq PO BID Qty: 180 1RF tizanidine 2 mg tablet 2 mg PO .at bedtime PRN (Reason: muscle spasticity) Qty: 90 0RF spironolactone 25 mg tablet 25 mg PO DAILY Qty: 90 3RF valsartan [Diovan] 320 mg tablet 320 mg PO DAILY Qty: 90 3RF hydralazine 25 mg tablet 25 mg PO TID Qty: 270 1RF albuterol sulfate [Ventolin HFA] 90 mcg/actuation HFA aerosol inhaler 2 puff INHALATION QID PRN (Reason: Shortness Of Breath) Qty: 25.5 1RF vitamin E 400 unit Capsule 400 unit PO DAILY cholecalciferol (vitamin D3) [Vitamin D3] 25 mcg (1,000 unit) Capsule 25 mcg PO DAILY omega-3 fatty acids 1,000 mg Capsule 1,000 mg PO DAILY amlodipine 5 mg tablet 10 mg PO DAILY calcium carbonate-vitamin D3 [Os-Jose Luis 500 + D3] 500 mg-15 mcg (600 unit) tablet 1 tab PO BID guaifenesin 100 mg/5 mL Liquid 200 mg PO Q4H PRN (Reason: Cough) cyanocobalamin (vitamin B-12) 1,000 mcg/mL solution 1,000 mcg SUBCUT Q30D Changed insulin glargine [Lantus Solostar U-100 Insulin] 100 unit/mL (3 mL) insulin pen 10 unit SUBCUT QAM Qty: 31.5 1RF Questran Light 4 gram Powder 2 g PO BID 30 Days Qty: 210 0RF Rx Instructions: administer w/meal; avoid other meds within 1hr before or 4-6hr after dose Held leflunomide 20 mg tablet 20 mg PO DAILY Qty: 90 0RF Hold Instructions: Resume on 02/08/25. hold until you see rheumatology No Action (DME) Diabetic shoes See Rx Instructions .Route .MEDSUPPLY Qty: 1 0RF Rx Instructions: As directed (DME) lancets [Accu-Chek Softclix Lancets] Misc See Rx Instructions .Route Qty: 100 3RF Rx Instructions: use 1 day fluconazole [Diflucan] 100 mg tablet 100 mg PO DAILY Qty: 12 0RF quetiapine [Seroquel] 50 mg tablet 50 mg PO .at bedtime Qty: 30 0RF Probiotic Digestive Care 20 billion cell capsule See Rx Instructions PO .2 times day Qty: 60 2RF Rx Instructions: 20 billion cell PO .2 times day; (DME) right cmc splint See Rx Instructions .Route .MEDSUPPLY Qty: 1 0RF Rx Instructions: As directed (DME) Accu-Chek Guide test strips Strip See Rx Instructions .Route Qty: 100 5RF Rx Instructions: use one daily (DME) pen needle, diabetic 33 gauge x 5/32 needle See Rx Instructions .ROUTE .MEDSUPPLY Qty: 100 5RF Rx Instructions: 1 time day Discharge Orders: Discharge Order (Routine); Ordered 12/28/24 Ordered By: Emory Aquino Referrals: Abran Garcia MD [Physician, General Surgery] - 01/12/25 8:00 am Referral Note: egd and colonoscopy for chronic diarrhea Karla Gallegos, REGISTER REPAIRER-C [Primary Care Provider, [facility]] - 01/04/25 10:20 am Referral Note: Discharge Diet: GI Soft Discharge Activity: Resume usual activity Patient Instructions: Clostridium Difficile, Glucagon (By injection), Vancomycin (By mouth), Cefdinir (By mouth), Sodium Bicarbonate (By mouth), C. Diff (Clostridioides Difficile) Infection (GEN), Opioid Safety Activity Restrictions/Additional Instructions: - For your C. difficile colitis continue hand wash, to avoid fecal oral transmission - Follow-up with primary care provider in 1 week - Questran twice daily -Please monitor your blood sugars closely -Your Lantus has been decreased to 10 units subcu a.m. -If your blood sugars start to elevate, consistently greater than 300 -Then you can increase your Lantus to 20 units subcu a.m. -Monitor your blood sugars 3 times daily as after meals -Please record your blood sugars, and a blood sugar log -If your blood sugar is greater than 500 go to the emergency room -If your blood sugar is less than 60 or at anytime you feel lightheaded or dizzy or diaphoretic or have chest palpitations check your blood sugar, and eat a hard candy or drink orange juice and go immediately to the emergency room -Remember hypoglycemia kills, so if his blood sugar is less than 60 we have to increase it by taking in a sugary meal such as a hard candy or orange juice and go to the emergency room -If you have any questions please call us where here to help - For your chronic diarrhea please follow-up test results with your primary care provider - Referral has been sent to general surgery in 1 month if you continue to have diarrhea for consideration of EGD and colonoscopy - Please recheck your creatinine through primary care provider, creatinine discharge 1.7 - Please hydrate well, drink at least 2 L of fluid a day - Start taking your Lasix tomorrow Discharge Attestations Time Spent in Discharge Care*: greater than 30 min Quality Metrics Clinical Quality Measures [ No reported AMI, CVA or VTE this stay] Coding Level of Care Code 75754 Total time (in minutes) for Discharge: 45 Diagnoses Chronic diarrhea K52.9 Dehydration E86.0 Acute kidney injury N17.9 C. difficile colitis A04.72
== END 2024-12-28 10:00 | disposition home or self-care (01) | DRG 372 ==
LOC: ER 13:06 → MEDSURG 13:24
PROVIDERS: Internal Medicine; Admitting Provider Family Medicine; Emergency Provider Student in an Organized Health Care Education/Training Program; PCP Nurse Practitioner; Visit Provider Family Medicine
DX: A04.72 Enterocolitis due to Clostridium difficile, not specified as recurrent (principal); I13.0 Hypertensive heart and chronic kidney disease with heart failure and stage 1 through stage 4 chronic kidney disease, or unspecified chronic kidney disease; N17.9 Acute kidney failure, unspecified; I50.32 Chronic diastolic (congestive) heart failure; N39.0 Urinary tract infection, site not specified; E86.0 Dehydration; N18.9 Chronic kidney disease, unspecified; E11.22 Type 2 diabetes mellitus with diabetic chronic kidney disease; M19.042 Primary osteoarthritis, left hand; M19.041 Primary osteoarthritis, right hand; M05.9 Rheumatoid arthritis with rheumatoid factor, unspecified; J44.9 Chronic obstructive pulmonary disease, unspecified; E03.9 Hypothyroidism, unspecified; K52.9 Noninfective gastroenteritis and colitis, unspecified; F17.210 Nicotine dependence, cigarettes, uncomplicated; Z79.52 Long term (current) use of systemic steroids; Z79.899 Other long term (current) drug therapy; Z79.82 Long term (current) use of aspirin; Z79.84 Long term (current) use of oral hypoglycemic drugs; Z90.49 Acquired absence of other specified parts of digestive tract
CPT/HCPCS: 36415; 36416; 74176; 80048; 80053; 81001; 82274; 82533; 82784; 82962; 83036; 83516; 83605; 83630; 83735; 83880; 84145; 84443; 85025; 85651; 86140; 87045; 87177; 87209; 87324; 87427; 87449; 87493; 94640; 94664; 96372; 96374; 99285; J0696; J0834; J1650; J1815; J1885; J2405; J7030; J7040; J7042; J7512; J7613; J9999

== ENCOUNTER 2025-01-10 14:57 | Inpatient (IN) | payer MEDICARE, SELFPAY ==
[2025-01-10 14:59] VITALS: BP 150/58; PULSE 79; RESP 17; TEMP 36.9; O2SAT 96; BMI 28.8
--- NOTE | 2025-01-10 15:00 | XRR_ITS ---
PROCEDURE INFORMATION: Exam: XR Chest Exam date and time: 01/10/2025 3:24 PM Age: 74 years old Clinical indication: Cough; Additional info: Dyspnea; Cough; Weakness TECHNIQUE: Imaging protocol: Radiologic exam of the chest. Views: 1 view. COMPARISON: CR XR chest 1V portable [id number] 11/02/2024 1:33 PM FINDINGS: Lungs: Calcified granuloma in the right lower lung. No consolidation. Pleural spaces: Unremarkable. No pleural effusion. No pneumothorax. Heart/Mediastinum: Unremarkable. No cardiomegaly. Vasculature: Atherosclerotic aortic plaques. Bones/joints: Unremarkable. Other findings: Overlying clothing artifact. XR/XR chest 1V portable [id number] IMPRESSION: No acute cardiopulmonary findings.
--- NOTE | 2025-01-10 15:00 | ECG_ITS ---
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[id number] Requested By: Lucas Erazo Order Number: [id number] Reading MD: Measurements Intervals [place] Rate: 74 P: 77 WI: 189 QRS: -17 QRSD: 93 T: 79 QT: 404 QTc: 451 Interpretive Statements SINUS RHYTHM INCOMPLETE RIGHT BUNDLE BRANCH BLOCK [90+ ms QRS DURATION, TERMINAL R IN V1/V2, 40+ ms S IN I/aVL/V4/V5/V6] NONSPECIFIC ST & T-WAVE ABNORMALITY Compared to ECG 11/02/2024 19:29:21 Incomplete right bundle-branch block now present Sinus tachycardia no longer present Possible ischemia no longer present T-wave abnormality still present [email or web address]
--- OUTSIDE RECORDS SUMMARY | 2025-01-10 15:04 | XMS_ITS | Clinical Summary ---
Author Organization [facility] Address [address] [place]: Epic Prelude ADT [place] [id number] Care Team Providers Care Neon Technician Name Role Phone Unavailable Primary Care Provider Unavailabl e Encounters Date Type Department Care Team Description 12/22/2024 External Device Data ST[facility] ABSTRACTION Provider, Abstract 12/01/2024 External Device Data [facility] ABSTRACTION Provider, Abstract 11/26/2024 External Device Data [facility] ABSTRACTION Provider, Abstract 11/25/2024 External Device Data [facility] ABSTRACTION Provider, Abstract 11/24/2024 External Device Data [facility] ABSTRACTION Provider, Abstract from Last 3 Months Social History Tobacco Use Types Packs/Day Years Used Date Smoking Tobacco: Never Assessed Comments Unknown Sex and Gender Information Value Date Recorded Sex Assigned at Not on file 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
--- NOTE | 2025-01-10 15:14 | W.ED.WEAKNES ---
HPI - Weakness General: Chief complaint: Weakness Stated complaint: weakness Time Seen by Provider: 01/10/25 15:00 History of Present Illness: 74-year-old female presents emergency room with complaint of generalized weakness. Recently hospitalized at time of discharge was discharged home with a diagnosis of C. difficile colitis. Appears to be discharged home on 12/28/2024 current discharge summary discharged home on p.o. vancomycin Associated symptoms: Reports nausea; Denies chest pain, chills, melena, dysuria, fever(s) or vomiting Related Data Home Medications ?Medication ?Instructions ?Recorded ?Confirmed aspirin 81 mg tablet,delayed 81 mg PO DAILY 10/19/19 01/18/25 release cholecalciferol (vitamin D3) 25 25 mcg PO DAILY 10/27/20 01/18/25 mcg (1,000 unit) capsule (Vitamin D3) vitamin E 268 mg (400 unit) capsule 400 unit PO DAILY 10/27/20 01/18/25 amlodipine 5 mg tablet 10 mg PO DAILY 11/02/24 01/18/25 calcium 500 mg (as 1 tab PO BID 11/02/24 01/18/25 carbonate)-vitamin D3 15 mcg (600 unit) tablet (Os-Jose Luis 500 + D3) omega-3 fatty acids 1,000 mg 1,000 mg PO DAILY 11/02/24 01/18/25 capsule cyanocobalamin (vitamin B-12) 1,000 mcg SUBCUT Q30D 12/24/24 01/18/25 1,000 mcg/mL injection solution Previous Rx's ?Medication ?Instructions ?Recorded Diabetic shoes #1 ea 10/14/20 nitroglycerin 0.4 mg sublingual 0.4 mg sublingual Q5M PRN chest 01/22/23 tablet pain #20 tabs lancets (Accu-Chek Softclix #100 ea 04/16/23 Lancets) right cmc splint #1 ea 01/07/24 alendronate 70 mg tablet (Fosamax) 70 mg PO .weekly #12 tabs 07/27/24 blood sugar diagnostic (Accu-Chek #100 ea 07/27/24 Guide test strips) doxepin 25 mg capsule 25 - 50 mg (1 - 2 x 25 mg) PO 07/27/24 DAILY #180 caps duloxetine 20 mg capsule,delayed 20 mg PO BID #180 caps 07/27/24 release (Cymbalta) fenofibrate nanocrystallized 145 145 mg PO DAILY #90 tabs 07/27/24 mg tablet (Tricor) fluticasone 250 mcg-salmeterol 50 1 inh inhalation Q12H #180 ea 07/27/24 mcg/dose blistr powdr for inhalation (Advair Diskus) glipizide 5 mg tablet, extended 5 mg PO BID #180 tabs 07/27/24 release 24 hr levothyroxine 100 mcg tablet 100 mcg PO DAILY #90 tabs 07/27/24 metoprolol succinate 100 mg 100 mg PO DAILY #90 tabs 07/27/24 tablet,extended release 24 hr pen needle, diabetic 33 gauge x #100 ea 07/27/24 potassium chloride 10 mEq 10 meq PO BID #180 tabs 07/27/24 tablet,extended release prednisone 5 mg tablet 5 mg PO DAILY #90 tabs 09/07/24 tizanidine 2 mg tablet 2 mg PO .at bedtime PRN muscle 10/14/24 spasticity #90 tabs valsartan 320 mg tablet (Diovan) 320 mg PO DAILY #90 tabs 12/01/24 hydralazine 25 mg tablet 25 mg PO TID #270 tabs 12/02/24 albuterol sulfate 90 mcg/actuation 2 puff inhalation QID PRN 12/19/24 aerosol inhaler (Ventolin HFA) Shortness Of Breath #25.5 grams cholestyramine 4 gram oral powder 2 g PO BID 30 days #210 grams 12/28/24 (Questran Light) glucagon HCl 1 mg solution for 1 mg IM Q20M PRN hypoglycemia #1 ea 12/28/24 injection (Glucagon (HCl) Emergency Kit) insulin glargine 100 unit/mL (3 10 unit (0.1 mL) SUBCUT QAM #31.5 12/28/24 mL) subcutaneous pen (Lantus mL Solostar U-100 Insulin) Lactobacillus rhamnosus GG 20 See Rx Instructions PO .2 times 01/01/25 billion cell capsule (Probiotic day #60 caps [facility]) fluconazole 100 mg tablet 100 mg PO DAILY #12 tabs 01/01/25 (Diflucan) quetiapine 50 mg tablet (Seroquel) 50 mg PO .at bedtime #30 tabs 01/01/25 acetaminophen 325 mg tablet 650 mg (2 x 325 mg) PO Q6H PRN 01/14/25 Mild Pain #30 tabs fidaxomicin 200 mg tablet (Dificid) 200 mg PO BID #30 tabs 01/14/25 sodium bicarbonate 650 mg tablet 650 mg PO TID #15 tabs 01/14/25 sodium di- and 1 tab PO BID #20 tabs 01/14/25 monophosphate-potassium phos monobasic 250 mg tablet (Phospha Neutral) vancomycin 125 mg capsule 125 mg PO QID #40 caps 01/14/25 Allergies Allergy/AdvReac Type Severity Reaction Status Date / Time Penicillins Allergy Severe Rash Verified 01/18/25 11:39 Sulfa (Sulfonamide Allergy Severe Rash Verified 01/18/25 11:39 Antibiotics) Latex, Natural Rubber AdvReac Severe Rash Verified 01/18/25 11:39 adhesive AdvReac Intermediate Rash Verified 01/18/25 11:39 trazodone AdvReac Do not Verified 01/18/25 11:39 tolerate Review of Systems Const: Denies: fever(s) or chills Card: Denies: chest pain Resp: Denies: dyspnea GI: Reports: nausea, diarrhea and mucus in stool; Denies: abdominal pain, vomiting, hematemesis, coffee ground emesis, hematochezia or melena : Denies: dysuria, urinary frequency or urinary urgency Musc: Denies: neck pain or back pain Skin/Breast: Denies: rash PFSH ED PFSH: Medical History Diastolic dysfunction with chronic heart failure Diabetes mellitus with hyperglycemia, with long-term current use of insulin Osteoarthritis of hands, bilateral Immunization counseling High risk medication use Seropositive rheumatoid arthritis of multiple sites Osteoporosis Cigarette smoker COPD (chronic obstructive pulmonary disease) Unstable angina Hypertension Environmental and seasonal allergies Vitamin D deficiency Mixed hyperlipidemia Diverticulosis Adult hypothyroidism Surgical History History of lumbar surgery Rods in lumbar History of cholecystectomy History of tubal ligation History of foot surgery left Family History Father Diabetes Mother CAD (coronary artery disease) Other Dementia Social History (Reviewed 01/19/25 @ 16:05 by JACKIE Garcia Smoking and tobacco/nicotine status: current every day tobacco/nicotine user Second hand smoke exposure: Yes Alcohol intake: never Substance/Drug Use: never Adopted: No Caregiver/support person: No Lives independently: Yes Household members: spouse Housing: House Marital status: Number of children: 3 service: No Current occupational status: retired Do you think of yourself as: Straight/Heterosexual Current gender identity: Female Physical Exam Const: GENERAL APPEARANCE: cooperative ORIENTATION/CONSCIOUSNESS: Yes awake, Yes oriented to person, Yes oriented to place and Yes oriented to time HENMT: COMMON NORMALS: normocephalic, atraumatic and hearing grossly normal bilaterally HEAD & SCALP: normocephalic and atraumatic Resp: COMMON NORMALS: normal respiratory effort, No retractions, No use of accessory muscles and clear to auscultation bilaterally AUSCULTATION: clear to auscultation bilaterally Cardio: COMMON NORMALS: regular rate, regular rhythm and No murmurs present (Cardio) RATE: regular rate RHYTHM: regular rhythm GI: COMMON NORMALS: Soft to palpation and No hepatosplenomegaly present AUSCULTATION: Yes normoactive bowel sounds PALPATION: Yes Soft to palpation, No Tenderness to palpation present (GI), No Guarding due to palpation present (GI) and Yes No hepatosplenomegaly present Extremity: COMMON NORMALS: normal to inspection, capillary refill normal, no clubbing, cyanosis or edema, no calf tenderness and no pedal edema Neuro: SENSORIUM/ORIENTATION: Yes oriented to person, Yes oriented to place and Yes oriented to time Skin: COMMON NORMALS: no rashes or lesions noted GENERAL SKIN EXAM: no rashes or lesions noted Course Vital Signs: Vital signs: Vital Signs Temperature 98.0 F 01/14/25 14:20 Pulse Rate 69 01/14/25 14:20 Respiratory Rate 18 01/14/25 14:20 Blood Pressure 131/77 01/14/25 14:20 Pulse Oximetry 97 01/14/25 14:20 Oxygen Delivery Me thod Room Air 01/14/25 11:04 MDM - Weakness Medical Decision Making Will admit patient has mild metabolic acidosis anion gap of 25.2.. Patient has mild dehydration C. difficile colitis. Chronic kidney disease is at approximately baseline. IV fluids monitor hyponatremia. Discussed with hospitalist orders written Medical Records I reviewed the patient's medical records. Lab Data I reviewed the patient's lab results. 01/13/25 04:43 01/14/25 03:59 Radiology Impressions Chest X-Ray 01/10/25 15:00 IMPRESSION: No acute cardiopulmonary findings. Abdomen/Pelvis CT 01/10/25 15:23 IMPRESSION: 1. Mild urinary bladder wall thickening. Correlate with physical exam findings and urinalysis to assess for cystitis. 2. Hepatomegaly. 3. Stable bilateral renal cysts. 4. Stable 10 mm hyperdense focus in the upper pole of the left kidney, possibly a hemorrhagic cyst. Consider nonemergent renal ultrasound or MRI abdomen without and with contrast for further assessment. 5. Sigmoid diverticulosis without diverticulitis. COMMENTS: Consistent with the [employer]'s Incidental Findings Committee white paper (J Am Richard Radiol 2017): For any incidental adrenal lesion greater than or equal to 1 cm but less than or equal to 4 cm classified in this report as benign, likely benign, or containing fat (including classification as an adenoma or myelolipoma), no follow-up imaging is recommended per consensus recommendations based on imaging criteria. Further lab evaluation could be pursued if warranted based on clinical findings. Laboratory Results WBC 10.69 10^3/uL (3.29-11.43) 01/10/25 15:22 RBC 3.43 10^6/uL (3.85-5.65) L 01/10/25 15:22 Hgb 10.70 g/dL (11.27-16.99) L 01/10/25 15:22 Hct 33.7 % (36-47) L 01/10/25 15:22 MCV 98.3 fl (85-98) H 01/10/25 15:22 MCH 31.2 pg (27-33) 01/10/25 15:22 MCHC 31.8 g/dL (30-55) 01/10/25 15:22 RDW 14.2 % (12.1-15.1) 01/10/25 15:22 Plt Count 459 10^3/cmm (157-399) H 01/10/25 15:22 MPV 8.8 fL (7.4-10.4) 01/10/25 15:22 Neut % (Auto) 77.7 % 01/10/25 15:22 Lymph % (Auto) 9.2 % 01/10/25 15:22 [place] % (Auto) 11.5 % 01/10/25 15:22 Eos % (Auto) 0.4 % 01/10/25 15:22 Baso % (Auto) 0.5 % 01/10/25 15:22 Neut # (Auto) 8.31 10^3/uL (1.8-7.7) H 01/10/25 15:22 Lymph # (Auto) 1.0 10^3/uL (0.8-4.8) 01/10/25 15:22 [place] # (Auto) 1.2 10^3/uL (0.2-0.9) H 01/10/25 15:22 Eos # (Auto) 0.0 10^3/uL (0.0-0.8) 01/10/25 15:22 Baso # (Auto) 0.1 10^3/uL (0.0-0.1) 01/10/25 15:22 Nucleated RBC % (auto) 0 % 01/10/25 15:22 Nucleated RBCs # 0.0 /100WBC 01/10/25 15:22 Specimen Type Arterial 01/10/25 15:52 Sample Site Radial, right 01/10/25 15:52 ABG pH 7.36 (7.35-7.45) 01/10/25 15:52 ABG pCO2 30.8 mmHg (35-45) L 01/10/25 15:52 ABG pO2 83.2 mmHg (80.0-100.0) 01/10/25 15:52 ABG PO2/FiO2 Ratio 396 01/10/25 15:52 ABG HCO3 17.3 mmol/L (22-26) L 01/10/25 15:52 ABG O2 Saturation 97.0 01/10/25 15:52 ABG Base Excess -7.3 mmol/L (-2.0-2.0) L 01/10/25 15:52 Apolinar Test Pos 01/10/25 15:52 A-a O2 Gradient 3.5 mmHg (5-10) L 01/10/25 15:52 Hematocrit 32.0 % (37-47) L 01/10/25 15:52 Hgb O2 Saturation 93.1 % (95-100) L 01/10/25 15:52 Carboxyhemoglobin 3.5 %THgb (0.4-20.1) 01/10/25 15:52 Methemoglobin 0.6 % (0.4-1.5) 01/10/25 15:52 Total Hemoglobin 10.5 g/dL (12-16) L 01/10/25 15:52 Sodium 130.0 mmol/L (131-143) L 01/10/25 15:52 Potassium 5.1 mmol/L (3.5-5.0) H 01/10/25 15:52 Glucose 241.0 mg/dL (70-115) H 01/10/25 15:52 Ionized Calcium 1.2 mmol/L (1.1-1.4) 01/10/25 15:52 O2 Delivery Device Room air 01/10/25 15:52 FiO2 21.0 % 01/10/25 15:52 Roller Repairer ID glc 01/10/25 15:52 Sodium 126 mmol/L (136-145) L 01/10/25 15:22 Potassium 5.2 mmol/L (3.5-5.1) H 01/10/25 15:22 Chloride 92 mmol/L (98-107) L 01/10/25 15:22 Carbon Dioxide 14 mmol/L (22-29) L 01/10/25 15:22 Anion Gap 25.2 (5-19) H 01/10/25 15:22 BUN 40 mg/dL (8-23) H 01/10/25 15:22 Creatinine 1.8 mg/dL (0.5-0.9) H 01/10/25 15:22 GFR Calculation Not Reportable 01/10/25 15:22 Glucose 236 mg/dL (65-115) H 01/10/25 15:22 Calculated Osmolality 279 mOsm/kg (285-295) L 01/10/25 15:22 Calcium 9.5 mg/dL (8.5-10.5) 01/10/25 15:22 Total Bilirubin 0.4 mg/dL (0.15-1.2) 01/10/25 15:22 AST 45 U/L (0-32) H 01/10/25 15:22 ALT 45 U/L (0-33) H 01/10/25 15:22 Alkaline Phosphatase 59 U/L (35-105) 01/10/25 15:22 Creatine Kinase 51 U/L (26-192) 01/10/25 15:22 Total Protein 7.2 g/dL (6.6-8.7) 01/10/25 15:22 Albumin 3.7 g/dL (3.5-5.2) 01/10/25 15:22 Globulin 3.5 g/dL (1.3-4.6) 01/10/25 15:22 Urine Color Yellow (Yellow) 01/10/25 15:20 Urine Appearance Clear (CLEAR) 01/10/25 15:20 Urine pH 5.5 (5-7) 01/10/25 15:20 Ur Specific [place] 1.006 (1.005-1.030) 01/10/25 15:20 Urine Protein Negative (Negative) 01/10/25 15:20 Urine Glucose (UA) Negative (Normal) 01/10/25 15:20 Urine Ketones Negative (Negative) 01/10/25 15:20 Urine Blood Negative (Negative) 01/10/25 15:20 Urine Nitrate Negative (Negative) 01/10/25 15:20 Urine Bilirubin Negative (Negative) 01/10/25 15:20 Urine Urobilinogen 0.2 mg/dL (Negative) 01/10/25 15:20 Ur Leukocyte Esterase 1+ (Negative) A 01/10/25 15:20 Urine RBC 0-2 /hpf (0-2) 01/10/25 15:20 Urine WBC 21-50 /hpf (0-5) H 01/10/25 15:20 Ur Squamous Epith Cells 6-10 /hpf (0-5) 01/10/25 15:20 Amorphous Sediment Not Reportable 01/10/25 15:20 Urine Bacteria Trace /hpf (NONE) 01/10/25 15:20 Hyaline Casts 2.46 /lpf 01/10/25 15:20 All radiology interpretation(s) finalized by discharge Discharge Plan Discharge Patient Disposition: Admitted As Inpatient Admit Provider: Criselda Garcia Clinical Impression: Metabolic acidosis, Acute kidney injury, C. difficile colitis, Cystitis, Anemia, macrocytic, Acute hyperkalemia, Hyponatremia Condition: Stable Discharge Diet: Diabetic Discharge Activity: Increase activity as tolerated Coding Level of Care Code ED Wheel Installer for Daviong Ramon
--- NOTE | 2025-01-10 15:23 | CTR_ITS ---
PROCEDURE INFORMATION: Exam: CT Abdomen And Pelvis Without Contrast Exam date and time: 01/10/2025 3:33 PM Age: 74 years old Clinical indication: Abdominal pain; Generalized TECHNIQUE: Imaging protocol: Computed tomography of the abdomen and pelvis without contrast. Radiation optimization: All CT scans at this facility use at least one of these dose optimization techniques: automated exposure control; mA and/or kV adjustment per patient size (includes targeted exams where dose is matched to clinical indication); or iterative reconstruction. COMPARISON: 1. CT abdomen pelvis con [id number] 06/29/2019 9:[address] abdomen pelvis con [id number] 12/24/2024 11:43 AM RADIATION DOSE METRICS: Total DLP (mGy-cm): 714 FINDINGS: Lungs: Right lower lobe calcified granuloma. Heart: Mitral annular calcifications. Liver: The liver is enlarged, measuring 19.7 cm craniocaudal. Gallbladder and biliary ducts: Normal. No calcified stones. No ductal dilation. Pancreas: Normal. No ductal dilation. Spleen: Normal. No splenomegaly. Adrenal glands: Long-term stability of the low-attenuation 11 mm left adrenal nodule, compatible with benign adenoma. Kidneys and ureters: Stable bilateral renal cysts.. 1 cm hyperdense focus along the upper pole of the left kidney is unchanged. No hydronephrosis bilaterally. Stomach and bowel: Sigmoid diverticulosis without evidence of acute diverticulitis. No evidence of bowel obstruction. Appendix: No evidence of appendicitis. Intraperitoneal space: Unremarkable. No free air. No significant fluid collection. Vasculature: Moderate atherosclerotic aortoiliac calcifications. No abdominal aortic aneurysm. Lymph nodes: Unremarkable. No enlarged lymph nodes. Urinary bladder: Mild urinary bladder wall thickening. Reproductive: Unremarkable as visualized. Bones/joints: Posterior instrumented fusion from L4-S1 with bilateral pedicle screws and vertical rods. Hardware appears intact without complication. Multilevel degenerative changes of the visualized spine. Diffuse osseous demineralization. L4 and L5 laminectomies. Soft tissues: Diastasis recti. CT/CT abdomen pelvis con [id number] IMPRESSION: 1. Mild urinary bladder wall thickening. Correlate with physical exam findings and urinalysis to assess for cystitis. 2. Hepatomegaly. 3. Stable bilateral renal cysts. 4. Stable 10 mm hyperdense focus in the upper pole of the left kidney, possibly a hemorrhagic cyst. Consider nonemergent renal ultrasound or MRI abdomen without and with contrast for further assessment. 5. Sigmoid diverticulosis without diverticulitis. COMMENTS: Consistent with the [employer]'s Incidental Findings Committee white paper (J Am Richard Radiol 2017): For any incidental adrenal lesion greater than or equal to 1 cm but less than or equal to 4 cm classified in this report as benign, likely benign, or containing fat (including classification as an adenoma or myelolipoma), no follow-up imaging is recommended per consensus recommendations based on imaging criteria. Further lab evaluation could be pursued if warranted based on clinical findings.
[2025-01-10 15:27] LABS: Hematocrit 33.7 % (36-47); Hemoglobin 10.70 g/dL (11.27-16.99); Mean Corpuscular HGB Conc 31.8 g/dL (30-55); Mean Corpuscular Hemoglobin 31.2 pg (27-33); Mean Corpuscular Volume 98.3 fl (85-98); Nucleated Red Blood Cells % 0 %; Platelet Count 459 10^3/cmm (157-399); Red Blood Count 3.43 10^6/uL (3.85-5.65); White Blood Count 10.69 10^3/uL (3.29-11.43)
[2025-01-10 15:44] LABS: Alanine Aminotransferase 45 U/L (0-33); Albumin Level 3.7 g/dL (3.5-5.2); Alkaline Phosphatase 59 U/L (35-105); Anion Gap 25.2 (5-19); Aspartate Amino Transferase 45 U/L (0-32); Blood Urea Nitrogen 40 mg/dL (8-23); Calcium 9.5 mg/dL (8.5-10.5); Carbon Dioxide 14 mmol/L (22-29); Chloride 92 mmol/L (98-107); Creatinine Clr Calc Pharmacy 26.5710; Globulin 3.5 g/dL (1.3-4.6); Glucose 236 mg/dL (65-115); Osmolality Calculated 279 mOsm/kg (285-295); Potassium 5.2 mmol/L (3.5-5.1); Sodium 126 mmol/L (136-145); Total Protein 7.2 g/dL (6.6-8.7)
[2025-01-10 16:04] LABS: ABG PCO2 30.8 mmHg (35-45); ABG PH Result 7.36 (7.35-7.45); Alveolar-Arterial Oxygen Gradi 3.5 mmHg (5-10); Arterial Blood Gas Hematocrit 32.0 % (37-47); Blood Gas Allen Test Pos; Blood Gas Operator Identificat glc; Blood Gas Sample Site Radial, right; Blood Gas Sample Type Arterial; Carboxyhemoglobin 3.5 %THgb (0.4-20.1); Glucose Level-ABG 241.0 mg/dL (70-115); HCO3 ABG 17.3 mmol/L (22-26); Ionized Calcium Level - ABG 1.2 mmol/L (1.1-1.4); Methemoglobin 0.6 % (0.4-1.5); Oxygen Saturation ABG 97.0; PO2 ABG 83.2 mmHg (80.0-100.0); PO2 FiO2 Ratio Arterial Blood 396; Potassium Level - ABG 5.1 mmol/L (3.5-5.0); Sodium Level - ABG 130.0 mmol/L (131-143)
[2025-01-10 16:07] LABS: Glucose Urine UA Negative (Normal); Nitrate Urine Negative (Negative); Specific Gravity, Urine 1.006 (1.005-1.030)
[2025-01-10 16:12] LABS: Add Urine Microscopic? YES
[2025-01-10 16:15] VITALS: PULSE 78; O2SAT 97
--- NOTE | 2025-01-10 17:22 | PM.HP ---
Providers/Chief Complaint Admitting Physician: Criselda Garcia MD Primary Care Provider: Karla Gallegos, PAZ-C Chief Complaint: weakness History of Present Illness Teresa Garcia is a 74 year old female with chronic diarrhea, recent C. difficile colitis, COPD, chronic diastolic CHF, CAD, hypertension, hyperlipidemia, type 2 diabetes mellitus, CKD, hypothyroidism, diverticulosis, osteoarthritis, osteoporosis, and vitamin D deficiency generalized weakness and diarrhea. She was admitted from 12/24 to 12/28/2024 with acute C. difficile colitis, JAMES, and UTI. She was discharged home on oral vancomycin. This was her first time with C. difficile. She presented to the ED today with generalized weakness, dysuria, and increased diarrhea. She also had decreased oral intake. She had 5-6 episodes of nonbloody diarrhea last night. Labs showed hyponatremia and hyperkalemia. Her creatinine is at baseline. UA is positive for UTI.CT abdomen pelvis showed mild urinary bladder wall thickening, hepatomegaly, stable bilateral renal cysts, stable 10 cm hyperdense focus in the upper pole of the left kidney (possibly hemorrhagic cyst), and sigmoid diverticulosis without diverticulitis. Review of Systems General: Reports: 10 or more systems reviewed and unremarkable except in HPI and below Medications/Allergies Home Medications ?Medication ?Instructions ?Recorded ?Confirmed ?Last Taken ?Type aspirin 81 mg tablet,delayed 81 mg PO DAILY 10/19/19 01/01/25 12/24/24 History release Diabetic shoes #1 ea 10/14/20 01/01/25 Unknown Rx cholecalciferol (vitamin D3) 25 25 mcg PO DAILY 10/27/20 01/01/25 12/23/24 History mcg (1,000 unit) capsule (Vitamin D3) vitamin E 268 mg (400 unit) capsule 400 unit PO DAILY 10/27/20 01/01/25 12/24/24 History nitroglycerin 0.4 mg sublingual 0.4 mg sublingual Q5M PRN chest 01/22/23 01/01/25 Unknown Rx tablet pain #20 tabs lancets (Accu-Chek Softclix #100 ea 04/16/23 01/01/25 Unknown Rx Lancets) right cmc splint #1 ea 01/07/24 01/01/25 Unknown Rx alendronate 70 mg tablet (Fosamax) 70 mg PO .weekly #12 tabs 07/27/24 01/01/25 Unknown Rx blood sugar diagnostic (Accu-Chek #100 ea 07/27/24 01/01/25 Unknown Rx Guide test strips) doxepin 25 mg capsule 25 - 50 mg (1 - 2 x 25 mg) PO 07/27/24 01/01/25 12/24/24 Rx DAILY #180 caps duloxetine 20 mg capsule,delayed 20 mg PO BID #180 caps 07/27/24 01/01/25 12/24/24 Rx release (Cymbalta) fenofibrate nanocrystallized 145 145 mg PO DAILY #90 tabs 07/27/24 01/01/25 12/24/24 Rx mg tablet (Tricor) fluticasone 250 mcg-salmeterol 50 1 inh inhalation Q12H #180 ea 07/27/24 01/01/25 11/02/24 Rx mcg/dose blistr powdr for inhalation (Advair Diskus) furosemide 40 mg tablet 40 mg PO DAILY #90 tabs 07/27/24 01/01/25 12/24/24 Rx glipizide 5 mg tablet, extended 5 mg PO BID #180 tabs 07/27/24 01/01/25 12/24/24 Rx release 24 hr levothyroxine 100 mcg tablet 100 mcg PO DAILY #90 tabs 07/27/24 01/01/25 12/24/24 Rx metoprolol succinate 100 mg 100 mg PO DAILY #90 tabs 07/27/24 01/01/25 12/24/24 Rx tablet,extended release 24 hr pen needle, diabetic 33 gauge x #100 ea 07/27/24 01/01/25 Unknown Rx potassium chloride 10 mEq 10 meq PO BID #180 tabs 07/27/24 01/01/25 12/24/24 Rx tablet,extended release prednisone 5 mg tablet 5 mg PO DAILY #90 tabs 09/07/24 01/01/25 12/24/24 Rx tizanidine 2 mg tablet 2 mg PO .at bedtime PRN muscle 10/14/24 01/01/25 12/24/24 Rx spasticity #90 tabs amlodipine 5 mg tablet 10 mg PO DAILY 11/02/24 01/01/25 12/24/24 History calcium 500 mg (as 1 tab PO BID 0401/01/25 12/24/24 History carbonate)-vitamin D3 15 mcg (600 unit) tablet (Os-Jose Luis 500 + D3) omega-3 fatty acids 1,000 mg 1,000 mg PO DAILY 11/02/24 01/01/25 12/24/24 History capsule leflunomide 20 mg tablet 20 mg PO DAILY #90 tabs 11/24/24 01/01/25 12/24/24 Rx Held on 12/28/24. Instructions: Resume on 02/08/25. hold until you see rheumatology spironolactone 25 mg tablet 25 mg PO DAILY #90 tabs 12/01/24 01/01/25 12/24/24 Rx valsartan 320 mg tablet (Diovan) 320 mg PO DAILY #90 tabs 12/01/24 01/01/25 12/24/24 Rx hydralazine 25 mg tablet 25 mg PO TID #270 tabs 12/02/24 01/01/25 12/24/24 Rx albuterol sulfate 90 mcg/actuation 2 puff inhalation QID PRN 12/19/24 01/01/25 Unknown Rx aerosol inhaler (Ventolin HFA) Shortness Of Breath #25.5 grams cyanocobalamin (vitamin B-12) 1,000 mcg SUBCUT Q30D 12/24/24 01/01/25 Unknown History 1,000 mcg/mL injection solution guaifenesin 100 mg/5 mL oral liquid 200 mg PO Q4H PRN Cough 12/24/24 01/01/25 Unknown History cholestyramine 4 gram oral powder 2 g PO BID 30 days #210 grams 12/28/24 01/01/25 Unknown Rx (Questran Light) glucagon HCl 1 mg solution for 1 mg IM Q20M PRN hypoglycemia #1 ea 12/28/24 01/01/25 Unknown Rx injection (Glucagon (HCl) Emergency Kit) insulin glargine 100 unit/mL (3 10 unit (0.1 mL) SUBCUT QAM #31.5 12/28/24 01/01/25 12/24/24 Rx mL) subcutaneous pen (Lantus mL Solostar U-100 Insulin) Lactobacillus rhamnosus GG 20 See Rx Instructions PO .2 times 01/01/25 01/01/25 Unknown Rx billion cell capsule (Probiotic day #60 caps [facility]) fluconazole 100 mg tablet 100 mg PO DAILY #12 tabs 01/01/25 01/01/25 Unknown Rx (Diflucan) quetiapine 50 mg tablet (Seroquel) 50 mg PO .at bedtime #30 tabs 01/01/25 01/01/25 Unknown Rx Allergies Allergy/AdvReac Type Severity Reaction Status Date / Time Penicillins Allergy Severe Rash Verified 01/01/25 20:41 Sulfa (Sulfonamide Allergy Severe Rash Verified 01/01/25 20:41 Antibiotics) Latex, Natural Rubber AdvReac Severe Rash Verified 01/01/25 20:41 adhesive AdvReac Intermediate Rash Verified 01/01/25 20:41 trazodone AdvReac Do not Verified 01/01/25 20:41 tolerate PFSH Acute PFSH: Medical History Diastolic dysfunction with chronic heart failure Diabetes mellitus with hyperglycemia, with long-term current use of insulin Osteoarthritis of hands, bilateral Immunization counseling High risk medication use Seropositive rheumatoid arthritis of multiple sites Osteoporosis Cigarette smoker COPD (chronic obstructive pulmonary disease) Unstable angina Hypertension Environmental and seasonal allergies Vitamin D deficiency Mixed hyperlipidemia Diverticulosis Adult hypothyroidism Surgical History History of lumbar surgery Rods in lumbar History of cholecystectomy History of tubal ligation History of foot surgery left Family History Father Diabetes Mother CAD (coronary artery disease) Other Dementia Social History Smoking and tobacco/nicotine status: current every day tobacco/nicotine user Second hand smoke exposure: Yes Alcohol intake: never Substance/Drug Use: never Adopted: No Caregiver/support person: No Lives independently: Yes Household members: spouse Housing: House Marital status: Number of children: 3 service: No Current occupational status: retired Do you think of yourself as: Straight/Heterosexual Current gender identity: Female Vitals/I&O/Wt Last Vital Signs Temp 98.4 F 01/10/25 14:59 Pulse 78 01/10/25 16:15 Resp 17 01/10/25 14:59 BP 150/58 01/10/25 14:59 Pulse Ox 97 01/10/25 16:15 O2 Del Method Room Air 01/10/25 14:59 Weight last 48 hrs Weight 76.204 kg Physical Exam Narrative: GEN: Mild lethargy, no acute distress HEENT: Normocephalic, atraumatic, PERRLA Neck: Supple Respiratory: Normal respiratory effort, clear to auscultation bilaterally Cardio: Regular rate and rhythm, S1, S2, no murmurs noted Abdomen: Soft, nontender, nondistended, hyperactive bowel sounds Extremity: Warm, no edema Skin: No rash noted Data 01/10/25 15:22 01/10/25 15:22 CT Abd/Pel: Radiologist's impression: IMPRESSION: 1. Mild urinary bladder wall thickening. Correlate with physical exam findings and urinalysis to assess for cystitis. 2. Hepatomegaly. 3. Stable bilateral renal cysts. 4. Stable 10 mm hyperdense focus in the upper pole of the left kidney, possibly a hemorrhagic cyst. Consider nonemergent renal ultrasound or MRI abdomen without and with contrast for further assessment. 5. Sigmoid diverticulosis without diverticulitis. A&P Assessment and plan (1) C. difficile colitis: Diagnosed with C. difficile colitis in December 2024 was treated with oral vancomycin She has a history of chronic diarrhea is on cholestyramine Will recheck stool for C. difficile Started on fidaxomicin empirically (2) Dehydration: Secondary to diarrhea Started IV fluids (3) Acute hyperkalemia: Serum potassium 5.2 Holding valsartan and spironolactone Also holding potassium supplementation (4) Hyponatremia: Likely hypovolemic hyponatremia Sodium 126 Will start IV fluids Monitor serum sodium (5) Generalized weakness: PT and OT consults (6) CKD (chronic kidney disease): Baseline creatinine 1.4 to 1.7 mg/dL Creatinine 1.8 today Monitor creatinine (7) COPD (chronic obstructive pulmonary disease): Saturating well on room air Formulary substitution for home meds (8) Diastolic dysfunction with chronic heart failure: Appears euvolemic Continue metoprolol, holding Lasix, losartan, spironolactone Monitor I's and O's and daily weights (9) Hypertension: Holding Lasix, valsartan and spironolactone Continue metoprolol and amlodipine (10) Mixed hyperlipidemia: Continue fenofibrate (11) Diabetes mellitus with hyperglycemia, with long-term current use of insulin: Continue glipizide, Lantus, and sliding scale insulin (12) Adult hypothyroidism: Levothyroxine (13) Seropositive rheumatoid arthritis of multiple sites: She is on prednisone and leflunomide PDMP PDMP Reviewed: Not Reviewed Attestations Medical Necessity Statement*: She requires initial hospitalization for IV antibiotics, PT, OT, telemetry monitoring, monitoring of electrolytes. Hospitalization is expected to cross 2 midnights. Coding Level of Care Code 34573 Diagnoses C. difficile colitis A04.72 Dehydration E86.0 Acute hyperkalemia E87.5 Hyponatremia E87.1 Generalized weakness R53.1 CKD (chronic kidney disease) N18.9 COPD (chronic obstructive pulmonary disease) J44.9 Diastolic dysfunction with chronic heart failure I50.32 Essential hypertension I10 Hypertension type: essential hypertension Mixed hyperlipidemia E78.2 Type 2 diabetes mellitus with hyperglycemia, with long-term current use of insulin E11.65; Z79.4 Diabetes mellitus type: type 2 Adult hypothyroidism E03.9 Seropositive rheumatoid arthritis of multiple sites M05.79
[2025-01-10 17:48] VITALS: BP 145/70; PULSE 74; RESP 15; O2SAT 97
[2025-01-10 20:09] VITALS: BP 134/60; PULSE 71; RESP 17; O2SAT 97
[2025-01-10 20:56] VITALS: BP 163/72; PULSE 70; RESP 17; TEMP 36.6; O2SAT 98
[2025-01-10 21:17] VITALS: BMI 27.7
[2025-01-10] MEDS: heparin 5,000 unit/mL INJ 1 mL 5000 UNIT SUBCUT (22:15)
[2025-01-10] MEDS: cefTRIAXone 1,000 mg SDV 1000 MG IVP (22:16)
[2025-01-10 22:28] LABS: C.Diff PCR (Lab) POSITIVE (Negative)
[2025-01-10 23:06] VITALS: O2SAT 97
[2025-01-10 23:18] LABS: Clostridioides Difficile Toxin NEGATIVE (Negative)
[2025-01-11] VITALS (11 sets, daily range): BP systolic 126–158; BP diastolic 64–79; PULSE 64–83; RESP 16–19; TEMP 36.6–36.8; O2SAT 93–100
[2025-01-11 03:48] LABS: Hematocrit 36.1 % (36-47); Hemoglobin 11.70 g/dL (11.27-16.99); Mean Corpuscular HGB Conc 32.4 g/dL (30-55); Mean Corpuscular Hemoglobin 31.6 pg (27-33); Mean Corpuscular Volume 97.6 fl (85-98); Nucleated Red Blood Cells % 0 %; Platelet Count 239 10^3/cmm (157-399); Red Blood Count 3.70 10^6/uL (3.85-5.65); White Blood Count 8.62 10^3/uL (3.29-11.43)
[2025-01-11 04:08] LABS: Albumin Level 4.0 g/dL (3.5-5.2); Blood Urea Nitrogen 45 mg/dL (8-23); Calcium 9.4 mg/dL (8.5-10.5); Carbon Dioxide 16 mmol/L (22-29); Chloride 97 mmol/L (98-107); Creatinine Clr Calc Pharmacy 27.6180; Glucose 86 mg/dL (65-115); Magnesium 1.9 mg/dL (1.7-2.3); Sodium 131 mmol/L (136-145)
[2025-01-11 04:23] LABS: Anion Gap 23.0 (5-19); Potassium 5.0 mmol/L (3.5-5.1)
[2025-01-11] MEDS: insulin glargine 100 units/1 mL 10 UNIT SUBCUT (05:56)
[2025-01-11] MEDS: heparin 5,000 unit/mL INJ 1 mL 5000 UNIT SUBCUT ×3 (05:56→21:16)
--- OUTSIDE RECORDS SUMMARY | 2025-01-11 06:15 | XMS_ITS | Clinical Summary ---
Author Organization [facility] Address [address] 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
[2025-01-11] MEDS: lactobacillus 1 Tablet 1 TAB PO ×2 (08:30→17:30)
[2025-01-11] MEDS: metoprolol succinate ER (24 HR) 100 mg Tablet PO (08:30)
[2025-01-11] MEDS: calcium carb-vit d 500mg-200unit 1 Tablet 1 EACH PO ×2 (08:30→17:30)
[2025-01-11] MEDS: cholestyramine powder 4 gm Pkt 2 GM PO ×2 (09:42→17:30)
--- NOTE | 2025-01-11 10:15 | PC.CHAP ---
Pastoral Care Encounter/Spiritual Assessment Type of Contact [] Declined clinical trial manager visit [] Patient/Family/Request visit [] Outpatient visit [] Follow-up visit [] Physician referral [] Code/Alert [x] Routine visit [] Staff referral [] Actively dying [] Patient sleeping [] Family support [] [] Out of room [] Palliative care [] [] Receiving care in room [] Pre-surgical visit [] Trauma [] Long length of stay [] ICU visit [] Other: Relational/Emotional Strength [] Patient feels connected with others/family/visitors/staff [] Distress [] Loneliness/isolation [] Abandonment Spirituality of Patient [] Person of Thais [] Attends Religion of their Thais [] Believes in Prayer [] Reads Bible or Worship materials [] There are Spiritual issues to be addressed Pupil Personnel Services Director Interventions [x] Prayer [] Active listening [] Non-anxious presence [] Spiritual/emotional support [] Crisis/trauma care [] Spiritual counseling [] Bereavement support [] Provided bereavement packet [] Provided Bible/devotional materials [] Provided toy/stuffed animal, coloring book to patient or family member [] Provided Communion [] Anointing/[place] [] Salvation [] Completed spiritual assessment [] Other: Impact on Illness or Injury [] Angry [] Fearful [] Anxious [] Often cries [] Exhaustion [] Unable to work [] Unable to attend muslim [] Unable to walk/stand [] Unable to read [] Unable to drive [] Unable to eat/drink [] Unable to sleep [] Unable to be with family [] Patient intubated [] Other: Summary precaution Time spent with patient
--- NOTE | 2025-01-11 19:35 | P.PN_ITS ---
Subjective 2 Subjective: 74-year-old female states that this prolonged episode of C. difficile is her first bout of C. difficile. She had a colonoscopy 5 years ago and had diverticula and she has also had diverticulitis before. She was not on any antibiotics preceding onset of C. difficile. Patient presented with diarrhea 12/24/2024 and has had a history of chronic diarrhea for which you had been on Questran status post cholecystectomy and also on chronic prednisone. She was discharged on 12/28/2024 with a course of vancomycin that she states finished on Saturday or Saturday just before this admission. She had 5-6 episodes of nonbloody diarrhea with mucus on Saturday and Saturday. She had mucousy diarrhea x 3 times until this afternoon at 1 and none since then. She has had some abdominal discomfort but that is improving Vitals/I&O/Wt Last Vital Signs Temp 97.8 F 01/11/25 16:00 Pulse 71 01/11/25 16:17 Resp 16 01/11/25 16:17 BP 146/71 01/11/25 16:00 Pulse Ox 96 01/11/25 16:17 O2 Del Method Room Air 01/11/25 16:17 01/11/25 01/11/25 01/11/25 06:59 14:59 22:59 Intake Total 240 / 340 603 / 603 1185 / 1788 Output Total 1000 / 1000 500 / 500 Balance -760 / -660 603 / 603 685 / 1288 Weight last 48 hrs Weight 73.284 kg Weight 73.301 kg Weight 76.204 kg Physical Exam 2 Narrative: General well-developed well-nourished female in no acute cardiopulmonary stress CV regular rate and rhythm Lungs clear to auscultation bilaterally Abdomen positive bowel sounds soft nontender no rebound tenderness Data 01/11/25 03:15 01/11/25 03:15 Micro: Microbiology 01/10/25 15:20 Urine Culture - Preliminary Urine,Clean Catch A&P Assessment and plan (1) C. difficile colitis: Diagnosed with C. difficile colitis in December 2024 was treated with oral vancomycin She has a history of chronic diarrhea is on cholestyramine Positive stool for C. difficile Started on fidaxomicin and will continue (2) Dehydration: Secondary to diarrhea Started IV fluids (3) Acute hyperkalemia: Serum potassium 5.2 Holding valsartan and spironolactone Also holding potassium supplementation (4) Hyponatremia: Repeat sodium in the morning (5) Generalized weakness: PT and OT consults (6) CKD (chronic kidney disease): Baseline creatinine 1.4 to 1.7 mg/dL Creatinine 1.8 today Monitor creatinine. Additional saline tonight (7) COPD (chronic obstructive pulmonary disease): Saturating well on room air Formulary substitution for home meds (8) Diastolic dysfunction with chronic heart failure: Appears euvolemic Continue metoprolol, holding Lasix, losartan, spironolactone Monitor I's and O's and daily weights (9) Hypertension: Holding Lasix, valsartan and spironolactone Continue metoprolol and amlodipine (10) Mixed hyperlipidemia: Continue fenofibrate (11) Diabetes mellitus with hyperglycemia, with long-term current use of insulin: Continue glipizide, Lantus, and sliding scale insulin (12) Adult hypothyroidism: Levothyroxine (13) Seropositive rheumatoid arthritis of multiple sites: She is on prednisone and leflunomide PDMP PDMP Reviewed: Not Reviewed Attestations 2 Medical Necessity Statement*: Anticipate 1 more night in the hospital and potentially two with discharge home on for dactinomycin Coding Level of Care Code 96152 Diagnoses C. difficile colitis A04.72 Dehydration E86.0 Acute hyperkalemia E87.5 Hyponatremia E87.1 Generalized weakness R53.1 CKD (chronic kidney disease) N18.9 COPD (chronic obstructive pulmonary disease) J44.9 Diastolic dysfunction with chronic heart failure I50.32 Essential hypertension I10 Hypertension type: essential hypertension Mixed hyperlipidemia E78.2 Type 2 diabetes mellitus with hyperglycemia, with long-term current use of insulin E11.65; Z79.4 Diabetes mellitus type: type 2 Adult hypothyroidism E03.9 Seropositive rheumatoid arthritis of multiple sites M05.79 Time Spent (min) 35
[2025-01-11] MEDS: cefTRIAXone 1,000 mg SDV 1000 MG IVP (21:16)
[2025-01-11] MEDS: efferdent effervescent 1 EACH DENTAL (21:27)
[2025-01-12] VITALS (10 sets, daily range): BP systolic 122–146; BP diastolic 68–75; PULSE 62–79; RESP 16–18; TEMP 36.4–36.8; O2SAT 94–98
[2025-01-12] MEDS: morphine 4 mg/mL SDV 1 mL 2 MG IVP ×2 (02:16→11:01)
[2025-01-12 04:57] LABS: Hematocrit 31.5 % (36-47); Hemoglobin 9.70 g/dL (11.27-16.99); Mean Corpuscular HGB Conc 30.8 g/dL (30-55); Mean Corpuscular Hemoglobin 31.1 pg (27-33); Mean Corpuscular Volume 101.0 fl (85-98); Nucleated Red Blood Cells % 0 %; Platelet Count 437 10^3/cmm (157-399); Red Blood Count 3.12 10^6/uL (3.85-5.65); White Blood Count 10.21 10^3/uL (3.29-11.43)
[2025-01-12] MEDS: heparin 5,000 unit/mL INJ 1 mL 5000 UNIT SUBCUT ×3 (05:12→21:06)
[2025-01-12] MEDS: insulin glargine 100 units/1 mL 10 UNIT SUBCUT (05:13)
[2025-01-12 05:18] LABS: Albumin Level 3.3 g/dL (3.5-5.2); Anion Gap 17.9 (5-19); Blood Urea Nitrogen 32 mg/dL (8-23); Calcium 8.4 mg/dL (8.5-10.5); Carbon Dioxide 16 mmol/L (22-29); Chloride 105 mmol/L (98-107); Creatinine Clr Calc Pharmacy 31.2969; Glucose 122 mg/dL (65-115); Magnesium 1.7 mg/dL (1.7-2.3); Potassium 4.9 mmol/L (3.5-5.1); Sodium 134 mmol/L (136-145)
[2025-01-12] MEDS: calcium carb-vit d 500mg-200unit 1 Tablet 1 EACH PO ×2 (08:11→19:02)
[2025-01-12] MEDS: cholestyramine powder 4 gm Pkt 2 GM PO ×2 (08:11→19:02)
[2025-01-12] MEDS: metoprolol succinate ER (24 HR) 100 mg Tablet PO (08:11)
[2025-01-12] MEDS: lactobacillus 1 Tablet 1 TAB PO ×2 (08:12→19:02)
--- NOTE | 2025-01-12 15:49 | P.PN_ITS ---
Subjective 2 Subjective: 74-year-old female states that this prolonged episode of C. difficile is her first bout of C. difficile. She had a colonoscopy 5 years ago and had diverticula and she has also had diverticulitis before. She was not on any antibiotics preceding onset of C. difficile. Patient presented with diarrhea 12/24/2024 and has had a history of chronic diarrhea for which you had been on Questran status post cholecystectomy and also on chronic prednisone. She was discharged on 12/28/2024 with a course of vancomycin that she states finished on Saturday or Saturday just before this admission. She had 5-6 episodes of nonbloody diarrhea with mucus on Saturday and Saturday. She had mucousy diarrhea x 3 times until this afternoon at 1 and none since then. She has had some abdominal discomfort but that is improving Spoke with her daughter Carrie both in person in the hospital as well as by speaker phone while I was examining the patient. Patient tells me she had 3 episodes of diarrhea last night but only 1 small stool this morning. None through the later half of the day. The patient has had abdominal pain around the bellybutton worse yesterday with the diarrhea better now. She does not have heartburn per se she states she was put on acid ya last hospitalization Patient was having diarrhea around the house and so weak that she could not clean up or take care of herself kay Yoancarinivan. Please avoid premature discharge. Patient states she had some dysuria 2 nights ago but that seems to have improved. Vitals/I&O/Wt Last Vital Signs Temp 98.1 F 01/12/25 11:24 Pulse 68 01/12/25 11:24 Resp 18 01/12/25 11:24 BP 128/75 01/12/25 11:24 Pulse Ox 97 01/12/25 11:24 O2 Del Method Room Air 01/12/25 11:24 01/12/25 01/12/25 01/12/25 06:59 14:59 22:59 Intake Total 1000 / 8 120 / 120 Balance 1000 / 8 120 / 120 Weight last 48 hrs Weight 73.936 kg Weight 73.284 kg Weight 73.301 kg Physical Exam 2 Narrative: General well-developed well-nourished female in no acute cardiopulmonary stress CV regular rate and rhythm Lungs clear to auscultation bilaterally Abdomen positive bowel sounds soft mild periumbilical tenderness no rebound tenderness Calves no tenderness pretibial edema Mentation alert and orient x 3 Data 01/12/25 04:25 01/12/25 04:25 Micro: Microbiology 01/10/25 15:20 Urine Culture - Final Urine,Clean Catch A&P Assessment and plan 1. C. difficile colitis: Diagnosed with C. difficile colitis in December 2024 was treated with oral vancomycin She has a history of chronic diarrhea is on cholestyramine Positive stool for C. difficile Started on fidaxomicin and will continue until the patient has not had diarrhea for 24 hours and then discharge Also has history of chronic diarrhea so we will resume her cholestyramine 2. Dehydration: Secondary to diarrhea Started IV fluids we will give LR bolus x 1 L 3. Acute hyperkalemia: Serum potassium 4.9 Holding valsartan and spironolactone Also holding potassium supplementation 4. Hyponatremia: Resolving sodium up to 134 5. Generalized weakness: PT and OT consults 6. CKD (chronic kidney disease): Baseline creatinine 1.4 to 1.7 mg/dL Creatinine 1.5 today Monitor creatinine. Additional saline tonight 7. COPD (chronic obstructive pulmonary disease): Saturating well on room air Formulary substitution for home meds 8. Diastolic dysfunction with chronic heart failure: Appears euvolemic Continue metoprolol, holding Lasix, losartan, spironolactone Monitor I's and O's and daily weights 9. Essential hypertension: Holding Lasix, valsartan and spironolactone Continue metoprolol and amlodipine 10. Mixed hyperlipidemia: Continue fenofibrate 11. Type 2 diabetes mellitus with hyperglycemia, with long-term current use of insulin: Continue glipizide, Lantus, and sliding scale insulin 12. Adult hypothyroidism: Levothyroxine 13. Seropositive rheumatoid arthritis of multiple sites: She is on prednisone and leflunomide PDMP PDMP Reviewed: Not Reviewed Attestations 2 Medical Necessity Statement*: Patient require 1 more midnight in the hospital until she has no diarrhea for 24 hours Coding Level of Care Code 79671 Diagnoses C. difficile colitis A04.72 Dehydration E86.0 Acute hyperkalemia E87.5 Hyponatremia E87.1 Generalized weakness R53.1 CKD (chronic kidney disease) N18.9 COPD (chronic obstructive pulmonary disease) J44.9 Diastolic dysfunction with chronic heart failure I50.32 Essential hypertension I10 Hypertension type: essential hypertension Mixed hyperlipidemia E78.2 Type 2 diabetes mellitus with hyperglycemia, with long-term current use of insulin E11.65; Z79.4 Diabetes mellitus type: type 2 Adult hypothyroidism E03.9 Seropositive rheumatoid arthritis of multiple sites M05.79 Time Spent (min) 25
[2025-01-12] MEDS: cefTRIAXone 1,000 mg SDV 1000 MG IVP (21:06)
[2025-01-13] VITALS (13 sets, daily range): BP systolic 118–160; BP diastolic 68–77; PULSE 66–87; RESP 16–18; TEMP 36.4–36.8; O2SAT 94–99
[2025-01-13 04:58] LABS: Hematocrit 31.7 % (36-47); Hemoglobin 9.70 g/dL (11.27-16.99); Mean Corpuscular HGB Conc 30.6 g/dL (30-55); Mean Corpuscular Hemoglobin 31.1 pg (27-33); Mean Corpuscular Volume 101.6 fl (85-98); Nucleated Red Blood Cells % 0 %; Platelet Count 416 10^3/cmm (157-399); Red Blood Count 3.12 10^6/uL (3.85-5.65); White Blood Count 8.59 10^3/uL (3.29-11.43)
[2025-01-13 05:19] LABS: Albumin Level 3.4 g/dL (3.5-5.2); Anion Gap 18.6 (5-19); Blood Urea Nitrogen 20 mg/dL (8-23); Calcium 7.9 mg/dL (8.5-10.5); Carbon Dioxide 16 mmol/L (22-29); Chloride 108 mmol/L (98-107); Creatinine Clr Calc Pharmacy 37.1068; Glucose 91 mg/dL (65-115); Magnesium 1.8 mg/dL (1.7-2.3); Potassium 4.6 mmol/L (3.5-5.1); Sodium 138 mmol/L (136-145)
[2025-01-13] MEDS: heparin 5,000 unit/mL INJ 1 mL 5000 UNIT SUBCUT ×3 (05:59→20:58)
[2025-01-13] MEDS: lactobacillus 1 Tablet 1 TAB PO ×2 (07:43→17:34)
[2025-01-13] MEDS: calcium carb-vit d 500mg-200unit 1 Tablet 1 EACH PO ×2 (07:43→17:34)
[2025-01-13] MEDS: cholestyramine powder 4 gm Pkt 2 GM PO ×2 (07:44→17:34)
[2025-01-13] MEDS: metoprolol succinate ER (24 HR) 100 mg Tablet PO (07:45)
--- NOTE | 2025-01-13 15:47 | P.PN_ITS ---
Subjective 2 Subjective: 74-year-old female treated for C. difficile complicated by chronic immunosuppressive's from rheumatoid arthritis had complication of recurrence shortly after stopping vancomycin. She was put on fidaxomicin with decrease in diarrhea but not resolution. Overnight she had a loose stool at 1 in the morning smaller 4 in the morning and then 2 small ones before noon. Patient is upset at being here stating that staying here is not making her stool less. Her daughter Carrie is worried about patient becoming dehydrated at home. Patient's IV failed Vitals/I&O/Wt Last Vital Signs Temp 97.7 F 01/13/25 11:44 Pulse 70 01/13/25 15:05 Resp 16 01/13/25 15:05 BP 122/75 01/13/25 11:44 Pulse Ox 94 01/13/25 15:05 O2 Del Method Room Air 01/13/25 15:05 01/13/25 01/13/25 01/13/25 06:59 14:59 22:59 Intake Total 500 / 3400 1.25 / 192.25 Output Total 600 / 800 Balance -100 / 2600 1920. / 1920.25 Weight last 48 hrs Weight 77.564 kg Weight 73.936 kg Physical Exam 2 Narrative: General well-developed well-nourished female in no acute cardiopulmonary stress CV regular rate and rhythm Lungs clear to auscultation bilaterally Abdomen positive bowel sounds soft not tender and no rebound tenderness Calves no tenderness there is 1+ bilateral pretibial edema Mentation alert and orient x 3 Right forearm a little puffy from failed IV Data 01/13/25 04:43 01/13/25 04:43 A&P Assessment and plan 1. C. difficile colitis: Diagnosed with C. difficile colitis in December 2024 was treated with oral vancomycin She has a history of chronic diarrhea is on cholestyramine Positive stool for C. difficile Started on fidaxomicin and will continue until the patient has not had diarrhea for 24 hours and then discharge Also has history of chronic diarrhea so we will resume her cholestyramine Will add vancomycin orally now and continue for daptomycin and cholestyramine 2. Dehydration: Secondary to diarrhea Started IV fluids we will give additional LR bolus x 1 L 3. Acute hyperkalemia: Serum potassium 4.9 Holding valsartan and spironolactone Also holding potassium supplementation 4. Hyponatremia: Resolving sodium up to 138 5. CKD (chronic kidney disease): Baseline creatinine 1.4 to 1.7 mg/dL Creatinine 1.5 today Monitor creatinine. Additional saline tonight 6. COPD (chronic obstructive pulmonary disease): Saturating well on room air Formulary substitution for home meds 7. Diastolic dysfunction with chronic heart failure: Appears euvolemic Continue metoprolol, holding Lasix, losartan, spironolactone Monitor I's and O's and daily weights 8. Essential hypertension: Holding Lasix, valsartan and spironolactone Continue metoprolol and amlodipine 9. Mixed hyperlipidemia: Continue fenofibrate 10. Type 2 diabetes mellitus with hyperglycemia, with long-term current use of insulin: Continue glipizide, Lantus, and sliding scale insulin 11. Adult hypothyroidism: Levothyroxine 12. Seropositive rheumatoid arthritis of multiple sites: She is on prednisone and leflunomide 13. Metabolic acidosis, NAG, bicarbonate losses: Additional liter of LR plus bicarbonate with 20 mg of furosemide to correct non- anion gap metabolic acidosis from diarrhea repeat labs in the morning PDMP PDMP Reviewed: Not Reviewed Attestations 2 Medical Necessity Statement*: Patient will require additional midnight in the hospital for control of diarrhea and correction of metabolic acidosis Coding Level of Care Code Acute Code for [facility] Fwd Diagnoses C. difficile colitis A04.72 Dehydration E86.0 Acute hyperkalemia E87.5 Hyponatremia E87.1 CKD (chronic kidney disease) N18.9 COPD (chronic obstructive pulmonary disease) J44.9 Diastolic dysfunction with chronic heart failure I50.32 Essential hypertension I10 Hypertension type: essential hypertension Mixed hyperlipidemia E78.2 Type 2 diabetes mellitus with hyperglycemia, with long-term current use of insulin E11.65; Z79.4 Diabetes mellitus type: type 2 Adult hypothyroidism E03.9 Seropositive rheumatoid arthritis of multiple sites M05.79 Metabolic acidosis, NAG, bicarbonate losses E87.20 Time Spent (min) 35
[2025-01-14] VITALS (7 sets, daily range): BP systolic 131–166; BP diastolic 72–77; PULSE 65–83; RESP 16–18; TEMP 36.7; O2SAT 97–99
[2025-01-14 04:52] LABS: Anion Gap 15.2 (5-19); Blood Urea Nitrogen 15 mg/dL (8-23); Calcium 7.7 mg/dL (8.5-10.5); Carbon Dioxide 17 mmol/L (22-29); Chloride 109 mmol/L (98-107); Creatinine Clr Calc Pharmacy 40.1991; Glucose 116 mg/dL (65-115); Osmolality Calculated 286 mOsm/kg (285-295); Potassium 4.2 mmol/L (3.5-5.1); Sodium 137 mmol/L (136-145)
[2025-01-14] MEDS: heparin 5,000 unit/mL INJ 1 mL 5000 UNIT SUBCUT ×2 (05:46→12:18)
[2025-01-14] MEDS: insulin glargine 100 units/1 mL 10 UNIT SUBCUT (05:46)
[2025-01-14] MEDS: calcium carb-vit d 500mg-200unit 1 Tablet 1 EACH PO (08:29)
[2025-01-14] MEDS: lactobacillus 1 Tablet 1 TAB PO (08:30)
[2025-01-14] MEDS: metoprolol succinate ER (24 HR) 100 mg Tablet PO (08:30)
[2025-01-14] MEDS: cholestyramine powder 4 gm Pkt 2 GM PO (08:54)
--- NOTE | 2025-01-14 14:10 | PM.DCS ---
Discharge Providers Date of Admission: 01/10/25 16:37 Date of Discharge: January 14, 2025 Attending Provider at Admission: Criselda Garcia MD Attending Provider at Discharge: Criselda Garcia MD Consults: None Primary Care Provider: HANK James Diagnoses at Discharge Discharge Diagnosis 1. C. difficile colitis: Details from hospital stay: Patient had been on vancomycin for 3 days from 12/24-12/28 then discharged home on vancomycin for 10 days stopped on roughly 01/08/2025. Patient states she was having diarrhea once or twice at night during that whole course of antibiotics but on 01/08 and 01/09/2025 she had 4 or 5 episodes of uncontrolled diarrhea daily and was sent into the ER by her daughter. She became weak and could not take care of herself We treated her with the daptomycin and she had persistent metabolic acidosis treated with bicarb, IV fluids and addition of vancomycin to the fidaxomicin due to slow resolution of diarrhea Her resolution of C. difficile is complicated by chronic leflunomide and prednisone 2. Dehydration: Details from hospital stay: Resolved 3. Acute hyperkalemia: Details from hospital stay: Resolved 4. Hyponatremia: Details from hospital stay: Resolved 5. CKD (chronic kidney disease): Details from hospital stay: Acute kidney injury improved 6. Diastolic dysfunction with chronic heart failure: Details from hospital stay: Diuretics held due to diarrhea. Follow-up with your primary care physician and resume once diarrhea has stopped 7. Essential hypertension: Details from hospital stay: Blood pressure stable 8. Mixed hyperlipidemia: Details from hospital stay: Stay 9. Type 2 diabetes mellitus with hyperglycemia, with long-term current use of insulin: Details from hospital stay: Stable 10. Adult hypothyroidism: Details from hospital stay: Stable 11. Seropositive rheumatoid arthritis of multiple sites: Details from hospital stay: Prednisone and leflunomide continued 12. Metabolic acidosis, NAG, bicarbonate losses: Details from hospital stay: Improved see IV fluid and bicarbonate replacement Reason for Visit Reason for Visit: weakness Brief History: 74-year-old female states that this prolonged episode of C. difficile is her first bout of C. difficile. She had a colonoscopy 5 years ago and had diverticula and she has also had diverticulitis before. She was not on any antibiotics preceding onset of C. difficile. Patient presented with diarrhea 12/24/2024 and has had a history of chronic diarrhea for which you had been on Questran status post cholecystectomy and also on chronic prednisone. She was discharged on 12/28/2024 with a course of vancomycin that she states finished on Monday 01/08 or Saturday just before this admission. She had 5-6 episodes of nonbloody diarrhea with mucus on Saturday and Saturday. She had mucousy diarrhea x 3 times until this afternoon at 1 and none since then. She has had some abdominal discomfort but that is improving Hospital Course Hospital Course Patient's diarrhea improved from noon to midnight but still had diarrhea in early hours of the morning. This caused persistent non-anion gap metabolic acidosis which I replaced with bicarbonate and IV fluids. The patient was started on vancomycin in addition to fidaxomycin after 4 days of persistent diarrhea. She will be on both for 10 days outpatient Patient was reluctant to remain in the hospital but daughter was concerned about her going home too early as she got weak and was unable to care for herself at home. She was initially admitted to inpatient but likely should have been observation. This was pointed out by Dr. Jay when I did peer to peer review but ultimately Dr. Jay agreed that inpatient was appropriate later in the admission when she continued to have renal insufficiency, metabolic acidosis and unresolved diarrhea. Patient's admission was therefore approved today on peer to peer review conducted with Dr. Jay at [phone]. Physical Exam Narrative: General well-developed well-nourished female in no acute cardiopulmonary distress CV regular rate and rhythm Lungs clear to auscultation bilaterally Abdomen minimal epigastric tenderness no rebound Skin warm and dry Discharge Data Studies Completed and Pending Completed Studies During Hospitalization Category Date Time Status CT abdomen pelvis [facility] [id number] Stat Cat Scan 01/10/25 15:23 Completed XR chest 1V portable [id number] Stat Exams 01/10/25 15:00 Completed Radiology Impressions Chest X-Ray 01/10/25 15:00 IMPRESSION: No acute cardiopulmonary findings. Abdomen/Pelvis CT 01/10/25 15:23 IMPRESSION: 1. Mild urinary bladder wall thickening. Correlate with physical exam findings and urinalysis to assess for cystitis. 2. Hepatomegaly. 3. Stable bilateral renal cysts. 4. Stable 10 mm hyperdense focus in the upper pole of the left kidney, possibly a hemorrhagic cyst. Consider nonemergent renal ultrasound or MRI abdomen without and with contrast for further assessment. 5. Sigmoid diverticulosis without diverticulitis. COMMENTS: Consistent with the [employer]'s Incidental Findings Committee white paper (J Am Richard Radiol 2017): For any incidental adrenal lesion greater than or equal to 1 cm but less than or equal to 4 cm classified in this report as benign, likely benign, or containing fat (including classification as an adenoma or myelolipoma), no follow-up imaging is recommended per consensus recommendations based on imaging criteria. Further lab evaluation could be pursued if warranted based on clinical findings. Laboratory Results WBC 8.59 10^3/uL (3.29-11.43) 01/13/25 04:43 RBC 3.12 10^6/uL (3.85-5.65) L 01/13/25 04:43 Hgb 9.70 g/dL (11.27-16.99) L 01/13/25 04:43 Hct 31.7 % (36-47) L 01/13/25 04:43 MCV 101.6 fl (85-98) H 01/13/25 04:43 MCH 31.1 pg (27-33) 01/13/25 04:43 MCHC 30.6 g/dL (30-55) 01/13/25 04:43 RDW 14.6 % (12.1-15.1) 01/13/25 04:43 Plt Count 416 10^3/cmm (157-399) H 01/13/25 04:43 MPV 8.9 fL (7.4-10.4) 01/13/25 04:43 Neut % (Auto) 65.5 % 01/13/25 04:43 Lymph % (Auto) 16.6 % 01/13/25 04:43 Mckinley % (Auto) 15.5 % 01/13/25 04:43 Eos % (Auto) 1.3 % 01/13/25 04:43 Baso % (Auto) 0.5 % 01/13/25 04:43 Neut # (Auto) 5.63 10^3/uL (1.8-7.7) 01/13/25 04:43 Lymph # (Auto) 1.4 10^3/uL (0.8-4.8) 01/13/25 04:43 Mckinley # (Auto) 1.3 10^3/uL (0.2-0.9) H 01/13/25 04:43 Eos # (Auto) 0.1 10^3/uL (0.0-0.8) 01/13/25 04:43 Baso # (Auto) 0.0 10^3/uL (0.0-0.1) 01/13/25 04:43 Nucleated RBC % (auto) 0 % 01/13/25 04:43 Nucleated RBCs # 0.0 /100WBC 01/13/25 04:43 Specimen Type Arterial 01/10/25 15:52 Sample Site Radial, right 01/10/25 15:52 ABG pH 7.36 (7.35-7.45) 01/10/25 15:52 ABG pCO2 30.8 mmHg (35-45) L 01/10/25 15:52 ABG pO2 83.2 mmHg (80.0-100.0) 01/10/25 15:52 ABG PO2/FiO2 Ratio 396 01/10/25 15:52 ABG HCO3 17.3 mmol/L (22-26) L 01/10/25 15:52 ABG O2 Saturation 97.0 01/10/25 15:52 ABG Base Excess -7.3 mmol/L (-2.0-2.0) L 01/10/25 15:52 Apolinar Test Pos 01/10/25 15:52 A-a O2 Gradient 3.5 mmHg (5-10) L 01/10/25 15:52 Hematocrit 32.0 % (37-47) L 01/10/25 15:52 Hgb O2 Saturation 93.1 % (95-100) L 01/10/25 15:52 Carboxyhemoglobin 3.5 %THgb (0.4-20.1) 01/10/25 15:52 Methemoglobin 0.6 % (0.4-1.5) 01/10/25 15:52 Total Hemoglobin 10.5 g/dL (12-16) L 01/10/25 15:52 Sodium 130.0 mmol/L (131-143) L 01/10/25 15:52 Potassium 5.1 mmol/L (3.5-5.0) H 01/10/25 15:52 Glucose 241.0 mg/dL (70-115) H 01/10/25 15:52 Ionized Calcium 1.2 mmol/L (1.1-1.4) 01/10/25 15:52 O2 Delivery Device Room air 01/10/25 15:52 FiO2 21.0 % 01/10/25 15:52 Clerical Administrative Assistant ID [email or web address] 01/10/25 15:52 Sodium 137 mmol/L (136-145) 01/14/25 03:59 Potassium 4.2 mmol/L (3.5-5.1) 01/14/25 03:59 Chloride 109 mmol/L (98-107) H 01/14/25 03:59 Carbon Dioxide 17 mmol/L (22-29) L 01/14/25 03:59 Anion Gap 15.2 (5-19) 01/14/25 03:59 BUN 15 mg/dL (8-23) 01/14/25 03:59 Creatinine 1.2 mg/dL (0.5-0.9) H 01/14/25 03:59 GFR Calculation Not Reportable 01/14/25 03:59 Glucose 116 mg/dL (65-115) H 01/14/25 03:59 POC Glucose 189 mg/dL (70-110) H 01/14/25 11:03 Calculated Osmolality 286 mOsm/kg (285-295) 01/14/25 03:59 Calcium 7.7 mg/dL (8.5-10.5) L 01/14/25 03:59 Phosphorus 2.5 mg/dL (2.5-4.5) 01/13/25 04:43 Magnesium 1.8 mg/dL (1.7-2.3) 01/13/25 04:43 Total Bilirubin 0.4 mg/dL (0.15-1.2) 01/10/25 15:22 AST 45 U/L (0-32) H 01/10/25 15:22 ALT 45 U/L (0-33) H 01/10/25 15:22 Alkaline Phosphatase 59 U/L (35-105) 01/10/25 15:22 Creatine Kinase 51 U/L (26-192) 01/10/25 15:22 Total Protein 7.2 g/dL (6.6-8.7) 01/10/25 15:22 Albumin 3.4 g/dL (3.5-5.2) L 01/13/25 04:43 Globulin 3.5 g/dL (1.3-4.6) 01/10/25 15:22 Urine Color Yellow (Yellow) 01/10/25 15:20 Urine Appearance Clear (CLEAR) 01/10/25 15:20 Urine pH 5.5 (5-7) 01/10/25 15:20 Ur Specific [place] 1.006 (1.005-1.030) 01/10/25 15:20 Urine Protein Negative (Negative) 01/10/25 15:20 Urine Glucose (UA) Negative (Normal) 01/10/25 15:20 Urine Ketones Negative (Negative) 01/10/25 15:20 Urine Blood Negative (Negative) 01/10/25 15:20 Urine Nitrate Negative (Negative) 01/10/25 15:20 Urine Bilirubin Negative (Negative) 01/10/25 15:20 Urine Urobilinogen 0.2 mg/dL (Negative) 01/10/25 15:20 Ur Leukocyte Esterase 1+ (Negative) A 01/10/25 15:20 Urine RBC 0-2 /hpf (0-2) 01/10/25 15:20 Urine WBC 21-50 /hpf (0-5) H 01/10/25 15:20 Ur Squamous Epith Cells 6-10 /hpf (0-5) 01/10/25 15:20 Amorphous Sediment Not Reportable 01/10/25 15:20 Urine Bacteria Trace /hpf (NONE) 01/10/25 15:20 Hyaline Casts 2.46 /lpf 01/10/25 15:20 C. difficile (PCR) Positive (Negative) H 01/10/25 19:28 C.difficile Tox Confrm Negative (Negative) 01/10/25 19:28 Vitals Last Vital Signs Temp 98.0 F 01/14/25 11:04 Pulse 69 01/14/25 11:04 Resp 18 01/14/25 11:04 BP 135/77 01/14/25 11:04 Pulse Ox 97 01/14/25 11:04 O2 Del Method Room Air 01/14/25 11:04 Discharge Plan Discharge Patient Disposition: Home Condition: Stable Prescriptions: New acetaminophen 325 mg Tablet 650 mg PO Q6H PRN (Reason: Mild Pain) Qty: 30 0RF Dificid 200 mg Tablet 200 mg PO BID Qty: 30 0RF Rx Instructions: Take 1 twice a day for 10 days then 1 every other day for 20 days vancomycin 125 mg Capsule 125 mg PO QID Qty: 40 0RF sodium bicarbonate 650 mg Tablet 650 mg PO TID Qty: 15 0RF Phospha 250 Neutral 250 mg Tablet 1 tab PO BID Qty: 20 0RF Continued (DME) Diabetic shoes See Rx Instructions .Route .MEDSUPPLY Qty: 1 0RF Rx Instructions: As directed aspirin 81 mg tablet,delayed release (DR/EC) 81 mg PO DAILY nitroglycerin 0.4 mg tablet, sublingual 0.4 mg SUBLINGUAL Q5M PRN (Reason: chest pain) Qty: 20 0RF Rx Instructions: do not exceed 3 doses per episode (DME) lancets [Accu-Chek Softclix Lancets] Misc See Rx Instructions .Route Qty: 100 3RF Rx Instructions: use 1 day prednisone 5 mg tablet 5 mg PO DAILY Qty: 90 1RF fluconazole [Diflucan] 100 mg tablet 100 mg PO DAILY Qty: 12 0RF quetiapine [Seroquel] 50 mg tablet 50 mg PO .at bedtime Qty: 30 0RF Probiotic Digestive Care 20 billion cell capsule See Rx Instructions PO .2 times day Qty: 60 2RF Rx Instructions: 20 billion cell PO .2 times day; (DME) right cmc splint See Rx Instructions .Route .MEDSUPPLY Qty: 1 0RF Rx Instructions: As directed alendronate [Fosamax] 70 mg tablet 70 mg PO .weekly Qty: 12 1RF (DME) Accu-Chek Guide test strips Strip See Rx Instructions .Route Qty: 100 5RF Rx Instructions: use one daily doxepin 25 mg capsule 25 - 50 mg PO DAILY Qty: 180 1RF duloxetine [Cymbalta] 20 mg capsule,delayed release(DR/EC) 20 mg PO BID Qty: 180 1RF fenofibrate nanocrystallized [Tricor] 145 mg tablet 145 mg PO DAILY Qty: 90 1RF fluticasone propion-salmeterol [Advair Diskus] 250-50 mcg/dose blister with device 1 inh inhalation Q12H Qty: 180 1RF glipizide 5 mg tablet extended release 24hr 5 mg PO BID Qty: 180 1RF levothyroxine 100 mcg tablet 100 mcg PO DAILY Qty: 90 1RF metoprolol succinate 100 mg tablet extended release 24 hr 100 mg PO DAILY Qty: 90 1RF potassium chloride 10 mEq tablet extended release 10 meq PO BID Qty: 180 1RF (DME) pen needle, diabetic 33 gauge x 5/32 needle See Rx Instructions .ROUTE .MEDSUPPLY Qty: 100 5RF Rx Instructions: 1 time day tizanidine 2 mg tablet 2 mg PO .at bedtime PRN (Reason: muscle spasticity) Qty: 90 0RF valsartan [Diovan] 320 mg tablet 320 mg PO DAILY Qty: 90 3RF hydralazine 25 mg tablet 25 mg PO TID Qty: 270 1RF albuterol sulfate [Ventolin HFA] 90 mcg/actuation HFA aerosol inhaler 2 puff INHALATION QID PRN (Reason: Shortness Of Breath) Qty: 25.5 1RF vitamin E 400 unit Capsule 400 unit PO DAILY cholecalciferol (vitamin D3) [Vitamin D3] 25 mcg (1,000 unit) Capsule 25 mcg PO DAILY omega-3 fatty acids 1,000 mg Capsule 1,000 mg PO DAILY amlodipine 5 mg tablet 10 mg PO DAILY calcium carbonate-vitamin D3 [Os-Jose Luis 500 + D3] 500 mg-15 mcg (600 unit) tablet 1 tab PO BID cyanocobalamin (vitamin B-12) 1,000 mcg/mL solution 1,000 mcg SUBCUT Q30D insulin glargine [Lantus Solostar U-100 Insulin] 100 unit/mL (3 mL) insulin pen 10 unit SUBCUT QAM Qty: 31.5 1RF glucagon HCl [Glucagon (HCl) Emergency Kit] 1 mg recon soln 1 mg IM Q20M PRN (Reason: hypoglycemia) Qty: 1 0RF Rx Instructions: until target blood sugar attained Questran Light 4 gram Powder 2 g PO BID 30 Days Qty: 210 0RF Rx Instructions: administer w/meal; avoid other meds within 1hr before or 4-6hr after dose Discontinued furosemide 40 mg tablet 40 mg PO DAILY Qty: 90 1RF spironolactone 25 mg tablet 25 mg PO DAILY Qty: 90 3RF guaifenesin 100 mg/5 mL Liquid 200 mg PO Q4H PRN (Reason: Cough) Discharge Order = DC NOW: Discharge Order (Routine); Ordered 01/14/25 Ordered By: Thierry Hensley Referrals: [facility] [Outside] [facility], PROCESS CONTROL PROGRAMMER-C [Primary Care Provider, [facility]] - 01/21/25 3:40 pm Referral Note: Summer Oneill MD [Hospitalist, Hospitalist] - 7-10 days Referral Note: We have notified your physician's clinic of the need for a follow-up appointment to be scheduled. If you have not heard from them within the next 2 business days, please call them directly. Discharge Diet: Diabetic Discharge Activity: Increase activity as tolerated Patient Instructions: Clostridium Difficile, Acetaminophen (By mouth), Vancomycin (By mouth), Phosphate Supplement (By mouth) (Av-Phos 250 Neutral, K-Phos..., Sodium Bicarbonate (By mouth), Fidaxomicin (By mouth) (Dificid), Metabolic Acidosis (GEN), Opioid Safety, Pain Management, Patient Portal & Hira Instructions Activity Restrictions/Additional Instructions: Take Dificid and vancomycin as prescribed for 10 days then take just the Dificid 1 every other day for additional 20 days. Follow-up consultation with infectious disease Dr. Oneill Discharge Attestations Time Spent in Discharge Care*: greater than 30 min Quality Metrics Clinical Quality Measures [ No reported AMI, CVA or VTE this stay] Coding Level of Care Code 95731 Diagnoses C. difficile colitis A04.72 Dehydration E86.0 Acute hyperkalemia E87.5 Hyponatremia E87.1 CKD (chronic kidney disease) N18.9 Diastolic dysfunction with chronic heart failure I50.32 Essential hypertension I10 Hypertension type: essential hypertension Mixed hyperlipidemia E78.2 Type 2 diabetes mellitus with hyperglycemia, with long-term current use of insulin E11.65; Z79.4 Diabetes mellitus type: type 2 Adult hypothyroidism E03.9 Seropositive rheumatoid arthritis of multiple sites M05.79 Metabolic acidosis, NAG, bicarbonate losses E87.20 Time Spent (min) 35
== END 2025-01-14 14:21 | disposition home health service (06) | DRG 372 ==
LOC: ER 16:36 → ER IP 17:52 → MEDSURG 01-11 06:14
PROVIDERS: Internal Medicine; Admitting Provider Student in an Organized Health Care Education/Training Program; Emergency Provider Family Medicine; PCP Nurse Practitioner; Visit Provider Student in an Organized Health Care Education/Training Program
DX: A04.72 Enterocolitis due to Clostridium difficile, not specified as recurrent (principal); D84.821 Immunodeficiency due to drugs; E87.1 Hypo-osmolality and hyponatremia; I13.0 Hypertensive heart and chronic kidney disease with heart failure and stage 1 through stage 4 chronic kidney disease, or unspecified chronic kidney disease; I50.32 Chronic diastolic (congestive) heart failure; N17.9 Acute kidney failure, unspecified; E87.20 Acidosis, unspecified; M05.9 Rheumatoid arthritis with rheumatoid factor, unspecified; E86.0 Dehydration; E87.5 Hyperkalemia; E11.22 Type 2 diabetes mellitus with diabetic chronic kidney disease; N18.9 Chronic kidney disease, unspecified; E78.2 Mixed hyperlipidemia; E11.65 Type 2 diabetes mellitus with hyperglycemia; E03.9 Hypothyroidism, unspecified; M81.0 Age-related osteoporosis without current pathological fracture; J44.9 Chronic obstructive pulmonary disease, unspecified; F17.210 Nicotine dependence, cigarettes, uncomplicated; Z79.61 Long term (current) use of immunomodulator; Z79.4 Long term (current) use of insulin; Z79.82 Long term (current) use of aspirin; Z79.84 Long term (current) use of oral hypoglycemic drugs; Z87.440 Personal history of urinary (tract) infections
CPT/HCPCS: 36415; 36416; 36600; 71045; 74176; 80048; 80051; 80053; 80069; 81001; 82330; 82550; 82805; 82962; 83735; 85025; 87086; 87324; 87493; 93005; 93010; 94640; 94664; 96372; 97161; 97165; 99285; J0696; J1644; J1815; J2270; J3535; J7030; J7120; J7512; J7611; J7626; J9999

== ENCOUNTER → 2025-01-18 12:19 | Outpatient (BNVA) | payer MEDICARE, SELFPAY | PROVIDERS: PCP Nurse Practitioner; Visit Provider Nurse Practitioner | DX: I50.32 Chronic diastolic (congestive) heart failure (principal); D53.9 Nutritional anemia, unspecified; E61.1 Iron deficiency | CPT/HCPCS: 80048; 82728; 83550; 83880; 85025 ==

== ENCOUNTER → 2025-02-02 10:41 | Outpatient (BNVA) | payer MEDICARE, SELFPAY | PROVIDERS: PCP Nurse Practitioner; Visit Provider Nurse Practitioner Family | DX: I11.0 Hypertensive heart disease with heart failure (principal); I50.32 Chronic diastolic (congestive) heart failure; E78.2 Mixed hyperlipidemia; I35.0 Nonrheumatic aortic (valve) stenosis; Z79.82 Long term (current) use of aspirin; F17.210 Nicotine dependence, cigarettes, uncomplicated; I10 Essential (primary) hypertension | CPT/HCPCS: 36415; 80048; 99205; 99213 ==

== ENCOUNTER 2025-02-03 22:54 | Observation (INO) | payer MEDICARE, SELFPAY ==
[2025-02-03 22:55] VITALS: BP 90/50; PULSE 71; RESP 16; TEMP 36.6; O2SAT 98; BMI 27.6
--- NOTE | 2025-02-03 22:59 | XRR_ITS ---
PROCEDURE INFORMATION: Exam: XR Left Elbow Exam date and time: 02/03/2025 11:33 PM Age: 74 years old Clinical indication: Injury or trauma; Fall; Blunt trauma (contusions or hematomas); Elbow; Left; Additional info: Fall, pain TECHNIQUE: Imaging protocol: Radiologic exam of the left elbow. Views: 3 or more views. COMPARISON: No relevant prior studies available. FINDINGS: Bones/joints: Normal. Soft tissues: Normal. XR/XR elbow LT min 3V* [id number] IMPRESSION: No acute findings.
--- NOTE | 2025-02-03 23:00 | CTR_ITS ---
PROCEDURE INFORMATION: Exam: CT Head Without Contrast Exam date and time: 02/03/2025 11:40 PM Age: 74 years old Clinical indication: Injury or trauma; Fall; Concussion/head injury; Consciousness not specified; Additional info: Fall, head injury TECHNIQUE: Imaging protocol: Computed tomography of the head without contrast. Radiation optimization: All CT scans at this facility use at least one of these dose optimization techniques: automated exposure control; mA and/or kV adjustment per patient size (includes targeted exams where dose is matched to clinical indication); or iterative reconstruction. COMPARISON: CT head wo con* [id number] 06/07/2020 3:58 PM RADIATION DOSE METRICS: Total DLP (mGy-cm): 1089.89 FINDINGS: Brain: Mild cerebral atrophy and ischemic leukoencephalopathy. Cerebral ventricles: No ventriculomegaly. Paranasal sinuses: Visualized sinuses are unremarkable. No fluid levels. Mastoid air cells: Visualized mastoid air cells are well aerated. Bones: Unremarkable. No acute fracture. Soft tissues: Unremarkable. CT/CT head wo con* [id number] IMPRESSION: No acute intracranial abnormality.
--- NOTE | 2025-02-03 23:00 | XRR_ITS ---
PROCEDURE INFORMATION: Exam: XR Chest Exam date and time: 02/03/2025 11:30 PM Age: 74 years old Clinical indication: Injury or trauma; Fall; Blunt trauma (contusions or hematomas); Additional info: Weakness TECHNIQUE: Imaging protocol: Radiologic exam of the chest. Views: 1 view. COMPARISON: CR (CHEST, ) 01/10/2025 3:24 PM FINDINGS: Lungs: Mild left basilar atelectasis and/or infiltrate and/or effusion. Pleural spaces: Unremarkable. No pleural effusion. No pneumothorax. Heart/Mediastinum: Stable mitral valve calcifications and or mitral valve annulus calcification. Borderline cardiomegaly. Bones/joints: Moderate left primary glenohumeral osteoarthritis. Moderate thoracic spondylosis. XR/XR chest 1V portable [id number] IMPRESSION: 1. Mild left basilar atelectasis and/or infiltrate and/or effusion. 2. Borderline cardiomegaly.
--- NOTE | 2025-02-03 23:09 | W.ED.WEAKNES ---
HPI - Weakness General: Chief complaint: Weakness Stated complaint: weakness Time Seen by Provider: 02/03/25 22:56 History of Present Illness: 74-year-old female with a history of diastolic heart failure, type 2 diabetes mellitus, obesity, osteoporosis, COPD, diverticulosis, hypothyroidism and recent diagnosis with C. difficile currently still being treated who presents to the emergency room by ambulance with complaint of weakness and fall. Her chief complaint is extreme weakness. She also reports dark stools for the last couple of days. Send when she got up to the restroom today she fell. Blood pressure is low on presentation. No known fevers. She has allover pain but specifically reports some pain in her left elbow. Unclear if she hit her head. Related Data Home Medications ?Medication ?Instructions ?Recorded ?Confirmed aspirin 81 mg tablet,delayed 81 mg PO DAILY 10/19/19 02/02/25 release cholecalciferol (vitamin D3) 25 25 mcg PO DAILY 10/27/20 02/02/25 mcg (1,000 unit) capsule (Vitamin D3) vitamin E 268 mg (400 unit) capsule 400 unit PO DAILY 10/27/20 02/02/25 calcium 500 mg (as 1 tab PO BID 11/02/24 02/02/25 carbonate)-vitamin D3 15 mcg (600 unit) tablet (Os-Jose Luis 500 + D3) omega-3 fatty acids 1,000 mg 1,000 mg PO DAILY 11/02/24 02/02/25 capsule cyanocobalamin (vitamin B-12) 1,000 mcg SUBCUT Q30D 12/24/24 02/02/25 1,000 mcg/mL injection solution spironolactone 25 mg tablet mg PO 02/02/25 02/02/25 Previous Rx's ?Medication ?Instructions ?Recorded Diabetic shoes #1 ea 10/14/20 nitroglycerin 0.4 mg sublingual 0.4 mg sublingual Q5M PRN chest 01/22/23 tablet pain #20 tabs lancets (Accu-Chek Softclix #100 ea 04/16/23 Lancets) right cmc splint #1 ea 01/07/24 alendronate 70 mg tablet (Fosamax) 70 mg PO .weekly #12 tabs 07/27/24 blood sugar diagnostic (Accu-Chek #100 ea 07/27/24 Guide test strips) doxepin 25 mg capsule 25 - 50 mg (1 - 2 x 25 mg) PO 07/27/24 DAILY #180 caps duloxetine 20 mg capsule,delayed 20 mg PO BID #180 caps 07/27/24 release (Cymbalta) fenofibrate nanocrystallized 145 145 mg PO DAILY #90 tabs 07/27/24 mg tablet (Tricor) fluticasone 250 mcg-salmeterol 50 1 inh inhalation Q12H #180 ea 07/27/24 mcg/dose blistr powdr for inhalation (Advair Diskus) glipizide 5 mg tablet, extended 5 mg PO BID #180 tabs 07/27/24 release 24 hr levothyroxine 100 mcg tablet 100 mcg PO DAILY #90 tabs 07/27/24 metoprolol succinate 100 mg 100 mg PO DAILY #90 tabs 07/27/24 tablet,extended release 24 hr pen needle, diabetic 33 gauge x #100 ea 07/27/24/ potassium chloride 10 mEq 10 meq PO BID #180 tabs 07/27/24 tablet,extended release prednisone 5 mg tablet 5 mg PO DAILY #90 tabs 09/07/24 tizanidine 2 mg tablet 2 mg PO .at bedtime PRN muscle 10/14/24 spasticity #90 tabs valsartan 320 mg tablet (Diovan) 320 mg PO DAILY #90 tabs 12/01/24 albuterol sulfate 90 mcg/actuation 2 puff inhalation QID PRN 12/19/24 aerosol inhaler (Ventolin HFA) Shortness Of Breath #25.5 grams cholestyramine 4 gram oral powder 2 g PO BID 30 days #210 grams 12/28/24 (Questran Light) glucagon HCl 1 mg solution for 1 mg IM Q20M PRN hypoglycemia #1 ea 12/28/24 injection (Glucagon (HCl) Emergency Kit) insulin glargine 100 unit/mL (3 10 unit (0.1 mL) SUBCUT QAM #31.5 12/28/24 mL) subcutaneous pen (Lantus mL Solostar U-100 Insulin) Lactobacillus rhamnosus GG 20 See Rx Instructions PO .2 times 01/01/25 billion cell capsule (Probiotic day #60 caps Digestive Care) fluconazole 100 mg tablet 100 mg PO DAILY #12 tabs 01/01/25 (Diflucan) quetiapine 50 mg tablet (Seroquel) 50 mg PO .at bedtime #30 tabs 01/01/25 acetaminophen 325 mg tablet 650 mg (2 x 325 mg) PO Q6H PRN 01/14/25 Mild Pain #30 tabs fidaxomicin 200 mg tablet (Dificid) 200 mg PO BID #30 tabs 01/14/25 sodium bicarbonate 650 mg tablet 650 mg PO TID #15 tabs 01/14/25 sodium di- and 1 tab PO BID #20 tabs 01/14/25 monophosphate-potassium phos monobasic 250 mg tablet (Phospha Neutral) vancomycin 125 mg capsule 125 mg PO QID #40 caps 01/14/25 furosemide 40 mg tablet (Lasix) 40 mg PO DAILY #30 tabs 01/20/25 ferrous sulfate 300 mg (60 mg 300 mg (5 mL) PO DAILY #120 mL 01/22/25 iron)/5 mL oral liquid Allergies Allergy/AdvReac Type Severity Reaction Status Date / Time Penicillins Allergy Severe Rash Verified 02/03/25 23:00 Sulfa (Sulfonamide Allergy Severe Rash Verified 02/03/25 23:00 Antibiotics) Latex, Natural Rubber AdvReac Severe Rash Verified 02/03/25 23:00 adhesive AdvReac Intermediate Rash Verified 02/03/25 23:00 trazodone AdvReac Do not Verified 02/03/25 23:00 tolerate Review of Systems Narrative: Constitutional symptoms: Negative except as documented in HPI. Skin symptoms: Negative except as documented in HPI. Eye symptoms: Negative except as documented in HPI. ENMT symptoms: Negative except as documented in HPI. Respiratory symptoms: Negative except as documented in HPI. Cardiovascular symptoms: Negative except as documented in HPI. Gastrointestinal symptoms: Negative except as documented in HPI. Genitourinary symptoms: Negative except as documented in HPI. Musculoskeletal symptoms: Negative except as documented in HPI. Neurologic symptoms: Negative except as documented in HPI. Psychiatric symptoms: Negative except as documented in HPI. Endocrine symptoms: Negative except as documented in HPI. PFSH ED PFSH: Medical History (Updated 02/02/25 @ 16:23 by Summer Oneill MD) Diastolic dysfunction with chronic heart failure Type 2 diabetes mellitus with hyperglycemia, with long-term current use of insulin Osteoarthritis of hands, bilateral Immunization counseling High risk medication use Seropositive rheumatoid arthritis of multiple sites Osteoporosis Cigarette smoker COPD (chronic obstructive pulmonary disease) Unstable angina Hypertension Environmental and seasonal allergies Vitamin D deficiency Mixed hyperlipidemia Diverticulosis Adult hypothyroidism Surgical History History of lumbar surgery Rods in lumbar History of cholecystectomy History of tubal ligation History of foot surgery left Family History Father Diabetes Mother CAD (coronary artery disease) Other Dementia Social History Smoking and tobacco/nicotine status: current every day tobacco/nicotine user (3/4 of a pack a day) Second hand smoke exposure: Yes Alcohol intake: never Substance/Drug Use: never Adopted: No Caregiver/support person: No Lives independently: Yes Household members: spouse Housing: House Marital status: Number of children: 3 service: No Current occupational status: retired Do you think of yourself as: Straight/Heterosexual Current gender identity: Female Physical Exam Narrative: EXAM NARRATIVE: General: Alert, no acute distress. Skin: Warm, dry. Pale Head: Normocephalic, atraumatic. Neck: Supple, trachea midline. Eye: Extraocular movements are intact. Ears, nose, mouth and throat: mucosa moist. Cardiovascular: Regular, Normal peripheral perfusion. Respiratory: Lungs are clear to auscultation, respirations are non-labored, breath sounds are equal, Symmetrical chest wall expansion. Gastrointestinal: Soft, no focal abdominal tenderness, Non distended Musculoskeletal: Normal ROM, no deformity. Neurological: Alert and oriented, No focal neurological deficit observed. Psychiatric: Cooperative, appropriate mood & affect. Course Vital Signs: Vital signs: Vital Signs Temperature 97.8 F 02/03/25 22:55 Pulse Rate 66 02/03/25 23:20 Respiratory Rate 16 02/03/25 22:55 Blood Pressure 87/52 02/03/25 23:20 Pulse Oximetry 100 02/03/25 23:20 Oxygen Delivery Me thod Room Air 02/03/25 22:55 MDM - Weakness Medical Decision Making Medical decision making: Differential diagnosis for patient presenting with generalized weakness including but not limited to and based on the above HPI, review of systems and physical exam: Sepsis. Dehydration. Renal failure. Electrolyte abnormalities. Anemia. Congestive heart failure. Hypotension. Coronary syndrome. Hepatitis. Cirrhosis. Infections such as pneumonia, urinary tract infection, [place] illness, Cellulitis, Viral infections including influenza and Covid-19. Workup: labwork and lab/exam driven imaging ordered to evaluate, rule in and rule out above pathologies. EKG: Time 2302. Rate 70 normal sinus rhythm, No ST-T changes, no ectopy, normal NH & QRS intervals, This was reviewed and interpreted by myself the ER physician at 2306 CT head: No acute intracranial process. no intracranial hemorrhage, no evidence of infarct. no evidence of acute fracture.This was reviewed and interpreted by myself the ER physician. Chest x-ray: No acute process. No infiltrate. No pneumothorax. This was reviewed and interpreted by myself the emergency room physician. I also reviewed the radiology report. X-ray of the left elbow shows no acute fractures or dislocations. This was reviewed and interpreted by myself the emergency room physician. I also reviewed the radiology report. Lab Review: Laboratory results were reviewed and interpreted by myself the emergency room physician. Mild leukocytosis. Significant anemia with a hemoglobin of 5. Upper GI bleed further supported by BUN/creatinine of 62 and 2.2. She had labs done yesterday BUN and creatinine were 74 and 2.4 at that time so likely the GI bleeding has been over for a day or 2 now. Sodium is a bit low at 129. Urinalysis is negative for infection. I reviewed the patient's medical record. 74-year-old female with a history of diastolic heart failure, type 2 diabetes mellitus, obesity, osteoporosis, COPD, diverticulosis, hypothyroidism and recent diagnosis with C. difficile. Patient had a note from ID clinic yesterday and note from cardiology clinic from yesterday as well. Reexamination: Patient's blood pressure has been little bit soft. A liter of fluids are being given. She is still complaining of allover pain. No altered mental status. No focal motor deficits. No oxygen requirements. Consultation: I spoke with Dr. Welsh who is on-call for general surgery. He will consult on the patient and likely she will need upper endoscopy. Consultation: I spoke with Dr. Dutton who is on-call for the hospital service who agrees to admission Assessment and plan: Upper GI bleed Acute blood loss anemia Hypotension Fall ?Normal saline bolus ? 2 units PRBCs -I discussed the patient with the hospitalist on-call who is admitting the patient. - Discussed findings and plan with patient. Answered any questions. - All laboratory values were reviewed and interpreted personally by myself, the ER physician - All imaging was reviewed and interpreted personally by myself, the ER physician. - Evaluation and treatment of this problem were appropriate in the emergency setting Lab Data 02/03/25 23:14 02/03/25 23:14 Radiology Impressions Elbow X-Ray 02/03/25 22:59 IMPRESSION: No acute findings. Chest X-Ray 02/03/25 23:00 IMPRESSION: 1. Mild left basilar atelectasis and/or infiltrate and/or effusion. 2. Borderline cardiomegaly. Head CT 02/03/25 23:00 IMPRESSION: No acute intracranial abnormality. Laboratory Results WBC 11.53 10^3/uL (3.29-11.43) H 02/03/25 23:14 RBC 1.46 10^6/uL (3.85-5.65) L 02/03/25 23:14 Hgb 5.10 g/dL (11.27-16.99) L* 02/03/25 23:14 Hct 16.7 % (36-47) L* 02/03/25 23:14 MCV 114.4 fl (85-98) H 02/03/25 23:14 MCH 34.9 pg (27-33) H 02/03/25 23:14 MCHC 30.5 g/dL (30-55) 02/03/25 23:14 RDW 22.8 % (12.1-15.1) H 02/03/25 23:14 Plt Count 399 10^3/cmm (157-399) 02/03/25 23:14 MPV 9.1 fL (7.4-10.4) 02/03/25 23:14 Neut % (Auto) 73.5 % 02/03/25 23:14 Lymph % (Auto) 14.2 % 02/03/25 23:14 Ogle % (Auto) 8.9 % 02/03/25 23:14 Eos % (Auto) 1.7 % 02/03/25 23:14 Baso % (Auto) 0.2 % 02/03/25 23:14 Neut # (Auto) 8.47 10^3/uL (1.8-7.7) H 02/03/25 23:14 Lymph # (Auto) 1.6 10^3/uL (0.8-4.8) 02/03/25 23:14 Ogle # (Auto) 1.0 10^3/uL (0.2-0.9) H 02/03/25 23:14 Eos # (Auto) 0.2 10^3/uL (0.0-0.8) 02/03/25 23:14 Baso # (Auto) 0.0 10^3/uL (0.0-0.1) 02/03/25 23:14 Nucleated RBC % (auto) 0.3 % 02/03/25 23:14 Nucleated RBCs # 0.0 /100WBC 02/03/25 23:14 PT 13.40 SECONDS (12.1-14.9) 02/03/25 23:14 INR 0.95 (0.8-1.2) 02/03/25 23:14 APTT 24.0 SECONDS (23.9-36.7) 02/03/25 23:14 Sodium 129 mmol/L (136-145) L 02/03/25 23:14 Potassium 4.7 mmol/L (3.5-5.1) 02/03/25 23:14 Chloride 98 mmol/L (98-107) 02/03/25 23:14 Carbon Dioxide 18 mmol/L (22-29) L 02/03/25 23:14 Anion Gap 17.7 (5-19) 02/03/25 23:14 BUN 62 mg/dL (8-23) H 02/03/25 23:14 Creatinine 2.2 mg/dL (0.5-0.9) H 02/03/25 23:14 GFR Calculation Not Reportable 02/03/25 23:14 Glucose 202 mg/dL (65-115) H 02/03/25 23:14 Calculated Osmolality 291 mOsm/kg (285-295) 02/03/25 23:14 Lactic Acid 1.8 mmol/L (0.5-2.2) 02/03/25 23:14 Calcium 7.9 mg/dL (8.5-10.5) L 02/03/25 23:14 Total Bilirubin 0.2 mg/dL (0.15-1.2) 02/03/25 23:14 AST 22 U/L (0-32) 02/03/25 23:14 ALT 15 U/L (0-33) 02/03/25 23:14 Alkaline Phosphatase 45 U/L (35-105) 02/03/25 23:14 C-Reactive Protein 3.0 mg/L (0.0-4.9) 02/03/25 23:14 Total Protein 5.5 g/dL (6.6-8.7) L 02/03/25 23:14 Albumin 3.0 g/dL (3.5-5.2) L 02/03/25 23:14 Globulin 2.5 g/dL (1.3-4.6) 02/03/25 23:14 Urine Color Yellow (Yellow) 02/03/25 23:14 Urine Appearance Clear (CLEAR) 02/03/25 23:14 Urine pH 5.5 (5-7) 02/03/25 23:14 Ur Specific [place] 1.013 (1.005-1.030) 02/03/25 23:14 Urine Protein Negative (Negative) 02/03/25 23:14 Urine Glucose (UA) Negative (Normal) 02/03/25 23:14 Urine Ketones Negative (Negative) 02/03/25 23:14 Urine Blood Negative (Negative) 02/03/25 23:14 Urine Nitrate Negative (Negative) 02/03/25 23:14 Urine Bilirubin Negative (Negative) 02/03/25 23:14 Urine Urobilinogen 0.2 mg/dL (Negative) 02/03/25 23:14 Ur Leukocyte Esterase Negative (Negative) 02/03/25 23:14 Urine RBC 0-2 /hpf (0-2) 02/03/25 23:14 Urine WBC 0-5 /hpf (0-5) 02/03/25 23:14 Ur Squamous Epith Cells 0-5 /hpf (0-5) 02/03/25 23:14 Amorphous Sediment Not Reportable 02/03/25 23:14 Urine Bacteria None seen /hpf (NONE) 02/03/25 23:14 Hyaline Casts 2.05 /lpf 02/03/25 23:14 Blood Type O Negative 02/03/25 23:49 Rho(D) Type Rh negative 02/03/25 23:49 Antibody Screen Negative 02/03/25 23:49 Crossmatch See Detail 02/03/25 23:49 All radiology interpretation(s) finalized by discharge Discharge Plan Discharge Condition: Stable Prescriptions: No Action (DME) Diabetic shoes See Rx Instructions .Route .MEDSUPPLY Qty: 1 0RF Rx Instructions: As directed aspirin 81 mg tablet,delayed release (DR/EC) 81 mg PO DAILY nitroglycerin 0.4 mg tablet, sublingual 0.4 mg SUBLINGUAL Q5M PRN (Reason: chest pain) Qty: 20 0RF Rx Instructions: do not exceed 3 doses per episode (DME) lancets [Accu-Chek Softclix Lancets] Misc See Rx Instructions .Route Qty: 100 3RF Rx Instructions: use 1 day prednisone 5 mg tablet 5 mg PO DAILY Qty: 90 1RF spironolactone 25 mg tablet PO fluconazole [Diflucan] 100 mg tablet 100 mg PO DAILY Qty: 12 0RF quetiapine [Seroquel] 50 mg tablet 50 mg PO .at bedtime Qty: 30 0RF Probiotic Digestive Care 20 billion cell capsule See Rx Instructions PO .2 times day Qty: 60 2RF Rx Instructions: 20 billion cell PO .2 times day; ferrous sulfate 300 mg (60 mg iron)/5 mL liquid 300 mg PO DAILY Qty: 120 2RF (DME) right cmc splint See Rx Instructions .Route .MEDSUPPLY Qty: 1 0RF Rx Instructions: As directed alendronate [Fosamax] 70 mg tablet 70 mg PO .weekly Qty: 12 1RF (DME) Accu-Chek Guide test strips Strip See Rx Instructions .Route Qty: 100 5RF Rx Instructions: use one daily doxepin 25 mg capsule 25 - 50 mg PO DAILY Qty: 180 1RF duloxetine [Cymbalta] 20 mg capsule,delayed release(DR/EC) 20 mg PO BID Qty: 180 1RF fenofibrate nanocrystallized [Tricor] 145 mg tablet 145 mg PO DAILY Qty: 90 1RF fluticasone propion-salmeterol [Advair Diskus] 250-50 mcg/dose blister with device 1 inh inhalation Q12H Qty: 180 1RF glipizide 5 mg tablet extended release 24hr 5 mg PO BID Qty: 180 1RF levothyroxine 100 mcg tablet 100 mcg PO DAILY Qty: 90 1RF metoprolol succinate 100 mg tablet extended release 24 hr 100 mg PO DAILY Qty: 90 1RF potassium chloride 10 mEq tablet extended release 10 meq PO BID Qty: 180 1RF (DME) pen needle, diabetic 33 gauge x 5/32 needle See Rx Instructions .ROUTE .MEDSUPPLY Qty: 100 5RF Rx Instructions: 1 time day tizanidine 2 mg tablet 2 mg PO .at bedtime PRN (Reason: muscle spasticity) Qty: 90 0RF valsartan [Diovan] 320 mg tablet 320 mg PO DAILY Qty: 90 3RF albuterol sulfate [Ventolin HFA] 90 mcg/actuation HFA aerosol inhaler 2 puff INHALATION QID PRN (Reason: Shortness Of Breath) Qty: 25.5 1RF furosemide [Lasix] 40 mg tablet 40 mg PO DAILY Qty: 30 0RF vitamin E 400 unit Capsule 400 unit PO DAILY cholecalciferol (vitamin D3) [Vitamin D3] 25 mcg (1,000 unit) Capsule 25 mcg PO DAILY omega-3 fatty acids 1,000 mg Capsule 1,000 mg PO DAILY calcium carbonate-vitamin D3 [Os-Jose Luis 500 + D3] 500 mg-15 mcg (600 unit) tablet 1 tab PO BID cyanocobalamin (vitamin B-12) 1,000 mcg/mL solution 1,000 mcg SUBCUT Q30D insulin glargine [Lantus Solostar U-100 Insulin] 100 unit/mL (3 mL) insulin pen 10 unit SUBCUT QAM Qty: 31.5 1RF glucagon HCl [Glucagon (HCl) Emergency Kit] 1 mg recon soln 1 mg IM Q20M PRN (Reason: hypoglycemia) Qty: 1 0RF Rx Instructions: until target blood sugar attained Questran Light 4 gram Powder 2 g PO BID 30 Days Qty: 210 0RF Rx Instructions: administer w/meal; avoid other meds within 1hr before or 4-6hr after dose acetaminophen 325 mg Tablet 650 mg PO Q6H PRN (Reason: Mild Pain) Qty: 30 0RF Dificid 200 mg Tablet 200 mg PO BID Qty: 30 0RF Rx Instructions: Take 1 twice a day for 10 days then 1 every other day for 20 days vancomycin 125 mg Capsule 125 mg PO QID Qty: 40 0RF sodium bicarbonate 650 mg Tablet 650 mg PO TID Qty: 15 0RF Phospha 250 Neutral 250 mg Tablet 1 tab PO BID Qty: 20 0RF Referrals: Karla Gallegos, [employer] [Primary Care Provider, Family Practice] Print Language: Slovenian Coding Level of Care Code ED Lumite Injector for Ian Navarro
[2025-02-03 23:20] VITALS: BP 87/52; PULSE 66; O2SAT 100
[2025-02-03 23:27] LABS: Mean Corpuscular HGB Conc 30.5 g/dL (30-55); Mean Corpuscular Hemoglobin 34.9 pg (27-33); Mean Corpuscular Volume 114.4 fl (85-98); Nucleated Red Blood Cells % 0.3 %; Platelet Count 399 10^3/cmm (157-399); Red Blood Count 1.46 10^6/uL (3.85-5.65); White Blood Count 11.53 10^3/uL (3.29-11.43)
[2025-02-03 23:28] LABS: Glucose Urine UA Negative (Normal); Nitrate Urine Negative (Negative); Specific Gravity, Urine 1.013 (1.005-1.030)
[2025-02-03 23:30] VITALS: BP 97/43; PULSE 64; O2SAT 100
[2025-02-03 23:39] LABS: Hematocrit 16.7 % (36-47); Hemoglobin 5.10 g/dL (11.27-16.99)
[2025-02-03 23:43] LABS: Alanine Aminotransferase 15 U/L (0-33); Albumin Level 3.0 g/dL (3.5-5.2); Alkaline Phosphatase 45 U/L (35-105); Anion Gap 17.7 (5-19); Aspartate Amino Transferase 22 U/L (0-32); Blood Urea Nitrogen 62 mg/dL (8-23); Calcium 7.9 mg/dL (8.5-10.5); Carbon Dioxide 18 mmol/L (22-29); Chloride 98 mmol/L (98-107); Creatinine Clr Calc Pharmacy 21.3036; Globulin 2.5 g/dL (1.3-4.6); Glucose 202 mg/dL (65-115); Lactic Sepsis W/Reflex 1.8 mmol/L (0.5-2.2); Osmolality Calculated 291 mOsm/kg (285-295); Potassium 4.7 mmol/L (3.5-5.1); Sodium 129 mmol/L (136-145); Total Protein 5.5 g/dL (6.6-8.7)
[2025-02-03 23:53] LABS: UA Slide Review UA Slide Review Perf
[2025-02-04] VITALS (74 sets, daily range): BP systolic 102–177; BP diastolic 43–81; PULSE 66–89; RESP 15–30; TEMP 36.4–37.2; O2SAT 92–100; BMI 29.1
[2025-02-04 00:02] LABS: INR 0.95 (0.8-1.2); Prothrombin Time 13.40 SECONDS (12.1-14.9)
[2025-02-04 00:03] LABS: Partial Thromboplastin Time 24.0 SECONDS (23.9-36.7)
[2025-02-04] MEDS: pantoprazole 40 mg SDV 80 MG IVP (00:11)
--- NOTE | 2025-02-04 00:52 | PM.HP ---
Providers/Chief Complaint Admitting Physician: Patient seen before midnight Primary Care Provider: HANK James Chief Complaint: weakness History of Present Illness Teresa Garcia is a 74 year old female with medical history significant for diabetes heart failure COPD CAD AF and is on treatment and follow-up with ID clinic for C. difficile treatment. Patient is on Dificid medication 200 mg p.o. twice daily for 30 days. Patient had to present to the emergency room because of weakness and looking very pale. At the emergency room patient actually was evaluated for a hemoglobin of 5.10. And the blood pressure was low in the 80s to 90s over 40s.. 2 units of packed red blood cells were ordered and initiated in the emergency room and patient was en route to ICU. Review of Systems Narrative: Patient looks very pale and weak upon 10 organ system reviewed Medications/Allergies Home Medications ?Medication ?Instructions ?Recorded ?Confirmed ?Last Taken ?Type aspirin 81 mg tablet,delayed 81 mg PO DAILY 10/19/19 02/02/25 01/10/25 08:00 History release Diabetic shoes #1 ea 10/14/20 02/04/25 Unknown Rx cholecalciferol (vitamin D3) 25 25 mcg PO DAILY 10/27/20 02/02/25 01/10/25 08:00 History mcg (1,000 unit) capsule (Vitamin D3) vitamin E 268 mg (400 unit) capsule 400 unit PO DAILY 10/27/20 02/02/25 01/10/25 08:00 History nitroglycerin 0.4 mg sublingual 0.4 mg sublingual Q5M PRN chest 01/22/23 02/02/25 Unknown Rx tablet pain #20 tabs lancets (Accu-Chek Softclix #100 ea 04/16/23 02/04/25 Unknown Rx Lancets) right cmc splint #1 ea 01/07/24 02/04/25 Unknown Rx alendronate 70 mg tablet (Fosamax) 70 mg PO .weekly #12 tabs 07/27/24 02/02/25 Unknown Rx blood sugar diagnostic (Accu-Chek #100 ea 07/27/24 02/04/25 Unknown Rx Guide test strips) doxepin 25 mg capsule 25 - 50 mg (1 - 2 x 25 mg) PO 07/27/24 02/02/25 01/10/25 08:00 Rx DAILY #180 caps duloxetine 20 mg capsule,delayed 20 mg PO BID #180 caps 07/27/24 02/02/25 01/10/25 08:00 Rx release (Cymbalta) fenofibrate nanocrystallized 145 145 mg PO DAILY #90 tabs 07/27/24 02/02/25 01/10/25 08:00 Rx mg tablet (Tricor) fluticasone 250 mcg-salmeterol 50 1 inh inhalation Q12H #180 ea 07/27/24 02/02/25 01/10/25 08:00 Rx mcg/dose blistr powdr for inhalation (Advair Diskus) glipizide 5 mg tablet, extended 5 mg PO BID #180 tabs 07/27/24 02/02/25 01/10/25 08:00 Rx release 24 hr levothyroxine 100 mcg tablet 100 mcg PO DAILY #90 tabs 07/27/24 02/02/25 01/10/25 08:00 Rx metoprolol succinate 100 mg 100 mg PO DAILY #90 tabs 07/27/24 02/02/25 01/10/25 08:00 Rx tablet,extended release 24 hr pen needle, diabetic 33 gauge x #100 ea 07/27/24 02/04/25 Unknown Rx potassium chloride 10 mEq 10 meq PO BID #180 tabs 07/27/24 02/02/25 01/10/25 08:00 Rx tablet,extended release prednisone 5 mg tablet 5 mg PO DAILY #90 tabs 09/07/24 02/02/25 01/10/25 08:00 Rx tizanidine 2 mg tablet 2 mg PO .at bedtime PRN muscle 10/14/24 02/02/25 12/24/24 Rx spasticity #90 tabs calcium 500 mg (as 1 tab PO BID 11/02/24 02/02/25 01/10/25 08:00 History carbonate)-vitamin D3 15 mcg (600 unit) tablet (Os-Jose Luis 500 + D3) omega-3 fatty acids 1,000 mg 1,000 mg PO DAILY 11/02/24 02/02/25 01/10/25 08:00 History capsule valsartan 320 mg tablet (Diovan) 320 mg PO DAILY #90 tabs 12/01/24 02/02/25 01/10/25 08:00 Rx albuterol sulfate 90 mcg/actuation 2 puff inhalation QID PRN 12/19/24 02/02/25 Unknown Rx aerosol inhaler (Ventolin HFA) Shortness Of Breath #25.5 grams cyanocobalamin (vitamin B-12) 1,000 mcg SUBCUT Q30D 12/24/24 02/02/25 Unknown History 1,000 mcg/mL injection solution cholestyramine 4 gram oral powder 2 g PO BID 30 days #210 grams 12/28/24 02/02/25 01/10/25 08:00 Rx (Questran Light) glucagon HCl 1 mg solution for 1 mg IM Q20M PRN hypoglycemia #1 ea 12/28/24 02/02/25 Unknown Rx injection (Glucagon (HCl) Emergency Kit) insulin glargine 100 unit/mL (3 10 unit (0.1 mL) SUBCUT QAM #31.5 12/28/24 02/02/25 01/10/25 08:00 Rx mL) subcutaneous pen (Lantus mL Solostar U-100 Insulin) Lactobacillus rhamnosus GG 20 See Rx Instructions PO .2 times 01/01/25 02/02/25 01/10/25 08:00 Rx billion cell capsule (Probiotic day #60 caps [facility]) fluconazole 100 mg tablet 100 mg PO DAILY #12 tabs 01/01/25 02/02/25 01/10/25 08:00 Rx (Diflucan) quetiapine 50 mg tablet (Seroquel) 50 mg PO .at bedtime #30 tabs 01/01/25 02/02/25 01/09/25 20:00 Rx acetaminophen 325 mg tablet 650 mg (2 x 325 mg) PO Q6H PRN 01/14/25 02/02/25 Unknown Rx Mild Pain #30 tabs fidaxomicin 200 mg tablet (Dificid) 200 mg PO BID #30 tabs 01/14/25 02/02/25 Unknown Rx sodium bicarbonate 650 mg tablet 650 mg PO TID #15 tabs 01/14/25 02/02/25 Unknown Rx sodium di- and 1 tab PO BID #20 tabs 01/14/25 02/02/25 Unknown Rx monophosphate-potassium phos monobasic 250 mg tablet (Phospha Neutral) vancomycin 125 mg capsule 125 mg PO QID #40 caps 01/14/25 02/02/25 Unknown Rx furosemide 40 mg tablet (Lasix) 40 mg PO DAILY #30 tabs 01/20/25 02/02/25 Unknown Rx ferrous sulfate 300 mg (60 mg 300 mg (5 mL) PO DAILY #120 mL 01/22/25 02/02/25 Unknown Rx iron)/5 mL oral liquid spironolactone 25 mg tablet mg PO 02/02/25 02/02/25 Unknown History Allergies Allergy/AdvReac Type Severity Reaction Status Date / Time Penicillins Allergy Severe Rash Verified 02/03/25 23:00 Sulfa (Sulfonamide Allergy Severe Rash Verified 02/03/25 23:00 Antibiotics) Latex, Natural Rubber AdvReac Severe Rash Verified 02/03/25 23:00 adhesive AdvReac Intermediate Rash Verified 02/03/25 23:00 trazodone AdvReac Do not Verified 02/03/25 23:00 tolerate PFSH Acute PFSH: Medical History Diastolic dysfunction with chronic heart failure Type 2 diabetes mellitus with hyperglycemia, with long-term current use of insulin Osteoarthritis of hands, bilateral Immunization counseling High risk medication use Seropositive rheumatoid arthritis of multiple sites Osteoporosis Cigarette smoker COPD (chronic obstructive pulmonary disease) Unstable angina Hypertension Environmental and seasonal allergies Vitamin D deficiency Mixed hyperlipidemia Diverticulosis Adult hypothyroidism Surgical History History of lumbar surgery Rods in lumbar History of cholecystectomy History of tubal ligation History of foot surgery left Family History Father Diabetes Mother CAD (coronary artery disease) Other Dementia Social History Smoking and tobacco/nicotine status: current every day tobacco/nicotine user (3/4 of a pack a day) Second hand smoke exposure: Yes Alcohol intake: never Substance/Drug Use: never Adopted: No Caregiver/support person: No Lives independently: Yes Household members: spouse Housing: House Marital status: Number of children: 3 service: No Current occupational status: retired Do you think of yourself as: Straight/Heterosexual Current gender identity: Female Vitals/I&O/Wt Last Vital Signs Temp 97.8 F 07/30/25 22:55 Pulse 66 02/03/25 23:20 Resp 16 02/03/25 22:55 BP 87/52 02/03/25 23:20 Pulse Ox 100 02/03/25 23:20 O2 Del Method Room Air 02/03/25 22:55 02/03/25 02/03/25 02/04/25 14:59 22:59 06:59 Intake Total 700 / 700 Balance 700 / 700 Weight last 48 hrs Weight 73.028 kg Physical Exam Narrative: Patient is very ill appearing very pale and weak and had body pain from a prior fall at home. HEENT normocephalic atraumatic neck neck is supple cardiovascular heart rate is regular lungs are pretty much clear abdomen soft nontender nondistended unremarkable extremities are intact no edema has good pulses neurology has no focality lab studies lab studies reviewed and noted. Data 02/03/25 23:14 02/03/25 23:14 Micro: Microbiology 02/03/25 23:16 Blood Culture - Preliminary Blood SPECIMEN COLLECTED 02/03/25 23:14 Blood Culture - Preliminary Blood SPECIMEN COLLECTED A&P Assessment and plan 1. Acute on chronic renal insufficiency: 2. Hypotension: 2 units of packed red blood cells infusing it will finish in another hour and then another hour should be allowed to send lab studies. Follow through with H&H. Patient received Lasix in between today the 2 units. Surgery on case will follow-up with the patient 3. C. difficile colitis: Continue patient C-DIFF treatment as per the ID outpatient care 4. Acute blood loss anemia: Optimized with 2 units of packed red blood cell lab studies yet to be drawn because patient is currently receiving blood products. Labs will be sent 1 hour after post transfusion 5. Recurrent Clostridioides difficile diarrhea: Treatment to continue with diFICID 200 mg twice daily for 30 days 6. Hyponatremia: Mild hyponatremia monitor with daily lab for interval change 7. Generalized weakness: Generalized body weakness secondary to profound anemia continue to monitor and optimize 8. Cystitis: Continue with antibiotics of ceftriaxone for UTI Plan: GI and DVT prophylaxis in place PDMP PDMP Reviewed: Last Reviewed 02/04/25 06:53 by Marcelina Dutton MD Attestations Medical Necessity Statement*: Patient is hypotensive pale and weak with infection ongoing with C. difficile colitis and urinary tract infection and acute on chronic renal failure deserve at least 2 midnights for optimization of care. Coding Level of Care Code 98741 Diagnoses Acute on chronic renal insufficiency N28.9; N18.9 Hypotension I95.9 C. difficile colitis A04.72 Acute blood loss anemia D62 Recurrent Clostridioides difficile diarrhea A04.71 Hyponatremia E87.1 Generalized weakness R53.1 Cystitis N30.90 Time Spent (min) 60
[2025-02-04] MEDS: morphine 4 mg/mL SDV 1 mL 2 MG IVP ×3 (02:47→20:04)
--- NOTE | 2025-02-04 03:07 | PC.NURSE ---
MAR: Dr. Dutton was contacted to clarify MAR orders. Protonix to be rescheduled for 0900 and d/c subcutaneous heparin with SCDs to replace DVT prophylaxis.
[2025-02-04] MEDS: FUROsemide 10 mg/mL SDV 2mL 20 MG IVP (05:23)
--- NOTE | 2025-02-04 05:35 | PC.NURSE ---
Lasix: Dr. Dutton gave telephone orders to transfuse another unit of RBCs and give 20mg Lasix IVP.
--- NOTE | 2025-02-04 06:48 | PM.CONSULT ---
Providers/Reason For Consult Consulting Physician/Specialty*: General Surgery Reason for Consult*: Upper GI bleeding Attending Physician: Marcelina Dutton MD Primary Care Provider: HANK James History of Present Illness History of Present Illness Teresa Garcia is a 74 year old female admitted with suspected upper GI bleeding. Patient has history of chronic C. difficile infection has seen treatment currently. Over the last week or so she has been feeling very weak and has seen some darker stool. Hematemesis. Hemoglobin in arrival is about 5. Otherwise stable. We will consulted for possible upper endoscopy for suspected upper GI bleeding. Review of Systems General: Reports: 10 or more systems reviewed and unremarkable except in HPI and below Medications/Allergies Home Medications ?Medication ?Instructions ?Recorded ?Confirmed ?Last Taken ?Type aspirin 81 mg tablet,delayed 81 mg PO DAILY 10/19/19 02/02/25 01/10/25 08:00 History release Diabetic shoes #1 ea 10/14/20 02/02/25 Unknown Rx cholecalciferol (vitamin D3) 25 25 mcg PO DAILY 10/27/20 02/02/25 01/10/25 08:00 History mcg (1,000 unit) capsule (Vitamin D3) vitamin E 268 mg (400 unit) capsule 400 unit PO DAILY 10/27/20 02/02/25 01/10/25 08:00 History nitroglycerin 0.4 mg sublingual 0.4 mg sublingual Q5M PRN chest 01/22/23 02/02/25 Unknown Rx tablet pain #20 tabs lancets (Accu-Chek Softclix #100 ea 04/16/23 02/02/25 Unknown Rx Lancets) right cmc splint #1 ea 01/07/24 02/02/25 Unknown Rx alendronate 70 mg tablet (Fosamax) 70 mg PO .weekly #12 tabs 07/27/24 02/02/25 Unknown Rx blood sugar diagnostic (Accu-Chek #100 ea 07/27/24 02/02/25 Unknown Rx Guide test strips) doxepin 25 mg capsule 25 - 50 mg (1 - 2 x 25 mg) PO 07/27/24 02/02/25 01/10/25 08:00 Rx DAILY #180 caps duloxetine 20 mg capsule,delayed 20 mg PO BID #180 caps 07/27/24 02/02/2525 08:00 Rx release (Cymbalta) fenofibrate nanocrystallized 145 145 mg PO DAILY #90 tabs 07/27/24 02/02/25 01/10/25 08:00 Rx mg tablet (Tricor) fluticasone 250 mcg-salmeterol 50 1 inh inhalation Q12H #180 ea 07/27/24 02/02/25 01/10/25 08:00 Rx mcg/dose blistr powdr for inhalation (Advair Diskus) glipizide 5 mg tablet, extended 5 mg PO BID #180 tabs 07/27/24 02/02/25 01/10/25 08:00 Rx release 24 hr levothyroxine 100 mcg tablet 100 mcg PO DAILY #90 tabs 07/27/24 02/02/25 01/10/25 08:00 Rx metoprolol succinate 100 mg 100 mg PO DAILY #90 tabs 07/27/24 02/02/25 01/10/25 08:00 Rx tablet,extended release 24 hr pen needle, diabetic 33 gauge x #100 ea 07/27/24 02/02/25 Unknown Rx potassium chloride 10 mEq 10 meq PO BID #180 tabs 07/27/24 02/02/25 01/10/25 08:00 Rx tablet,extended release prednisone 5 mg tablet 5 mg PO DAILY #90 tabs 09/07/24 02/02/25 01/10/25 08:00 Rx tizanidine 2 mg tablet 2 mg PO .at bedtime PRN muscle 10/14/24 02/02/25 12/24/24 Rx spasticity #90 tabs calcium 500 mg (as 1 tab PO BID 11/02/24 02/02/25 01/10/25 08:00 History carbonate)-vitamin D3 15 mcg (600 unit) tablet (Os-Jose Luis 500 + D3) omega-3 fatty acids 1,000 mg 1,000 mg PO DAILY 11/02/24 02/02/25 01/10/25 08:00 History capsule valsartan 320 mg tablet (Diovan) 320 mg PO DAILY #90 tabs 12/01/24 02/02/25 01/10/25 08:00 Rx albuterol sulfate 90 mcg/actuation 2 puff inhalation QID PRN 12/19/24 02/02/25 Unknown Rx aerosol inhaler (Ventolin HFA) Shortness Of Breath #25.5 grams cyanocobalamin (vitamin B-12) 1,000 mcg SUBCUT Q30D 12/24/24 02/02/25 Unknown History 1,000 mcg/mL injection solution cholestyramine 4 gram oral powder 2 g PO BID 30 days #210 grams 12/28/24 02/02/25 01/10/25 08:00 Rx (Questran Light) glucagon HCl 1 mg solution for 1 mg IM Q20M PRN hypoglycemia #1 ea 12/28/24 02/02/25 Unknown Rx injection (Glucagon (HCl) Emergency Kit) insulin glargine 100 unit/mL (3 10 unit (0.1 mL) SUBCUT QAM #31.5 12/28/24 02/02/25 01/10/25 08:00 Rx mL) subcutaneous pen (Lantus mL Solostar U-100 Insulin) Lactobacillus rhamnosus GG 20 See Rx Instructions PO .2 times 01/01/25 02/02/25 01/10/25 08:00 Rx billion cell capsule (Probiotic day #60 caps [facility]) fluconazole 100 mg tablet 100 mg PO DAILY #12 tabs 01/01/25 02/02/25 01/10/25 08:00 Rx (Diflucan) quetiapine 50 mg tablet (Seroquel) 50 mg PO .at bedtime #30 tabs 01/01/25 02/02/25 01/09/25 20:00 Rx acetaminophen 325 mg tablet 650 mg (2 x 325 mg) PO Q6H PRN 01/14/25 02/02/25 Unknown Rx Mild Pain #30 tabs fidaxomicin 200 mg tablet (Dificid) 200 mg PO BID #30 tabs 01/14/25 02/02/25 Unknown Rx sodium bicarbonate 650 mg tablet 650 mg PO TID #15 tabs 01/14/25 02/02/25 Unknown Rx sodium di- and 1 tab PO BID #20 tabs 01/14/25 02/02/25 Unknown Rx monophosphate-potassium phos monobasic 250 mg tablet (Phospha Neutral) vancomycin 125 mg capsule 125 mg PO QID #40 caps 01/14/25 02/02/25 Unknown Rx furosemide 40 mg tablet (Lasix) 40 mg PO DAILY #30 tabs 01/20/25 02/02/25 Unknown Rx ferrous sulfate 300 mg (60 mg 300 mg (5 mL) PO DAILY #120 mL 01/22/25 02/02/25 Unknown Rx iron)/5 mL oral liquid spironolactone 25 mg tablet mg PO 02/02/25 02/02/25 Unknown History Allergies Allergy/AdvReac Type Severity Reaction Status Date / Time Penicillins Allergy Severe Rash Verified 02/03/25 23:00 Sulfa (Sulfonamide Allergy Severe Rash Verified 02/03/25 23:00 Antibiotics) Latex, Natural Rubber AdvReac Severe Rash Verified 02/03/25 23:00 adhesive AdvReac Intermediate Rash Verified 02/03/25 23:00 trazodone AdvReac Do not Verified 02/03/25 23:00 tolerate Current Medications Generic Name Dose Route Start Last Admin Trade Name Freq PRN Reason Stop Dose Admin Sodium Chloride 1,000 mls @ 75 mls/hr 02/04/25 02:13 02/04/25 02:48 Sodium Chloride 0.9% IV 75 mls/hr .[id number] SURENDRA Administration Morphine Sulfate 2 mg 02/04/25 02:13 02/04/25 02:47 Morphine 4 Mg/Ml Sdv 1 Ml IVP 2 mg Q4H PRN Administration SEVERE PAIN PFSH Acute PFSH: Medical History Diastolic dysfunction with chronic heart failure Type 2 diabetes mellitus with hyperglycemia, with long-term current use of insulin Osteoarthritis of hands, bilateral Immunization counseling High risk medication use Seropositive rheumatoid arthritis of multiple sites Osteoporosis Cigarette smoker COPD (chronic obstructive pulmonary disease) Unstable angina Hypertension Environmental and seasonal allergies Vitamin D deficiency Mixed hyperlipidemia Diverticulosis Adult hypothyroidism Surgical History History of lumbar surgery Rods in lumbar History of cholecystectomy History of tubal ligation History of foot surgery left Family History Father Diabetes Mother CAD (coronary artery disease) Other Dementia Social History Smoking and tobacco/nicotine status: current every day tobacco/nicotine user (3/4 of a pack a day) Second hand smoke exposure: Yes Alcohol intake: never Substance/Drug Use: never Adopted: No Caregiver/support person: No Lives independently: Yes Household members: spouse Housing: House Marital status: Number of children: 3 service: No Current occupational status: retired Do you think of yourself as: Straight/Heterosexual Current gender identity: Female Vitals/I&O/Wt Last Vital Signs Temp 98.1 F 02/04/25 05:46 Pulse 72 02/04/25 06:44 Resp 28 H 02/04/25 05:31 BP 122/57 02/04/25 05:31 Pulse Ox 99 02/04/25 05:31 O2 Del Method Room Air 02/04/25 05:15 02/03/25 02/03/25 02/04/25 14:59 22:59 06:59 Intake Total 700 / 700 1350 / 2050 Balance 700 / 700 1350 / 2050 Weight last 48 hrs Weight 169 lb 12.095 oz Weight 169 lb 12.095 oz Weight 161 lb Physical Exam GI: OTHER: Abdominal examination is benign the abdomen is soft nontender nondistended. Data 02/03/25 23:14 02/03/25 23:14 Micro: Microbiology 02/03/25 23:16 Blood Culture - Preliminary Blood SPECIMEN COLLECTED 02/03/25 23:14 Blood Culture - Preliminary Blood SPECIMEN COLLECTED A&P Assessment and plan 1. Acute upper GI bleeding: Plan: After complete history, physical examination and review of all available clinical data the following is my assessment. Patient does get symptoms concerning for suspected upper GI bleeding. Upper endoscopy is indicated. Patient is currently receiving 2 units of blood transfusion, the plan is to recheck hemoglobin after transfusion is finished. Will plan to proceed with upper endoscopy later today. I have discussed with the patient all risk benefits of the procedure including the risk of bleeding, perforation of the esophagus stomach or duodenum, lack of source control, need for additional interventions and transfer to higher level of care, injury to soft tissue of the mouth and pharynx. She shows understanding agrees to proceed. PDMP PDMP Reviewed: Not Reviewed Coding Level of Care Code Acute Code for Chg Fwd Diagnoses Acute upper GI bleeding K92.2
[2025-02-04] MEDS: pantoprazole 40 mg SDV IVP ×2 (08:01→20:04)
[2025-02-04] MEDS: cefTRIAXone 2,000 mg SDV 2000 MG IVP (08:01)
--- NOTE | 2025-02-04 09:18 | PC.PHAR ---
Per family, pt is unable to verify her medications and it is unknown when she last took any of them. Med Rec completed via pts' discharge list from 01/14/25 per family's request. 5 new orders added and 3 older orders dc'd.
[2025-02-04 09:34] LABS: Hematocrit 26.9 % (36-47); Mean Corpuscular HGB Conc 32.3 g/dL (30-55); Mean Corpuscular Hemoglobin 32.0 pg (27-33); Mean Corpuscular Volume 98.9 fl (85-98); Nucleated Red Blood Cells % 0.6 %; Platelet Count 366 10^3/cmm (157-399); Red Blood Count 2.72 10^6/uL (3.85-5.65); White Blood Count 9.58 10^3/uL (3.29-11.43)
[2025-02-04 09:40] LABS: Hemoglobin 8.70 g/dL (11.27-16.99)
[2025-02-04 09:54] LABS: Albumin Level 3.3 g/dL (3.5-5.2); Alkaline Phosphatase 38 U/L (35-105); Anion Gap 16.6 (5-19); Aspartate Amino Transferase 31 U/L (0-32); Blood Urea Nitrogen 56 mg/dL (8-23); Calcium 7.9 mg/dL (8.5-10.5); Carbon Dioxide 20 mmol/L (22-29); Chloride 104 mmol/L (98-107); Creatinine Clr Calc Pharmacy 22.8897; Globulin 2.3 g/dL (1.3-4.6); Glucose 79 mg/dL (65-115); Magnesium 2.2 mg/dL (1.7-2.3); Osmolality Calculated 296 mOsm/kg (285-295); Potassium 4.6 mmol/L (3.5-5.1); Sodium 136 mmol/L (136-145); Total Protein 5.6 g/dL (6.6-8.7)
[2025-02-04 10:08] LABS: Alanine Aminotransferase 18 U/L (0-33)
--- NOTE | 2025-02-04 11:54 | ANES.PREANE2 ---
Pre-Anesthetic Assessment Height/Weight: Height 5 ft 4 in Weight 169 lb 12.095 oz Temp Pulse Resp BP Pulse Ox O2 Del Method 98.5 F 67 22 H 136/60 98 Room Air 02/04/25 08:00 02/04/25 08:00 02/04/25 08:00 02/04/25 08:00 02/04/25 08:00 02/04/25 08:00 Preop Diagnosis: Concern for GI bleed Operation Date: 02/04/25 12:25 Proposed Procedures p EGD(Not Applicable) - Abran Garcia MD Was Beta Heather taken within 24 hours: Yes Was Clonidine taken within 24 hours: N/A Social No alcohol and No tobacco Exam alert and oriented x 3 Airway Mallampati: Class III Anesthetic Plan ASA status: 4 Anesthesia: MAC Other: Patient admitted to the ICU with profound anemia. Hemoglobin 5.1 at admission Patient has received 2 units PRBCs in the ER, hemoglobin 8.7 this a.m. Echo showing moderate aortic stenosis Negative stress test History of hypertension on amlodipine, hydralazine and metoprolol Type 2 diabetes on insulin Plan for MAC anesthesia Medications/Allergies Home Medications ?Medication ?Instructions ?Recorded ?Confirmed ?Last Taken ?Type aspirin 81 mg tablet,delayed 81 mg PO DAILY 10/19/19 02/04/25 01/10/25 08:00 History release Diabetic shoes #1 ea 10/14/20 02/04/25 Unknown Rx cholecalciferol (vitamin D3) 25 25 mcg PO DAILY 10/27/20 02/04/25 01/10/25 08:00 History mcg (1,000 unit) capsule (Vitamin D3) vitamin E 268 mg (400 unit) capsule 400 unit PO DAILY 10/27/20 02/04/25 01/10/25 08:00 History nitroglycerin 0.4 mg sublingual 0.4 mg sublingual Q5M PRN chest 01/22/23 02/04/25 Unknown Rx tablet pain #20 tabs lancets (Accu-Chek Softclix #100 ea 04/16/23 02/04/25 Unknown Rx Lancets) right cmc splint #1 ea 01/07/24 02/04/25 Unknown Rx alendronate 70 mg tablet (Fosamax) 70 mg PO .weekly #12 tabs 07/27/24 02/04/25 Unknown Rx blood sugar diagnostic (Accu-Chek #100 ea 07/27/24 02/04/25 Unknown Rx Guide test strips) fenofibrate nanocrystallized 145 145 mg PO DAILY #90 tabs 07/27/24 02/04/25 01/10/25 08:00 Rx mg tablet (Tricor) glipizide 5 mg tablet, extended 5 mg PO BID #180 tabs 07/27/24 02/04/25 01/10/25 08:00 Rx release 24 hr levothyroxine 100 mcg tablet 100 mcg PO DAILY #90 tabs 07/27/24 02/04/25 01/10/25 08:00 Rx metoprolol succinate 100 mg 100 mg PO DAILY #90 tabs 07/27/24 02/04/25 01/10/25 08:00 Rx tablet,extended release 24 hr pen needle, diabetic 33 gauge x #100 ea 07/27/24 02/04/25 Unknown Rx potassium chloride 10 mEq 10 meq PO BID #180 tabs 07/27/24 02/04/25 01/10/25 08:00 Rx tablet,extended release prednisone 5 mg tablet 5 mg PO DAILY #90 tabs 09/07/24 02/04/25 01/10/25 08:00 Rx tizanidine 2 mg tablet 2 mg PO .at bedtime PRN muscle 10/14/24 02/04/25 12/24/24 Rx spasticity #90 tabs calcium 500 mg (as 1 tab PO BID 11/02/24 02/04/25 01/10/25 08:00 History carbonate)-vitamin D3 15 mcg (600 unit) tablet (Os-Jose Luis 500 + D3) omega-3 fatty acids 1,000 mg 1,000 mg PO DAILY 11/02/24 02/04/25 01/10/25 08:00 History capsule valsartan 320 mg tablet (Diovan) 320 mg PO DAILY #90 tabs 12/01/24 02/04/25 01/10/25 08:00 Rx albuterol sulfate 90 mcg/actuation 2 puff inhalation QID PRN 12/19/24 02/04/25 Unknown Rx aerosol inhaler (Ventolin HFA) Shortness Of Breath #25.5 grams cyanocobalamin (vitamin B-12) 1,000 mcg SUBCUT Q30D 12/24/24 02/04/25 Unknown History 1,000 mcg/mL injection solution cholestyramine 4 gram oral powder 2 g PO BID 30 days #210 grams 12/28/24 02/04/25 01/10/25 08:00 Rx (Questran Light) glucagon HCl 1 mg solution for 1 mg IM Q20M PRN hypoglycemia #1 ea 12/28/24 02/04/25 Unknown Rx injection (Glucagon (HCl) Emergency Kit) insulin glargine 100 unit/mL (3 10 unit (0.1 mL) SUBCUT QAM #31.5 12/28/24 02/04/25 01/10/25 08:00 Rx mL) subcutaneous pen (Lantus mL Solostar U-100 Insulin) quetiapine 50 mg tablet (Seroquel) 50 mg PO .at bedtime #30 tabs 01/01/25 02/04/25 01/09/25 20:00 Rx acetaminophen 325 mg tablet 650 mg (2 x 325 mg) PO Q6H PRN 01/14/25 02/04/25 Unknown Rx Mild Pain #30 tabs fidaxomicin 200 mg tablet (Dificid) 200 mg PO BID #30 tabs 01/14/25 02/04/25 Unknown Rx sodium bicarbonate 650 mg tablet 650 mg PO TID #15 tabs 01/14/25 02/04/25 Unknown Rx sodium di- and 1 tab PO BID #20 tabs 01/14/25 02/04/25 Unknown Rx monophosphate-potassium phos monobasic 250 mg tablet (Phospha Neutral) vancomycin 125 mg capsule 125 mg PO QID #40 caps 01/14/25 02/04/25 Unknown Rx ferrous sulfate 300 mg (60 mg 300 mg (5 mL) PO DAILY #120 mL 01/22/25 02/04/25 Unknown Rx iron)/5 mL oral liquid Lactobacillus rhamnosus GG 20 See Rx Instructions .Route .COMPLEX 02/04/25 02/04/25 Unknown History billion cell capsule (Probiotic Digestive Care) amlodipine 5 mg tablet 5 mg PO BID 02/04/25 02/04/25 Unknown History doxepin 25 mg capsule 25 - 50 mg PO QPM 02/04/25 02/04/25 Unknown History duloxetine 20 mg capsule,delayed 20 mg PO BID 02/04/25 02/04/25 Unknown History release fluticasone 250 mcg-salmeterol 50 1 inh inhalation Q12H PRN 02/04/25 02/04/25 Unknown History mcg/dose blistr powdr for Shortness Of Breath inhalation (Advair Diskus) hydralazine 25 mg tablet 25 mg PO TID 02/04/25 02/04/25 Unknown History Allergies Allergy/AdvReac Type Severity Reaction Status Date / Time Penicillins Allergy Severe Rash Verified 02/03/25 23:00 Sulfa (Sulfonamide Allergy Severe Rash Verified 02/03/25 23:00 Antibiotics) Latex, Natural Rubber AdvReac Severe Rash Verified 02/03/25 23:00 adhesive AdvReac Intermediate Rash Verified 02/03/25 23:00 trazodone AdvReac Do not Verified 02/03/25 23:00 tolerate Current Medications Generic Name Dose Route Start Last Admin Trade Name Freq PRN Reason Stop Dose Admin Ceftriaxone Sodium 2,000 mg 02/04/25 07:00 02/04/25 08:01 Ceftriaxone 2,000 Mg Sdv IVP 2,000 mg Q24H SURENDRA Administration Protocol Sodium Chloride 1,000 mls @ 75 mls/hr 02/04/25 02:13 02/04/25 02:48 Sodium Chloride 0.9% IV 75 mls/hr .[id number] SURENDRA Administration Morphine Sulfate 2 mg 02/04/25 02:13 02/04/25 07:59 Morphine 4 Mg/Ml Sdv 1 Ml IVP 2 mg Q4H PRN Administration SEVERE PAIN Pantoprazole Sodium 40 mg 02/04/25 09:00 02/04/25 08:01 Pantoprazole 40 Mg Sdv IVP 40 mg Q12H SURENDRA Administration [facility] Anesthesia Medical History Diastolic dysfunction with chronic heart failure Type 2 diabetes mellitus with hyperglycemia, with long-term current use of insulin Osteoarthritis of hands, bilateral Immunization counseling High risk medication use Seropositive rheumatoid arthritis of multiple sites Osteoporosis Cigarette smoker COPD (chronic obstructive pulmonary disease) Unstable angina Hypertension Environmental and seasonal allergies Vitamin D deficiency Mixed hyperlipidemia Diverticulosis Adult hypothyroidism Surgical History History of lumbar surgery Rods in lumbar History of cholecystectomy History of tubal ligation History of foot surgery left Family History Father Diabetes Mother CAD (coronary artery disease) Other Dementia Social History Smoking and tobacco/nicotine status: current every day tobacco/nicotine user (3/4 of a pack a day) Second hand smoke exposure: Yes Alcohol intake: never Substance/Drug Use: never Adopted: No Caregiver/support person: No Lives independently: Yes Household members: spouse Housing: House Marital status: Number of children: 3 service: No Current occupational status: retired Do you think of yourself as: Straight/Heterosexual Current gender identity: Female Data Anesthesia 02/04/25 09:24 02/04/25 09:24 Short CBC 02/03/25 02/04/25 Range/Units 23:14 09:24 WBC 11.53 H 9.58 (3.29-11.43) 10^3/uL Hgb 5.10 L* 8.70 L D (11.27-16.99) g/dL Hct 16.7 L* 26.9 L D (36-47) % MCV 114.4 H 98.9 H D (85-98) fl Plt Count 399 366 (157-399) 10^3/cmm Neut % (Auto) 73.5 65.4 % Neut # (Auto) 8.47 H 6.26 (1.8-7.7) 10^3/uL BMP 02/03/25 02/04/25 23:14 09:24 Sodium 129 L 136 Potassium 4.7 4.6 Chloride 98 104 Carbon Dioxide 18 L 20 L BUN 62 H 56 H Creatinine 2.2 H 2.1 H Glucose 202 H 79 Calcium 7.9 L 7.9 L Liver Function 02/03/25 02/04/25 Range/Units 23:14 09:24 Total Bilirubin 0.2 0.3 (0.15-1.2) mg/dL AST 22 31 (0-32) U/L ALT 15 18 (0-33) U/L Alkaline Phosphatase 45 38 (35-105) U/L Albumin 3.0 L 3.3 L (3.5-5.2) g/dL Urine 02/03/25 Range/Units 23:14 Urine Color Yellow (Yellow) Urine Appearance Clear (CLEAR) Urine pH 5.5 (5-7) Ur Specific [place] 1.013 (1.005-1.030) Urine Protein Negative (Negative) Urine Glucose (UA) Negative (Normal) Urine Ketones Negative (Negative) Urine Nitrate Negative (Negative) Urine Bilirubin Negative (Negative) Ur Leukocyte Esterase Negative (Negative) Urine RBC 0-2 (0-2) /hpf Urine WBC 0-5 (0-5) /hpf Blood Bank 02/03/25 23:49 Blood Type O Negative Rho(D) Type Rh negative Antibody Screen Negative Coags 02/03/25 23:14 PT 13.40 INR 0.95 APTT 24.0 C-Reactive Protein 3.0 Microbiology 02/03/25 23:16 Blood Culture - Preliminary Blood SPECIMEN COLLECTED 02/03/25 23:14 Blood Culture - Preliminary Blood SPECIMEN COLLECTED Cardiac Studies: Echocardiogram 11/02/24 Echocardiogram Ultrasound 12/28/19 Sestamibi Stress Test (Cardiology) 11/03/24 Cardiac Event Monitor 03/06/23
--- NOTE | 2025-02-04 12:20 | PM.MISC ---
Miscellaneous Note Purpose of Documentation: Update on patient care Note: No evidence of active upper GI bleeding in the upper endoscopy, there is gastritis and duodenitis and some stigmata of possible bleeding in the duodenum but there is nothing actively happening at the moment. Patient can stay on twice a day PPI for next 4 to 6 weeks as well as Carafate with meals and can return to my office in 2 weeks to discuss possibility of repeat endoscopy in the future.
--- NOTE | 2025-02-04 12:44 | PM.MISC ---
Miscellaneous Note Note: Patient seen this morning. She will be going for EGD. States has been having dark-colored diarrhea for last few weeks and was feeling really weak and tired when she presented to the hospital. She has not seen any gross blood in urine or stool. We will continue Dificid as per ID recommendations. Continue to hold metoprolol antihypertensives at this time. Once blood pressure is stable we may gradually restart some of her home medications. We will continue to watch for now. After EGD depending upon results we will decide on further management. At this time patient states she is feeling slightly better and no longer having any diarrhea.
[2025-02-04] MEDS: cyanocobalamin 1,000 mcg/mL SDV 1000 MCG SUBCUT ×2 (13:26→13:28)
--- NOTE | 2025-02-04 17:58 | PC.NURSE ---
Received verbal order from Dr. Dewitt for a stat CBC, and then CBC Q12hr.
[2025-02-04 18:50] LABS: Hematocrit 28.9 % (36-47); Hemoglobin 9.50 g/dL (11.27-16.99); Mean Corpuscular HGB Conc 32.9 g/dL (30-55); Mean Corpuscular Hemoglobin 32.1 pg (27-33); Mean Corpuscular Volume 97.6 fl (85-98); Nucleated Red Blood Cells % 0.6 %; Platelet Count 364 10^3/cmm (157-399); Red Blood Count 2.96 10^6/uL (3.85-5.65); White Blood Count 10.50 10^3/uL (3.29-11.43)
[2025-02-05] VITALS (21 sets, daily range): BP systolic 118–171; BP diastolic 52–85; PULSE 74–104; RESP 16–29; TEMP 36.7–38.2; O2SAT 92–97
--- OUTSIDE RECORDS SUMMARY | 2025-02-05 03:14 | XMS_ITS | Clinical Summary ---
Author Organization [employer] [facility] Address [address] 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
[2025-02-05 05:25] LABS: Hematocrit 29.1 % (36-47); Hemoglobin 9.20 g/dL (11.27-16.99); Mean Corpuscular HGB Conc 31.6 g/dL (30-55); Mean Corpuscular Hemoglobin 31.5 pg (27-33); Mean Corpuscular Volume 99.7 fl (85-98); Nucleated Red Blood Cells % 0.3 %; Platelet Count 398 10^3/cmm (157-399); Red Blood Count 2.92 10^6/uL (3.85-5.65); White Blood Count 11.06 10^3/uL (3.29-11.43)
[2025-02-05 05:45] LABS: Alanine Aminotransferase 20 U/L (0-33); Albumin Level 3.3 g/dL (3.5-5.2); Alkaline Phosphatase 41 U/L (35-105); Anion Gap 20.4 (5-19); Aspartate Amino Transferase 36 U/L (0-32); Blood Urea Nitrogen 38 mg/dL (8-23); Calcium 7.9 mg/dL (8.5-10.5); Carbon Dioxide 17 mmol/L (22-29); Chloride 106 mmol/L (98-107); Creatinine Clr Calc Pharmacy 26.6207; Globulin 2.6 g/dL (1.3-4.6); Glucose 111 mg/dL (65-115); Magnesium 2.3 mg/dL (1.7-2.3); Osmolality Calculated 298 mOsm/kg (285-295); Potassium 4.4 mmol/L (3.5-5.1); Sodium 139 mmol/L (136-145); Total Protein 5.9 g/dL (6.6-8.7)
[2025-02-05] MEDS: cefTRIAXone 2,000 mg SDV 2000 MG IVP (06:13)
--- NOTE | 2025-02-05 07:58 | P.PN_ITS ---
Subjective 2 Subjective: Patient doing very well over the last 24 hours. Feeling much better no significant abdominal pain. Vitals/I&O/Wt Last Vital Signs Temp 100.7 F H 02/05/25 07:00 Pulse 90 02/05/25 07:00 Resp 23 H 02/05/25 07:00 BP 163/71 02/05/25 07:00 Pulse Ox 96 02/05/25 07:00 O2 Del Method Room Air 02/05/25 07:00 02/04/25 02/05/25 02/05/25 22:59 06:59 14:59 Intake Total 1555 / 2305 1232.5 / 3537.5 Output Total 700 / 800 400 / 1200 Balance 855 / 1505 832.5 / 2337.5 Weight last 48 hrs Weight 168 lb 10.458 oz Weight 169 lb 12.095 oz Weight 169 lb 12.095 oz Weight 161 lb Physical Exam 2 GI: OTHER: Abdomen soft nontender nondistended Data 02/05/25 05:00 02/05/25 05:00 Micro: Microbiology 02/03/25 23:16 Blood Culture - Preliminary Blood NEGATIVE TO DATE 02/03/25 23:14 Blood Culture - Preliminary Blood NEGATIVE TO DATE A&P Assessment and plan 1. Acute upper GI bleeding: Plan: Good progression from the surgical standpoint. Hemoglobin has remained stable. Endoscopy showed no evidence of active bleeding at this time. Patient can continue on twice a day PPI and Carafate and can follow-up at the surgery clinic in a couple of weeks to discuss further steps.All other management per medical team, general surgery will remain available as needed PDMP PDMP Reviewed: Not Reviewed Attestations 2 Medical Necessity Statement*: Per medical team Coding Level of Care Code Acute Code for Chg Fwd Diagnoses Acute upper GI bleeding K92.2
[2025-02-05] MEDS: pantoprazole 40 mg SDV IVP ×2 (08:05→20:10)
[2025-02-05] MEDS: morphine 4 mg/mL SDV 1 mL 2 MG IVP ×2 (10:16→20:10)
--- NOTE | 2025-02-05 10:48 | PC.SOCIAL ---
IMM Update pg 2 of IMM Updated and reviewed w/ patient. Copy provided and copy dated, initialed and placed in chart.
--- NOTE | 2025-02-05 11:45 | P.PN_ITS ---
Subjective 2 Subjective: Seen this morning. States she is having black tarry stools. Had 1 episode overnight. Hemoglobin 9.2 today. Creatinine 1.8. Patient states she feels better compared to before. Vitals/I&O/Wt Last Vital Signs Temp 100.7 F H 02/05/25 07:00 Pulse 92 02/05/25 09:00 Resp 16 02/05/25 10:16 BP 118/85 02/05/25 09:00 Pulse Ox 95 02/05/25 10:16 O2 Del Method Room Air 02/05/25 09:00 02/04/25 02/05/25 02/05/25 22:59 06:59 14:59 Intake Total 1555 / 2305 1232.5 / 3537.5 360 / 360 Output Total 700 / 800 400 / 1200 250 / 250 Balance 855 / 1505 832.5 / 2337.5 110 / 110 Weight last 48 hrs Weight 76.5 kg Weight 77 kg Weight 77 kg Weight 73.028 kg Physical Exam 2 Narrative: General: Alert oriented x3, patient seen sitting up in bed appearing comfortable. HEENT: Normocephalic, atraumatic, EOMI, Respiratory clear to auscultation bilaterally no wheezes or rhonchi at this time. Cardio: Normal S1-S2, regular rate rhythm. GI: Abdomen soft, nontender, bowel sounds + Extremities: Pulses 2+, no edema, no cyanosis Data 02/05/25 05:00 02/05/25 05:00 Micro: Microbiology 02/03/25 23:16 Blood Culture - Preliminary Blood NEGATIVE TO DATE 02/03/25 23:14 Blood Culture - Preliminary Blood NEGATIVE TO DATE A&P Assessment and plan 1. Acute on chronic renal insufficiency: 2. Hypotension: 2 units of packed red blood cells infusing it will finish in another hour and then another hour should be allowed to send lab studies. Follow through with H&H. Patient received Lasix in between today the 2 units. Surgery on case will follow-up with the patient 3. C. difficile colitis: Continue patient C-DIFF treatment as per the ID outpatient care 4. Acute blood loss anemia: Optimized with 2 units of packed red blood cell lab studies yet to be drawn because patient is currently receiving blood products. Labs will be sent 1 hour after post transfusion 5. Recurrent Clostridioides difficile diarrhea: Treatment to continue with diFICID 200 mg twice daily for 30 days 6. Hyponatremia: Mild hyponatremia monitor with daily lab for interval change 7. Generalized weakness: Generalized body weakness secondary to profound anemia continue to monitor and optimize 8. Cystitis: Continue with antibiotics of ceftriaxone for UTI Plan: GI and DVT prophylaxis in place 02/05/2025 Had another episode of black tarry stool. Hemoglobin 9.2 today. This may be possible residual stool from prior bleed. No active bleed at this time per EGD report from yesterday. Continue to monitor hemoglobin at this time. ? Patient also had a fever overnight 100.7. No active source identified at this time. Will continue to monitor off antibiotics. Does have a chronic cough and history of COPD. Check chest x-ray today. Continue to monitor CBC every 12 hours. Continue ceftriaxone for UTI. If remains stable from hemoglobin standpoint may consider discharge in next 24 to 48 hours to follow-up as an outpatient. However I did have a discussion with patient that if her hemoglobin continues to downtrend and black tarry stools are continued she may require transfer to higher level of care for GI evaluation. Echo from October 2024 does show mild to moderate aortic stenosis. Patient could possibly have AV malformations that intermittently bleed. Her last colonoscopy was 5 years ago. Transferred to medical surgical floor today. Continue to monitor in hospital setting. PDMP PDMP Reviewed: Not Reviewed Attestations 2 Medical Necessity Statement*: Requires continued monitoring of hemoglobin in the hospital as patient had another episode of black tarry stool. Diagnoses Acute on chronic renal insufficiency N28.9; N18.9 Hypotension I95.9 C. difficile colitis A04.72 Acute blood loss anemia D62 Recurrent Clostridioides difficile diarrhea A04.71 Hyponatremia E87.1 Generalized weakness R53.1 Cystitis N30.90
--- NOTE | 2025-02-05 16:33 | XRR_ITS ---
PROCEDURE INFORMATION: Exam: XR Chest Exam date and time: 02/05/2025 4:57 PM Age: 74 years old Clinical indication: Cough and fever; Additional info: Cough, fever TECHNIQUE: Imaging protocol: Radiologic exam of the chest. Views: 1 view. COMPARISON: CR (CHEST, ) 02/03/2025 11:30 PM FINDINGS: Lungs: Similar left retrocardiac opacities. Streaky right basilar opacities, new from prior. Pleural spaces: Small bilateral effusions. No pneumothorax. Heart/Mediastinum: Cardiac silhouette is upper limits of normal, unchanged. Bones/joints: Unremarkable. XR/XR chest 1V portable [id number] IMPRESSION: 1. Similar left retrocardiac opacities. New streaky opacities in the right lung base. Findings may represent atelectasis and/or consolidation. 2. Small bilateral pleural effusions.
[2025-02-05 16:59] LABS: Hematocrit 29.2 % (36-47); Hemoglobin 9.10 g/dL (11.27-16.99); Mean Corpuscular HGB Conc 31.2 g/dL (30-55); Mean Corpuscular Hemoglobin 31.5 pg (27-33); Mean Corpuscular Volume 101.0 fl (85-98); Nucleated Red Blood Cells % 0 %; Platelet Count 378 10^3/cmm (157-399); Red Blood Count 2.89 10^6/uL (3.85-5.65); White Blood Count 9.11 10^3/uL (3.29-11.43)
--- NOTE | 2025-02-05 17:05 | PC.NURSE ---
Report was given to KRISH Troy in med surge. Patient was transferred with all medications. Patient was stable during transfer.
[2025-02-06] VITALS (7 sets, daily range): BP systolic 132–182; BP diastolic 54–72; PULSE 98–106; RESP 16–20; TEMP 36.9; O2SAT 92–97
[2025-02-06] MEDS: morphine 4 mg/mL SDV 1 mL 2 MG IVP ×3 (00:25→21:16)
[2025-02-06 04:07] LABS: Hematocrit 29.3 % (36-47); Hemoglobin 9.20 g/dL (11.27-16.99); Mean Corpuscular HGB Conc 31.4 g/dL (30-55); Mean Corpuscular Hemoglobin 31.5 pg (27-33); Mean Corpuscular Volume 100.3 fl (85-98); Nucleated Red Blood Cells % 0 %; Platelet Count 347 10^3/cmm (157-399); Red Blood Count 2.92 10^6/uL (3.85-5.65); White Blood Count 8.89 10^3/uL (3.29-11.43)
[2025-02-06 04:27] LABS: Alanine Aminotransferase 19 U/L (0-33); Albumin Level 3.3 g/dL (3.5-5.2); Alkaline Phosphatase 47 U/L (35-105); Anion Gap 17.3 (5-19); Aspartate Amino Transferase 28 U/L (0-32); Blood Urea Nitrogen 24 mg/dL (8-23); Calcium 8.2 mg/dL (8.5-10.5); Carbon Dioxide 20 mmol/L (22-29); Chloride 109 mmol/L (98-107); Creatinine Clr Calc Pharmacy 29.9483; Globulin 2.8 g/dL (1.3-4.6); Glucose 169 mg/dL (65-115); Magnesium 2.3 mg/dL (1.7-2.3); Osmolality Calculated 302 mOsm/kg (285-295); Potassium 4.3 mmol/L (3.5-5.1); Sodium 142 mmol/L (136-145); Total Protein 6.1 g/dL (6.6-8.7)
[2025-02-06] MEDS: FUROsemide 10 mg/mL SDV 10mL 60 MG IVP (05:09)
[2025-02-06] MEDS: cefTRIAXone 2,000 mg SDV 1000 MG IVP (06:15)
--- NOTE | 2025-02-06 06:19 | PC.NURSE ---
patient had fluid over load symptoms, contacted doctor she said to pause fluids and give 60mg lasix
[2025-02-06] MEDS: pantoprazole 40 mg SDV IVP ×2 (09:11→21:13)
--- NOTE | 2025-02-06 10:44 | PC.NURSE ---
Verbal order from Dr. Dewitt for PT eval and treat to determine rehab for patient.
--- NOTE | 2025-02-06 15:45 | P.PN_ITS ---
Subjective 2 Subjective: Seen this morning. Hemoglobin 9.2 this morning. She says she is weak and cannot walk. Interested in rehab. Vitals/I&O/Wt Last Vital Signs Temp 98.4 F 02/06/25 15:38 Pulse 102 H 02/06/25 15:38 Resp 18 02/06/25 15:38 BP 158/69 02/06/25 15:38 Pulse Ox 95 02/06/25 15:38 O2 Del Method Room Air 02/06/25 15:38 02/06/25 02/06/25 02/06/25 06:59 14:59 22:59 Intake Total 886.25 / 2180.00 360 / 360 Output Total 500 / 750 1700 / 1700 100 / 1800 Balance 386.25 / 1430.00 -1340 / -1340 -100 / -1440 Weight last 48 hrs Weight 79.152 kg Weight 76.5 kg Physical Exam 2 Narrative: General: Alert oriented x3, patient seen sitting up in bed appearing comfortable. HEENT: Normocephalic, atraumatic, EOMI, Respiratory clear to auscultation bilaterally no wheezes or rhonchi at this time. Cardio: Normal S1-S2, regular rate rhythm. GI: Abdomen soft, nontender, bowel sounds + Extremities: Pulses 2+, no edema, no cyanosis Data 02/06/25 03:05 02/06/25 03:05 A&P Assessment and plan 1. Acute on chronic renal insufficiency: 2. Hypotension: 2 units of packed red blood cells infusing it will finish in another hour and then another hour should be allowed to send lab studies. Follow through with H&H. Patient received Lasix in between today the 2 units. Surgery on case will follow-up with the patient 3. C. difficile colitis: Continue patient C-DIFF treatment as per the ID outpatient care 4. Acute blood loss anemia: Optimized with 2 units of packed red blood cell lab studies yet to be drawn because patient is currently receiving blood products. Labs will be sent 1 hour after post transfusion 5. Recurrent Clostridioides difficile diarrhea: Treatment to continue with diFICID 200 mg twice daily for 30 days 6. Hyponatremia: Mild hyponatremia monitor with daily lab for interval change 7. Generalized weakness: Generalized body weakness secondary to profound anemia continue to monitor and optimize 8. Cystitis: Continue with antibiotics of ceftriaxone for UTI Plan: GI and DVT prophylaxis in place 02/05/2025 Had another episode of black tarry stool. Hemoglobin 9.2 today. This may be possible residual stool from prior bleed. No active bleed at this time per EGD report from yesterday. Continue to monitor hemoglobin at this time. ? Patient also had a fever overnight 100.7. No active source identified at this time. Will continue to monitor off antibiotics. Does have a chronic cough and history of COPD. Check chest x-ray today. Continue to monitor CBC every 12 hours. Continue ceftriaxone for UTI. If remains stable from hemoglobin standpoint may consider discharge in next 24 to 48 hours to follow-up as an outpatient. However I did have a discussion with patient that if her hemoglobin continues to downtrend and black tarry stools are continued she may require transfer to higher level of care for GI evaluation. Echo from October 2024 does show mild to moderate aortic stenosis. Patient could possibly have AV malformations that intermittently bleed. Her last colonoscopy was 5 years ago. Transferred to medical surgical floor today. Continue to monitor in hospital setting. 02/06/2025 Hemoglobin is stable. Patient no longer having black tarry stool Continue fidaxomicin Continue levothyroxine Continue amlodipine 5 twice daily I will restart this today. Hold hydralazine 25 3 times daily Continue Lopressor 100 daily Continue prednisone 5 daily Protonix 40 twice daily Continue sucralfate PT consulted. Patient qualifies for rehab. PDMP PDMP Reviewed: Not Reviewed Attestations 2 Medical Necessity Statement*: Awaiting rehab placement. Diagnoses Acute on chronic renal insufficiency N28.9; N18.9 Hypotension I95.9 C. difficile colitis A04.72 Acute blood loss anemia D62 Recurrent Clostridioides difficile diarrhea A04.71 Hyponatremia E87.1 Generalized weakness R53.1 Cystitis N30.90
[2025-02-07] VITALS (9 sets, daily range): BP systolic 116–172; BP diastolic 58–86; PULSE 77–111; RESP 16–19; TEMP 36.7–36.9; O2SAT 93–98
[2025-02-07 02:45] LABS: Alanine Aminotransferase 16 U/L (0-33); Albumin Level 3.0 g/dL (3.5-5.2); Alkaline Phosphatase 72 U/L (35-105); Anion Gap 18.1 (5-19); Aspartate Amino Transferase 21 U/L (0-32); Blood Urea Nitrogen 21 mg/dL (8-23); Calcium 7.9 mg/dL (8.5-10.5); Carbon Dioxide 19 mmol/L (22-29); Chloride 106 mmol/L (98-107); Creatinine Clr Calc Pharmacy 28.6581; Globulin 2.5 g/dL (1.3-4.6); Glucose 254 mg/dL (65-115); Magnesium 2.1 mg/dL (1.7-2.3); Osmolality Calculated 300 mOsm/kg (285-295); Potassium 4.1 mmol/L (3.5-5.1); Sodium 139 mmol/L (136-145); Total Protein 5.5 g/dL (6.6-8.7)
[2025-02-07] MEDS: phenol oral Spray 177 mL 3 SPRAY MUCOUS MEM (06:00)
[2025-02-07] MEDS: cefTRIAXone 2,000 mg SDV 1000 MG IVP (06:01)
[2025-02-07] MEDS: metoprolol succinate ER (24 HR) 100 mg Tablet PO (09:53)
[2025-02-07] MEDS: pantoprazole 40 mg SDV IVP ×2 (09:53→20:26)
[2025-02-07 10:07] LABS: Hematocrit 29.2 % (36-47); Hemoglobin 9.10 g/dL (11.27-16.99); Mean Corpuscular HGB Conc 31.2 g/dL (30-55); Mean Corpuscular Hemoglobin 32.2 pg (27-33); Mean Corpuscular Volume 103.2 fl (85-98); Nucleated Red Blood Cells % 0 %; Platelet Count 375 10^3/cmm (157-399); Red Blood Count 2.83 10^6/uL (3.85-5.65); White Blood Count 8.47 10^3/uL (3.29-11.43)
--- NOTE | 2025-02-07 12:36 | P.PN_ITS ---
Subjective 2 Subjective: seen this morning no acute events overnight awaiting rehab placement Vitals/I&O/Wt Last Vital Signs Temp 98.0 F 02/07/25 11:09 Pulse 92 02/07/25 11:09 Resp 19 H 02/07/25 11:09 BP 165/73 02/07/25 11:09 Pulse Ox 96 02/07/25 11:09 O2 Del Method Room Air 02/07/25 11:09 02/06/25 02/07/25 02/07/25 22:59 06:59 14:59 Intake Total 120 / 480 240 / 240 Output Total 550 / 2250 200 / 2450 Balance -430 / -1770 -200 / -1970 240 / 240 Weight last 48 hrs Weight 76.793 kg Weight 79.152 kg Physical Exam 2 Narrative: General: Alert oriented x3, patient seen sitting up in bed appearing comfortable. HEENT: Normocephalic, atraumatic, EOMI, Respiratory clear to auscultation bilaterally no wheezes or rhonchi at this time. Cardio: Normal S1-S2, regular rate rhythm. GI: Abdomen soft, nontender, bowel sounds + Extremities: no edema, no cyanosis Data 02/07/25 09:48 02/07/25 01:20 Micro: Microbiology 02/05/25 09:14 Occult Blood (FIT) - Final Stool - Stool Aspirate A&P Assessment and plan 1. Acute on chronic renal insufficiency: 2. Hypotension: 2 units of packed red blood cells infusing it will finish in another hour and then another hour should be allowed to send lab studies. Follow through with H&H. Patient received Lasix in between today the 2 units. Surgery on case will follow-up with the patient 3. C. difficile colitis: Continue patient C-DIFF treatment as per the ID outpatient care 4. Acute blood loss anemia: Optimized with 2 units of packed red blood cell lab studies yet to be drawn because patient is currently receiving blood products. Labs will be sent 1 hour after post transfusion 5. Recurrent Clostridioides difficile diarrhea: Treatment to continue with diFICID 200 mg twice daily for 30 days 6. Hyponatremia: Mild hyponatremia monitor with daily lab for interval change 7. Generalized weakness: Generalized body weakness secondary to profound anemia continue to monitor and optimize 8. Cystitis: Continue with antibiotics of ceftriaxone for UTI Plan: GI and DVT prophylaxis in place 02/05/2025 Had another episode of black tarry stool. Hemoglobin 9.2 today. This may be possible residual stool from prior bleed. No active bleed at this time per EGD report from yesterday. Continue to monitor hemoglobin at this time. ? Patient also had a fever overnight 100.7. No active source identified at this time. Will continue to monitor off antibiotics. Does have a chronic cough and history of COPD. Check chest x-ray today. Continue to monitor CBC every 12 hours. Continue ceftriaxone for UTI. If remains stable from hemoglobin standpoint may consider discharge in next 24 to 48 hours to follow-up as an outpatient. However I did have a discussion with patient that if her hemoglobin continues to downtrend and black tarry stools are continued she may require transfer to higher level of care for GI evaluation. Echo from October 2024 does show mild to moderate aortic stenosis. Patient could possibly have AV malformations that intermittently bleed. Her last colonoscopy was 5 years ago. Transferred to medical surgical floor today. Continue to monitor in hospital setting. 02/06/2025 Hemoglobin is stable. Patient no longer having black tarry stool Continue fidaxomicin Continue levothyroxine Continue amlodipine 5 twice daily I will restart this today. Hold hydralazine 25 3 times daily Continue Lopressor 100 daily Continue prednisone 5 daily Protonix 40 twice daily Continue sucralfate PT consulted. Patient qualifies for rehab. 02/07/2025 protonix 40 BID sucralfate 1 gm BID Continue fidaxomicin Continue levothyroxine Continue amlodipine 5 twice daily I will restart this today. restart hydralazine 25 3 times daily Continue Lopressor 100 daily Continue prednisone 5 daily awaiting rehab placement PDMP PDMP Reviewed: Not Reviewed Attestations 2 Medical Necessity Statement*: Awaiting rehab placement. Diagnoses Acute on chronic renal insufficiency N28.9; N18.9 Hypotension I95.9 C. difficile colitis A04.72 Acute blood loss anemia D62 Recurrent Clostridioides difficile diarrhea A04.71 Hyponatremia E87.1 Generalized weakness R53.1 Cystitis N30.90
[2025-02-07 18:47] LABS: Rapid Strep A Test Negative (Negative)
[2025-02-07 20:27] LABS: Coronavirus 229E,HKU1,NL63,OC4 Not Detected (NOT DETECT); Parainfluenza Virus Type 1 Not Detected (NOT DETECT); Parainfluenza Virus Type 2 Not Detected (NOT DETECT); Parainfluenza Virus Type 3 Not Detected (NOT DETECT); Parainfluenza Virus Type 4 Not Detected (NOT DETECT); SARS-COV-2 Not Detected (NOT DETECT)
[2025-02-07] MEDS: morphine 4 mg/mL SDV 1 mL 2 MG IVP (23:30)
[2025-02-08 04:00] VITALS: BP 126/55; PULSE 75; RESP 18; TEMP 36.8; O2SAT 95
[2025-02-08] MEDS: cefTRIAXone 1,000 mg SDV 1000 MG IVP (06:57)
[2025-02-08 07:25] VITALS: BP 162/71; PULSE 78; RESP 16; TEMP 36.9; O2SAT 97
[2025-02-08] MEDS: metoprolol succinate ER (24 HR) 100 mg Tablet PO (09:21)
[2025-02-08] MEDS: pantoprazole 40 mg SDV IVP ×2 (09:21→20:52)
--- OUTSIDE RECORDS SUMMARY | 2025-02-08 10:03 | XMS_ITS | Clinical Summary ---
Author Organization [facility] Address [address] 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
[2025-02-08 11:04] VITALS: BP 162/73; PULSE 72; TEMP 36.9; O2SAT 97
[2025-02-08] MEDS: cetylpyridinium Lozenge 1 EACH MUCOUS MEM (15:47)
[2025-02-08 16:00] VITALS: BP 168/71; PULSE 70; RESP 16; TEMP 37.2; O2SAT 98
--- NOTE | 2025-02-08 16:21 | P.PN_ITS ---
Subjective 2 Subjective: Hospital course, labs appreciated. Patient appeared comfortable sitting up in bed. Denies any nausea, vomiting, headache. Has remained hemodynamically stable. Blood pressure slightly elevated. Vitals/I&O/Wt Last Vital Signs Temp 98.9 F 02/08/25 16:00 Pulse 70 02/08/25 16:00 Resp 16 02/08/25 16:00 BP 168/71 02/08/25 16:00 Pulse Ox 98 02/08/25 16:00 O2 Del Method Room Air 02/08/25 11:04 02/08/25 02/08/25 02/08/25 06:59 14:59 22:59 Intake Total 600 / 600 Output Total 200 / 300 400 / 400 Balance -200 / 660 200 / 200 Weight last 48 hrs Weight 77.7 kg Weight 76.793 kg Physical Exam 2 Narrative: General: Alert oriented x3, patient seen sitting up in bed appearing comfortable. HEENT: Normocephalic, atraumatic, EOMI, Respiratory clear to auscultation bilaterally no wheezes or rhonchi at this time. Cardio: Normal S1-S2, regular rate rhythm. GI: Abdomen soft, nontender, bowel sounds + Extremities: no edema, no cyanosis Data 02/07/25 09:48 02/07/25 01:20 A&P Assessment and plan 1. Acute on chronic renal insufficiency: 2. Hypotension: 2 units of packed red blood cells infusing it will finish in another hour and then another hour should be allowed to send lab studies. Follow through with H&H. Patient received Lasix in between today the 2 units. Surgery on case will follow-up with the patient 3. C. difficile colitis: Continue patient C-DIFF treatment as per the ID outpatient care 4. Acute blood loss anemia: Optimized with 2 units of packed red blood cell lab studies yet to be drawn because patient is currently receiving blood products. Labs will be sent 1 hour after post transfusion 5. Recurrent Clostridioides difficile diarrhea: Treatment to continue with diFICID 200 mg twice daily for 30 days 6. Hyponatremia: Mild hyponatremia monitor with daily lab for interval change 7. Generalized weakness: Generalized body weakness secondary to profound anemia continue to monitor and optimize 8. Cystitis: Continue with antibiotics of ceftriaxone for UTI Plan: Plan for the day: Hemoglobin so far stable. Post to do blood transfusion. Post EGD. Appreciate results. No active bleeding. Continue with Protonix 40 mg every 12 hourly. Monitor hemoglobin daily. Goal blood pressure less than 140/90 mmHg. Blood pressures elevated. Continue for now continue with home dose of amlodipine, metoprolol. Uptitrate hydralazine as for goal blood pressure. Continue with home fidaxomicin taper for C. difficile. Currently patient was on fidaxomicin 200 mg every 48 hours. Will change schedule to match home schedule. Continue with home dose of steroid. Continue with other chronic home medications. GI soft diet. Protonix to be sufficient for DVT prophylaxis SCD for DVT prophylaxis. Discharge plan: Plan for discharge to SNF for further rehabitation. Awaiting authorization and acceptance. PDMP PDMP Reviewed: Not Reviewed Attestations 2 Medical Necessity Statement*: Requires further hospitalization for management of acute blood loss anemia in setting of GI bleed, elevated blood pressures while safe discharge planning is sought. Diagnoses Acute on chronic renal insufficiency N28.9; N18.9 Hypotension I95.9 C. difficile colitis A04.72 Acute blood loss anemia D62 Recurrent Clostridioides difficile diarrhea A04.71 Hyponatremia E87.1 Generalized weakness R53.1 Cystitis N30.90
[2025-02-08 19:47] VITALS: BP 176/72; PULSE 81; RESP 16; TEMP 36.4; O2SAT 99
[2025-02-09] VITALS: BP 130/55; PULSE 74; RESP 17; TEMP 36.5; O2SAT 96
[2025-02-09 03:45] VITALS: BP 153/65; PULSE 64; RESP 16; TEMP 36.5; O2SAT 94
[2025-02-09] MEDS: cefTRIAXone 1,000 mg SDV 1000 MG IVP (06:24)
[2025-02-09 07:38] VITALS: BP 150/76; PULSE 74; RESP 22; TEMP 36.8; O2SAT 97
[2025-02-09 08:00] VITALS: BP 150/76; PULSE 74; RESP 22; TEMP 36.8; O2SAT 97
[2025-02-09] MEDS: pantoprazole 40 mg SDV IVP (08:34)
[2025-02-09] MEDS: metoprolol succinate ER (24 HR) 100 mg Tablet PO (08:34)
--- NOTE | 2025-02-09 08:54 | XR_ITS ---
WS: [id number] LEFT KNEE: 2 VIEW(S) TECHNIQUE: AP and lateral. HISTORY: L knee swelling and pain post fall COMPARISON: None available. No fracture or dislocation. Severe medial compartment joint space narrowing with bone upon bone and sclerosis and marginal osteophytes. Moderate narrowing of the lateral patellofemoral compartments with mild osteophytosis. Moderate suprapatellar joint effusion is identified. Mild soft tissue edema. XR/XR knee LT 1-2V 62270 IMPRESSION: 1. No acute LEFT knee fracture is identified. If there is continued concern fo r occult fracture consider follow-up CT of the LEFT knee. 2. Severe medial compartment with moderate lateral and patellofemoral compartm ent osteoarthritis. 3. Moderate suprapatellar joint effusion.
[2025-02-09] MEDS: HYDROcodone-acetaminophen 5-325 mg Tablet 1 TAB PO (09:27)
[2025-02-09 10:20] LABS: Hematocrit 31.0 % (36-47); Hemoglobin 9.70 g/dL (11.27-16.99); Mean Corpuscular HGB Conc 31.3 g/dL (30-55); Mean Corpuscular Hemoglobin 30.8 pg (27-33); Mean Corpuscular Volume 98.4 fl (85-98); Nucleated Red Blood Cells % 0 %; Platelet Count 431 10^3/cmm (157-399); Red Blood Count 3.15 10^6/uL (3.85-5.65); White Blood Count 8.92 10^3/uL (3.29-11.43)
--- NOTE | 2025-02-09 10:24 | PM.DCS ---
Discharge Providers Date of Admission: 02/04/25 01:12 Date of Discharge: February 09, 2025 Attending Provider at Admission: Marcelina Dutton MD Attending Provider at Discharge: Vaibhav Allen MD Consults: Surgery: Dr. Yaya Harry Primary Care Provider: HANK James Diagnoses at Discharge Discharge Diagnosis 1. Acute on chronic renal insufficiency: 2. Hypotension: 3. C. difficile colitis: 4. Acute blood loss anemia: 5. Recurrent Clostridioides difficile diarrhea: 6. Hyponatremia: 7. Generalized weakness: 8. Cystitis: Reason for Visit Reason for Visit: weakness Brief History: As per HPI: Maryjane Pineda is a 75 year old female with medical history significant for bilateral lower extremity lymphedema on 2 mg twice daily of Bumex patient had gone to see the primary care doctor on a routine visit lab studies were significant for potassium of 2.1. Patient was sent to the emergency room for optimization of care regarding hyponatremia. In the emergency room lab studies were done and it showed a potassium of 2.2 on a repeat. Patient instantly received an elixir potassium of 40 mEq orally and case discussed I had asked for a 40 mEq IV to be given over 4 hours. Patient is still getting Bumex 2 mg orally twice daily. Will be optimizing electrolytes will follow up with chemistry 2 hours after the completion of infusion of 40 mEq of K rider and will optimize if need be. This is an observation admission regarding abnormal lab work with no symptomatology in the patient. Hospital Course Hospital Course Patient was admitted to the hospital further evaluation and management of acute anemia in setting of GI bleed, recurrent C. difficile and hyponatremia. Antihypertensives were withheld for soft blood pressures. She required 2 units of blood transfusion. Surgery was consulted and she underwent EGD on 02/04 which showed gastritis, duodenitis and some stigmata of possible bleeding in the duodenum. She was treated with Protonix and Carafate. Post blood transfusion her hemoglobin remained stable. She was continued on her home fidaxomicin regimen. During hospitalization she was found to have elevated blood pressures for which her antihypertensives were adjusted. She will discharge plan with associated with patient's family members who requested patient to be transition to be SNF. She has been discharged in stable condition to SNF for further rehabitation. She should have a repeat CBC done in 1 week. She should continue taking Protonix twice daily for 4 weeks followed by once a day along with Carafate twice daily for next 4 weeks. Given her A1c of 7.6 her home dose of glipizide has been discontinued though her home dose of Lantus has been continued. Physical Exam Narrative: General: Alert oriented x3, patient seen sitting up in bed appearing comfortable. HEENT: Normocephalic, atraumatic, EOMI, Respiratory clear to auscultation bilaterally no wheezes or rhonchi at this time. Cardio: Normal S1-S2, regular rate rhythm. GI: Abdomen soft, nontender, bowel sounds + Extremities: no edema, no cyanosis Discharge Data Studies Completed and Pending Completed Studies During Hospitalization Category Date Time Status CT head wo con* [id number] Stat Cat Scan 02/03/25 23:00 Completed XR chest 1V portable [id number] Stat Exams 02/03/25 23:00 Completed XR chest 1V portable [id number] Urgent Exams 02/05/25 16:33 Completed XR elbow LT min 3V* [id number] Stat Exams 02/03/25 22:59 Completed XR knee LT 1-2V [id number] Stat Exams 02/09/25 08:54 Completed Pending at discharge Category Date Time Status Comprehensive Metabolic Panel Routine Lab 02/09/25 09:32 Received Streptococcus Culture Group A Stat Lab 02/07/25 18:30 Received Radiology Impressions Elbow X-Ray 02/03/25 22:59 IMPRESSION: No acute findings. Head CT 02/03/25 23:00 IMPRESSION: No acute intracranial abnormality. Chest X-Ray 02/05/25 16:33 IMPRESSION: 1. Similar left retrocardiac opacities. New streaky opacities in the right lung base. Findings may represent atelectasis and/or consolidation. 2. Small bilateral pleural effusions. Knee X-Ray 02/09/25 08:54 IMPRESSION: 1. No acute LEFT knee fracture is identified. If there is continued concern for occult fracture consider follow-up CT of the LEFT knee. 2. Severe medial compartment with moderate lateral and patellofemoral compartment osteoarthritis. 3. Moderate suprapatellar joint effusion. Microbiology 02/03/25 23:16 Blood Blood Culture - Final NO GROWTH AFTER 5 DAYS 02/03/25 23:14 Blood Blood Culture - Final NO GROWTH AFTER 5 DAYS 02/05/25 09:14 Stool - Stool Aspirate Occult Blood (FIT) - Final Laboratory Results WBC 8.92 10^3/uL (3.29-11.43) 02/09/25 09:32 RBC 3.15 10^6/uL (3.85-5.65) L 02/09/25 09:32 Hgb 9.70 g/dL (11.27-16.99) L 02/09/25 09:32 Hct 31.0 % (36-47) L 02/09/25 09:32 MCV 98.4 fl (85-98) H 02/09/25 09:32 MCH 30.8 pg (27-33) 02/09/25 09: MCHC 31.3 g/dL (30-55) 02/09/25 09:32 RDW 21.6 % (12.1-15.1) H 02/09/25 09:32 Plt Count 431 10^3/cmm (157-399) H 02/09/25 09:32 MPV 9.1 fL (7.4-10.4) 02/09/25 09:32 Neut % (Auto) 82.5 % 02/09/25 09:32 Lymph % (Auto) 8.6 % 02/09/25 09:32 [place] % (Auto) 5.3 % 02/09/25 09:32 Eos % (Auto) 2.9 % 02/09/25 09:32 Baso % (Auto) 0.3 % 02/09/25 09:32 Neut # (Auto) 7.35 10^3/uL (1.8-7.7) 02/09/25 09:32 Lymph # (Auto) 0.8 10^3/uL (0.8-4.8) 02/09/25 09:32 [place] # (Auto) 0.5 10^3/uL (0.2-0.9) 02/09/25 09:32 Eos # (Auto) 0.3 10^3/uL (0.0-0.8) 02/09/25 09:32 Baso # (Auto) 0.0 10^3/uL (0.0-0.1) 02/09/25 09:32 Nucleated RBC % (auto) 0 % 02/09/25 09:32 Nucleated RBCs # 0.0 /100WBC 02/09/25 09:32 PT 13.40 SECONDS (12.1-14.9) 02/03/25 23:14 INR 0.95 (0.8-1.2) 02/03/25 23:14 APTT 24.0 SECONDS (23.9-36.7) 02/03/25 23:14 Sodium 139 mmol/L (136-145) 02/07/25 01:20 Potassium 4.1 mmol/L (3.5-5.1) 02/07/25 01:20 Chloride 106 mmol/L (98-107) 02/07/25 01:20 Carbon Dioxide 19 mmol/L (22-29) L 02/07/25 01:20 Anion Gap 18.1 (5-19) 02/07/25 01:20 BUN 21 mg/dL (8-23) 02/07/25 01:20 Creatinine 1.7 mg/dL (0.5-0.9) H 02/07/25 01:20 GFR Calculation Not Reportable 02/07/25 01:20 Glucose 254 mg/dL (65-115) H 02/07/25 01:20 POC Glucose 169 mg/dL (70-110) H 02/09/25 06:11 Calculated Osmolality 300 mOsm/kg (285-295) H 02/07/25 01:20 Lactic Acid 1.8 mmol/L (0.5-2.2) 02/03/25 23:14 Calcium 7.9 mg/dL (8.5-10.5) L 02/07/25 01:20 Phosphorus 2.8 mg/dL (2.5-4.5) 02/07/25 01:20 Magnesium 2.1 mg/dL (1.7-2.3) 02/07/25 01:20 Total Bilirubin 0.2 mg/dL (0.15-1.2) 02/07/25 01:20 AST 21 U/L (0-32) 02/07/25 01:20 ALT 16 U/L (0-33) 02/07/25 01:20 Alkaline Phosphatase 72 U/L (35-105) 02/07/25 01:20 C-Reactive Protein 3.0 mg/L (0.0-4.9) 02/03/25 23:14 Total Protein 5.5 g/dL (6.6-8.7) L 02/07/25 01:20 Albumin 3.0 g/dL (3.5-5.2) L 02/07/25 01:20 Globulin 2.5 g/dL (1.3-4.6) 02/07/25 01:20 Urine Color Yellow (Yellow) 02/03/25 23:14 Urine Appearance Clear (CLEAR) 02/03/25 23:14 Urine pH 5.5 (5-7) 02/03/25 23:14 Ur Specific [place] 1.013 (1.005-1.030) 02/03/25 23:14 Urine Protein Negative (Negative) 02/03/25 23:14 Urine Glucose (UA) Negative (Normal) 02/03/25 23:14 Urine Ketones Negative (Negative) 02/03/25 23:14 Urine Blood Negative (Negative) 02/03/25 23:14 Urine Nitrate Negative (Negative) 02/03/25 23:14 Urine Bilirubin Negative (Negative) 02/03/25 23:14 Urine Urobilinogen 0.2 mg/dL (Negative) 02/03/25 23:14 Ur Leukocyte Esterase Negative (Negative) 02/03/25 23:14 Urine RBC 0-2 /hpf (0-2) 02/03/25 23:14 Urine WBC 0-5 /hpf (0-5) 02/03/25 23:14 Ur Squamous Epith Cells 0-5 /hpf (0-5) 02/03/25 23:14 Amorphous Sediment Not Reportable 02/03/25 23:14 Urine Bacteria None seen /hpf (NONE) 02/03/25 23:14 Hyaline Casts 2.05 /lpf 02/03/25 23:14 Adenovirus (PCR) Not detected (NOT DETECT) 02/07/25 18:30 C. pneumoniae DNA (PCR) Not detected (NOT DETECT) 02/07/25 18:30 Coronavirus 229E (PCR) Not detected (NOT DETECT) 02/07/25 18:30 Human Metapneumovir PCR Not detected (NOT DETECT) 02/07/25 18:30 Influenza A (H1) PCR Not detected (NOT DETECT) 02/07/25 18:30 Influ A (H1/09) PCR Not detected (NOT DETECT) 02/07/25 18:30 Influenza A (H3) PCR Not detected (NOT DETECT) 02/07/25 18:30 Influenza Type A (PCR) Not detected (NOT DETECT) 02/07/25 18:30 Influenza Type B (PCR) Not detected (NOT DETECT) 02/07/25 18:30 M. pneumoniae (PCR) Not detected (NOT DETECT) 02/07/25 18:30 Parainfluenza 1 (PCR) Not detected (NOT DETECT) 02/07/25 18:30 Parainfluenza 2 (PCR) Not detected (NOT DETECT) 02/07/25 18:30 Parainfluenza 3 (PCR) Not detected (NOT DETECT) 02/07/25 18:30 Parainfluenza 4 (PCR) Not detected (NOT DETECT) 02/07/25 18:30 RSV Type A (PCR) Not detected (NOT DETECT) 02/07/25 18:30 RSV Type B (PCR) Not detected (NOT DETECT) 02/07/25 18:30 Entero/Rhino (PCR) Not detected (NOT DETECT) 02/07/25 18:30 SARS-CoV-2 (PCR) Not detected (NOT DETECT) 02/07/25 18:30 Group A Strep Rapid Negative (Negative) 02/07/25 18:30 Blood Type O Negative 02/03/25 23:49 Rho(D) Type Rh negative 02/03/25 23:49 Antibody Screen Negative 02/03/25 23:49 Crossmatch See Detail 02/03/25 23:49 Vitals Last Vital Signs Temp 98.2 F 02/09/25 08:00 Pulse 74 02/09/25 08:00 Resp 22 H 02/09/25 08:00 BP 150/76 02/09/25 08:00 Pulse Ox 97 02/09/25 08:00 O2 Del Method Room Air 02/09/25 07:38 Discharge Plan Discharge Patient Disposition: Xfer SNF Condition: Stable Prescriptions: New Dificid 200 mg Tablet 200 mg PO Q48H Qty: 10 0RF sucralfate 1 gram Tablet 1 g PO BIDAC 28 Days Qty: 56 0RF pantoprazole [Protonix] 40 mg tablet,delayed release (DR/EC) 40 mg PO QAM Qty: 60 0RF Rx Instructions: Twice daily for next 2 weeks followed by once daily Continued (DME) Diabetic shoes See Rx Instructions .Route .MEDSUPPLY Qty: 1 0RF Rx Instructions: As directed aspirin 81 mg tablet,delayed release (DR/EC) 81 mg PO DAILY nitroglycerin 0.4 mg tablet, sublingual 0.4 mg SUBLINGUAL Q5M PRN (Reason: chest pain) Qty: 20 0RF Rx Instructions: do not exceed 3 doses per episode (DME) lancets [Accu-Chek Softclix Lancets] Misc See Rx Instructions .Route Qty: 100 3RF Rx Instructions: use 1 day prednisone 5 mg tablet 5 mg PO DAILY Qty: 90 1RF quetiapine [Seroquel] 50 mg tablet 50 mg PO .at bedtime Qty: 30 0RF ferrous sulfate 300 mg (60 mg iron)/5 mL liquid 300 mg PO DAILY Qty: 120 2RF (DME) right cmc splint See Rx Instructions .Route .MEDSUPPLY Qty: 1 0RF Rx Instructions: As directed alendronate [Fosamax] 70 mg tablet 70 mg PO .weekly Qty: 12 1RF (DME) Accu-Chek Guide test strips Strip See Rx Instructions .Route Qty: 100 5RF Rx Instructions: use one daily fenofibrate nanocrystallized [Tricor] 145 mg tablet 145 mg PO DAILY Qty: 90 1RF levothyroxine 100 mcg tablet 100 mcg PO DAILY Qty: 90 1RF metoprolol succinate 100 mg tablet extended release 24 hr 100 mg PO DAILY Qty: 90 1RF potassium chloride 10 mEq tablet extended release 10 meq PO BID Qty: 180 1RF (DME) pen needle, diabetic 33 gauge x 5/32 needle See Rx Instructions .ROUTE .MEDSUPPLY Qty: 100 5RF Rx Instructions: 1 time day tizanidine 2 mg tablet 2 mg PO .at bedtime PRN (Reason: muscle spasticity) Qty: 90 0RF albuterol sulfate [Ventolin HFA] 90 mcg/actuation HFA aerosol inhaler 2 puff INHALATION QID PRN (Reason: Shortness Of Breath) Qty: 25.5 1RF vitamin E 400 unit Capsule 400 unit PO DAILY cholecalciferol (vitamin D3) [Vitamin D3] 25 mcg (1,000 unit) Capsule 25 mcg PO DAILY omega-3 fatty acids 1,000 mg Capsule 1,000 mg PO DAILY calcium carbonate-vitamin D3 [Os-[place] 500 + D3] 500 mg-15 mcg (600 unit) tablet 1 tab PO BID cyanocobalamin (vitamin B-12) 1,000 mcg/mL solution 1,000 mcg SUBCUT Q30D insulin glargine [Lantus Solostar U-100 Insulin] 100 unit/mL (3 mL) insulin pen 10 unit SUBCUT QAM Qty: 31.5 1RF glucagon HCl [Glucagon (HCl) Emergency Kit] 1 mg recon soln 1 mg IM Q20M PRN (Reason: hypoglycemia) Qty: 1 0RF Rx Instructions: until target blood sugar attained Questran Light 4 gram Powder 2 g PO BID 30 Days Qty: 210 0RF Rx Instructions: administer w/meal; avoid other meds within 1hr before or 4-6hr after dose acetaminophen 325 mg Tablet 650 mg PO Q6H PRN (Reason: Mild Pain) Qty: 30 0RF sodium bicarbonate 650 mg Tablet 650 mg PO TID Qty: 15 0RF Phospha 250 Neutral 250 mg Tablet 1 tab PO BID Qty: 20 0RF duloxetine 20 mg capsule,delayed release(DR/EC) 20 mg PO BID fluticasone propion-salmeterol [Advair Diskus] 250-50 mcg/dose blister with device 1 inh inhalation Q12H PRN (Reason: Shortness Of Breath) doxepin 25 mg capsule 25 - 50 mg PO QPM Probiotic Digestive Care 20 billion cell capsule See Rx Instructions .ROUTE .COMPLEX Rx Instructions: Take 1 capsule (20 billion cells) by mouo twice daily. Changed valsartan [Diovan] 320 mg tablet 160 mg PO DAILY Qty: 90 3RF hydralazine 25 mg tablet 50 mg PO TID Qty: 90 0RF Discontinued glipizide 5 mg tablet extended release 24hr 5 mg PO BID Qty: 180 1RF Dificid 200 mg Tablet 200 mg PO BID Qty: 30 0RF Rx Instructions: Take 1 twice a day for 10 days then 1 every other day for 20 days vancomycin 125 mg Capsule 125 mg PO QID Qty: 40 0RF amlodipine 5 mg tablet 5 mg PO BID Discharge Order = DC NOW: Discharge Order (Routine); Ordered 02/09/25 Ordered By: Vaibhav Allen Other Ambulatory Orders: C.Diff PCR (Lab) (Routine) Timeframe: 20250225 Facility: [facility] - Location: Lab - Main Lab Ordered By: Vaibhav Allen Referrals: Gregory Jarrell DO [Physician, Orthopedics] - 03/11/25 1:45 pm Referral Note: Left knee pain. Osteoarthritis Karla Gallegos, [employer]MENT [employer]IC[employer] [Primary Care Provider, [facility]] Discharge Diet: Cardiac and Diabetic Discharge Activity: Resume usual activity and Increase activity as tolerated Patient Instructions: Anemia (GEN), GI Post Discharge Instructions w/ Anesthesia, Opioid Safety, Patient Portal & Hira Instructions Activity Restrictions/Additional Instructions: Continue Dificid taper as before. Dose of valsartan has been changed to 160 mg daily. Do not take glipizide anymore. Fasting blood glucose target is less than 120. Recheck hemoglobin in 1 week. Pt. will need a CDIFF check in 16 days from today. Discharge Attestations Time Spent in Discharge Care*: greater than 30 min Specific Discharge Activities: educating patient, educating and/or supporting family/caregiver, discussing with pcp/other providers, discussing with residential case manager/social workers/dc planners, documenting/other paperwork and evaluating patient/reviewing data Status at Discharge: Cognitive status at discharge: cognitively intact, Behavioral status at discharge: cooperative, Functional status at discharge: uses cane/walker, Overall status at discharge: patient is progressing back to baseline Quality Metrics Clinical Quality Measures [ No reported AMI, CVA or VTE this stay] Coding Level of Care Code 34214 Total time (in minutes) for Discharge: 65 Diagnoses Acute on chronic renal insufficiency N28.9; N18.9 Hypotension I95.9 C. difficile colitis A04.72 Acute blood loss anemia D62 Recurrent Clostridioides difficile diarrhea A04.71 Hyponatremia E87.1 Generalized weakness R53.1 Cystitis N30.90
[2025-02-09 10:29] LABS: Alanine Aminotransferase 24 U/L (0-33); Albumin Level 3.4 g/dL (3.5-5.2); Alkaline Phosphatase 69 U/L (35-105); Anion Gap 18.3 (5-19); Aspartate Amino Transferase 32 U/L (0-32); Blood Urea Nitrogen 17 mg/dL (8-23); Calcium 9.4 mg/dL (8.5-10.5); Carbon Dioxide 22 mmol/L (22-29); Chloride 101 mmol/L (98-107); Creatinine Clr Calc Pharmacy 37.4365; Globulin 3.1 g/dL (1.3-4.6); Glucose 323 mg/dL (65-115); Osmolality Calculated 298 mOsm/kg (285-295); Potassium 4.3 mmol/L (3.5-5.1); Sodium 137 mmol/L (136-145); Total Protein 6.5 g/dL (6.6-8.7)
--- OUTSIDE RECORDS SUMMARY | 2025-03-14 19:00 | XMS_ITS | Clinical Summary ---
Author Organization Unknown Care Team Providers Care Twisting Department End Finder Name Role Phone BERENICE CHAUDHARY APRN Unavailable Unavailmarly STILES RN, NAHUM Unavailable Unavailable Payers Payer Name Policy Type Policy Number Effective Date Expira tion Date [employer] MANAGED MEDICARE - [facility] [id number] Problems Condition Name Condition Details Condition Category Status Onset Date Resolution Date Last Treatment Date Treating Clinician Comments ENTEROCOLITI S D/T CLOSTRIDIUM DIFFICILE, NOT SPCF RECUR Active 07-08 00:00: 00 CHRONIC OBSTRUCTIVE PULMONARY DISEASE, UNSPECIFIED Active 07-08 00:00: 00 TYPE 2 DIABETES MELLITUS WITH HYPERGLYCEMI A Active 07-08 00:00: 00 HYP HRT AND CHR KDNY DIS W HRT FAIL AND STG 1-4/UNSP CHR KDNY Active 07-08 00:00: 00 CHRONIC DIASTOLIC (CONGESTIVE) HEART FAILURE Active 07-08 00:00: 00 TYPE 2 DIABETES MELLITUS W DIABETIC CHRONIC KIDNEY DISEASE Active 07-08 00:00: 00 CHRONIC KIDNEY DISEASE, UNSPECIFIED Active 07-08 00:00: 00 AGE-RELATED OSTEOPOROSIS W/O CURRENT PATHOLOGICAL FRACTURE Active 07-08 00:00: 00 RHEUMATOID ARTHRITIS, UNSPECIFIED Active 07-08 00:00: 00 ACUTE KIDNEY FAILURE, UNSPECIFIED Active 07-08 00:00: 00 PRIMARY OSTEOARTHRIT IS, RIGHT HAND Active 07-08 00:00: 00 PRIMARY OSTEOARTHRIT IS, LEFT HAND Active 07-08 00:00: 00 HYPOTHYROIDI SM, UNSPECIFIED Active - 00:00: 00 DVRTCLOS OF LG INT W/O PERFORATION OR ABSCESS W/O BLEEDING Active - 00:00: 00 VITAMIN D DEFICIENCY, UNSPECIFIED Active 07-08 00:00: 00 URINARY TRACT INFECTION, SITE NOT SPECIFIED Active 07-08 00:00: 00 DEHYDRATION Active 07-08 00:00: 00 HYPO-OSMOLAL ITY AND HYPONATREMIA Active 07-08 00:00: 00 MIXED HYPERLIPIDEM IA Active 07-08 00:00: 00 NICOTINE DEPENDENCE, UNSPECIFIED, UNCOMPLICATE D Active 07-08 00:00: 00 DEFICIENCY OF OTHER SPECIFIED B GROUP VITAMINS Active 07-08 00:00: 00 NONINFECTIVE GASTROENTERI TIS AND COLITIS, UNSPECIFIED Active 07-08 00:00: 00 HALFWAY (CURRENT) USE OF BISPHOSPHONA ALEXSANDER Active 07-08 00:00: 00 PHARMACOMETRICIAN (CURRENT) USE OF ASPIRIN Active 07-08 00:00: 00 OTHER HALFWAY (CURRENT) DRUG THERAPY Active 07-08 00:00: 00 HALFWAY (CURRENT) USE OF ORAL HYPOGLYCEMIC DRUGS Active 07-08 00:00: 00 PHARMACOMETRICIAN (CURRENT) USE OF INSULIN Active 07-08 00:00: 00 HALFWAY (CURRENT) USE OF SYSTEMIC STEROIDS Active 07-08 00:00: 00 Allergies, Adverse Reactions, Alerts Allergy Name Allergy Type Status Severity Reaction(s) Onset Date Inactive Date Treating Clinician Comments PENICILLIN Propensity to adverse reactions Active 01-15 16:38: 16 SULFA (SULFONAMIDE ANTIBIOTICS) Propensity to adverse reactions Active 01-15 16:38: 57 LATEX Propensity to adverse reactions Active 01-15 16:39: 02 NATURAL RUBBER Propensity to adverse reactions Active 01-15 16:39: 10 ADHESIVE Propensity to adverse reactions Active 01-15 16:39: 15 TRAZADONE Propensity to adverse reactions Active 01-15 16:39: 26 Medications Ordered Medication Name Filled Medication Name Start Date Stop Date Current Medication? Ordering Clinician Indication Dosage Frequency Signature (SIG) Comments Components acetaminoph en 325 mg tablet 01-15 00:00: 00 Yes [id number] 2 tablet EVERY 6 HOURS 2 tablet EVERY 6 HOURS (route: oral) Med Classific ation: Analgesic , Anti-infl ammatory or Antipyret ic Advair Diskus 250 mcg-50 mcg/dose powder for inhalation 01-15 00:00: 00 Yes [id number] 1 inhalat ion EVERY 12 HOURS 1 inhalation EVERY 12 HOURS (route: inhalation ) Med Classific ation: Respirato ry Therapy Agents albuterol sulfate HFA 90 mcg/actuati on aerosol inhaler 01-15 00:00: 00 Yes [id number] 2 puff 4 TIMES DAILY 2 puff 4 TIMES DAILY (route: inhalation ) Med Classific ation: Respirato ry Therapy Agents alendronate 70 mg tablet 01-15 00:00: 00 Yes [id number] 1 tablet WEEKLY 1 tablet WEEKLY (route: oral) Med Classific ation: Endocrine amlodipine 5 mg tablet 01-15 00:00: 00 Yes [id number] 1 tablet DAILY 1 tablet DAILY (route: oral) Med Classific ation: Cardiovas cular Therapy Agents aspirin 81 mg tablet,sofía yed release 01-15 00:00: 00 Yes [id number] 1 tablet DAILY 1 tablet DAILY (route: oral) Med Classific ation: Hematolog ical Agents cholecalcif juan luis (vitamin D3) 25 mcg (1,000 unit) tablet 01-15 00:00: 00 Yes [id number] 1 tablet DAILY 1 tablet DAILY (route: oral) Med Classific ation: Electroly te Balance-N utritiona l Products cyanocobala min (vit B-12) 1,000 mcg/mL injection solution 01-15 00:00: 00 Yes [id number] 1 mL MONTHLY 1 mL MONTHLY (route: injection) Med Classific ation: Electroly te Balance-N utritiona l Products Dificid 200 mg tablet 01-15 00:00: 00 02-02 23:59 :00 No [id number] 1 tablet DIRECTED 1 tablet DIRECTED (route: oral) Med Classific ation: Anti-Infe ctive Agents doxepin 25 mg capsule 01-15 00:00: 00 Yes [id number] 1-2 capsule DAILY 1-2 capsule DAILY (route: oral) Med Classific ation: Central Nervous System Agents duloxetine 20 mg capsule,del ayed release 01-15 00:00: 00 Yes [id number] 1 capsule 2 TIMES DAILY 1 capsule 2 TIMES DAILY (route: oral) Med Classific ation: Central Nervous System Agents fenofibrate nanocrystal lized 145 mg tablet 01-15 00:00: 00 Yes [id number] 1 tablet DAILY 1 tablet DAILY (route: oral) Med Classific ation: Cardiovas cular Therapy Agents fluconazole 100 mg tablet 01-15 00:00: 00 Yes [id number] 1 tablet DAILY 1 tablet DAILY (route: oral) Med Classific ation: Anti-Infe ctive Agents glipizide 5 mg tablet 01-15 00:00: 00 Yes [id number] 1 tablet 2 TIMES DAILY 1 tablet 2 TIMES DAILY (route: oral) Med Classific ation: Endocrine hydralazine 25 mg tablet 01-15 00:00: 00 Yes [id number] 1 tablet 3 TIMES DAILY 1 tablet 3 TIMES DAILY (route: oral) Med Classific ation: Cardiovas cular Therapy Agents Lantus Solostar U-100 Insulin 100 unit/mL (3 mL) subcutaneou s pen 01-15 00:00: 00 Yes [id number] 10 unit DAILY 10 unit DAILY (route: subcutaneo ) Med Classific ation: Endocrine levothyroxi ne 100 mcg tablet 01-15 00:00: 00 Yes [id number] 1 tablet DAILY 1 tablet DAILY (route: oral) Med Classific ation: Endocrine metoprolol succinate ER 100 mg tablet,exte nded release 24 hr 01-15 00:00: 00 Yes [id number] 1 tablet DAILY 1 tablet DAILY (route: oral) Med Classific ation: Cardiovas cular Therapy Agents Nitrostat 0.4 mg sublingual tablet 01-15 00:00: 00 Yes [id number] Per instruc tions NEEDED Per instructio ns NEEDED (route: sublingual ) Med Classific ation: Cardiovas cular Therapy Agents omega 3-dha 100 mg-epa 400 mg-fish oil 1,000 mg capsule 01-15 00:00: 00 Yes [id number] 1 capsule DAILY 1 capsule DAILY (route: oral) Med Classific ation: Cardiovas cular Therapy Agents Os-Jose Luis 500 + D3 500 mg-15 mcg (600 unit) tablet 01-15 00:00: 00 Yes [id number] 1 tablet 2 TIMES DAILY 1 tablet 2 TIMES DAILY (route: oral) Med Classific ation: Electroly te Balance-N utritiona l Products Phospha Neutral 250 mg tablet 01-15 00:00: 00 Yes [id number] 1 tablet 2 TIMES DAILY 1 tablet 2 TIMES DAILY (route: oral) Med Classific ation: Genitouri nary Therapy potassium chloride ER 10 mEq tablet,exte nded release 01-15 00:00: 00 Yes [id number] 1 tablet 2 TIMES DAILY 1 tablet 2 TIMES DAILY (route: oral) Med Classific ation: Electroly te Balance-N utritiona l Products prednisone 5 mg tablet 01-15 00:00: 00 Yes [id number] 1 tablet DAILY 1 tablet DAILY (route: oral) Med Classific ation: Endocrine Probiotic Digestive Care 20 billion cell capsule 01-15 00:00: 00 Yes [id number] 1 capsule 2 TIMES DAILY 1 capsule 2 TIMES DAILY (route: oral) Med Classific ation: Gastroint estinal Therapy Agents Questran 4 gram oral powder 01-15 00:00: 00 Yes [id number] 2 g 2 TIMES DAILY 2 g 2 TIMES DAILY (route: oral) Med Classific ation: Cardiovas cular Therapy Agents quetiapine 50 mg tablet 01-15 00:00: 00 Yes [id number] 1 tablet BEDTIME 1 tablet BEDTIME (route: oral) Med Classific ation: Central Nervous System Agents sodium bicarbonate 650 mg tablet 01-15 00:00: 00 Yes [id number] 1 tablet 3 TIMES DAILY 1 tablet 3 TIMES DAILY (route: oral) Med Classific ation: Gastroint estinal Therapy Agents tizanidine 2 mg tablet 01-15 00:00: 00 Yes [id number] 1 tablet BEDTIME 1 tablet BEDTIME (route: oral) Med Classific ation: Locomotor System valsartan 320 mg tablet 01-15 00:00: 00 Yes [id number] 1 tablet DAILY 1 tablet DAILY (route: oral) Med Classific ation: Cardiovas cular Therapy Agents vancomycin 125 mg capsule 01-15 00:00: 00 Yes [id number] 1 capsule 4 TIMES DAILY 1 capsule 4 TIMES DAILY (route: oral) Med Classific ation: Anti-Infe ctive Agents vitamin E (dl, acetate) 180 mg (400 unit) capsule 01-15 00:00: 00 Yes [id number] 1 capsule DAILY 1 capsule DAILY (route: oral) Med Classific ation: Electroly te Balance-N utritiona l Products Vital Signs Vital Name Observation Time Observation Value Commen ts Temperature 2025-01-28 14:20:00.000 97.8 [degF] Temperature 2025-01-26 12:11:00.000 97.8 [degF] Temperature 2025-01-25 14:08:00.000 97.3 [degF] Temperature 2025-01-21 15:06:00.000 97.8 [degF] Temperature 2025-01-19 16:23:00.000 97.8 [degF] Temperature 2025-01-19 13:29:00.000 97.8 [degF] Temperature 2025-01-15 13:51:00.000 97.8 [degF] Temperature 2025-01-15 10:37:00.000 98.2 [degF] BMI (%) 2025-01-15 10:37:00.000 28 kg/m2 Height 2025-01-15 10:37:00.000 64 [in_us] Pulse 2025-01-28 14:20:00.000 72 /min Pulse 2025-01-26 12:11:00.000 78 /min Pulse 2025-01-25 14:08:00.000 76 /min Pulse 2025-01-21 15:06:00.000 72 /min Pulse 2025-01-19 16:23:00.000 77 /min Pulse 2025-01-19 13:29:00.000 78 /min Pulse 2025-01-15 13:51:00.000 75 /min Pulse 2025-01-15 10:37:00.000 67 /min O2 Saturation (%) 2025-01-28 14:20:00.000 98 % O2 Saturation (%) 2025-01-26 12:11:00.000 97 % O2 Saturation (%) 2025-01-25 14:08:00.000 97 % O2 Saturation (%) 2025-01-21 15:06:00.000 96 % O2 Saturation (%) 2025-01-19 16:23:00.000 97 % O2 Saturation (%) 2025-01-19 13:29:00.000 97 % O2 Saturation (%) 2025-01-15 13:51:00.000 95 % O2 Saturation (%) 2025-01-15 10:37:00.000 97 % Respirations 2025-01-28 14:20:00.000 18 /min Respirations 2025-01-26 12:11:00.000 18 /min Respirations 2025-01-25 14:08:00.000 18 /min Respirations 2025-01-21 15:06:00.000 18 /min Respirations 2025-01-19 16:23:00.000 18 /min Respirations 2025-01-19 13:29:00.000 18 /min Respirations 2025-01-15 13:51:00.000 16 /min Respirations 2025-01-15 10:37:00.000 18 /min Weight (lbs) 2025-01-25 14:08:00.000 164 [lb_av] Weight (lbs) 2025-01-15 10:37:00.000 168 [lb_av] Systolic Blood Pressure 2025-01-28 14:20:00.000 132 mm [Hg] Systolic Blood Pressure 2025-01-26 12:11:00.000 132 mm [Hg] Systolic Blood Pressure 2025-01-25 14:08:00.000 132 mm [Hg] Systolic Blood Pressure 2025-01-21 15:06:00.000 140 mm [Hg] Systolic Blood Pressure 2025-01-19 16:23:00.000 138 mm [Hg] Systolic Blood Pressure 2025-01-19 13:29:00.000 118 mm [Hg] Systolic Blood Pressure 2025-01-15 13:51:00.000 158 mm [Hg] Systolic Blood Pressure 2025-01-15 10:37:00.000 144 mm [Hg] Diastolic Blood Pressure 2025-01-28 14:20:00.000 64 mm [Hg] Diastolic Blood Pressure 2025-01-26 12:11:00.000 64 mm [Hg] Diastolic Blood Pressure 2025-01-25 14:08:00.000 60 mm [Hg] Diastolic Blood Pressure 2025-01-21 15:06:00.000 71 mm [Hg] Diastolic Blood Pressure 2025-01-19 16:23:00.000 65 mm [Hg] Diastolic Blood Pressure 2025-01-19 13:29:00.000 72 mm [Hg] Diastolic Blood Pressure 2025-01-15 13:51:00.000 76 mm [Hg] Diastolic Blood Pressure 2025-01-15 10:37:00.000 72 mm [Hg] Plan of Treatment Planned Activity Planned Date Details Comments Future Scheduled Test SKILLED NU RSE TO EVALUATE PATIENT, IDENTIFY PRIMARY AND CO-MORBID CONDITIONS CODED PER CODING GUIDELINES INCLUDING ENTEROCOLITIS D/T CLOSTRIDIUM DIFFICILE, NOT SPCF RECUR, CHRONIC OBSTRUCTIVE PULMONARY DISEASE, UNSPECIFIED, TYPE 2 DIABETES MELLITUS WITH HYPERGLYCEMIA, HYP HRT CHR KDNY DIS W HRT FAIL AND STG 1-4/UNSP CHR KDNY, CHRONIC DIASTOLIC (CONGESTIVE) HEART FAILURE, TYPE 2 DIABETES MELLITUS W DIABETIC CHRONIC KIDNEY DISEASE, AND DEVELOP PATIENT SPECIFIC PLAN OF CARE THAT INCLUDES PATIENT GOAL FOR HOME HEALTH. [code = SKILLED NURSE TO EVALUATE PATIENT, IDENTIFY PRIMARY AND CO-MORBID CONDITIONS CODED PER CODING GUIDELINES INCLUDING ENTEROCOLITIS D/T CLOSTRIDIUM DIFFICILE, NOT SPCF RECUR, CHRONIC OBSTRUCTIVE PULMONARY DISEASE, UNSPECIFIED, TYPE 2 DIABETES MELLITUS WITH HYPERGLYCEMIA, HYP HRT CHR KDNY DIS W HRT FAIL AND STG 1-4/UNSP CHR KDNY, CHRONIC DIASTOLIC (CONGESTIVE) HEART FAILURE, TYPE 2 DIABETES MELLITUS W DIABETIC CHRONIC KIDNEY DISEASE, AND DEVELOP PATIENT SPECIFIC PLAN OF CARE THAT INCLUDES PATIENT GOAL FOR HOME HEALTH.] Future Scheduled Test [facility] MAY ACCEPT ORDERS FROM THE FOLLOWING PHYSICIANS: PCP, ON-CALL, AND ALL TREATING PHYSICIANS [code = HOME HEALTH AGENCY MAY ACCEPT ORDERS FROM THE FOLLOWING PHYSICIANS: PCP, ON-CALL, AND ALL TREATING PHYSICIANS] Future Scheduled Test SKILLED NU RSE FOR O/A, TEACHING RELATED TO ENTEROCOLITIS D/T CLOSTRIDIUM DIFFICILE FOR EARLY IDENTIFICATION OF EXACERBATION OF DISEASE PROCESS. [code = SKILLED NURSE FOR O/A, TEACHING RELATED TO ENTEROCOLITIS D/T CLOSTRIDIUM DIFFICILE FOR EARLY IDENTIFICATION OF EXACERBATION OF DISEASE PROCESS.] Future Scheduled Test SKILLED NU RSE TO OBTAIN BLOOD SUGAR PRN FOR SIGNS AND SYMPTOMS OF HYPO/HYPERGLYCEMIA. IF OBTAINED BY PATIENT/CAREGIVER PRIOR TO VISIT AND PATIENT IS NOT SYMPTOMATIC, SKILLED NURSE TO RECORD READING FROM PATIENT LOG. [code = SKILLED NURSE TO OBTAIN BLOOD SUGAR PRN FOR SIGNS AND SYMPTOMS OF HYPO/HYPERGLYCEMIA. IF OBTAINED BY PATIENT/CAREGIVER PRIOR TO VISIT AND PATIENT IS NOT SYMPTOMATIC, SKILLED NURSE TO RECORD READING FROM PATIENT LOG.] Future Scheduled Test SKILLED NU RSE FOR O/A AND TEACHING OF ENDOCRINE SYSTEM TO IDENTIFY CHANGES ASSOCIATED WITH EXACERBATION OF DM FOR EARLY INTERVENTION OF COMPLICATIONS. [code = SKILLED NURSE FOR O/A AND TEACHING OF ENDOCRINE SYSTEM TO IDENTIFY CHANGES ASSOCIATED WITH EXACERBATION OF DM FOR EARLY INTERVENTION OF COMPLICATIONS.] Future Scheduled Test SKILLED NU RSE TO PROVIDE TEACHING ON SIGNS AND SYMPTOMS AND MANAGEMENT OF HYPERTENSION. [code = SKILLED NURSE TO PROVIDE TEACHING ON SIGNS AND SYMPTOMS AND MANAGEMENT OF HYPERTENSION.] Future Scheduled Test SKILLED NU RSE TO INSTRUCT PATIENT/CAREGIVER ON COPD TO INCLUDE TEACHING AND SELF-MANAGEMENT RELATED TO COPD DISEASE PROCESS, SIGNS AND SYMPTOMS, AND COMPLICATIONS. [code = SKILLED NURSE TO INSTRUCT PATIENT/CAREGIVER ON COPD TO INCLUDE TEACHING AND SELF-MANAGEMENT RELATED TO COPD DISEASE PROCESS, SIGNS AND SYMPTOMS, AND COMPLICATIONS.] Future Scheduled Test SKILLED NU RSE FOR O/A, TEACHING AND SELF-MANAGEMENT RELATED TO HEART FAILURE. INSTRUCT PATIENT/CAREGIVER ON SIGNS AND SYMPTOMS OF EXACERBATION TO REPORT AND IMPORTANCE OF OBTAINING AND RECORDING DAILY WEIGHT AND/OR MEASUREMENTS. SN OR TRAINED PATIENT/CAREGIVER TO OBTAIN WEIGHT DAILY AND WEIGHT GAIN OF 2 LBS OVERNIGHT OR 5 LBS IN 1 WEEK TO BE REPORTED TO PHYSICIAN/PROVIDER. IF UNABLE TO WEIGH PATIENT, SN OR TRAINED PATIENT/CAREGIVER TO OBTAIN MEASUREMENT OF RIGHT CALF IN CM DAILY AND REPORT AN INCREASE OF 2 CM TO PHYSICIAN/PROVIDER. [code = SKILLED NURSE FOR O/A, TEACHING AND SELF-MANAGEMENT RELATED TO HEART FAILURE. INSTRUCT PATIENT/CAREGIVER ON SIGNS AND SYMPTOMS OF EXACERBATION TO REPORT AND IMPORTANCE OF OBTAINING AND RECORDING DAILY WEIGHT AND/OR MEASUREMENTS. SN OR TRAINED PATIENT/CAREGIVER TO OBTAIN WEIGHT DAILY AND WEIGHT GAIN OF 2 LBS OVERNIGHT OR 5 LBS IN 1 WEEK TO BE REPORTED TO PHYSICIAN/PROVIDER. IF UNABLE TO WEIGH PATIENT, SN OR TRAINED PATIENT/CAREGIVER TO OBTAIN MEASUREMENT OF RIGHT CALF IN CM DAILY AND REPORT AN INCREASE OF 2 CM TO PHYSICIAN/PROVIDER.] Future Scheduled Test SKILLED NU RSE FOR O/A AND TEACHING OF DIABETIC MANAGEMENT INCLUDING BLOOD SUGAR MONITORING/USE OF GLUCOMETER, DIABETIC DIET, LOWER EXTREMITY SKIN INSPECTION, PROPER SKIN/FOOT CARE, AND SIGNS AND SYMPTOMS HYPO/HYPERGLYCEMIA TO REPORT. [code = SKILLED NURSE FOR O/A AND TEACHING OF DIABETIC MANAGEMENT INCLUDING BLOOD SUGAR MONITORING/USE OF GLUCOMETER, DIABETIC DIET, LOWER EXTREMITY SKIN INSPECTION, PROPER SKIN/FOOT CARE, AND SIGNS AND SYMPTOMS HYPO/HYPERGLYCEMIA TO REPORT.] Future Scheduled Test VIRTUAL SIT FREQUENCY: 12 PRN VIRTUAL VISITS MAY BE PERFORMED UTILIZING TELECOMMUNICATIONS SYSTEM TO OPTIMIZE SKILLED SERVICES FURNISHED ON THE PLAN OF CARE. SKILLED NURSE TO ESTABLISH SUPPORT MEASURES TO MINIMIZE RISK OF REHOSPITALIZATION, AND INSTRUCT PATIENT/CAREGIVER ON METHODS TO REDUCE AVOIDABLE HOSPITALIZATION. [code = VIRTUAL VISIT FREQUENCY: 12 PRN VIRTUAL VISITS MAY BE PERFORMED UTILIZING TELECOMMUNICATIONS SYSTEM TO OPTIMIZE SKILLED SERVICES FURNISHED ON THE PLAN OF CARE. SKILLED NURSE TO ESTABLISH SUPPORT MEASURES TO MINIMIZE RISK OF REHOSPITALIZATION, AND INSTRUCT PATIENT/CAREGIVER ON METHODS TO REDUCE AVOIDABLE HOSPITALIZATION.] Future Scheduled Test PATIENT REVELES S A RISK OF HOSPITALIZATION AND ED USE. SKILLED NURSE TO ESTABLISH SUPPORT MEASURES TO MINIMIZE RISK OF HOSPITALIZATION AND ED USE, AND INSTRUCT PATIENT/CAREGIVER ON METHODS TO REDUCE AVOIDABLE HOSPITALIZATION AND ED USE. [code = PATIENT HAS A RISK OF HOSPITALIZATION AND ED USE. SKILLED NURSE TO ESTABLISH SUPPORT MEASURES TO MINIMIZE RISK OF HOSPITALIZATION AND ED USE, AND INSTRUCT PATIENT/CAREGIVER ON METHODS TO REDUCE AVOIDABLE HOSPITALIZATION AND ED USE.] Future Scheduled Test SKILLED NU RSE TO PROVIDE INSTRUCTION TO PATIENT/CAREGIVER RELATED TO DISCHARGE PLANNING. [code = SKILLED NURSE TO PROVIDE INSTRUCTION TO PATIENT/CAREGIVER RELATED TO DISCHARGE PLANNING.] Future Scheduled Test SKILLED NU RSE TO PERFORM ENVIRONMENTAL SAFETY RISK ASSESSMENT AND FALL RISK ASSESSMENT AND PROVIDE INSTRUCTION TO IMPLEMENT ENVIRONMENTAL SAFETY AND FALL PREVENTION STRATEGIES THROUGHOUT THE CERTIFICATION PERIOD. SKILLED NURSE WILL MAINTAIN SITUATIONAL AWARENESS AND WILL NOTIFY CLINICAL ADVERTISING MATERIAL DISTRIBUTOR AND PHYSICIAN/PROVIDER WITH ANY CHANGE IN CONDITION. [code = SKILLED NURSE TO PERFORM ENVIRONMENTAL SAFETY RISK ASSESSMENT AND FALL RISK ASSESSMENT AND PROVIDE INSTRUCTION TO IMPLEMENT ENVIRONMENTAL SAFETY AND FALL PREVENTION STRATEGIES THROUGHOUT THE CERTIFICATION PERIOD. SKILLED NURSE WILL MAINTAIN SITUATIONAL AWARENESS AND WILL NOTIFY CLINICAL ADVERTISING MATERIAL DISTRIBUTOR AND PHYSICIAN/PROVIDER WITH ANY CHANGE IN CONDITION.] Future Scheduled Test SKILLED NU RSE FOR OBSERVATION AND ASSESSMENT OF PATIENTS PAIN LEVEL AND EFFECTIVENESS OF PAIN MANAGEMENT REGIMEN. SKILLED NURSE TO INSTRUCT PATIENT/CAREGIVER REGARDING PHARMACOLOGIC AND NON-PHARMACOLOGIC PAIN CONTROL MEASURES. SKILLED NURSE TO REPORT TO PHYSICIAN IF PAIN LEVEL IS OUTSIDE OF ESTABLISHED PARAMETERS. [code = SKILLED NURSE FOR OBSERVATION AND ASSESSMENT OF PATIENTS PAIN LEVEL AND EFFECTIVENESS OF PAIN MANAGEMENT REGIMEN. SKILLED NURSE TO INSTRUCT PATIENT/CAREGIVER REGARDING PHARMACOLOGIC AND NON-PHARMACOLOGIC PAIN CONTROL MEASURES. SKILLED NURSE TO REPORT TO PHYSICIAN IF PAIN LEVEL IS OUTSIDE OF ESTABLISHED PARAMETERS.] Future Scheduled Test SKILLED NU RSE TO ASSESS PATIENT'S SKIN INTEGRITY AND INSTRUCT PATIENT/CAREGIVER ON MEASURES TO PREVENT PRESSURE ULCERS. [code = SKILLED NURSE TO ASSESS PATIENT'S SKIN INTEGRITY AND INSTRUCT PATIENT/CAREGIVER ON MEASURES TO PREVENT PRESSURE ULCERS.] Future Scheduled Test SN TO INST RUCT PATIENT/CAREGIVER ON DIABETES MANAGEMENT UTILIZING THE [facility] SPECIALTY PROGRAM. [code = SN TO INSTRUCT PATIENT/CAREGIVER ON DIABETES MANAGEMENT UTILIZING THE [facility] SPECIALTY PROGRAM.] Future Scheduled Test SN TO INST RUCT PATIENT/CAREGIVER ON COPD MANAGEMENT UTILIZING THE [facility] SPECIALTY PROGRAM. [code = SN TO INSTRUCT PATIENT/CAREGIVER ON COPD MANAGEMENT UTILIZING THE [facility] SPECIALTY PROGRAM.] Future Scheduled Test SKILLED NU RSE TO REVIEW PATIENT MEDICATIONS (PRESCRIPTION/OTC). INSTRUCT PATIENT/CAREGIVER ON ALL MEDICATIONS INCLUDING PURPOSE, WHEN TO TAKE, IMPORTANCE OF MEDICATION ADHERENCE, MONITORING OF EFFECTIVENESS, ADVERSE DRUG REACTIONS, POSSIBLE SIDE EFFECTS, AND WHEN TO NOTIFY AGENCY OR PHYSICIAN/PROVIDER OF ANY CONCERNS. [code = SKILLED NURSE TO REVIEW PATIENT MEDICATIONS (PRESCRIPTION/OTC). INSTRUCT PATIENT/CAREGIVER ON ALL MEDICATIONS INCLUDING PURPOSE, WHEN TO TAKE, IMPORTANCE OF MEDICATION ADHERENCE, MONITORING OF EFFECTIVENESS, ADVERSE DRUG REACTIONS, POSSIBLE SIDE EFFECTS, AND WHEN TO NOTIFY AGENCY OR PHYSICIAN/PROVIDER OF ANY CONCERNS.] Future Scheduled Test PHYSICAL T HERAPIST TO EVALUATE PATIENT SECONDARY TO FUNCTIONAL DEFICITS/SAFETY CONCERNS. PHYSICAL THERAPY TO ESTABLISH /UPGRADE/DOWNGRADE THERAPEUTIC EXERCISE PROGRAM AND INSTRUCT PATIENT/CAREGIVER ON EXERCISE PRECAUTIONS WITH WRITTEN HOME PROGRAM. MAY INCLUDE PROM, AAROM, AROM, RROM APPROPRIATE TO IMPROVE FUNCTIONAL STRENGTH AND RANGE OF MOTION. PHYSICAL THERAPY TO INSTRUCT PATIENT/CAREGIVER ON BED MOBILITY TECHNIQUES TO IMPROVE PATIENT MOBILITY AND POSITIONING TECHNIQUES IN ORDER TO INCREASE PATIENTS COMFORT AND DECREASE RISK OF SKIN BREAKDOWN. PHYSICAL THERAPY TO INSTRUCT PATIENT/CAREGIVER ON SAFE TRANSFER TECHNIQUES USING PROPER BODY MECHANICS AND EQUIPMENT. PHYSICAL THERAPY TO INSTRUCT PATIENT/CAREGIVER ON GAIT TRAINING TECHNIQUES USING APPROPRIATE ASSISTIVE DEVICE, PROPER BODY MECHANICS TO IMPROVE MOBILITY, AND PREVENT INJURY OF PATIENT AND/OR CAREGIVER. PHYSICAL THERAPY TO INSTRUCT PATIENT/CAREGIVER ON BALANCE AND BALANCE STRATEGIES TO IMPROVE SAFE MOBILITY AND REDUCE RISK FOR FALL AND INJURY [code = PHYSICAL THERAPIST TO EVALUATE PATIENT SECONDARY TO FUNCTIONAL DEFICITS/SAFETY CONCERNS. PHYSICAL THERAPY TO ESTABLISH /UPGRADE/DOWNGRADE THERAPEUTIC EXERCISE PROGRAM AND INSTRUCT PATIENT/CAREGIVER ON EXERCISE PRECAUTIONS WITH WRITTEN HOME PROGRAM. MAY INCLUDE PROM, AAROM, AROM, RROM APPROPRIATE TO IMPROVE FUNCTIONAL STRENGTH AND RANGE OF MOTION. PHYSICAL THERAPY TO INSTRUCT PATIENT/CAREGIVER ON BED MOBILITY TECHNIQUES TO IMPROVE PATIENT MOBILITY AND POSITIONING TECHNIQUES IN ORDER TO INCREASE PATIENTS COMFORT AND DECREASE RISK OF SKIN BREAKDOWN. PHYSICAL THERAPY TO INSTRUCT PATIENT/CAREGIVER ON SAFE TRANSFER TECHNIQUES USING PROPER BODY MECHANICS AND EQUIPMENT. PHYSICAL THERAPY TO INSTRUCT PATIENT/CAREGIVER ON GAIT TRAINING TECHNIQUES USING APPROPRIATE ASSISTIVE DEVICE, PROPER BODY MECHANICS TO IMPROVE MOBILITY, AND PREVENT INJURY OF PATIENT AND/OR CAREGIVER. PHYSICAL THERAPY TO INSTRUCT PATIENT/CAREGIVER ON BALANCE AND BALANCE STRATEGIES TO IMPROVE SAFE MOBILITY AND REDUCE RISK FOR FALL AND INJURY] Goal Patient Goal - F EEL BETTER; DIARRHEA STOP; REGAIN STRENGTH Goal Provider Goal - A PLAN OF CARE WILL BE ESTABLISHED THAT MEETS PATIENT'S PRISON NEEDS AND INCLUDES PATIENT GOAL FOR HOME HEALTH. Goal Provider Goal - ADDITIONAL ORDERS WILL BE RECEIVED FROM ALTERNATE PHYSICIAN IN A TIMELY MANNER THROUGHOUT THE CERTIFICATION PERIOD. Goal Provider Goal - EXACERBATIONS OF ENTEROCOLITIS D/T CLOSTRIDIUM DIFFICILE GASTROINTESTINAL DISEASE WILL BE PROMPTLY IDENTIFIED AND INTERVENTIONS IMPLEMENTED TO MINIMIZE RISKS TO PATIENT BY END OF EPISODE. Goal Provider Goal - BLOOD SUGAR READING WILL BE OBTAINED ORDERED THROUGHOUT CERTIFICATION PERIOD. Goal Provider Goal - PATIENT/CAREGIVER WILL VERBALIZE SIGNS AND SYMPTOMS OF EXACERBATION OF ENDOCRINE DIAGNOSIS) TO REPORT TO NURSE/PHYSICIAN THROUGHOUT THE CERTIFICATION PERIOD. Goal Provider Goal - PATIENT/CAREGIVER WILL VERBALIZE SIGNS AND SYMPTOMS OF HYPERTENSION AND WILL BE ABLE TO DEMONSTRATE ABILITY TO MANAGE EXACERBATION BY END OF THE EPISODE. Goal Provider Goal - PATIENT/CAREGIVER WILL VERBALIZE/DEMONSTRATE KNOWLEDGE AND MANAGEMENT OF COPD BY END OF EPISODE. Goal Provider Goal - PATIENT/CAREGIVER WILL VERBALIZE/DEMONSTRATE KNOWLEDGE AND MANAGEMENT OF HEART FAILURE DISEASE PROCESS BY END OF EPISODE. Goal Provider Goal - PATIENT/CAREGIVER WILL VERBALIZE/DEMONSTRATE KNOWLEDGE OF DIABETIC MANAGEMENT. CHANGES IN DIABETIC STATUS WILL BE IDENTIFIED AND REPORTED TO PHYSICIAN FOR PROMPT INTERVENTION THROUGHOUT THE CERTIFICATION PERIOD. Goal Provider Goal - PATIENT/CAREGIVER WILL UTILIZE VIRTUAL VISITS TO ACHIEVE GOALS OUTLINED ON THE PLAN OF CARE. PATIENT WILL HAVE SUPPORT MEASURES ESTABLISHED TO PREVENT HOSPITALIZATION AND PATIENT/CAREGIVER WILL VERBALIZE/DEMONSTRATE METHODS TO REDUCE AVOIDABLE HOSPITALIZATION THROUGHOUT THE CERTIFICATION PERIOD. Goal Provider Goal - PATIENT WILL HAVE SUPPORT MEASURES ESTABLISHED TO PREVENT HOSPITALIZATION AND ED USE AND PATIENT/CAREGIVER WILL VERBALIZE/DEMONSTRATE METHODS TO REDUCE AVOIDABLE HOSPITALIZATION AND ED USE BY END OF EPISODE. Goal Provider Goal - PATIENT/CAREGIVER WILL VERBALIZE UNDERSTANDING OF DISCHARGE PLANNING INSTRUCTIONS BY DATE OF DISCHARGE. Goal Provider Goal - PATIENT/CAREGIVER WILL VERBALIZE/DEMONSTRATE EFFECTIVE ENVIRONMENTAL SAFETY AND FALL PREVENTION STRATEGIES, WILL REMAIN SAFE IN THE COMMUNITY, AND WILL BE FREE OF DANGER TO SELF AND OTHERS THROUGHOUT THE CERTIFICATION PERIOD. Goal Provider Goal - PATIENT/CAREGIVER WILL DEMONSTRATE UNDERSTANDING OF PHARMACOLOGIC AND NONPHARMACOLOGIC PAIN CONTROL MEASURES AND PATIENT WILL HAVE IMPROVEMENT IN PAIN INTERFERING WITH ACTIVITY EVIDENCED BY PAIN AT A LEVEL THAT IS ACCEPTABLE TO THE PATIENT AND PAIN LEVEL WITHIN ESTABLISHED PARAMETERS BY END OF CERTIFICATION PERIOD. Goal Provider Goal - PATIENT/CAREGIVER WILL VERBALIZE UNDERSTANDING OF PRESSURE ULCER PREVENTION BY END OF THE EPISODE. Goal Provider Goal - PATIENT/CAREGIVER WILL DEMONSTRATE MANAGEMENT OF DIABETES A RESULT OF PARTICIPATION IN [facility]. Goal Provider Goal - PATIENT/CAREGIVER WILL DEMONSTRATE MANAGEMENT OF COPD A RESULT OF PARTICIPATION IN [facility]. Goal Provider Goal - PATIENT/CAREGIVER WILL VERBALIZE UNDERSTANDING OF EDUCATION PROVIDED ON MEDICATIONS BY THE END OF THE CERTIFICATION PERIOD. Goal Provider Goal - PHYSICAL THERAPY EVALUATION TO BE COMPLETED WITH RECOMMENDATIONS AND/OR WRITTEN TREATMENT PLAN OF CARE ESTABLISHED FOR THE PHYSICIANS SIGNATURE PATIENT/CAREGIVER WILL PERFORM THERAPEUTIC EXERCISE/S AND DEMONSTRATE PARTICIPATION IN A HOME PROGRAM. PATIENT/CAREGIVER WILL DEMONSTRATE IMPROVED BED MOBILITY TECHNIQUES. PATIENT/CAREGIVER WILL DEMONSTRATE SAFE TRANSFERS USING APPROPRIATE ASSISTIVE DEVICE, BODY MECHANICS AND EQUIPMENT. PATIENT/CAREGIVER WILL DEMONSTRATE IMPROVED GAIT TECHNIQUES TO MINIMIZE RISK OF INJURY. PATIENT/CAREGIVER WILL DEMONSTRATE IMPROVED BALANCE AND REDUCE THE RISK OF FALLS AND INJURY. Encounters Start Date/Time End Date/Time Encounter Type Admission Type Attending Clinicians Care [facility] Care Department Encounter ID Discharge Date Discharge Status Discharge Condition Discharge Reason Percent Goals Met 2025-01-15 00:00:00 2025-03-15 00:00:00 Outpatient NEW ADMISSION [facility] [id number] 22.22
--- OUTSIDE RECORDS SUMMARY | 2025-03-14 19:00 | XMS_ITS | Clinical Summary ---
Author Organization Unknown Care Team Providers Care Melting Operator Name Role Phone BERENICE CHAUDHARY APRN Unavailable Unavailmarly STILES RN, NAHUM Unavailable Unavailable Payers Payer Name Policy Type Policy Number Effective Date Expira tion Date [employer] MANAGED MEDICARE - [facility] [id number] Problems Condition Name Condition Details Condition Category [...] AND COLITIS, UNSPECIFIED Active 07-08 00:00: 00 LONG-TERM (CURRENT) USE OF BISPHOSPHONA ALEXSANDER Active 07-08 00:00: 00 IRRIGATOR VALVE PIPE (CURRENT) USE OF ASPIRIN Active 07-08 00:00: 00 OTHER LONG-TERM (CURRENT) DRUG THERAPY Active 07-08 00:00: 00 LONG-TERM (CURRENT) USE OF ORAL HYPOGLYCEMIC DRUGS Active 07-08 00:00: 00 IRRIGATOR VALVE PIPE (CURRENT) USE OF INSULIN Active 07-08 00:00: 00 LONG-TERM (CURRENT) USE OF SYSTEMIC STEROIDS Active 07-08 [...] 325 mg tablet 01-15 00:00: 00 Yes [id number] 2 tablet EVERY 6 HOURS 2 tablet EVERY 6 HOURS (route: oral) Med Classific ation: Analgesic , Anti-infl ammatory or Antipyret ic Advair Diskus 250 mcg-50 mcg/dose powder for inhalation 01-15 00:00: 00 Yes [id number] 1 inhalat ion EVERY 12 HOURS 1 inhalation EVERY 12 HOURS (route: inhalation ) Med Classific ation: Respirato ry Therapy Agents albuterol sulfate HFA 90 mcg/actuati on aerosol inhaler 01-15 00:00: 00 Yes [id number] 2 puff 4 TIMES DAILY 2 puff 4 TIMES DAILY (route: inhalation ) Med Classific ation: Respirato ry Therapy Agents alendronate 70 mg tablet 01-15 00:00: 00 Yes [id number] 1 tablet WEEKLY 1 tablet WEEKLY (route: oral) Med Classific ation: Endocrine amlodipine 5 mg tablet 01-15 00:00: 00 Yes [id number] 1 tablet DAILY 1 tablet DAILY (route: oral) Med Classific ation: Cardiovas cular Therapy Agents aspirin 81 mg tablet,sofía yed release 01-15 00:00: 00 Yes [id number] 1 tablet DAILY 1 tablet DAILY (route: oral) Med Classific ation: Hematolog ical Agents cholecalcif juan luis (vitamin D3) 25 mcg (1,000 unit) tablet 01-15 00:00: 00 Yes [id number] 1 tablet DAILY 1 tablet DAILY (route: oral) Med Classific ation: Electroly te Balance-N utritiona l Products cyanocobala min (vit B-12) 1,000 mcg/mL injection solution 01-15 00:00: 00 Yes [id number] 1 mL MONTHLY 1 mL MONTHLY (route: injection) Med Classific ation: Electroly te Balance-N utritiona l Products Dificid 200 mg tablet 01-15 00:00: 00 02-02 23:59 :00 No [id number] 1 tablet DIRECTED 1 tablet DIRECTED (route: oral) Med Classific ation: Anti-Infe ctive Agents doxepin 25 mg capsule 01-15 00:00: 00 Yes [id number] 1-2 capsule DAILY 1-2 capsule DAILY (route: oral) Med Classific ation: Central Nervous System Agents duloxetine 20 mg capsule,del ayed release 01-15 00:00: 00 Yes [id number] 1 capsule 2 TIMES DAILY 1 capsule 2 TIMES DAILY (route: oral) Med Classific ation: Central Nervous System Agents fenofibrate nanocrystal lized 145 mg tablet 01-15 00:00: 00 Yes [id number] 1 tablet DAILY 1 tablet DAILY (route: oral) Med Classific ation: Cardiovas cular Therapy Agents fluconazole 100 mg tablet 01-15 00:00: 00 Yes [id number] 1 tablet DAILY 1 tablet DAILY (route: oral) Med Classific ation: Anti-Infe ctive Agents glipizide 5 mg tablet 01-15 00:00: 00 Yes [id number] 1 tablet 2 TIMES DAILY 1 tablet 2 TIMES DAILY (route: oral) Med Classific ation: Endocrine hydralazine 25 mg tablet 01-15 00:00: 00 Yes [id number] 1 tablet 3 TIMES DAILY 1 tablet 3 TIMES DAILY (route: oral) Med Classific ation: Cardiovas cular Therapy Agents Lantus Solostar U-100 Insulin 100 unit/mL (3 mL) subcutaneou s pen 01-15 00:00: 00 Yes [id number] 10 unit DAILY 10 unit DAILY (route: subcutaneo ) Med Classific ation: Endocrine levothyroxi ne 100 mcg tablet 01-15 00:00: 00 Yes [id number] 1 tablet DAILY 1 tablet DAILY (route: oral) Med Classific ation: Endocrine metoprolol succinate ER 100 mg tablet,exte nded release 24 hr 01-15 00:00: 00 Yes [id number] 1 tablet DAILY 1 tablet DAILY (route: oral) Med Classific ation: Cardiovas cular Therapy Agents Nitrostat 0.4 mg sublingual tablet 01-15 00:00: 00 Yes [id number] Per instruc tions NEEDED Per instructio ns NEEDED (route: sublingual ) Med Classific ation: Cardiovas cular Therapy Agents omega 3-dha 100 mg-epa 400 mg-fish oil 1,000 mg capsule 01-15 00:00: 00 Yes [id number] 1 capsule DAILY 1 capsule DAILY (route: oral) Med Classific ation: Cardiovas cular Therapy Agents Os-Jose Luis 500 + D3 500 mg-15 mcg (600 unit) tablet 01-15 00:00: 00 Yes [id number] 1 tablet 2 TIMES DAILY 1 tablet 2 TIMES DAILY (route: oral) Med Classific ation: Electroly te Balance-N utritiona l Products Phospha Neutral 250 mg tablet 01-15 00:00: 00 Yes [id number] 1 tablet 2 TIMES DAILY 1 tablet 2 TIMES DAILY (route: oral) Med Classific ation: Genitouri nary Therapy potassium chloride ER 10 mEq tablet,exte nded release 01-15 00:00: 00 Yes [id number] 1 tablet 2 TIMES DAILY 1 tablet 2 TIMES DAILY (route: oral) Med Classific ation: Electroly te Balance-N utritiona l Products prednisone 5 mg tablet 01-15 00:00: 00 Yes [id number] 1 tablet DAILY 1 tablet DAILY (route: oral) Med Classific ation: Endocrine Probiotic Digestive Care 20 billion cell capsule 01-15 00:00: 00 Yes [id number] 1 capsule 2 TIMES DAILY 1 capsule 2 TIMES DAILY (route: oral) Med Classific ation: Gastroint estinal Therapy Agents Questran 4 gram oral powder 01-15 00:00: 00 Yes [id number] 2 g 2 TIMES DAILY 2 g 2 TIMES DAILY (route: oral) Med Classific ation: Cardiovas cular Therapy Agents quetiapine 50 mg tablet 01-15 00:00: 00 Yes [id number] 1 tablet BEDTIME 1 tablet BEDTIME (route: oral) Med Classific ation: Central Nervous System Agents sodium bicarbonate 650 mg tablet 01-15 00:00: 00 Yes [id number] 1 tablet 3 TIMES DAILY 1 tablet 3 TIMES DAILY (route: oral) Med Classific ation: Gastroint estinal Therapy Agents tizanidine 2 mg tablet 01-15 00:00: 00 Yes [id number] 1 tablet BEDTIME 1 tablet BEDTIME (route: oral) Med Classific ation: Locomotor System valsartan 320 mg tablet 01-15 00:00: 00 Yes [id number] 1 tablet DAILY 1 tablet DAILY (route: oral) Med Classific ation: Cardiovas cular Therapy Agents vancomycin 125 mg capsule 01-15 00:00: 00 Yes [id number] 1 capsule 4 TIMES DAILY 1 capsule 4 TIMES DAILY (route: oral) Med Classific ation: Anti-Infe ctive Agents vitamin E (dl, acetate) 180 mg (400 unit) capsule 01-15 00:00: 00 Yes [id number] 1 capsule DAILY 1 capsule DAILY (route: [...] MAINTAIN SITUATIONAL AWARENESS AND WILL NOTIFY CLINICAL EGG TESTER AND PHYSICIAN/PROVIDER WITH ANY CHANGE IN CONDITION. [code = SKILLED NURSE TO PERFORM ENVIRONMENTAL SAFETY RISK ASSESSMENT AND FALL RISK ASSESSMENT AND PROVIDE INSTRUCTION TO IMPLEMENT ENVIRONMENTAL SAFETY AND FALL PREVENTION STRATEGIES THROUGHOUT THE CERTIFICATION PERIOD. SKILLED NURSE WILL MAINTAIN SITUATIONAL AWARENESS AND WILL NOTIFY CLINICAL EGG TESTER AND PHYSICIAN/PROVIDER WITH ANY CHANGE IN CONDITION.] [...] RUCT PATIENT/CAREGIVER ON DIABETES MANAGEMENT UTILIZING [facility]. [code = SN TO INSTRUCT PATIENT/CAREGIVER ON DIABETES MANAGEMENT UTILIZING [facility].] Future Scheduled Test SN TO [...] CARE WILL BE ESTABLISHED THAT MEETS PATIENT'S JAIL NEEDS AND INCLUDES PATIENT GOAL FOR HOME [...] Encounter Type Admission Type Attending Clinicians Care [facility] Care Department Encounter ID Discharge Date Discharge Status Discharge Condition Discharge Reason Percent Goals Met 2025-01-15 00:00:00 2025-03-15 00:00:00 Outpatient NEW ADMISSION [facility] [id number] 22.22
== END 2025-02-09 13:41 | disposition skilled nursing facility (03) ==
LOC: ER 02-04 00:53 → ICU 02-04 04:20 → MEDSURG 02-07 03:41 → ICU 02-08 10:01
PROVIDERS: Internal Medicine; Surgery; Admitting Provider Internal Medicine; Emergency Provider Emergency Medicine; PCP Nurse Practitioner; Visit Provider Student in an Organized Health Care Education/Training Program
PROC: 0DJ08ZZ Inspection of Upper Intestinal Tract, Via Natural or Artificial Opening Endoscopic (ICD-10-PCS; principal; 2025-02-04 12:25)
DX: E87.1 Hypo-osmolality and hyponatremia (principal); I95.9 Hypotension, unspecified; D62 Acute posthemorrhagic anemia; A04.71 Enterocolitis due to Clostridium difficile, recurrent; N30.90 Cystitis, unspecified without hematuria; Z79.4 Long term (current) use of insulin; Z79.82 Long term (current) use of aspirin; K21.9 Gastro-esophageal reflux disease without esophagitis; R50.9 Fever, unspecified; J44.9 Chronic obstructive pulmonary disease, unspecified; E11.22 Type 2 diabetes mellitus with diabetic chronic kidney disease; I12.9 Hypertensive chronic kidney disease with stage 1 through stage 4 chronic kidney disease, or unspecified chronic kidney disease; N18.9 Chronic kidney disease, unspecified; I50.32 Chronic diastolic (congestive) heart failure; I20.0 Unstable angina; E78.2 Mixed hyperlipidemia; E03.9 Hypothyroidism, unspecified; K57.30 Diverticulosis of large intestine without perforation or abscess without bleeding; F17.210 Nicotine dependence, cigarettes, uncomplicated; E66.9 Obesity, unspecified; Z68.29 Body mass index [BMI] 29.0-29.9, adult
CPT/HCPCS: 36415; 36416; 36430; 43235; 70450; 71045; 73080; 73560; 80048; 80053; 81001; 82274; 82962; 83605; 83735; 84100; 85025; 85610; 85730; 86140; 86850; 86900; 86920; 87040; 87081; 87486; 87581; 87633; 87880; 96372; 96374; 97116; 97161; 97165; 97530; 99213; 99285; G0378; J0696; J1815; J1938; J2270; J2470; J2704; J3420; J7030; J7512; J9999; P9016

== ENCOUNTER 2025-02-19 15:34 | Emergency (ER) | payer MEDICARE, SELFPAY ==
[2025-02-19] VITALS (13 sets, daily range): BP systolic 137–178; BP diastolic 52–66; PULSE 64–85; RESP 16–17; TEMP 36.9–37.3; O2SAT 94–96; BMI 29.8
--- NOTE | 2025-02-19 15:47 | CTR_ITS ---
PROCEDURE INFORMATION: Exam: CT Abdomen And Pelvis With Contrast Exam date and time: 02/19/2025 5:08 PM Age: 74 years old Clinical indication: Abdominal pain; Colic; Prior surgery; Surgery date: 6+ months; Surgery type: Lumbar, gb; HX of c-diff, diarrhea; Additional info: Abdominal pain, gi bleed TECHNIQUE: Imaging protocol: Computed tomography of the abdomen and pelvis with contrast. Radiation optimization: All CT scans at this facility use at least one of these dose optimization techniques: automated exposure control; mA and/or kV adjustment per patient size (includes targeted exams where dose is matched to clinical indication); or iterative reconstruction. Contrast material: OMNIPAQUE 350; Contrast volume: 100 ml; Contrast route: INTRAVENOUS (IV); COMPARISON: CT abdomen pelvis wo con [id number] 01/10/2025 3:33 PM RADIATION DOSE METRICS: Total DLP (mGy-cm): 817.83 FINDINGS: Lungs: Small bilateral pleural effusions. Calcified granuloma in the right lower lobe. Bibasilar atelectasis. Heart: Heavy mitral annular calcifications. Liver: Normal. Gallbladder and biliary ducts: Surgically absent gallbladder. No biliary ductal dilation. Pancreas: Several punctate calcifications in the pancreatic uncinate process and tail. No ductal dilation. Spleen: Punctate calcified granuloma. Otherwise unremarkable. Adrenal glands: A 1.2 cm nodule in the left adrenal gland, stable since 06/29/2019 and compatible with benign adenoma. Normal right adrenal gland. Kidneys and ureters: Symmetrically enhancing kidneys multiple bilateral simple cysts and subcentimeter presumed cysts. Cortical scarring of the right mid to upper kidney. No hydronephrosis. No urolithiasis. Stomach and bowel: No dilated or inflamed bowel. Small periampullary duodenal diverticulum. Colonic diverticulosis without diverticulitis. Appendix: Normal. Intraperitoneal space: Unremarkable. No free air. No free fluid. Vasculature: Moderate atherosclerotic calcifications of the normal-caliber abdominal aorta. Lymph nodes: No lymphadenopathy. Urinary bladder: Unremarkable as visualized. Reproductive: Unremarkable as visualized. Bones/joints: No acute osseous abnormality. Multilevel chronic degenerative changes of the spine. Posterior fusion hardware from L3-S1 is intact. Soft tissues: Unremarkable. CT/CT abdomen pelvis w con* [id number] IMPRESSION: 1. No acute abnormality in the abdomen or pelvis. 2. Small bilateral pleural effusions and bibasilar atelectasis. COMMENTS: Consistent with the [employer]'s Incidental Findings Committee white paper (J Am Richard Radiol 2018): Any incidental renal lesion less than 1 cm or classified as too small to characterize, or any incidental cystic renal lesion characterized as simple-appearing, is likely benign. No follow-up imaging is recommended for these lesions per consensus recommendations based on imaging criteria.
--- NOTE | 2025-02-19 15:48 | W.ED.GIBLEED ---
Documented by User: MINDY Lugo 02/19/25 16:30 HPI - GI Bleed General: Chief complaint: GI Bleed Stated complaint: ABD PAIN Time Seen by Provider: 02/19/25 17:09 History of Present Illness: 74-year-old female with recent history of C. difficile 1 month ago and hospitalization, DM, presents to the ED with bright red blood per rectum x 3 today. She has not had her aspirin today, however is typically on aspirin 81 mg daily. She is currently at rehab facility with recent hospitalization for C. difficile. She did have rehab therapy at the facility today prior to her bright red blood per rectum. Associated symptoms: Denies abdominal pain, chills, fever(s), headache(s), nausea, rash or vomiting Related Data Home Medications ?Medication ?Instructions ?Recorded ?Confirmed aspirin 81 mg tablet,delayed 81 mg PO DAILY 10/19/19 02/04/25 release cholecalciferol (vitamin D3) 25 25 mcg PO DAILY 10/27/20 02/04/25 mcg (1,000 unit) capsule (Vitamin D3) vitamin E 268 mg (400 unit) capsule 400 unit PO DAILY 10/27/20 02/04/25 calcium 500 mg (as 1 tab PO BID 11/02/24 02/04/25 carbonate)-vitamin D3 15 mcg (600 unit) tablet (Os-Jose Luis 500 + D3) omega-3 fatty acids 1,000 mg 1,000 mg PO DAILY 11/02/24 02/04/25 capsule cyanocobalamin (vitamin B-12) 1,000 mcg SUBCUT Q30D 12/24/24 02/04/25 1,000 mcg/mL injection solution Lactobacillus rhamnosus GG 20 See Rx Instructions .Route .COMPLEX 02/04/25 02/04/25 billion cell capsule (Probiotic Digestive Care) doxepin 25 mg capsule 25 - 50 mg PO QPM 02/04/25 02/04/25 duloxetine 20 mg capsule,delayed 20 mg PO BID 02/04/25 02/04/25 release fluticasone 250 mcg-salmeterol 50 1 inh inhalation Q12H PRN 02/04/25 02/04/25 mcg/dose blistr powdr for Shortness Of Breath inhalation (Advair Diskus) Previous Rx's ?Medication ?Instructions ?Recorded Diabetic shoes #1 ea 10/14/20 nitroglycerin 0.4 mg sublingual 0.4 mg sublingual Q5M PRN chest 01/22/23 tablet pain #20 tabs lancets (Accu-Chek Softclix #100 ea 04/16/23 Lancets) right cmc splint #1 ea 01/07/24 alendronate 70 mg tablet (Fosamax) 70 mg PO .weekly #12 tabs 07/27/24 blood sugar diagnostic (Accu-Chek #100 ea 07/27/24 Guide test strips) fenofibrate nanocrystallized 145 145 mg PO DAILY #90 tabs 07/27/24 mg tablet (Tricor) levothyroxine 100 mcg tablet 100 mcg PO DAILY #90 tabs 07/27/24 metoprolol succinate 100 mg 100 mg PO DAILY #90 tabs 07/27/24 tablet,extended release 24 hr pen needle, diabetic 33 gauge x #100 ea 07/27/24 potassium chloride 10 mEq 10 meq PO BID #180 tabs 07/27/24 tablet,extended release prednisone 5 mg tablet 5 mg PO DAILY #90 tabs 09/07/24 tizanidine 2 mg tablet 2 mg PO .at bedtime PRN muscle 10/14/24 spasticity #90 tabs albuterol sulfate 90 mcg/actuation 2 puff inhalation QID PRN 12/19/24 aerosol inhaler (Ventolin HFA) Shortness Of Breath #25.5 grams cholestyramine 4 gram oral powder 2 g PO BID 30 days #210 grams 12/28/24 (Questran Light) glucagon HCl 1 mg solution for 1 mg IM Q20M PRN hypoglycemia #1 ea 12/28/24 injection (Glucagon (HCl) Emergency Kit) insulin glargine 100 unit/mL (3 10 unit (0.1 mL) SUBCUT QAM #31.5 12/28/24 mL) subcutaneous pen (Lantus mL Solostar U-100 Insulin) quetiapine 50 mg tablet (Seroquel) 50 mg PO .at bedtime #30 tabs 01/01/25 acetaminophen 325 mg tablet 650 mg (2 x 325 mg) PO Q6H PRN 01/14/25 Mild Pain #30 tabs sodium bicarbonate 650 mg tablet 650 mg PO TID #15 tabs 01/14/25 sodium di- and 1 tab PO BID #20 tabs 01/14/25 monophosphate-potassium phos monobasic 250 mg tablet (Phospha Neutral) ferrous sulfate 300 mg (60 mg 300 mg (5 mL) PO DAILY #120 mL 01/22/25 iron)/5 mL oral liquid fidaxomicin 200 mg tablet (Dificid) 200 mg PO Q48H #10 tabs 02/09/25 hydralazine 25 mg tablet 50 mg (2 x 25 mg) PO TID #90 tabs 02/09/25 pantoprazole 40 mg tablet,delayed 40 mg PO QAM #60 tabs 02/09/25 release (Protonix) sucralfate 1 gram tablet 1 g PO BIDAC 28 days #56 tabs 02/09/25 valsartan 320 mg tablet (Diovan) 160 mg (1/2 x 320 mg) PO DAILY #90 02/09/25 tabs Allergies Allergy/AdvReac Type Severity Reaction Status Date / Time Penicillins Allergy Severe Rash Verified 02/03/25 23:00 Sulfa (Sulfonamide Allergy Severe Rash Verified 02/03/25 23:00 Antibiotics) Latex, Natural Rubber AdvReac Severe Rash Verified 02/03/25 23:00 adhesive AdvReac Intermediate Rash Verified 02/03/25 23:00 trazodone AdvReac Do not Verified 02/03/25 23:00 tolerate Review of Systems General: Reports: 10 or more systems reviewed and unremarkable except in HPI and below Const: Denies: fever(s) or chills Eyes: Denies: change in vision or blurry vision ENMT: Denies: throat pain or mouth pain Card: Denies: chest pain or palpitations Resp: Denies: dyspnea or non-productive cough GI: Denies: abdominal pain, nausea or vomiting : Denies: flank pain or dysuria Musc: Denies: neck pain, back pain or extremity pain Skin/Breast: Denies: rash or pruritus Neuro: Denies: headache(s), numbness in extremities or weakness in extremities Psych: Denies: anxiety or depression PFSH ED PFSH: Medical History (Updated 02/19/25 @ 18:52 by MINDY Levy) Diastolic dysfunction with chronic heart failure Type 2 diabetes mellitus with hyperglycemia, with long-term current use of insulin Osteoarthritis of hands, bilateral Immunization counseling High risk medication use Seropositive rheumatoid arthritis of multiple sites Osteoporosis Cigarette smoker COPD (chronic obstructive pulmonary disease) Unstable angina Hypertension Environmental and seasonal allergies Vitamin D deficiency Mixed hyperlipidemia Diverticulosis Adult hypothyroidism Surgical History History of lumbar surgery Rods in lumbar History of cholecystectomy History of tubal ligation History of foot surgery left Family History Father Diabetes Mother CAD (coronary artery disease) Other Dementia Social History Smoking and tobacco/nicotine status: current every day tobacco/nicotine user (3/4 of a pack a day) Second hand smoke exposure: Yes Alcohol intake: never Substance/Drug Use: never Adopted: No Caregiver/support person: No Lives independently: Yes Household members: spouse Housing: House Marital status: Number of children: 3 service: No Current occupational status: retired Do you think of yourself as: Straight/Heterosexual Current gender identity: Female Physical Exam Const: COMMON NORMALS: no acute distress, average body habitus and patient oriented x3 HENMT: COMMON NORMALS: normocephalic and atraumatic HEAD & SCALP: normocephalic and atraumatic Eye: COMMON NORMALS: Equal, round and reactive pupils present, EOMs intact bilaterally, conjunctivae normal (Pallor) and no scleral icterus CONJUNCTIVA: Yes conjunctivae normal (Pallor) PUPIL: Yes Equal, round and reactive pupils present Neck/C-Spine: COMMON NORMALS: full ROM and no lymphadenopathy Lymph: LYMPHATIC: no lymphadenopathy noted Chest: COMMONS NORMALS: normal inspection of the chest and normal palpation of entire chest wall Resp: COMMON NORMALS: normal respiratory effort, No retractions and clear to auscultation bilaterally AUSCULTATION: clear to auscultation bilaterally Cardio: COMMON NORMALS: regular rate and regular rhythm RATE: regular rate RHYTHM: regular rhythm GI: COMMON NORMALS: Soft to palpation AUSCULTATION: Yes normoactive bowel sounds PALPATION: Yes Soft to palpation and Yes Tenderness to palpation present (GI) Details: LLQ, RLQ and other (no epigastrum tenderness) : COMMON NORMALS: Yes no CVA tenderness BLADDER/KIDNEY EXAM: Yes no CVA tenderness Back/Pelvis: COMMON NORMALS: no CVA tenderness Extremity: COMMON NORMALS: normal to inspection, full ROM and capillary refill normal Neuro: COMMON NORMALS: patient oriented x3 Psych: COMMON NORMALS: mental status grossly normal, Normal thought process present and cooperative THOUGHT PROCESS: Normal thought process present Skin: COMMON NORMALS: no rashes or lesions noted GENERAL SKIN EXAM: no rashes or lesions noted Course Vital Signs: Vital signs: Vital Signs Temperature 98.5 F 02/19/25 19:21 Pulse Rate 77 02/19/25 19:21 Respiratory Rate 16 02/19/25 19:21 Blood Pressure 150/57 02/19/25 19:21 Pulse Oximetry 96 02/19/25 19:21 Oxygen Delivery Me thod Room Air 02/19/25 18:12 MDM - GI Bleed Medical Decision Making Patient is a 74-year-old female with recent hospitalization for C. difficile colitis and lori red blood at that time. Apparently during hospitalization, patient had EGD, however colonoscopy was not done since bleeding had stopped. She has had 3 large-volume bright red blood per rectum, and hemoglobin is 5.9 with last 1 nearly 10. Will give 2 units of blood, hold her aspirin, and Protonix x 1. This is most likely a lower GI bleed, however we will give Protonix prophylactically and discussed with hospitalist/ and/or surgeon. CT of the abdomen pelvis is pending Lab Data 02/19/25 Unknown 02/19/25 Unknown Radiology Impressions Abdomen/Pelvis CT 02/19/25 15:47 IMPRESSION: 1. No acute abnormality in the abdomen or pelvis. 2. Small bilateral pleural effusions and bibasilar atelectasis. COMMENTS: Consistent with the [employer]'s Incidental Findings Committee white paper (J Am Richard Radiol 2018): Any incidental renal lesion less than 1 cm or classified as too small to characterize, or any incidental cystic renal lesion characterized as simple-appearing, is likely benign. No follow-up imaging is recommended for these lesions per consensus recommendations based on imaging criteria. Laboratory Results WBC 10.76 10^3/uL (3.29-11.43) 02/19/25 Unknown RBC 1.95 10^6/uL (3.85-5.65) L 02/19/25 Unknown Hgb 5.90 g/dL (11.27-16.99) L* 02/19/25 Unknown Hct 19.4 % (36-47) L* 02/19/25 Unknown MCV 99.5 fl (85-98) H 02/19/25 Unknown MCH 30.3 pg (27-33) 02/19/25 Unknown MCHC 30.4 g/dL (30-55) 02/19/25 Unknown RDW 19.2 % (12.1-15.1) H 02/19/25 Unknown Plt Count 473 10^3/cmm (157-399) H 02/19/25 Unknown MPV 9.3 fL (7.4-10.4) 02/19/25 Unknown Neut % (Auto) 77.4 % 02/19/25 Unknown Lymph % (Auto) 14.8 % 02/19/25 Unknown Garden % (Auto) 6.0 % 02/19/25 Unknown Eos % (Auto) 0.4 % 02/19/25 Unknown Baso % (Auto) 0.3 % 02/19/25 Unknown Neut # (Auto) 8.33 10^3/uL (1.8-7.7) H 02/19/25 Unknown Lymph # (Auto) 1.6 10^3/uL (0.8-4.8) 02/19/25 Unknown Garden # (Auto) 0.7 10^3/uL (0.2-0.9) 02/19/25 Unknown Eos # (Auto) 0.0 10^3/uL (0.0-0.8) 02/19/25 Unknown Baso # (Auto) 0.0 10^3/uL (0.0-0.1) 02/19/25 Unknown Nucleated RBC % (auto) 0.2 % 02/19/25 Unknown Nucleated RBCs # 0.0 /100WBC 02/19/25 Unknown PT 14.30 SECONDS (12.1-14.9) 02/19/25 Unknown INR 1.04 (0.8-1.2) 02/19/25 Unknown Sodium 136 mmol/L (136-145) 02/19/25 Unknown Potassium 5.0 mmol/L (3.5-5.1) 02/19/25 Unknown Chloride 100 mmol/L (98-107) 02/19/25 Unknown Carbon Dioxide 21 mmol/L (22-29) L 02/19/25 Unknown Anion Gap 20.0 (5-19) H 02/19/25 Unknown BUN 30 mg/dL (8-23) H 02/19/25 Unknown Creatinine 1.3 mg/dL (0.5-0.9) H 02/19/25 Unknown GFR Calculation Not Reportable 02/19/25 Unknown Glucose 173 mg/dL (65-115) H 02/19/25 Unknown Calculated Osmolality 292 mOsm/kg (285-295) 02/19/25 Unknown Lactic Acid 3.1 mmol/L (0.5-2.2) H 02/19/25 Unknown Calcium 8.3 mg/dL (8.5-10.5) L 02/19/25 Unknown Total Bilirubin 0.4 mg/dL (0.15-1.2) 02/19/25 Unknown AST 26 U/L (0-32) 02/19/25 Unknown ALT 15 U/L (0-33) 02/19/25 Unknown Alkaline Phosphatase 80 U/L (35-105) 02/19/25 Unknown Total Protein 5.4 g/dL (6.6-8.7) L 02/19/25 Unknown Albumin 2.9 g/dL (3.5-5.2) L 02/19/25 Unknown Globulin 2.5 g/dL (1.3-4.6) 02/19/25 Unknown C. difficile (PCR) Negative (Negative) 02/19/25 16:53 Blood Type O Negative 02/19/25 16:37 Rho(D) Type Rh negative 02/19/25 16:37 Antibody Screen Negative 02/19/25 16:37 Crossmatch See Detail 02/19/25 16:37 Discharge Plan Discharge Patient Disposition: Xfer Short-Term Hosp Clinical Impression: Acute blood loss anemia GI (gastrointestinal bleed) Qualifiers: GI bleed type/associated pathology: unspecified gastrointestinal hemorrhage type Qualified Code(s): K92.2 - Gastrointestinal hemorrhage, unspecified Condition: Stable Referrals: Karla Gallegos, PROJECT ASSISTANT-C [Primary Care Provider, [facility]] Print Language: South African Sign Out Sign Out Data: Patient Sign Out occurred on 02/19/25 at 17:09. Patient's care was discussed, and care was transferred from MINDY Lugo to MINDY Levy. Coding Level of Care Code ED Auto Cleaner for Chg Fwd Documented by User: MINDY Levy 02/19/25 19:58 HPI - GI Bleed General: Chief complaint: GI Bleed Stated complaint: ABD PAIN Time Seen by Provider: 02/19/25 17:09 Related Data Home Medications ?Medication ?Instructions ?Recorded ?Confirmed aspirin 81 mg tablet,delayed 81 mg PO DAILY 10/19/19 02/04/25 release cholecalciferol (vitamin D3) 25 25 mcg PO DAILY 10/27/20 02/04/25 mcg (1,000 unit) capsule (Vitamin D3) vitamin E 268 mg (400 unit) capsule 400 unit PO DAILY 10/27/20 02/04/25 calcium 500 mg (as 1 tab PO BID 11/02/24 02/04/25 carbonate)-vitamin D3 15 mcg (600 unit) tablet (Os-Jose Luis 500 + D3) omega-3 fatty acids 1,000 mg 1,000 mg PO DAILY 11/02/24 02/04/25 capsule cyanocobalamin (vitamin B-12) 1,000 mcg SUBCUT Q30D 12/24/24 02/04/25 1,000 mcg/mL injection solution Lactobacillus rhamnosus GG 20 See Rx Instructions .Route .COMPLEX 02/04/25 02/04/25 billion cell capsule (Probiotic Digestive Care) doxepin 25 mg capsule 25 - 50 mg PO QPM 02/04/25 02/04/25 duloxetine 20 mg capsule,delayed 20 mg PO BID 02/04/25 02/04/25 release fluticasone 250 mcg-salmeterol 50 1 inh inhalation Q12H PRN 02/04/25 02/04/25 mcg/dose blistr powdr for Shortness Of Breath inhalation (Advair Diskus) Previous Rx's ?Medication ?Instructions ?Recorded Diabetic shoes #1 ea 10/14/20 nitroglycerin 0.4 mg sublingual 0.4 mg sublingual Q5M PRN chest 01/22/23 tablet pain #20 tabs lancets (Accu-Chek Softclix #100 ea 04/16/23 Lancets) right cmc splint #1 ea 01/07/24 alendronate 70 mg tablet (Fosamax) 70 mg PO .weekly #12 tabs 07/27/24 blood sugar diagnostic (Accu-Chek #100 ea 07/27/24 Guide test strips) fenofibrate nanocrystallized 145 145 mg PO DAILY #90 tabs 07/27/24 mg tablet (Tricor) levothyroxine 100 mcg tablet 100 mcg PO DAILY #90 tabs 07/27/24 metoprolol succinate 100 mg 100 mg PO DAILY #90 tabs 07/27/24 tablet,extended release 24 hr pen needle, diabetic 33 gauge x #100 ea 07/27/24 potassium chloride 10 mEq 10 meq PO BID #180 tabs 07/27/24 tablet,extended release prednisone 5 mg tablet 5 mg PO DAILY #90 tabs 09/07/24 tizanidine 2 mg tablet 2 mg PO .at bedtime PRN muscle 10/14/24 spasticity #90 tabs albuterol sulfate 90 mcg/actuation 2 puff inhalation QID PRN 12/19/24 aerosol inhaler (Ventolin HFA) Shortness Of Breath #25.5 grams cholestyramine 4 gram oral powder 2 g PO BID 30 days #210 grams 12/28/24 (Questran Light) glucagon HCl 1 mg solution for 1 mg IM Q20M PRN hypoglycemia #1 ea 12/28/24 injection (Glucagon (HCl) Emergency Kit) insulin glargine 100 unit/mL (3 10 unit (0.1 mL) SUBCUT QAM #31.5 12/28/24 mL) subcutaneous pen (Lantus mL Solostar U-100 Insulin) quetiapine 50 mg tablet (Seroquel) 50 mg PO .at bedtime #30 tabs 01/01/25 acetaminophen 325 mg tablet 650 mg (2 x 325 mg) PO Q6H PRN 01/14/25 Mild Pain #30 tabs sodium bicarbonate 650 mg tablet 650 mg PO TID #15 tabs 01/14/25 sodium di- and 1 tab PO BID #20 tabs 01/14/25 monophosphate-potassium phos monobasic 250 mg tablet (Phospha Neutral) ferrous sulfate 300 mg (60 mg 300 mg (5 mL) PO DAILY #120 mL 01/22/25 iron)/5 mL oral liquid fidaxomicin 200 mg tablet (Dificid) 200 mg PO Q48H #10 tabs 02/09/25 hydralazine 25 mg tablet 50 mg (2 x 25 mg) PO TID #90 tabs 02/09/25 pantoprazole 40 mg tablet,delayed 40 mg PO QAM #60 tabs 02/09/25 release (Protonix) sucralfate 1 gram tablet 1 g PO BIDAC 28 days #56 tabs 02/09/25 valsartan 320 mg tablet (Diovan) 160 mg (1/2 x 320 mg) PO DAILY #90 02/09/25 tabs Allergies Allergy/AdvReac Type Severity Reaction Status Date / Time Penicillins Allergy Severe Rash Verified 02/03/25 23:00 Sulfa (Sulfonamide Allergy Severe Rash Verified 02/03/25 23:00 Antibiotics) Latex, Natural Rubber AdvReac Severe Rash Verified 02/03/25 23:00 adhesive AdvReac Intermediate Rash Verified 02/03/25 23:00 trazodone AdvReac Do not Verified 02/03/25 23:00 tolerate PFSH ED PFSH: Medical History (Updated 02/19/25 @ 18:52 by MINDY Levy) Diastolic dysfunction with chronic heart failure Type 2 diabetes mellitus with hyperglycemia, with long-term current use of insulin Osteoarthritis of hands, bilateral Immunization counseling High risk medication use Seropositive rheumatoid arthritis of multiple sites Osteoporosis Cigarette smoker COPD (chronic obstructive pulmonary disease) Unstable angina Hypertension Environmental and seasonal allergies Vitamin D deficiency Mixed hyperlipidemia Diverticulosis Adult hypothyroidism Surgical History History of lumbar surgery Rods in lumbar History of cholecystectomy History of tubal ligation History of foot surgery left Family History Father Diabetes Mother CAD (coronary artery disease) Other Dementia Social History Smoking and tobacco/nicotine status: current every day tobacco/nicotine user (3/4 of a pack a day) Second hand smoke exposure: Yes Alcohol intake: never Substance/Drug Use: never Adopted: No Caregiver/support person: No Lives independently: Yes Household members: spouse Housing: House Marital status: Number of children: 3 service: No Current occupational status: retired Do you think of yourself as: Straight/Heterosexual Current gender identity: Female Course Vital Signs: Vital signs: Vital Signs Temperature 98.5 F 02/19/25 19:21 Pulse Rate 77 02/19/25 19:21 Respiratory Rate 16 02/19/25 19:21 Blood Pressure 150/57 02/19/25 19:21 Pulse Oximetry 96 02/19/25 19:21 Oxygen Delivery Me thod Room Air 02/19/25 18:12 MDM - GI Bleed Medical Decision Making Patient is a 74-year-old female with recent hospitalization for C. difficile colitis and lori red blood at that time. Apparently during hospitalization, patient had EGD, however colonoscopy was not done since bleeding had stopped. She has had 3 large-volume bright red blood per rectum, and hemoglobin is 5.9 with last 1 nearly 10. Will give 2 units of blood, hold her aspirin, and Protonix x 1. This is most likely a lower GI bleed, however we will give Protonix prophylactically and discussed with hospitalist/ and/or surgeon. CT of the abdomen pelvis is pending. Care of patient assumed at shift change. CT scan results does not show any acute process. I spoke with Dr. Felton, supervisor asbestos removal at [facility], who will consult the patient. I then spoke with Dr. Parish, hospitalist, who agrees for admission. Informed family of the plan, patient stating she feels better. All other questions and concerns addressed, awaiting transfer. Lab Data 02/19/25 Unknown 02/19/25 Unknown Radiology Impressions Abdomen/Pelvis CT 02/19/25 15:47 IMPRESSION: 1. No acute abnormality in the abdomen or pelvis. 2. Small bilateral pleural effusions and bibasilar atelectasis. COMMENTS: Consistent with the [employer]'s Incidental Findings Committee white paper (J Am Richard Radiol 2018): Any incidental renal lesion less than 1 cm or classified as too small to characterize, or any incidental cystic renal lesion characterized as simple-appearing, is likely benign. No follow-up imaging is recommended for these lesions per consensus recommendations based on imaging criteria. Laboratory Results WBC 10.76 10^3/uL (3.29-11.43) 02/19/25 Unknown RBC 1.95 10^6/uL (3.85-5.65) L 02/19/25 Unknown Hgb 5.90 g/dL (11.27-16.99) L* 02/19/25 Unknown Hct 19.4 % (36-47) L* 02/19/25 Unknown MCV 99.5 fl (85-98) H 02/19/25 Unknown MCH 30.3 pg (27-33) 02/19/25 Unknown MCHC 30.4 g/dL (30-55) 02/19/25 Unknown RDW 19.2 % (12.1-15.1) H 02/19/25 Unknown Plt Count 473 10^3/cmm (157-399) H 02/19/25 Unknown MPV 9.3 fL (7.4-10.4) 02/19/25 Unknown Neut % (Auto) 77.4 % 02/19/25 Unknown Lymph % (Auto) 14.8 % 02/19/25 Unknown Garden % (Auto) 6.0 % 02/19/25 Unknown Eos % (Auto) 0.4 % 02/19/25 Unknown Baso % (Auto) 0.3 % 02/19/25 Unknown Neut # (Auto) 8.33 10^3/uL (1.8-7.7) H 02/19/25 Unknown Lymph # (Auto) 1.6 10^3/uL (0.8-4.8) 02/19/25 Unknown Garden # (Auto) 0.7 10^3/uL (0.2-0.9) 02/19/25 Unknown Eos # (Auto) 0.0 10^3/uL (0.0-0.8) 02/19/25 Unknown Baso # (Auto) 0.0 10^3/uL (0.0-0.1) 02/19/25 Unknown Nucleated RBC % (auto) 0.2 % 02/19/25 Unknown Nucleated RBCs # 0.0 /100WBC 02/19/25 Unknown PT 14.30 SECONDS (12.1-14.9) 02/19/25 Unknown INR 1.04 (0.8-1.2) 02/19/25 Unknown Sodium 136 mmol/L (136-145) 02/19/25 Unknown Potassium 5.0 mmol/L (3.5-5.1) 02/19/25 Unknown Chloride 100 mmol/L (98-107) 02/19/25 Unknown Carbon Dioxide 21 mmol/L (22-29) L 02/19/25 Unknown Anion Gap 20.0 (5-19) H 02/19/25 Unknown BUN 30 mg/dL (8-23) H 02/19/25 Unknown Creatinine 1.3 mg/dL (0.5-0.9) H 02/19/25 Unknown GFR Calculation Not Reportable 02/19/25 Unknown Glucose 173 mg/dL (65-115) H 02/19/25 Unknown Calculated Osmolality 292 mOsm/kg (285-295) 02/19/25 Unknown Lactic Acid 3.1 mmol/L (0.5-2.2) H 02/19/25 Unknown Calcium 8.3 mg/dL (8.5-10.5) L 02/19/25 Unknown Total Bilirubin 0.4 mg/dL (0.15-1.2) 02/19/25 Unknown AST 26 U/L (0-32) 02/19/25 Unknown ALT 15 U/L (0-33) 02/19/25 Unknown Alkaline Phosphatase 80 U/L (35-105) 02/19/25 Unknown Total Protein 5.4 g/dL (6.6-8.7) L 02/19/25 Unknown Albumin 2.9 g/dL (3.5-5.2) L 02/19/25 Unknown Globulin 2.5 g/dL (1.3-4.6) 02/19/25 Unknown C. difficile (PCR) Negative (Negative) 02/19/25 16:53 Blood Type O Negative 02/19/25 16:37 Rho(D) Type Rh negative 02/19/25 16:37 Antibody Screen Negative 02/19/25 16:37 Crossmatch See Detail 02/19/25 16:37 All radiology interpretation(s) finalized by discharge Discharge Plan Discharge Patient Disposition: Xfer Short-Term Hosp Clinical Impression: Acute blood loss anemia GI (gastrointestinal bleed) Qualifiers: GI bleed type/associated pathology: unspecified gastrointestinal hemorrhage type Qualified Code(s): K92.2 - Gastrointestinal hemorrhage, unspecified Condition: Stable Referrals: Karla Gallegos, PROJECT ASSISTANT-C [Primary Care Provider, [facility]] Print Language: South African Sign Out Sign Out Data: Patient Sign Out occurred on 02/19/25 at 17:09. Patient's care was discussed, and care was transferred from MINDY Lugo to MINDY Levy. Coding Level of Care Code ED Auto Cleaner for Ian Navarro
[2025-02-19 15:54] LABS: Mean Corpuscular HGB Conc 30.4 g/dL (30-55); Mean Corpuscular Hemoglobin 30.3 pg (27-33); Mean Corpuscular Volume 99.5 fl (85-98); Nucleated Red Blood Cells % 0.2 %; Platelet Count 473 10^3/cmm (157-399); Red Blood Count 1.95 10^6/uL (3.85-5.65); White Blood Count 10.76 10^3/uL (3.29-11.43)
--- OUTSIDE RECORDS SUMMARY | 2025-02-19 16:01 | XMS_ITS | Clinical Summary ---
[facility] Address [address] 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
[2025-02-19 16:04] LABS: INR 1.04 (0.8-1.2); Prothrombin Time 14.30 SECONDS (12.1-14.9)
[2025-02-19 16:06] LABS: Hematocrit 19.4 % (36-47); Hemoglobin 5.90 g/dL (11.27-16.99)
[2025-02-19 16:09] LABS: Alanine Aminotransferase 15 U/L (0-33); Albumin Level 2.9 g/dL (3.5-5.2); Alkaline Phosphatase 80 U/L (35-105); Anion Gap 20.0 (5-19); Aspartate Amino Transferase 26 U/L (0-32); Blood Urea Nitrogen 30 mg/dL (8-23); Calcium 8.3 mg/dL (8.5-10.5); Carbon Dioxide 21 mmol/L (22-29); Chloride 100 mmol/L (98-107); Creatinine Clr Calc Pharmacy 37.4232; Globulin 2.5 g/dL (1.3-4.6); Glucose 173 mg/dL (65-115); Osmolality Calculated 292 mOsm/kg (285-295); Potassium 5.0 mmol/L (3.5-5.1); Sodium 136 mmol/L (136-145); Total Protein 5.4 g/dL (6.6-8.7)
[2025-02-19 16:10] LABS: Lactic Sepsis W/Reflex 3.1 mmol/L (0.5-2.2)
[2025-02-19] MEDS: iohexol 350 mg/mL 500 mL Btl (per mL) IV (17:10)
[2025-02-19 17:31] LABS: Reflex Lactate Order REFLEX LACTIC ORDERD
[2025-02-19 17:53] LABS: C.Diff PCR (Lab) NEGATIVE (Negative)
[2025-02-19] MEDS: pantoprazole 40 mg SDV 80 MG IVP (18:00)
[2025-02-19 22:01] LABS: Lactic Acid level (Lactate) 1.0 mmol/L (0.5-2.2)
--- OUTSIDE RECORDS SUMMARY | 2025-03-14 19:00 | XMS_ITS | Clinical Summary ---
Author Organization Unknown Care Team Providers Care Social Media Marketer Name Role Phone BERENICE CHAUDHARY APRN Unavailable Unavailmarly STILES RN, NAHUM Unavailable Unavailable Payers Payer Name Policy Type Policy Number Effective Date Expira tion Date [employer] MANAGED MEDICARE - [facility] [id number] Problems Condition Name Condition Details Condition Category [...] AND COLITIS, UNSPECIFIED Active 07-08 00:00: 00 [employer] (CURRENT) USE OF BISPHOSPHONA ALEXSANDER Active 07-08 00:00: 00 [employer] (CURRENT) USE OF ASPIRIN Active 07-08 00:00: 00 OTHER [facility] (CURRENT) DRUG THERAPY Active 07-08 00:00: 00 [employer] (CURRENT) USE OF ORAL HYPOGLYCEMIC DRUGS Active 07-08 00:00: 00 [employer] (CURRENT) USE OF INSULIN Active 07-08 00:00: 00 [employer] (CURRENT) USE OF SYSTEMIC STEROIDS Active 07-08 [...] 325 mg tablet 01-15 00:00: 00 Yes [id number] 2 tablet EVERY 6 HOURS 2 tablet EVERY 6 HOURS (route: oral) Med Classific ation: Analgesic , Anti-infl ammatory or Antipyret ic Advair Diskus 250 mcg-50 mcg/dose powder for inhalation 01-15 00:00: 00 Yes [id number] 1 inhalat ion EVERY 12 HOURS 1 inhalation EVERY 12 HOURS (route: inhalation ) Med Classific ation: Respirato ry Therapy Agents albuterol sulfate HFA 90 mcg/actuati on aerosol inhaler 01-15 00:00: 00 Yes [id number] 2 puff 4 TIMES DAILY 2 puff 4 TIMES DAILY (route: inhalation ) Med Classific ation: Respirato ry Therapy Agents alendronate 70 mg tablet 01-15 00:00: 00 Yes [id number] 1 tablet WEEKLY 1 tablet WEEKLY (route: oral) Med Classific ation: Endocrine amlodipine 5 mg tablet 01-15 00:00: 00 Yes [id number] 1 tablet DAILY 1 tablet DAILY (route: oral) Med Classific ation: Cardiovas cular Therapy Agents aspirin 81 mg tablet,sofía yed release 01-15 00:00: 00 Yes [id number] 1 tablet DAILY 1 tablet DAILY (route: oral) Med Classific ation: Hematolog ical Agents cholecalcif juan luis (vitamin D3) 25 mcg (1,000 unit) tablet 01-15 00:00: 00 Yes [id number] 1 tablet DAILY 1 tablet DAILY (route: oral) Med Classific ation: Electroly te Balance-N utritiona l Products cyanocobala min (vit B-12) 1,000 mcg/mL injection solution 01-15 00:00: 00 Yes [id number] 1 mL MONTHLY 1 mL MONTHLY (route: injection) Med Classific ation: Electroly te Balance-N utritiona l Products Dificid 200 mg tablet 01-15 00:00: 00 02-02 23:59 :00 No [id number] 1 tablet DIRECTED 1 tablet DIRECTED (route: oral) Med Classific ation: Anti-Infe ctive Agents doxepin 25 mg capsule 01-15 00:00: 00 Yes [id number] 1-2 capsule DAILY 1-2 capsule DAILY (route: oral) Med Classific ation: Central Nervous System Agents duloxetine 20 mg capsule,del ayed release 01-15 00:00: 00 Yes [id number] 1 capsule 2 TIMES DAILY 1 capsule 2 TIMES DAILY (route: oral) Med Classific ation: Central Nervous System Agents fenofibrate nanocrystal lized 145 mg tablet 01-15 00:00: 00 Yes [id number] 1 tablet DAILY 1 tablet DAILY (route: oral) Med Classific ation: Cardiovas cular Therapy Agents fluconazole 100 mg tablet 01-15 00:00: 00 Yes [id number] 1 tablet DAILY 1 tablet DAILY (route: oral) Med Classific ation: Anti-Infe ctive Agents glipizide 5 mg tablet 01-15 00:00: 00 Yes [id number] 1 tablet 2 TIMES DAILY 1 tablet 2 TIMES DAILY (route: oral) Med Classific ation: Endocrine hydralazine 25 mg tablet 01-15 00:00: 00 Yes [id number] 1 tablet 3 TIMES DAILY 1 tablet 3 TIMES DAILY (route: oral) Med Classific ation: Cardiovas cular Therapy Agents Lantus Solostar U-100 Insulin 100 unit/mL (3 mL) subcutaneou s pen 01-15 00:00: 00 Yes [id number] 10 unit DAILY 10 unit DAILY (route: subcutaneo ) Med Classific ation: Endocrine levothyroxi ne 100 mcg tablet 01-15 00:00: 00 Yes [id number] 1 tablet DAILY 1 tablet DAILY (route: oral) Med Classific ation: Endocrine metoprolol succinate ER 100 mg tablet,exte nded release 24 hr 01-15 00:00: 00 Yes [id number] 1 tablet DAILY 1 tablet DAILY (route: oral) Med Classific ation: Cardiovas cular Therapy Agents Nitrostat 0.4 mg sublingual tablet 01-15 00:00: 00 Yes [id number] Per instruc tions NEEDED Per instructio ns NEEDED (route: sublingual ) Med Classific ation: Cardiovas cular Therapy Agents omega 3-dha 100 mg-epa 400 mg-fish oil 1,000 mg capsule 01-15 00:00: 00 Yes [id number] 1 capsule DAILY 1 capsule DAILY (route: oral) Med Classific ation: Cardiovas cular Therapy Agents Os-Jose Luis 500 + D3 500 mg-15 mcg (600 unit) tablet 01-15 00:00: 00 Yes [id number] 1 tablet 2 TIMES DAILY 1 tablet 2 TIMES DAILY (route: oral) Med Classific ation: Electroly te Balance-N utritiona l Products Phospha Neutral 250 mg tablet 01-15 00:00: 00 Yes [id number] 1 tablet 2 TIMES DAILY 1 tablet 2 TIMES DAILY (route: oral) Med Classific ation: Genitouri nary Therapy potassium chloride ER 10 mEq tablet,exte nded release 01-15 00:00: 00 Yes [id number] 1 tablet 2 TIMES DAILY 1 tablet 2 TIMES DAILY (route: oral) Med Classific ation: Electroly te Balance-N utritiona l Products prednisone 5 mg tablet 01-15 00:00: 00 Yes [id number] 1 tablet DAILY 1 tablet DAILY (route: oral) Med Classific ation: Endocrine Probiotic Digestive Care 20 billion cell capsule 01-15 00:00: 00 Yes [id number] 1 capsule 2 TIMES DAILY 1 capsule 2 TIMES DAILY (route: oral) Med Classific ation: Gastroint estinal Therapy Agents Questran 4 gram oral powder 01-15 00:00: 00 Yes [id number] 2 g 2 TIMES DAILY 2 g 2 TIMES DAILY (route: oral) Med Classific ation: Cardiovas cular Therapy Agents quetiapine 50 mg tablet 01-15 00:00: 00 Yes [id number] 1 tablet BEDTIME 1 tablet BEDTIME (route: oral) Med Classific ation: Central Nervous System Agents sodium bicarbonate 650 mg tablet 01-15 00:00: 00 Yes [id number] 1 tablet 3 TIMES DAILY 1 tablet 3 TIMES DAILY (route: oral) Med Classific ation: Gastroint estinal Therapy Agents tizanidine 2 mg tablet 01-15 00:00: 00 Yes [id number] 1 tablet BEDTIME 1 tablet BEDTIME (route: oral) Med Classific ation: Locomotor System valsartan 320 mg tablet 01-15 00:00: 00 Yes [id number] 1 tablet DAILY 1 tablet DAILY (route: oral) Med Classific ation: Cardiovas cular Therapy Agents vancomycin 125 mg capsule 01-15 00:00: 00 Yes [id number] 1 capsule 4 TIMES DAILY 1 capsule 4 TIMES DAILY (route: oral) Med Classific ation: Anti-Infe ctive Agents vitamin E (dl, acetate) 180 mg (400 unit) capsule 01-15 00:00: 00 Yes [id number] 1 capsule DAILY 1 capsule DAILY (route: oral) Med Classific ation: Electroly te Balance-N utritiona l Products Vital Signs Vital Name Observation Time Observation Value Commen ts Temperature 2025-02-03 10:37:00.000 97.6 [degF] Temperature 2025-01-28 14:20:00.000 97.8 [degF] Temperature 2025-01-26 12:11:00.000 97.8 [degF] Temperature 2025-01-25 14:08:00.000 97.3 [degF] Temperature 2025-01-21 15:06:00.000 97.8 [degF] Temperature 2025-01-19 16:23:00.000 97.8 [degF] Temperature 2025-01-19 13:29:00.000 97.8 [degF] Temperature 2025-01-15 13:51:00.000 97.8 [degF] Temperature 2025-01-15 10:37:00.000 98.2 [degF] BMI (%) 2025-01-15 10:37:00.000 28 kg/m2 Height 2025-01-15 10:37:00.000 64 [in_us] Pulse 2025-02-03 10:37:00.000 70 /min Pulse 2025-01-28 14:20:00.000 72 /min Pulse 2025-01-26 12:11:00.000 78 /min Pulse 2025-01-25 14:08:00.000 76 /min Pulse 2025-01-21 15:06:00.000 72 /min Pulse 2025-01-19 16:23:00.000 77 /min Pulse 2025-01-19 13:29:00.000 78 /min Pulse 2025-01-15 13:51:00.000 75 /min Pulse 2025-01-15 10:37:00.000 67 /min O2 Saturation (%) 2025-02-03 10:37:00.000 97 % O2 Saturation (%) 2025-01-28 14:20:00.000 98 % O2 Saturation (%) 2025-01-26 12:11:00.000 97 % O2 Saturation (%) 2025-01-25 14:08:00.000 97 % O2 Saturation (%) 2025-01-21 15:06:00.000 96 % O2 Saturation (%) 2025-01-19 16:23:00.000 97 % O2 Saturation (%) 2025-01-19 13:29:00.000 97 % O2 Saturation (%) 2025-01-15 13:51:00.000 95 % O2 Saturation (%) 2025-01-15 10:37:00.000 97 % Respirations 2025-02-03 10:37:00.000 18 /min Respirations 2025-01-28 14:20:00.000 18 /min Respirations 2025-01-26 12:11:00.000 18 /min Respirations 2025-01-25 14:08:00.000 18 /min Respirations 2025-01-21 15:06:00.000 18 /min Respirations 2025-01-19 16:23:00.000 18 /min Respirations 2025-01-19 13:29:00.000 18 /min Respirations 2025-01-15 13:51:00.000 16 /min Respirations 2025-01-15 10:37:00.000 18 /min Weight (lbs) 2025-02-03 10:41:00.000 162 [lb_av] Weight (lbs) 2025-01-25 14:08:00.000 164 [lb_av] Weight (lbs) 2025-01-15 10:37:00.000 168 [lb_av] Systolic Blood Pressure 2025-02-03 10:37:00.000 90 mm[ Hg] Systolic Blood Pressure 2025-01-28 14:20:00.000 132 mm [...] 10:37:00.000 144 mm [Hg] Diastolic Blood Pressure 2025-02-03 10:37:00.000 50 mm [Hg] Diastolic Blood Pressure 2025-01-28 14:20:00.000 [...] FOR HOME HEALTH.] Future Scheduled Test HOME [facility] MAY ACCEPT ORDERS FROM THE [...] MAINTAIN SITUATIONAL AWARENESS AND WILL NOTIFY CLINICAL THIRD OFFICER AND PHYSICIAN/PROVIDER WITH ANY CHANGE IN CONDITION. [code = SKILLED NURSE TO PERFORM ENVIRONMENTAL SAFETY RISK ASSESSMENT AND FALL RISK ASSESSMENT AND PROVIDE INSTRUCTION TO IMPLEMENT ENVIRONMENTAL SAFETY AND FALL PREVENTION STRATEGIES THROUGHOUT THE CERTIFICATION PERIOD. SKILLED NURSE WILL MAINTAIN SITUATIONAL AWARENESS AND WILL NOTIFY CLINICAL THIRD OFFICER AND PHYSICIAN/PROVIDER WITH ANY CHANGE IN CONDITION.] [...] RUCT PATIENT/CAREGIVER ON DIABETES MANAGEMENT UTILIZING THE [facility] PROGRAM. [code = SN TO INSTRUCT PATIENT/CAREGIVER ON DIABETES MANAGEMENT UTILIZING THE [facility] PROGRAM.] Future Scheduled Test [...] CARE WILL BE ESTABLISHED THAT MEETS PATIENT'S HALFWAY NEEDS AND INCLUDES PATIENT GOAL FOR HOME [...] Encounter Type Admission Type Attending Clinicians Care Facility Care Department Encounter ID Discharge Date Discharge Status Discharge Condition Discharge Reason Percent Goals Met 2025-01-15 00:00:00 2025-03-15 00:00:00 Outpatient NEW ADMISSION [facility] [id number] 22.22
--- OUTSIDE RECORDS SUMMARY | 2025-03-14 19:00 | XMS_ITS | Clinical Summary ---
Author Organization Unknown Care Team Providers Care Leasing Property Manager Name Role Phone BERENICE CHAUDHARY APRN Unavailable Unavailmarly STILES RN, NAHUM Unavailable Unavailable Payers Payer Name Policy Type Policy Number Effective Date Expira tion Date [employer] MANAGED MEDICARE - [facility] [id number] Problems Condition Name Condition Details Condition Category [...] AND COLITIS, UNSPECIFIED Active 07-08 00:00: 00 GLOBAL PROGRAM MANAGER (CURRENT) USE OF BISPHOSPHONA ALEXSANDER Active 07-08 00:00: 00 GLOBAL PROGRAM MANAGER (CURRENT) USE OF ASPIRIN Active 07-08 00:00: 00 OTHER LONG-TERM (CURRENT) DRUG THERAPY Active 07-08 00:00: 00 GLOBAL PROGRAM MANAGER (CURRENT) USE OF ORAL HYPOGLYCEMIC DRUGS Active 07-08 00:00: 00 GLOBAL PROGRAM MANAGER (CURRENT) USE OF INSULIN Active 07-08 00:00: 00 GLOBAL PROGRAM MANAGER (CURRENT) USE OF SYSTEMIC STEROIDS Active 07-08 [...] 325 mg tablet 01-15 00:00: 00 Yes [id number] 2 tablet EVERY 6 HOURS 2 tablet EVERY 6 HOURS (route: oral) Med Classific ation: Analgesic , Anti-infl ammatory or Antipyret ic Advair Diskus 250 mcg-50 mcg/dose powder for inhalation 01-15 00:00: 00 Yes [id number] 1 inhalat ion EVERY 12 HOURS 1 inhalation EVERY 12 HOURS (route: inhalation ) Med Classific ation: Respirato ry Therapy Agents albuterol sulfate HFA 90 mcg/actuati on aerosol inhaler 01-15 00:00: 00 Yes [id number] 2 puff 4 TIMES DAILY 2 puff 4 TIMES DAILY (route: inhalation ) Med Classific ation: Respirato ry Therapy Agents alendronate 70 mg tablet 01-15 00:00: 00 Yes [id number] 1 tablet WEEKLY 1 tablet WEEKLY (route: oral) Med Classific ation: Endocrine amlodipine 5 mg tablet 01-15 00:00: 00 Yes [id number] 1 tablet DAILY 1 tablet DAILY (route: oral) Med Classific ation: Cardiovas cular Therapy Agents aspirin 81 mg tablet,sofía yed release 01-15 00:00: 00 Yes [id number] 1 tablet DAILY 1 tablet DAILY (route: oral) Med Classific ation: Hematolog ical Agents cholecalcif juan luis (vitamin D3) 25 mcg (1,000 unit) tablet 01-15 00:00: 00 Yes [id number] 1 tablet DAILY 1 tablet DAILY (route: oral) Med Classific ation: Electroly te Balance-N utritiona l Products cyanocobala min (vit B-12) 1,000 mcg/mL injection solution 01-15 00:00: 00 Yes [id number] 1 mL MONTHLY 1 mL MONTHLY (route: injection) Med Classific ation: Electroly te Balance-N utritiona l Products Dificid 200 mg tablet 01-15 00:00: 00 02-02 23:59 :00 No [id number] 1 tablet DIRECTED 1 tablet DIRECTED (route: oral) Med Classific ation: Anti-Infe ctive Agents doxepin 25 mg capsule 01-15 00:00: 00 Yes [id number] 1-2 capsule DAILY 1-2 capsule DAILY (route: oral) Med Classific ation: Central Nervous System Agents duloxetine 20 mg capsule,del ayed release 01-15 00:00: 00 Yes [id number] 1 capsule 2 TIMES DAILY 1 capsule 2 TIMES DAILY (route: oral) Med Classific ation: Central Nervous System Agents fenofibrate nanocrystal lized 145 mg tablet 01-15 00:00: 00 Yes [id number] 1 tablet DAILY 1 tablet DAILY (route: oral) Med Classific ation: Cardiovas cular Therapy Agents fluconazole 100 mg tablet 01-15 00:00: 00 Yes [id number] 1 tablet DAILY 1 tablet DAILY (route: oral) Med Classific ation: Anti-Infe ctive Agents glipizide 5 mg tablet 01-15 00:00: 00 Yes [id number] 1 tablet 2 TIMES DAILY 1 tablet 2 TIMES DAILY (route: oral) Med Classific ation: Endocrine hydralazine 25 mg tablet 01-15 00:00: 00 Yes [id number] 1 tablet 3 TIMES DAILY 1 tablet 3 TIMES DAILY (route: oral) Med Classific ation: Cardiovas cular Therapy Agents Lantus Solostar U-100 Insulin 100 unit/mL (3 mL) subcutaneou s pen 01-15 00:00: 00 Yes [id number] 10 unit DAILY 10 unit DAILY (route: subcutaneo ) Med Classific ation: Endocrine levothyroxi ne 100 mcg tablet 01-15 00:00: 00 Yes [id number] 1 tablet DAILY 1 tablet DAILY (route: oral) Med Classific ation: Endocrine metoprolol succinate ER 100 mg tablet,exte nded release 24 hr 01-15 00:00: 00 Yes [id number] 1 tablet DAILY 1 tablet DAILY (route: oral) Med Classific ation: Cardiovas cular Therapy Agents Nitrostat 0.4 mg sublingual tablet 01-15 00:00: 00 Yes [id number] Per instruc tions NEEDED Per instructio ns NEEDED (route: sublingual ) Med Classific ation: Cardiovas cular Therapy Agents omega 3-dha 100 mg-epa 400 mg-fish oil 1,000 mg capsule 01-15 00:00: 00 Yes [id number] 1 capsule DAILY 1 capsule DAILY (route: oral) Med Classific ation: Cardiovas cular Therapy Agents Os-Jose Luis 500 + D3 500 mg-15 mcg (600 unit) tablet 01-15 00:00: 00 Yes [id number] 1 tablet 2 TIMES DAILY 1 tablet 2 TIMES DAILY (route: oral) Med Classific ation: Electroly te Balance-N utritiona l Products Phospha Neutral 250 mg tablet 01-15 00:00: 00 Yes [id number] 1 tablet 2 TIMES DAILY 1 tablet 2 TIMES DAILY (route: oral) Med Classific ation: Genitouri nary Therapy potassium chloride ER 10 mEq tablet,exte nded release 01-15 00:00: 00 Yes [id number] 1 tablet 2 TIMES DAILY 1 tablet 2 TIMES DAILY (route: oral) Med Classific ation: Electroly te Balance-N utritiona l Products prednisone 5 mg tablet 01-15 00:00: 00 Yes [id number] 1 tablet DAILY 1 tablet DAILY (route: oral) Med Classific ation: Endocrine Probiotic Digestive Care 20 billion cell capsule 01-15 00:00: 00 Yes [id number] 1 capsule 2 TIMES DAILY 1 capsule 2 TIMES DAILY (route: oral) Med Classific ation: Gastroint estinal Therapy Agents Questran 4 gram oral powder 01-15 00:00: 00 Yes [id number] 2 g 2 TIMES DAILY 2 g 2 TIMES DAILY (route: oral) Med Classific ation: Cardiovas cular Therapy Agents quetiapine 50 mg tablet 01-15 00:00: 00 Yes [id number] 1 tablet BEDTIME 1 tablet BEDTIME (route: oral) Med Classific ation: Central Nervous System Agents sodium bicarbonate 650 mg tablet 01-15 00:00: 00 Yes [id number] 1 tablet 3 TIMES DAILY 1 tablet 3 TIMES DAILY (route: oral) Med Classific ation: Gastroint estinal Therapy Agents tizanidine 2 mg tablet 01-15 00:00: 00 Yes [id number] 1 tablet BEDTIME 1 tablet BEDTIME (route: oral) Med Classific ation: Locomotor System valsartan 320 mg tablet 01-15 00:00: 00 Yes [id number] 1 tablet DAILY 1 tablet DAILY (route: oral) Med Classific ation: Cardiovas cular Therapy Agents vancomycin 125 mg capsule 01-15 00:00: 00 Yes [id number] 1 capsule 4 TIMES DAILY 1 capsule 4 TIMES DAILY (route: oral) Med Classific ation: Anti-Infe ctive Agents vitamin E (dl, acetate) 180 mg (400 unit) capsule 01-15 00:00: 00 Yes [id number] 1 capsule DAILY 1 capsule DAILY (route: [...] FOR HOME HEALTH.] Future Scheduled [facility]DERS FROM THE [...] MAINTAIN SITUATIONAL AWARENESS AND WILL NOTIFY CLINICAL FISH BIN TENDER AND PHYSICIAN/PROVIDER WITH ANY CHANGE IN CONDITION. [code = SKILLED NURSE TO PERFORM ENVIRONMENTAL SAFETY RISK ASSESSMENT AND FALL RISK ASSESSMENT AND PROVIDE INSTRUCTION TO IMPLEMENT ENVIRONMENTAL SAFETY AND FALL PREVENTION STRATEGIES THROUGHOUT THE CERTIFICATION PERIOD. SKILLED NURSE WILL MAINTAIN SITUATIONAL AWARENESS AND WILL NOTIFY CLINICAL FISH BIN TENDER AND PHYSICIAN/PROVIDER WITH ANY CHANGE IN CONDITION.] [...] RUCT PATIENT/CAREGIVER ON DIABETES MANAGEMENT UTILIZING THE [facility] SPECIALTY PROGRAM. [code = SN TO INSTRUCT PATIENT/CAREGIVER ON DIABETES MANAGEMENT UTILIZING THE [facility] SPECIALTY PROGRAM.] Future Scheduled Test [...] CARE WILL BE ESTABLISHED THAT MEETS PATIENT'S HALF-WAY NEEDS AND INCLUDES PATIENT GOAL FOR HOME [...] 2025-01-15 00:00:00 2025-03-15 00:00:00 Outpatient NEW ADMISSION [facility] [id number] 22.22
== END 2025-02-19 23:02 | disposition short-term general hospital (02) ==
PROVIDERS: Physician Assistant; Emergency Provider Physician Assistant; PCP Nurse Practitioner
DX: D62 Acute posthemorrhagic anemia (principal); K92.2 Gastrointestinal hemorrhage, unspecified; J44.9 Chronic obstructive pulmonary disease, unspecified; E11.9 Type 2 diabetes mellitus without complications; I11.0 Hypertensive heart disease with heart failure; I50.32 Chronic diastolic (congestive) heart failure; E78.2 Mixed hyperlipidemia; F17.210 Nicotine dependence, cigarettes, uncomplicated
CPT/HCPCS: 36430; 74177; 80053; 82274; 83605; 85025; 85610; 86850; 86900; 86920; 87493; 96374; 99285; J2470; P9016; P9040

== ENCOUNTER → 2025-03-02 15:16 | Outpatient (BNVA) | payer MEDICARE, SELFPAY | PROVIDERS: PCP Nurse Practitioner; Visit Provider Nurse Practitioner | DX: E11.65 Type 2 diabetes mellitus with hyperglycemia (principal); Z79.4 Long term (current) use of insulin | CPT/HCPCS: 80053; 81000; 83036; 85025 ==

== ENCOUNTER → 2025-03-24 10:34 | Outpatient (BNVA) | payer MEDICARE, SELFPAY | PROVIDERS: PCP Nurse Practitioner; Visit Provider Nurse Practitioner | DX: E11.65 Type 2 diabetes mellitus with hyperglycemia (principal); Z79.4 Long term (current) use of insulin | CPT/HCPCS: 80048; 85025 ==

== ENCOUNTER → 2025-04-28 09:53 | Outpatient (BNVA) | payer MEDICARE, SELFPAY | PROVIDERS: PCP Nurse Practitioner; Visit Provider Physician Assistant | DX: M17.0 Bilateral primary osteoarthritis of knee (principal) | CPT/HCPCS: 20610; 73560; 73565; 99203; J3301; J9999 ==

== ENCOUNTER → 2025-06-08 10:33 | Outpatient (BNVA) | payer MEDICARE, SELFPAY | PROVIDERS: PCP Nurse Practitioner; Visit Provider Nurse Practitioner | DX: E11.9 Type 2 diabetes mellitus without complications (principal) | CPT/HCPCS: 80053; 80061; 82607; 83036; 84443; 85025 ==

== ENCOUNTER 2025-06-24 21:51 | Observation (INO) | payer MEDICARE, SELFPAY ==
[2025-06-24] VITALS (9 sets, daily range): BP systolic 160–195; BP diastolic 69–84; PULSE 66–79; RESP 13–20; TEMP 36.8; O2SAT 96–98; BMI 29.5
--- OUTSIDE RECORDS SUMMARY | 2025-06-24 21:55 | XMS_ITS | Clinical Summary ---
Author Organization [facility] Address [address] [place] [address] Phone Care Team Providers Care Parts Department Supervisor Name Role Phone Unavailable Primary Care Provider Unavailabl e Allergies Active Allergy Reactions Criticality Noted Date Comments Adhesive Rash Low 01/15/2025 Latex Rash Low 01/15/2025 Penicillin Rash Low 01/15/2025 Sulfa (Sulfonamide Antibiotics) Rash Low 01/05 Medications fluticasone propion-salmeteroL (Advair Diskus) 250-50 mcg/dose disk inhaler Take 1 Puff by inhalation 2 times daily. 01/16/20 25 Active valsartan (DIOVAN) 320 mg tablet Take 160 mg by mouth daily. 01/16/20 25 Active tiZANidine (ZANAFLEX) 2 mg Tablet Take 2 mg by mouth daily at bedtime. 01/16/20 25 Active sodium bicarbonate 650 mg tablet Take 650 mg by mouth 3 times daily. 01/16/20 25 Active QUEtiapine (SEROquel) 50 mg tablet Take 50 mg by mouth daily at bedtime. 01/16/20 25 Active Cholestyramine-Sucro se (Questran) 4 gram Powder Take 4 Grams by mouth 2 times daily. 01/16/20 25 Active predniSONE (DELTASONE) 5 mg tablet Take 5 mg by mouth daily with breakfast. 01/16/20 25 Active potassium CHLORIDE (KLOR-CON) 10 mEq Extended Release tablet Take 10 mEq by mouth 2 times daily with meals. 01/16/20 25 Active metoprolol succinate (TOPROL XL) 100 mg Extended Release 24 hour tablet Take 100 mg by mouth daily. 01/16/20 Active levothyroxine 100 mcg tablet Take 100 mcg by mouth daily in the morning. 01/16/20 Active insulin glargine (Lantus Solostar U-100 Insulin) 100 unit/mL pen syringe Inject 10 Units by subcutaneous injection daily with breakfast. 01/16/20 Active hydrALAZINE (APRESOLINE) 25 mg tablet Take 50 mg by mouth 3 times daily. 01/16/20 Active fenofibrate nanocrystallized (TRICOR) 145 mg tablet Take 145 mg by mouth daily. 01/16/20 Active DULoxetine (CYMBALTA) 20 mg Capsule, Delayed Release(E.C.) Take 20 mg by mouth 2 times daily. 01/16/20 Active doxepin (SINEquan) 25 mg capsule Take 25 mg by mouth 2 times daily. 01/16/20 Active aspirin (ECOTRIN EC) 81 mg Tablet, Delayed Release (E.C.) Take 81 mg by mouth daily. 01/16/20 Active alendronate (FOSAMAX) 70 mg tablet Take 70 mg by mouth every 7 days. 01/16/20 Active albuterol sulfate HFA 90 mcg/actuation aerosol inhaler Take 2 Puffs by inhalation every 4 hours as needed for Shortness of Breath or Wheezing. 01/16/20 Active Active Problems Problem Noted Date Diagnosed Date Prolonged Q-T interval on ECG 02/21/2025 History of Clostridioides difficile infection Primary osteoarthritis involving multiple joints 02/20/2025 Tobacco use 02/20/2025 HTN (hypertension), benign 02/20/2025 RA (rheumatoid arthritis) 02/20/2025 Diverticulosis 02/20/2025 Gastrointestinal hemorrhage 02/20/2025 Acute blood loss anemia 02/20/2025 History of cholecystectomy 02/20/2025 H/O lumbosacral spine surgery 02/20/2025 Lactic acidosis 02/20/2025 Laboratory test 02/20/2025 Type 2 diabetes mellitus with chronic kidney dis ease 07/08/2024 Chronic diastolic (congestive) heart failure 07/2024 Acquired hypothyroidism 07/08/2024 Type 2 diabetes mellitus with hyperglycemia 07/2024 Mixed hyperlipidemia 07/08/2024 Chronic obstructive pulmonary disease, unspecifi ed 07/08/2024 Age-related osteoporosis chris davis current pathological fracture 07/08/2024 Encounters Date Type Department Care Team Description 06/22/2025 External Device Data [facility] ABSTRACTION Provider, Abstract 04/28/2025 External Device Data [facility] ABSTRACTION Provider, Abstract 04/28/2025 External Device Data [facility] ABSTRACTION Provider, Abstract 04/20/2025 External Device Data [facility] ABSTRACTION Provider, Abstract from Last 3 Months Social History Tobacco Use Types Packs/Day Years Used Date Smoking Tobacco: Every Day Cigarettes Tobacco Cessation:Ready to Q uit: Not Asked; Counseling Given: Not Answered Feeling Safe Answer Date Recorded Do you worry about feeling s afe and happy with the people in your life? No 02/23/2025 Food Insecurity Answer Date Recorded Do you find you are eating l ess than you should because you can t pay for food? No 02/23/2025 Transportation Needs Answer Date Record ed Have you gone without health care because you didn t have a way to get there? Or worry about transportation for future doctor visits, chicken picker medication, etc.? No 2024 Housing Stability Answer Date Recorded Do you worry you won t have a steady place to sleep or struggle to pay rent or mortgage? No 02/23/2025 Utility Needs Answer Date Recorded Do you have difficulty payin g for utility costs (electric, water or gas bills)? No 02/23/2025 Medication Needs Answer Date Recorded Have you skipped taking medi cation due to cost or worry you can t afford new medications? No 02/23/2025 Feeling Safe Answer Date Recorded Are you in a relationship wi th someone who hurts you emotionally and/or physically? 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 Gender Identity Not on file Sexual Orientation Not on file Last Filed Vital Signs Vital Sign Reading Time Taken Comments Blood Pressure 183/69 02/23/2025 7:42 AM CDT Pulse 71 02/23/2025 7:42 AM CDT Temperature 36.9 C (98.5 F) 02/23/2025 7:42 AM CDT Respiratory Rate 18 02/23/2025 7:42 AM CDT Oxygen Saturation 90% 02/23/2025 7:42 AM CDT Inhaled Oxygen Concentration - - Weight 78 kg (171 lb 15.3 oz) 02/23/2025 5:09 AM CDT Height 162.6 cm (5' 4 ) 02/20/2025 4:16 AM CDT Body Mass Index 29.52 02/20/2025 4:16 AM CDT Plan of Treatment Health Maintenance Due Date Last Done Comments DIABETES ANNUAL FOOT EXAM 1966 DIABETES ANNUAL RETINAL EXAM 1966 DIABETES MICROALBUMIN ANNUAL SCREEN 1966 LDL CHOLESTEROL ANNUAL 1966 DTAP/TDAP/TD VACCINES (1 - Tdap) 10/28/1967 PNEUMOCOCCAL VACCINE 50+ YEA RS (1 of 2 - PCV) 10/28/1967 ZOSTER VACCINE (1 of 2) 1998 OSTEOPOROSIS SCREENING 2013 RSV VACCINE (60+ or ) (1 - 1-dose 75+ series) 10/28/2023 DIABETES HBA1C Q 6 MONTHS 01/24/2025 07/27/2024 INFLUENZA VACCINE (#1) 2025 04/16/2023 COVID-19 Vaccine ( - 2024-2 6 season) 2025 04/30/2024, 04/17/2022, 05/26/2021, Additional history exists COLORECTAL SCREENING Discontinued 02/22/2025, 02/23/20 25 Colorectal Cancer Screening Discontinued FIT-DNA Q 3 years Discontinued FIT/FOBT Q 1 year Discontinued Flex Sig/CT Colonography Q 5 years Discontinued Procedures Procedure Name Priority Date/Time Associated Diagnosis Comments COLONOSCOPY REPORT 02/22/2025 1: 18 PM CDT HEMOGLOBIN A1C Routine 07/27/2024 from Last 3 Months or Most Recently Relevant to Health Maintenance Results * COLONOSCOPY REPORT (02/22/2025 1:18 PM CDT) Narrative Procedure Note Naveed Rey MD - 02/22/2025 1:18 PM CDT [facility] GI Patient Name: Teresa Garcia Procedure Date: 02/22/2025 Date of : 1950 Admit Type: Inpatient Age: 74 Attending MD: Naveed Rey MD, Procedure: Colonoscopy Indications: Hematochezia Providers: Naveed Rey MD Referring MD: Medicines: Monitored Anesthesia Care Complications: No immediate complications. Procedure: Pre-Anesthesia Assessment: - Prior to the procedure, a History and Physical was performed, and patient medications and allergies were reviewed. The patient's tolerance of previous anesthesia was also reviewed. The risks and benefits of the procedure and the sedation options and risks were discussed with the patient. All questions were answered, and informed consent was obtained. Prior Anticoagulants: The patient has taken no anticoagulant or antiplatelet agents. ASA Grade Assessment: III - A patient with severe systemic disease. After reviewing the risks and benefits, the patient was deemed in satisfactory condition to undergo the procedure. After I obtained informed consent, the scope was passed under direct vision. Throughout the procedure, the patient's blood pressure, pulse, and oxygen saturations were monitored continuously. The Colonoscope was introduced through the anus and advanced to the cecum, identified by appendiceal orifice and ileocecal valve. The Colonoscope was introduced through the anus and advanced to the cecum, identified by appendiceal orifice and ileocecal valve. The colonoscopy was performed without difficulty. The patient tolerated the procedure well. The quality of the bowel preparation was good. The ileocecal valve, appendiceal orifice, and rectum were photographed. Estimated Blood Loss: Estimated blood loss was minimal. Findings: The colon (entire examined portion) was moderately tortuous. Advancing the scope required withdrawing the scope and replacing with the pediatric colonoscope. A 3 mm polyp was found in the ascending colon. The polyp was sessile. The polyp was removed with a cold snare. Resection and retrieval were complete. Many medium-mouthed diverticula were found in the sigmoid colon. External hemorrhoids were found during retroflexion. The hemorrhoids were large. There is no endoscopic evidence of bleeding in the entire colon. Impression: - Tortuous colon. - One 3 mm polyp in the ascending colon, removed with a cold snare. Resected and retrieved. - Diverticulosis in the sigmoid colon. - External hemorrhoids. Recommendation: - Prior bleeding likely secondary to diverticular vs hemorrhoidal bleeding. - Resume previous diet. - Continue present medications. - Await pathology results. - No repeat colonoscopy for screening purposes due to age. - GI will sign off. Please call with any further questions or concerns. Naveed Rey MD 02/22/2025 1:18:28 PM Number of Addenda: 0 Note Initiated On: 02/22/2025 12:33 PM Scope Withdrawal Time 0 hours 7 minutes 29 seconds Scope In: 12:49:23 PM Scope Out: 1:13:20 PM [id number] [place], [place] Naveed Rey MD GI PROCEDURE ORDERA BLES Final Result * (ABNORMAL) HEMOGLOBIN A1C (07/27/2024) ABSTRACTED HGB A1C 7.5 % Blood Abstract Provider CHEMISTRY ORDERABLES Edited Re sult - Final from Last 3 Months or Most Recently Relevant to Health Maintenance Insurance [facility] Advance Directives For more information, please contact: [phone] * Full Code (Latest Code Status on File) Date Activated Date Inactivated Comments 02/20/2025 3:18 AM 02/23/2025 2:39 PM
--- OUTSIDE RECORDS SUMMARY | 2025-06-24 21:55 | XMS_ITS | Data Portability ---
Author Organization [facility], [place], [facility] Address [address] [place] [id number] Assessment No assessment recorded. Plan of Treatment Reminders Order Date Submit Date Provider Last Modified By Organization Details Last Modified Time Details Appointments None record ed. Lab None record ed. Referral None record ed. Procedures None record ed. Surgeries None record ed. Imaging None record ed. Medication Orders None record ed. Patient TargetsNo targets recorded. Patient Instructions Encounter Date Encounter Id Patient Instructions Last Modified By Organization Details Last Modified Time 02/11/2025 [id number] Admitted with GI bleed, C-Diff and anemia. Required 1 units PRBC. A1c 7.6, and glipizide stopped in hospital. Blood pressure high at SNF but low in hospital, will give time to settle out. dose have edema, will start 20mg of lasix. daily weights x 2 weeks. c/o worsening pain in knees. Will order tramadol 50 bid prn. Labs Saturday x 3 weeks. [email or web address] Not available 02/11/2025 14:57:03 02/15/2025 [id number] Worsening pain, mainly in knees. Will d/c relaxants and tramadol Will start norco bid prn. [email or web address] Not available 02/17/2025 13:20:58 02/25/2025 [id number] requesting records from [facility] on Saturday x 3 weeks. Restart norco. Sugars too high, increase glargine to 20 and start mild sliding scale with meals. [email or web address] Not available 03/03/2025 13:43:45 Reason for Referral None Reported. Problems Name Problem SNOMED Code Status Onset Date Resolution Date Notes Provider Name and Address Organization Details Recorded Time Post-disch arge follow-up 677131431 [facility] Chronic renal insufficie ncy 220064321 Active 2024 KATERYNA THORNE [facility] 14:54:57 Low blood pressure 66818482 Active 2024 KATERYNA THORNE [facility] 14:54:58 Clostridiu m difficile diarrhea 5130211845582 Active 2024 KATERYNA THORNE [facility] 14:54:59 Asthenia 99860659 Active 2024 KATERYNA THORNE [facility] 14:55:01 Cystitis 01425034 Active 2024 KATERYNA THORNE [facility] 14:55:02 Chronic pain 02688306 Active 2024 KATERYNA THORNE [facility] 13:20:28 Uncontroll ed type 2 diabetes mellitus 813592886 Active 2024 KATERYNA THORNE [facility] 14:21:35 Problem Notes None recorded. Medical Equipment None Reported. Medications Name Sig Start Date Stop Date Status Note LastModified by Organization Details LastModified Time furosemide 40 mg tablet TAKE ONE TABLET BY MOUTH DAILY active Not Available Not Available No t Available fluconazole 100 mg tablet TAKE ONE TABLET BY MOUTH DAILY active Not Available Not Available No t Available sucralfate 1 gram tablet TAKE ONE TABLET BY MOUTH THREE TIMES DAILY FOR SEVEN DAYS active Not Available Not Available No t Available spironolactone 25 mg tablet TAKE ONE TABLET BY MOUTH DAILY active Not Available Not Available No t Available vancomycin 125 mg capsule TAKE ONE CAPSULE BY MOUTH FOUR TIMES DAILY active Not Available Not Available No t Available sodium bicarbonate 650 mg tablet TAKE ONE TABLET BY MOUTH THREE TIMES DAILY active Not Available Not Available No t Available cephalexin 500 mg capsule TAKE ONE CAPSULE BY MOUTH THREE TIMES DAILY active Not Available Not Available No t Available valsartan 320 mg tablet TAKE ONE TABLET BY MOUTH DAILY active Not Available Not Available No t Available Phospha Neutral 250 mg tablet TAKE ONE TABLET BY MOUTH TWICE DAILY active Not Available Not Available No t Available levofloxacin 750 mg tablet TAKE ONE TABLET BY MOUTH DAILY active Not Available Not Available No t Available cefdinir 300 mg capsule TAKE ONE CAPSULE BY MOUTH TWICE DAILY FOR 2 DAYS active Not Available Not Available No t Available quetiapine 50 mg tablet TAKE ONE TABLET BY MOUTH AT BEDTIME active Not Available Not Available No t Available Lantus Solostar U-100 Insulin 100 unit/mL (3 mL) subcutaneous pen INJECT 10 UNITS UNDER SKIN EVERY MORNING active Not Available Not Available No t Available Cholestyramine Light 4 gram oral powder DISSOLVE ONE-HALF SCOOP IN 4 OUNCES OF LIQUID TWICE DAILY WITH MEALS FOR 30 DAYS; AVOID OTHER MEDS WITHIN 1 HOUR BEFORE OR 4-6 HOURS AFTER DOSE active Not Available Not Available No t Available Dificid 200 mg tablet TAKE ONE TABLET BY MOUTH TWICE DAILY for 10 DAYS THEN one tablet every other DAY for 20 DAYS active Not Available Not Available No t Available ferrous sulfate 220 mg (44 mg iron)/5 mL oral elixir TAKE 6.8 ML'S BY MOUTH DAILY active Not Available Not Available No t Available Zegalogue 0.6 mg/0.6 mL subcutaneous syringe INJECT ONE SYRINGE INTO THE MUSCLE EVERY 20 MINUTES NEEDED FOR HYPOGLYCE ERIC; UNTIL TARGET BLOOD SUGAR ATTAINED active Not Available Not Available No t Available Vitals Date Recorded Body weight Heart rate Respiratory rate Body temperature Oxygen saturation Systolic And Diastolic Provider Name and Address Organization Details Last Updated DateTime 5 188069. 79 g 74 /min 18 /min 99.1 [degF] 95 % 175/78 mm[Hg] [facility] 5 14:51:49 Date Recorded Body weight Heart rate Respiratory rate Body temperature Oxygen saturation Systolic And Diastolic Provider Name and Address Organization Details Last Updated DateTime 5 75163.2 6 g 77 /min 20 /min 97.4 [degF] 97 % 154/82 mm[Hg] [facility] 5 13:18:40 Date Recorded Body weight Heart rate Respiratory rate Body temperature Oxygen saturation Systolic And Diastolic Provider Name and Address Organization Details Last Updated DateTime 5 25878.7 g 85 /min 18 /min 97 [degF] 93 % 204/93 mm[Hg] KATERYNA THORNE [facility], [facility] 5 14:19:18 Social History None recorded. Functional Status None recorded. Mental Status None recorded. Family History Nothing Reported. Medical History No medical history recorded. Gynecological HistoryNo gynecological history recorded. Obstetrics History GPAL:G 0 P 0 0 0 0 Immunizations Vaccine Type Date Status Note Provider Nam e and Address Organization Details Recorded Time Hep A, ped/adol, 3 dose 0 completed Not Available [facility] 02/25/2025 12:04:46 Hep A, ped/adol, 3 dose 0 completed Not Available [facility] 02/25/2025 12:04:46 Tdap 2 completed Not Available [facility] 02/25/2025 12:04:46 COVID-19, mRNA, LNP-S, PF, 100 mcg/0.5mL dose or 50 mcg/0.25mL dose 1 completed Not Available [facility] 02/25/2025 12:04:46 COVID-19, mRNA, LNP-S, PF, 100 mcg/0.5mL dose or 50 mcg/0.25mL dose 1 completed Not Available [facility] 02/25/2025 12:04:46 zoster recombinant 1 completed Not Available [facility] 02/25/2025 12:04:46 Tdap 1 completed Not Available [facility] 02/25/2025 12:04:46 zoster recombinant 1 completed Not Available [facility] 02/25/2025 12:04:46 COVID-19, mRNA, LNP-S, PF, 100 mcg/0.5mL dose or 50 mcg/0.25mL dose 1 completed Not Available [facility] 02/25/2025 12:04:46 COVID-19, mRNA, LNP-S, bivalent, PF, 50 mcg/0.5 mL or 25mcg/0.25 mL dose 2 completed Not Available [facility] 02/25/2025 12:04:46 Influenza, high-dose, quadrivalent, PF 3 completed Not Available [facility] 02/25/2025 12:04:46 Influenza, adjuvanted, trivalent, PF 4 completed Not Available [facility] 02/25/2025 12:04:46 COVID-19, mRNA, LNP-S, PF, presley-sucrose, 30 mcg/0.3 mL 4 completed Not Available [facility] 02/25/2025 12:04:46 Past Encounters Encounter ID Performer Location Encounter Start Date Encounter Closed Date Diagnosis/Indication Diagnosis SNOMED-CT Code Diagnosis ICD10 Code Diagnosis IMO Codes Diagnosis Note [id number] Jesus Mullins DO [facility]) [address] [place] [id number] 02/11/2025 09:32:14 02/16/2025 16:04:37 Post-discharge follow-up 643179927 Z09 763526 Chronic re nal insufficiency 327694182 N28.9 N18.9 585790 Low blood pressure 94508 003 I95.9 787695233 Clostridiu m difficile diarrhea 4205171968 102 A04.72 045701 Asthenia 90068899 R53.1 39219 Cystitis 31685784 N30.90 [id number] Jesus Mullins DO [facility]) [address] [place] [id number] 02/16/2025 13:25:05 02/22/2025 16:04:20 Chronic pain 36890793 G89.29 [id number] Jesus Mullins DO [facility]) [address] [place] [id number] 02/25/2025 12:04:36 03/03/2025 17:11:51 Post-discharge follow-up 280166939 Z09 534186 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 484478379 K57.31 765377 Uncontroll ed type 2 diabetes mellitus 441609972 E11.65 73652423 Health Concerns Section Related Observation LastModified by Organization Detai ls LastModified Time None Recorded Concern Status LastModified by Organization Details LastModified Time None Recorded Advance Directives Directive None Recorded Payers Insurance Date Sequence Insurance Name Policy Number Policy [place] Covered Member ID [place] Member ID Guarantor Name 03/03/2025 1 [employer] (MEDICARE REPLACEMENT/A DVANTAGE - PPO) [id number] Teresa Garcia [id number] Teresa Garcia Notes Date Note Type Note Provider Name and Address Organization Details Recorded Time 5 text/html HypertensionReported by PatientHPIFor severity, patient reportsgrade 1 (130-139/80-89). For duration, patient reportshas noted for years. For alleviating factors, patient reportsmedication.ROS as noted in the [facility] new admit after hospital stay. Jesus MullinsDO [address] [place] [address], [phone], [facility] 02/12/2025 13:37:51 5 text/html HypertensionReported by PatientHPIFor severity, patient reportsgrade 1 (130-139/80-89). For duration, patient reportshas noted for years. For alleviating factors, patient reportsmedication.ROS as noted in the [facility] c/o worsening pain, would like to discuss pain meds. Jesus MullinsDO [address] [place] [address], [phone], [facility] 02/21/2025 15:54:34 5 text/html HypertensionReported by PatientHPIFor severity, patient reportsgrade 1 (130-139/80-89). For duration, patient reportshas noted for years. For alleviating factors, patient reportsmedication.ROS as noted in the [facility] new admit after hospital stay diverticular bleed. Jesus Mullins [address] [place] [address], [phone], [facility] 03/03/2025 13:43:57 OBGyn Episode No OBEpisode recorded.
--- OUTSIDE RECORDS SUMMARY | 2025-06-24 21:55 | XMS_ITS | Encounter Summary ---
Author Organization [facility] Address [address] [place] [address] Care Team Providers Care Horticulture Worker Name Role Phone Unavailable Primary Care Provider Unavailabl e Encounter Details Date Type Department Care Team (Late st Contact Info) Description 06/22/2025 External Device Data [place] ABSTRACTION Provider, Abstract NO ADDRESS ON FILE Social History Tobacco Use Types Packs/Day Years Used Date Smoking Tobacco: Every Day Cigarettes Feeling Safe Answer Date Recorded Do you [...] worry about transportation for future doctor visits, merchandise pickup/receiving associate medication, etc.? No 2024 Housing Stability Answer [...] on file Legal Sex Female 9:25 PM [employer] Gender Identity Not on file Sexual Orientation Not on file documented as of this encounter Plan of Treatment Not on file documented as of this encounter Visit Diagnoses Not on filedocumented in this encounter
--- OUTSIDE RECORDS SUMMARY | 2025-06-24 21:56 | XMS_ITS | Continuity of Care Document ---
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 02/09/2025 Active custodial (current) use of aspirin Z79.82 02/09/2025 Active Unspecified atrial fibrillation I48.91 02/09/2025 Active Hypertensive heart and chronic kidney disease with heart failure and stage 1 through stage 4 chronic kidney disease, or unspecified chronic kidney disease I13.0 02/11/2025 Active Chronic diastolic (congestive) heart failure I50.32 02/23/2025 Active Chronic obstructive pulmonary disease, unspecified J44.9 02/09/2025 Active Tobacco use Z72.0 02/09/2025 Active Acute posthemorrhagic anemia D62 02/09/2025 Active Type 2 diabetes mellitus with hyperglycemia E11.65 02/09/2025 Active Type 2 diabetes mellitus with diabetic chronic kidney disease E11.22 02/11/2025 Active custodial (current) use of insulin Z79.4 02/09/2025 Active Chronic kidney disease, stage 3 unspecified N18.30 02/23/2025 Activ e Mixed hyperlipidemia E78.2 02/09/2025 Active Other rheumatoid arthritis with rheumatoid factor of multiple sites M05.89 02/09/2025 Active custodial (current) use of systemic steroids Z79.52 02/09/2025 Acti ve Unspecified mood [affective] disorder F39 02/11/2025 Acti ve Other chronic pain G89.29 02/15/2025 Ac tive Unilateral primary osteoarthritis, left knee M17.12 02/09/2025 Active Primary osteoarthritis, right hand M19.041 02/09/2025 Active Primary osteoarthritis, left hand M19.042 02/09/2025 Active Age-related osteoporosis without current pathological fracture M81.0 02/09/2025 Act bailee Other specified hypothyroidism E03.8 02/09/2025 Active Insomnia, unspecified G47.00 02/11/2025 Active Vitamin D deficiency, unspecified E55.9 02/09/2025 Active Gastro-esophageal reflux disease without esophagitis K21.9 02/11/2025 Active Obesity, unspecified E66.9 02/09/2025 Active Body mass index (BMI) 29.0-29.9, adult Z68.29 02/09/2025 Active Results Test Result Date/Time Value / Unit Interp. Refere nce Range Blood chemistry[607462030] Glucose [Mass/volume] in Serum or Plasma [2345-7] 02/27/2025 12:47 PM 240 mg/dL N Blood chemistry[[id number]] Glucose [Mass/volume] in Serum or Plasma [2345-7] 02/26/2025 02:58 PM 214 mg/dL N Blood chemistry[[id number]] Glucose [Mass/volume] in Serum or Plasma [2345-7] 02/26/2025 01:19 PM 201 mg/dL N Blood chemistry[[id number]] Glucose [Mass/volume] in Serum or Plasma [2345-7] 02/26/2025 07:24 AM 204 mg/dL N Blood chemistry[[id number]] Glucose [Mass/volume] in Serum or Plasma [2345-7] 02/25/2025 05:55 PM 296 mg/dL N Blood chemistry[[id number]] Glucose [Mass/volume] in Serum or Plasma [2345-7] 02/25/2025 01:33 PM 248 mg/dL N Blood chemistry[[id number]] Glucose [Mass/volume] in Serum or Plasma [2345-7] 02/25/2025 11:02 AM 293 mg/dL N Blood chemistry[[id number]] Glucose [Mass/volume] in Serum or Plasma [2345-7] 02/24/2025 01:23 PM 210 mg/dL N Blood chemistry[[id number]] Glucose [Mass/volume] in Serum or Plasma [2345-7] 02/24/2025 12:38 PM 333 mg/dL N Blood chemistry[[id number]] Glucose [Mass/volume] in Serum or Plasma [2345-7] 02/23/2025 12:27 PM 213 mg/dL N Blood chemistry[[id number]] Glucose [Mass/volume] in Serum or Plasma [2345-7] 02/19/2025 02:03 PM 252 mg/dL N Blood chemistry[[id number]] Glucose [Mass/volume] in Serum or Plasma [2345-7] 02/18/2025 01:00 PM 159 mg/dL N Blood chemistry[[id number]] Glucose [Mass/volume] in Serum or Plasma [5-7] 02/18/2025 11:46 AM 208 mg/dL N Tuberculosis reaction wheal[ 21706-5] Tuberculosis reaction wheal [91207-5] 02/18/2025 09:10 AM See note TB test Blood chemistry[[id number]] Glucose [Mass/volume] in Serum or Plasma [2345-7] 02/17/2025 02:21 PM 175 mg/dL N Blood chemistry[[id number]] Glucose [Mass/volume] in Serum or Plasma [2345-7] 02/17/2025 12:22 PM 228 mg/dL N Blood chemistry[[id number]] Glucose [Mass/volume] in Serum or Plasma [2345-7] 02/16/2025 12:14 PM 165 mg/dL N Blood chemistry[[id number]] Glucose [Mass/volume] in Serum or Plasma [2345-7] 02/16/2025 11:40 AM 273 mg/dL N Blood chemistry[[id number]] Glucose [Mass/volume] in Serum or Plasma [2345-7] 02/15/2025 01:12 PM 174 mg/dL N Blood chemistry[[id number]] Glucose [Mass/volume] in Serum or Plasma [2345-7] 02/15/2025 11:59 AM 252 mg/dL N Blood chemistry[[id number]] Glucose [Mass/volume] in Serum or Plasma [2345-7] 02/14/2025 01:45 PM 188 mg/dL N Blood chemistry[[id number]] Glucose [Mass/volume] in Serum or Plasma [2345-7] 02/14/2025 01:06 PM 248 mg/dL N Blood chemistry[[id number]] Glucose [Mass/volume] in Serum or Plasma [2345-7] 02/13/2025 01:33 PM 183 mg/dL N Blood chemistry[[id number]] Glucose [Mass/volume] in Serum or Plasma [2345-7] 02/13/2025 12:03 PM 287 mg/dL N Blood chemistry[[id number]] Glucose [Mass/volume] in Serum or Plasma [2345-7] 02/12/2025 11:58 AM 249 mg/dL N Blood chemistry[[id number]] Glucose [Mass/volume] in Serum or Plasma [2345-7] 02/12/2025 11:57 AM 198 mg/dL N Blood chemistry[[id number]] Glucose [Mass/volume] in Serum or Plasma [2345-7] 02/11/2025 11:53 AM 284 mg/dL N Tuberculosis reaction wheal[ 35772-2] Tuberculosis reaction wheal [62310-2] 02/10/2025 05:00 PM 0 mm NEG Allergies, adverse reactions, alerts Substance Reaction Date Status Type Latex, Natural Rubber 02/09/2025 Non Drug trazodone 02/09/2025 Non Drug Adhesive Tape 02/09/2025 Non Drug Sulfa (Sulfonamide Antibiotics) 02/09/2025 Non Drug Penicillins (PCN) 02/23/2025 Non Ru g Rubber Gloves 02/09/2025 Non Drug Immunizations Vaccine Route Date Status COVID-19 Vaccine Unassigned Route of Administration Refused Influenza Vaccine Unassigned Route of Administration 0 02/19/2025 Refused Medications Medication Instructions Route Dosage Frequency Start Date Stop Date Indications Status acetaminophen 325 mg tablet (acetaminophen) 2 tabs (650mg), oral, Every 6 Hours - PRN, for pain or fever. oral 1.0 6.0 h 02/23 Active acetaminophen 325 mg tablet (acetaminophen) 325mg, oral, Every 6 Hours - PRN, acetaminophen 325mg two tablets by mouth every 6 hours as needed for pain or fever oral 1.0 6.0 h 02/27 Active albuterol sulfate 90 mcg/actuation HFA aerosol inhaler (albuterol sulfate) 2 puffs, inhalation, Four Times A Day - PRN, for SOB. inhalatio n 1.0 6.0 h 02/23 Active albuterol sulfate 90 mcg/actuation HFA aerosol inhaler (albuterol sulfate) 2 puffs, inhalation, Every 4 Hours - PRN, for shortness of breath or wheezing inhalatio n 1.0 4.0 h 02/27 Active alendronate 70 mg tablet (alendronate) 1 tab, oral, Once A Day on Sat, take with a full glass of water at least 30 minutes before the first food or drink of the day, remain upright for 30 minutes after administration . oral 1.0 1.0 d 02/23 Active alendronate 70 mg tablet (alendronate) 1 tab, oral, Once A Day on Sat, take with a full glass of water at least 30 minutes before the first food or drink of the day, remain upright for 30 minutes after administration . oral 1.0 1.0 d 02/27 Active aspirin 81 mg tablet,delayed release (DR/EC) (aspirin) 1 tab, oral, Once A Day oral 1.0 1.0 d 02/19 Active aspirin 81 mg tablet,delayed release (DR/EC) (aspirin) 1 tab, oral, Once A Day oral 1.0 1.0 d 02/27 Active Calcium with Vitamin D (calcium carbonate-vitam in d3) 600 mg-10 mcg (400 unit) tablet (Calcium with Vitamin D (calcium carbonate-vitam in d3)) 1 tab, oral, Twice A Day, TI for Os-[place] Luis. oral 1.0 12.0 h 02/23 Active cholecalciferol (vitamin D3) 25 mcg (1,000 unit) tablet (cholecalcifero l (vitamin D3)) 1 tab, oral, Once A Day oral 1.0 1.0 d 02/23 Active cyanocobalamin (vitamin B-12) 1,000 mcg/mL solution (cyanocobalamin (vitamin B-12)) 1ml (1,000 mcg), injection, Once A Day on the of the 1.0 1.0 d 02/23 Active Dificid (fidaxomicin) 200 mg tablet (Dificid (fidaxomicin)) 1 tab, oral, Every 48 Hours, for 10 doses. oral 1.0 48.0 h 02/23 Active doxepin 25 mg capsule (doxepin) 1 cap, oral, At Bedtime oral 1.0 02/23 Active doxepin 25 mg capsule (doxepin) 1 cap, oral, Twice A Day oral 1.0 12.0 h 02/27 Active Dulcolax (bisacodyl) (bisacodyl) 10 mg suppository (Dulcolax (bisacodyl) (bisacodyl)) 1 suppository, rectal, Once A Day - PRN, Give rectally if can't take p/o, if no results from MOM rectal 1.0 1.0 d 02/23 Active duloxetine 20 mg capsule,delayed release(DR/EC) (duloxetine) 1 cap, oral, Twice A Day oral 1.0 12.0 h 02/23 Active duloxetine 20 mg capsule,delayed release(DR/EC) (duloxetine) 1 cap, oral, Twice A Day oral 1.0 12.0 h 02/27 Active fenofibrate nanocrystallize d 145 mg tablet (fenofibrate nanocrystallize d) 1 tab, oral, Once A Day oral 1.0 1.0 d 02/23 Active fenofibrate nanocrystallize d 145 mg tablet (fenofibrate nanocrystallize d) 1 tab, oral, Once A Day oral 1.0 1.0 d 02/27 Active ferrous sulfate 300 mg (60 mg iron)/5 mL liquid (ferrous sulfate) 300mg/5mL, oral, Once A Day Every Other Day, dosing per TI. oral 1.0 1.0 d 02/23 Active Fish Oil (omega 4-xkk-cmw-fish oil) 300-1,000 mg capsule (Fish Oil (omega 8-hfe-cgv-fish oil)) 1 cap, oral, Once A Day oral 1.0 1.0 d 02/23 Active fluticasone propion-salmet[place] rol 250-50 mcg/dose blister with device (fluticasone propion-salmet[place] rol) 1 inhalation, inhalation, Twice A Day, rinse mouth with water and spit after use inhalatio n 1.0 12.0 h 02/27 Active furosemide 20 mg tablet (furosemide) 1, oral, Once A Day oral 1.0 1.0 d 02/19 Active furosemide 40 mg tablet (furosemide) 1 tablet, oral, Once A Day oral 1.0 1.0 d 02/23 Active hydralazine 50 mg tablet (hydralazine) 1 tab, oral, Three Times A Day oral 1.0 8.0 h 02/23 Active hydralazine 50 mg tablet (hydralazine) 1 tab, oral, Three Times A Day oral 1.0 8.0 h 02/27 Active hydrocodone-paul taminophen 5-325 mg tablet (hydrocodone-ac etaminophen) 1, oral, Twice A Day - PRN, Clinical Indication: Pain oral 1.0 12.0 h 02/23 Active hydrocodone-paul taminophen 5-325 mg tablet (hydrocodone-ac etaminophen) 1, oral, Every 6 Hours - PRN, Clinical Indication pain oral 1.0 6.0 h 02/27 Active insulin aspart U-100 100 unit/mL (3 mL) insulin pen (insulin aspart U-100) Per Sliding Scale, subcutaneous, With Meals, If Blood Sugar is less than 60, call MD.If Blood Sugar is 150 to 200, give 0 Units.If Blood Sugar is 201 to 250, give 2 Units.If Blood Sugar is 251 to 300, give 0 Units.If Blood Sugar is 301 to 350, give 6 Units.If Blood Sugar is 351 to 400, give 8 Units.If Blood Sugar is greater than 400, give 10 Units., If blood sugar <60 or >400 x 3 or symptomatic notify MD subcutane ous 1.0 02/27 Active insulin glargine-yfgn 100 unit/mL (3 mL) insulin pen (insulin glargine-yfgn) 10 units, subcutaneous, Once A Day, TI for Lantus subcutane ous 1.0 1.0 d 02/11 Active insulin glargine-yfgn 100 unit/mL (3 mL) insulin pen (insulin glargine-yfgn) 35 units, subcutaneous, Once A Day, TI for Lantus subcutane ous 1.0 1.0 d 02/23 Active insulin glargine-yfgn 100 unit/mL (3 mL) insulin pen (insulin glargine-yfgn) 10 units, subcutaneous, Once A Day, TI for lantus subcutane ous 1.0 1.0 d 02/25 Active insulin glargine-yfgn 100 unit/mL (3 mL) insulin pen (insulin glargine-yfgn) 20 units, subcutaneous, Once A Day, TI for lantus subcutane ous 1.0 1.0 d 02/27 Active Lactobacillus acidophilus 500 million cell capsule (Lactobacillus acidophilus) 1 cap, oral, Twice A Day, TI for probiotic. For 7 days. oral 1.0 12.0 h 02/27 Active levothyroxine 100 mcg tablet (levothyroxine) 1 tab, oral, Once A Day oral 1.0 1.0 d 02/23 Active levothyroxine 100 mcg tablet (levothyroxine) 1 tab, oral, Once A Day oral 1.0 1.0 d 02/27 Active metoprolol succinate 100 mg tablet extended release 24 hr (metoprolol succinate) 1 tab, oral, Once A Day oral 1.0 1.0 d 02/23 Active metoprolol succinate 100 mg tablet extended release 24 hr (metoprolol succinate) 1 tab, oral, Once A Day oral 1.0 1.0 d 02/27 Active nitroglycerin 0.4 mg tablet, sublingual (nitroglycerin) 1 tab, sublingual, Three Times A Day - PRN, every 5 minutes x 3 for chest pain, not to exceed 3 doses in 15 minutes, if pain persists, seek medical attention sublingua l 1.0 8.0 h 02/23 Active omeprazole 20 mg capsule,delayed release(DR/EC) (omeprazole) 1 cap, oral, Twice A Day, for 2 weeks. TI for pantoprazole. oral 1.0 12.0 h 02/23 Active omeprazole 20 mg capsule,delayed release(DR/EC) (omeprazole) 1 cap, oral, Once A Day, TI for pantoprazole oral 1.0 1.0 d 02/23 Active Phospha 250 Neutral (sod phos di, mono-k phos mono) 250 mg tablet (Phospha 250 Neutral (sod phos di, mono-k phos mono)) 1 tab, oral, Twice A Day oral 1.0 12.0 h 02/23 Active potassium chloride 10 mEq tablet extended release (potassium chloride) 1 tab, oral, Twice A Day oral 1.0 12.0 h 02/19 Active potassium chloride 20 mEq tablet extended release (potassium chloride) 1 tab, oral, Twice A Day oral 1.0 12.0 h 02/19 Active potassium chloride 20 mEq tablet extended release (potassium chloride) 1 tab, oral, Twice A Day oral 1.0 12.0 h 02/23 Active potassium chloride 10 mEq tablet extended release (potassium chloride) 1 tab, oral, Twice A Day, take at 7:30am and 5:30pm oral 1.0 12.0 h 02/27 Active potassium chloride 10 mEq tablet extended release (potassium chloride) 1 tab, oral, Twice A Day oral 1.0 12.0 h 02/23 Active potassium chloride 10 mEq tablet extended release (potassium chloride) 1 tab, oral, Twice A Day oral 1.0 12.0 h 02/19 Active prednisone 5 mg tablet (prednisone) 1 tab, oral, Once A Day oral 1.0 1.0 d 02/23 Active prednisone 5 mg tablet (prednisone) 1 tab, oral, Once A Day oral 1.0 1.0 d 02/27 Active Questran (cholestyramine (with sugar)) 4 gram powder (Questran (cholestyramine (with sugar))) 4 gram, oral, Twice A Day, mix as directed oral 1.0 12.0 h 02/27 Active Questran Light (cholestyramine ) 4 gram powder (Questran Light (cholestyramine )) 2 grams, oral, Twice A Day, Mix as directed. oral 1.0 12.0 h 02/23 Active quetiapine 50 mg tablet (quetiapine) 1 tab, oral, At Bedtime oral 1.0 02/23 Active quetiapine 50 mg tablet (quetiapine) 1 tab, oral, At Bedtime, auto stop for 5 days per TI oral 1.0 02/27 Active sodium bicarbonate 650 mg tablet (sodium bicarbonate) 1 tab, oral, Three Times A Day oral 1.0 8.0 h 02/23 Active sodium bicarbonate 650 mg tablet (sodium bicarbonate) 1 tab, oral, Three Times A Day oral 1.0 8.0 h 02/275 Active sucralfate 1 gram tablet (sucralfate) 1 tab, oral, Twice A Day, before meals. 6am and 4pm. oral 1.0 12.0 h 02/23 Active tizanidine 2 mg tablet (tizanidine) 1 tab, oral, At Bedtime - PRN, for muscle spasticity. oral 1.0 02/15 Active tizanidine 2 mg tablet (tizanidine) 1 tab, oral, At Bedtime oral 1.0 02/27 Active tramadol 50 mg tablet (tramadol) 1, oral, Twice A Day - PRN, Clinical Indication: Pain oral 1.0 12.0 h 02/15 Active Tubersol (tuberculin ppd) 5 tub. unit /0.1 mL solution (Tubersol (tuberculin ppd)) 0.1ml, intradermal, Once - One Time, Administer the morning after admission intraderm al 1.0 02/27 Active Tubersol (tuberculin ppd) 5 tub. unit /0.1 mL solution (Tubersol (tuberculin ppd)) 0.1ml, intradermal, Once - One Time, Administer on the day shift intraderm al 1.0 02/27 Active Tylenol (acetaminophen) 325 mg tablet (Tylenol (acetaminophen) ) 2 tabs/650mg, oral, Every 6 Hours - PRN, as needed for PRN pain/increased tempMay give rectally if necessary oral 1.0 6.0 h 02/23 Active valsartan 160 mg tablet (valsartan) 1 tab, oral, Once A Day oral 1.0 1.0 d 02/23 Active valsartan 160 mg tablet (valsartan) 1 tab, oral, Once A Day oral 1.0 1.0 d 02/27 Active Vital Signs Date Vital Result Comment 02/24/2025 09:13 PM Temperature (8310-5) 96.9 [degF] Oxygen Saturation (86298-8) 90 % Respiratory Rate (9279-1) 17 /min Heart Rate (8867-4) 88 /min Blood Pressure Systolic (8480-6) 108 mm[Hg] Blood Pressure Diastolic (8462-4) 64 mm[Hg] 02/18/2025 08:28 PM Temperature (8310-5) 97.9 [degF] Oxygen Saturation (67595-4) 92 % Respiratory Rate (9279-1) 18 /min Heart Rate (8867-4) 80 /min Blood Pressure Systolic (8480-6) 170 mm[Hg] Blood Pressure Diastolic (8462-4) 72 mm[Hg] 02/23/2025 07:24 PM Temperature (8310-5) 97.4 [degF] Oxygen Saturation (54107-1) 95 % Respiratory Rate (9279-1) 15 /min Heart Rate (8867-4) 84 /min Blood Pressure Systolic (8480-6) 167 mm[Hg] Blood Pressure Diastolic (8462-4) 86 mm[Hg] 02/19/2025 12:35 PM Temperature (8310-5) 100 [degF] Oxygen Saturation (55226-9) 95 % Respiratory Rate (9279-1) 18 /min Heart Rate (8867-4) 80 /min Blood Pressure Systolic (8480-6) 152 mm[Hg] Blood Pressure Diastolic (8462-4) 78 mm[Hg] 02/26/2025 09:37 AM Temperature (8310-5) 97.7 [degF] Oxygen Saturation (74918-6) 91 % Respiratory Rate (9279-1) 17 /min Heart Rate (8867-4) 76 /min Blood Pressure Systolic (8480-6) 163 mm[Hg] Blood Pressure Diastolic (8462-4) 102 mm[Hg] 02/24/2025 08:30 AM Temperature (8310-5) 98.5 [degF] Oxygen Saturation (94521-8) 95 % Respiratory Rate (9279-1) 18 /min Heart Rate (8867-4) 78 /min Blood Pressure Systolic (8480-6) 152 mm[Hg] Blood Pressure Diastolic (8462-4) 86 mm[Hg] 02/24/2025 04:59 PM Body Weight (01912-9) 175.4 [lb_av ] Body Mass Index (70620-8) 30.1 kg/m2 02/26/2025 06:02 PM Body Weight (12539-5) 170.2 [lb_av ] Body Mass Index (93725-2) 29.21 kg/m2 02/25/2025 05:40 PM Temperature (8310-5) 97.6 [degF] Oxygen Saturation (80275-1) 95 % Respiratory Rate (9279-1) 16 /min Heart Rate (8867-4) 76 /min Blood Pressure Systolic (8480-6) 177 mm[Hg] Blood Pressure Diastolic (8462-4) 85 mm[Hg] 02/13/2025 02:49 PM Body Weight (78405-6) 174.5 [lb_av ] Body Mass Index (45743-9) 29.95 kg/m2 02/11/2025 05:32 PM Body Weight (06723-8) 174.8 [lb_av ] Body Mass Index (14817-3) 30 kg/m2 02/11/2025 11:22 AM Body Weight (21310-9) 263 [lb_av] Body Mass Index (66816-0) 45.14 kg/m2 02/27/2025 12:38 AM Temperature (8310-5) 97 [degF] Oxygen Saturation (93406-6) 97 % Respiratory Rate (9279-1) 16 /min Heart Rate (8867-4) 65 /min Blood Pressure Systolic (8480-6) 122 mm[Hg] Blood Pressure Diastolic (8462-4) 64 mm[Hg] 02/25/2025 11:41 AM Body Weight (35374-9) 170.8 [lb_av ] Body Mass Index (35178-5) 29.31 kg/m2 02/14/2025 05:41 PM Body Weight (98992-0) 174.7 [lb_av ] Body Mass Index (01048-3) 29.98 kg/m2 02/25/2025 11:27 AM Body Weight (59659-5) 170.8 [lb_av ] Body Mass Index (25351-8) 29.31 kg/m2 02/25/2025 11:26 AM Temperature (8310-5) 97 [degF] Oxygen Saturation (09104-5) 93 % Respiratory Rate (9279-1) 18 /min Heart Rate (8867-4) 85 /min Blood Pressure Systolic (8480-6) 204 mm[Hg] Blood Pressure Diastolic (8462-4) 93 mm[Hg] 02/16/2025 01:52 PM Body Weight (65470-7) 176.2 [lb_av ] Body Mass Index (57989-7) 30.24 kg/m2 02/15/2025 09:32 AM Body Weight (06072-7) 176.4 [lb_av ] Body Mass Index (77731-1) 30.28 kg/m2 02/23/2025 03:58 PM Temperature (8310-5) 98.5 [degF] Oxygen Saturation (70731-8) 97 % Respiratory Rate (9279-1) 20 /min Heart Rate (8867-4) 72 /min Blood Pressure Systolic (8480-6) 138 mm[Hg] Blood Pressure Diastolic (8462-4) 84 mm[Hg] Body Height (8302-2) 64 [in_us] Body Weight (63575-4) 175.4 [lb_av] Body Mass Index (06649-4) 30.1 kg/m2 02/19/2025 12:36 PM Body Weight (19770-0) 177 [lb_av] Body Mass Index (00850-0) 30.38 kg/m2 02/10/2025 01:02 PM Body Weight (59849-2) 175.2 [lb_av ] Body Mass Index (79618-1) 30.07 kg/m2 02/18/2025 04:45 PM Body Weight (29522-2) 175.8 [lb_av ] Body Mass Index (91275-1) 30.17 kg/m2 02/12/2025 04:30 PM Body Weight (56479-6) 174.8 [lb_av ] Body Mass Index (38093-7) 30 kg/m2 02/17/2025 01:36 PM Body Weight (27179-0) 176 [lb_av] Body Mass Index (44791-2) 30.21 kg/m2 02/12/2025 04:29 PM Body Weight (81543-3) 174.8 [lb_av ] Body Mass Index (03271-8) 30 kg/m2 02/09/2025 05:35 PM Body Weight (66187-2) 173.6 [lb_av ] Body Mass Index (98495-9) 29.8 kg/m2 Social History No smoking Hx information available Encounters Type CPT Code Date Location Provider Indication s encounter report 02/09/2025 04:0 5 PM - 02/27/2025 10:33 AM Jesus Mullins DO 01 Advance Directives Directive Description Verification Date Supporting Document(s) Other Directive
--- NOTE | 2025-06-24 21:58 | CTR_ITS ---
PROCEDURE INFORMATION: Exam: CT Head Without Contrast Exam date and time: 06/24/2025 9:53 PM Age: 74 years old Clinical indication: Stroke-like symptoms; Ataxia; RT upper extremity weakness; Additional info: Rue weakness, hemibody ataxia TECHNIQUE: Imaging protocol: Computed tomography of the head without contrast. Radiation optimization: All CT scans at this facility use at least one of these dose optimization techniques: automated exposure control; mA and/or kV adjustment per patient size (includes targeted exams where dose is matched to clinical indication); or iterative reconstruction. Other technique: STROKE PROTOCOL was implemented. COMPARISON: CT head wo con* [id number] 02/03/2025 11:40 PM RADIATION DOSE METRICS: Total DLP (mGy-cm): 1065.4 FINDINGS: Brain: No intracranial hemorrhage. There is global parenchymal volume loss. Periventricular white matter hypoattenuation is nonspecific but most likely due to small vessel disease. No evidence of acute territorial infarct or cerebral edema. No mass effect or midline shift. Cerebral ventricles: Prominent ventricles likely secondary to volume loss. Paranasal sinuses: Mild mucosal thickening of the paranasal sinuses. No air-fluid levels. Mastoid air cells: The mastoid air cells are clear. Bones: The calvarium is intact. Soft tissues: Unremarkable. CT/CT head thrombolytic 46512 IMPRESSION: No acute intracranial findings. ASSESSMENT: ASPECTS ([place] Stroke Program Early CT Score) is 10.
--- NOTE | 2025-06-24 21:58 | CTR_ITS ---
PROCEDURE INFORMATION: Exam: CTA Head With Contrast, Arteriography Exam date and time: 06/24/2025 10:01 PM Age: 74 years old Clinical indication: Weakness; Additional info: Rue numbness, hemibody ataxia TECHNIQUE: Imaging protocol: Computed tomographic angiography of the head with contrast. Exam focused on the arteries. 3D rendering (Not supervised by radiologist): MIP and/or 3D reconstructed images were created by the technologist. Radiation optimization: All CT scans at this facility use at least one of these dose optimization techniques: automated exposure control; mA and/or kV adjustment per patient size (includes targeted exams where dose is matched to clinical indication); or iterative reconstruction. Contrast material: OMNI 350; Contrast volume: 100 ml; Contrast route: INTRAVENOUS (IV); COMPARISON: CT head thrombolytic [id number] 06/24/2025 9:53 PM RADIATION DOSE METRICS: Total DLP (mGy-cm): 398.4 FINDINGS: ANTERIOR CIRCULATION: Right internal carotid artery: The intracranial right internal carotid artery demonstrates mild atherosclerotic calcification of the carotid siphon without significant stenosis. No aneurysm. Right middle cerebral artery: Right middle cerebral artery is patent. No significant stenosis. No aneurysm. Right anterior cerebral artery: Right anterior cerebral artery is patent. No significant stenosis. No aneurysm. Left internal carotid artery: The intracranial left internal carotid artery demonstrates mild atherosclerotic calcification of the carotid siphon without significant stenosis. No aneurysm. Left middle cerebral artery: Left middle cerebral artery is patent. No significant stenosis. No aneurysm. Left anterior cerebral artery: Left anterior cerebral artery is patent. No significant stenosis. No aneurysm. POSTERIOR CIRCULATION: Right vertebral artery: Right vertebral artery is patent. No significant stenosis. No aneurysm. Left vertebral artery: Left vertebral artery is patent. No significant stenosis. No aneurysm. Basilar artery: The basilar artery is patent. No significant stenosis. No aneurysm. Right posterior cerebral artery: Right posterior cerebral artery is patent. No significant stenosis. No aneurysm. Left posterior cerebral artery: Left posterior cerebral artery is patent. No significant stenosis. No aneurysm. Veins: The visualized dural venous sinuses are patent. Brain: Please see separately ordered CT of the head for detailed report. Cerebral ventricles: Please see separately ordered CT of the head for detailed report. Bones/joints: Unremarkable. Soft tissues: Unremarkable. PROCEDURE INFORMATION: Exam: CTA Neck With Contrast Exam date and time: 06/24/2025 10:01 PM Age: 74 years old Clinical indication: Weakness; Additional info: Rue numbness, hemibody ataxia TECHNIQUE: Imaging protocol: Computed tomographic angiography of the neck with contrast. Exam focused on the cervical segments of the vasculature. 3D rendering (Not supervised by radiologist): MIP and/or 3D reconstructed images were created by the technologist. Radiation optimization: All CT scans at this facility use at least one of these dose optimization techniques: automated exposure control; mA and/or kV adjustment per patient size (includes targeted exams where dose is matched to clinical indication); or iterative reconstruction. Contrast material: OMNI 350; Contrast volume: 100 ml; Contrast route: INTRAVENOUS (IV); COMPARISON: CT head thrombolytic [id number] 06/24/2025 9:53 PM RADIATION DOSE METRICS: Total DLP (mGy-cm): 398.4 FINDINGS: Right common carotid artery: There is partially calcified plaque at the right common carotid artery predominantly at the bulb resulting in up to mild stenosis of the common carotid artery. Right internal carotid artery: The proximal right internal carotid artery has a carotid web with superimposed/surrounding noncalcified plaque. This results in up to moderate stenosis of the proximal segment (55-65%). Right external carotid artery: The right external carotid artery shows no evidence of significant stenosis. Left common carotid artery: The left common carotid artery demonstrates mild atherosclerotic narrowing, predominantly at the level of the carotid bulb. No significant stenosis. No dissection. Left internal carotid artery: Partially calcified plaque of the proximal left internal carotid artery resulting in mild stenosis by NASCET criteria. No occlusion. No evidence of dissection. Left external carotid artery: The left external carotid artery shows no evidence of significant stenosis. Right vertebral artery: Right vertebral artery is patent. No significant stenosis. No evidence of dissection. Left vertebral artery: Left vertebral artery is patent. No significant stenosis. No evidence of dissection. Soft tissues: Soft tissues are unremarkable as visualized. Bones/joints: The cervical spine demonstrates moderate degenerative changes at multiple levels. Lungs: The visualized portions of the lungs are unremarkable. CT/CT angio headneck* [id number] IMPRESSION: No large vessel stenosis or occlusion. IMPRESSION: Proximal RIGHT carotid artery web and superimposed/surrounding noncalcified plaque resulting in up to moderate stenosis of the proximal segment (55-65%). REFERENCES: NASCET CRITERIA. The degree of stenosis in the cervical segment of the internal carotid artery is based on NASCET criteria. Normal is no stenosis. Mild is less than 50% stenosis. Moderate is 50-69% stenosis. Severe is 70% to 99% stenosis. Total occlusion is no detectable patent lumen.
--- NOTE | 2025-06-24 22:03 | ECG_ITS ---
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
[2025-06-24 22:30] LABS: Hematocrit 33.4 % (36-47); Hemoglobin 10.70 g/dL (11.27-16.99); Mean Corpuscular HGB Conc 32.0 g/dL (30-55); Mean Corpuscular Hemoglobin 31.0 pg (27-33); Mean Corpuscular Volume 96.8 fl (85-98); Nucleated Red Blood Cells % 0 %; Platelet Count 375 10^3/cmm (157-399); Red Blood Count 3.45 10^6/uL (3.85-5.65); White Blood Count 12.82 10^3/uL (3.29-11.43)
[2025-06-24] MEDS: metoclopramide 5 mg/mL SDV 2 mL 10 MG IVP (22:42)
[2025-06-24 22:46] LABS: Troponin(5th) Baseline 72 ng/L (0-10)
[2025-06-24 22:57] LABS: Anion Gap 15.0 (5-19); Blood Urea Nitrogen 27 mg/dL (8-23); Calcium 9.0 mg/dL (8.5-10.5); Carbon Dioxide 27 mmol/L (22-29); Chloride 94 mmol/L (98-107); Glucose 242 mg/dL (65-115); Magnesium 1.7 mg/dL (1.7-2.3); NT Pro B Type Natriuretic Pept 1429 pg/mL (0-450); Osmolality Calculated 287 mOsm/kg (285-295); Potassium 4.0 mmol/L (3.5-5.1); Sodium 132 mmol/L (136-145); Thyroid Stimulating Hormone 2.59 uIU/mL (0.27-4.20)
--- NOTE | 2025-06-24 23:03 | ECG_ITS ---
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
[2025-06-24 23:10] LABS: Glucose Urine UA Trace (Normal); Nitrate Urine Negative (Negative); Specific Gravity, Urine 1.021 (1.005-1.030)
[2025-06-24 23:15] LABS: Add Urine Microscopic? YES
[2025-06-25] VITALS (26 sets, daily range): BP systolic 131–188; BP diastolic 61–85; PULSE 54–90; RESP 13–22; TEMP 36.4–37.2; O2SAT 94–98; BMI 28.3
[2025-06-25] MEDS: cefTRIAXone 1,000 mg SDV 1000 MG IVP (00:09)
[2025-06-25 00:16] LABS: CRP High Sensitivity Cardiac 0.440 mg/dL (0.0-0.3)
--- NOTE | 2025-06-25 01:18 | XRR_ITS ---
PROCEDURE INFORMATION: Exam: XR Chest Exam date and time: 06/25/2025 1:26 AM Age: 74 years old Clinical indication: Other: Dizziness, elevated troponin; Additional info: Elevated troponin, dizziness TECHNIQUE: Imaging protocol: Radiologic exam of the chest. Views: 1 view. COMPARISON: CR XR chest 1V portable [id number] 02/05/2025 4:57 PM FINDINGS: Lungs: Unremarkable. No consolidation. Pleural spaces: Unremarkable. No pleural effusion. No pneumothorax. Heart/Mediastinum: Aortic calcifications. The heart is normal in size. No pericardial effusion. Bones/joints: There are bilateral acromioclavicular and glenohumeral joint degenerative changes. The spine demonstrates mild degenerative changes at multiple levels. XR/XR chest 1V portable [id number] IMPRESSION: No acute findings.
--- NOTE | 2025-06-25 01:20 | W.ED.NEUROSD ---
HPI - Neuro Symptoms/Deficit General: Chief Complaint: Neuro Symptoms/Deficit Stated Complaint: STROKE ALERT Time Seen by Provider: 06/24/25 21:57 History of Present Illness: Patient is a 74-year-old female with past medical history of hypertension, diabetes, heart failure, anxiety who presents to the ED as a stroke alert. Approximately 2 hours prior to arrival, was working on her 's wounds, was bent over and then stood up, then after this, experienced difficulty talking, right upper extremity numbness and dizziness. Has not had a stroke before, not on anticoagulation. Related Data Home Medications ?Medication ?Instructions ?Recorded ?Confirmed vitamin E 268 mg (400 unit) capsule 400 unit PO DAILY 10/27/20 06/25/25 omega-3 fatty acids 1,000 mg 1,000 mg PO DAILY 11/02/24 06/25/25 capsule calcium 600 mg (as 1 tab PO DAILY 06/25/25 06/25/25 carbonate)-vitamin D3 5 mcg (200 unit) tablet cyanocobalamin (vitamin B-12) 1,000 mcg PO DAILY 06/25/25 06/25/25 1,000 mcg tablet (Vitamin B-12) lactobacillus combination no.4 3 3,000 mmu cells PO DAILY 06/25/25 06/25/25 billion cell capsule (Probiotic) tramadol 50 mg tablet 50 mg PO TID PRN Pain 06/25/25 06/25/25 Previous Rx's ?Medication ?Instructions ?Recorded Diabetic shoes #1 ea 10/14/20 nitroglycerin 0.4 mg sublingual 0.4 mg sublingual Q5M PRN chest 01/22/23 tablet pain #20 tabs lancets (Accu-Chek Softclix #100 ea 04/16/23 Lancets) right cmc splint #1 ea 01/07/24 blood sugar diagnostic (Accu-Chek #100 ea 07/27/24 Guide test strips) albuterol sulfate 90 mcg/actuation 2 puff inhalation QID PRN 12/19/24 aerosol inhaler (Ventolin HFA) Shortness Of Breath #25.5 grams glucagon HCl 1 mg solution for 1 mg IM Q20M PRN hypoglycemia #1 ea 12/28/24 injection (Glucagon (HCl) Emergency Kit) acetaminophen 325 mg tablet 650 mg (2 x 325 mg) PO Q6H PRN 01/14/25 Mild Pain #30 tabs levothyroxine 100 mcg tablet 100 mcg PO DAILY #90 tabs 03/05/25 blood-glucose,studio potter,cont #1 ea 03/24/25 (Dexcom G7 V Belt Coverer) pen needle, diabetic 33 gauge x #100 ea 04/28/25 quetiapine 50 mg tablet (Seroquel) 50 mg PO .at bedtime #90 tabs 04/29/25 blood-glucose sensor (Dexcom G7 #12 ea 06/15/25 Sensor device) doxepin 25 mg capsule 25 mg PO BID #180 caps 06/15/25 ferrous gluconate 324 mg (38 mg 324 mg PO DAILY #90 tabs 06/15/25 iron) tablet fluticasone 250 mcg-salmeterol 50 1 inh inhalation Q12H Shortness Of 06/15/25 mcg/dose blistr powdr for Breath #180 ea inhalation (Advair Diskus) furosemide 20 mg tablet 20 mg PO QAM #90 tabs 06/15/25 glipizide 10 mg tablet, extended 10 mg PO QDAY #90 tabs 06/15/25 release 24 hr hydralazine 50 mg tablet 50 mg PO TID #270 tabs 06/15/25 insulin glargine 100 unit/mL (3 See Rx Instructions SUBCUT QAM 06/15/25 mL) subcutaneous pen (Lantus #120 mL Solostar U-100 Insulin) metoprolol succinate 100 mg 100 mg PO DAILY #90 tabs 06/15/25 tablet,extended release 24 hr pantoprazole 40 mg tablet,delayed 40 mg PO QAM #90 tabs 06/15/25 release (Protonix) potassium chloride 10 mEq 10 meq PO BID #180 tabs 06/15/25 tablet,extended release spironolactone 25 mg tablet 25 mg PO DAILY #90 tabs 06/15/25 valsartan 320 mg tablet (Diovan) 320 mg PO DAILY #90 tabs 06/15/25 aspirin 81 mg tablet,delayed 81 mg PO 0900 #90 tabs 06/26/25 release atorvastatin 40 mg tablet 40 mg PO BEDTIME #90 tabs 06/26/25 doxepin 10 mg capsule 10 mg PO BID #180 caps 06/26/25 duloxetine 40 mg capsule,delayed 40 mg PO BID #180 caps 06/26/25 release nicotine (polacrilex) 4 mg buccal 4 mg buccal Q6H PRN nicotine 06/26/25 lozenge cravings #81 ea nicotine 21 mg/24 hr daily 1 patch transdermal DAILY #28 ea 06/26/25 transdermal patch Allergies Allergy/AdvReac Type Severity Reaction Status Date / Time Penicillins Allergy Severe Rash Verified 06/15/25 15:23 Sulfa (Sulfonamide Allergy Severe Rash Verified 06/15/25 15:23 Antibiotics) Latex, Natural Rubber AdvReac Severe Rash Verified 06/15/25 15:23 adhesive AdvReac Intermediate Rash Verified 06/15/25 15:23 trazodone AdvReac Do not Verified 06/15/25 15:23 tolerate Review of Systems General: Reports: ROS unobtainable due to medical condition PFSH ED PFSH: Medical History (Updated 06/27/25 @ 06:26 by Jackie John DO) Diabetes mellitus Tobacco abuse Diastolic dysfunction with chronic heart failure Type 2 diabetes mellitus with hyperglycemia, with long-term current use of insulin Osteoarthritis of hands, bilateral Immunization counseling High risk medication use Seropositive rheumatoid arthritis of multiple sites Osteoporosis Cigarette smoker COPD (chronic obstructive pulmonary disease) Unstable angina Hypertension Environmental and seasonal allergies Vitamin D deficiency Mixed hyperlipidemia Diverticulosis Adult hypothyroidism Surgical History History of lumbar surgery Rods in lumbar History of cholecystectomy History of tubal ligation History of foot surgery left Family History Father Diabetes Mother CAD (coronary artery disease) Other Dementia Social History (Updated 06/25/25 @ 02:58 by Thierry Hensley MD) Smoking and tobacco/nicotine status: current every day tobacco/nicotine user cigarettes Packs smoked per day: 1 Years cigarettes smoked: 25 [ Other cigarette details: Started smoking here 1999 while was out of town] Second hand smoke exposure: Yes Alcohol intake: never Substance/Drug Use: never Additional social history: She wants full code no prolong life support as discussed with Thierry Hensley MD on 06/25/2025 Adopted: No Caregiver/support person: No Lives independently: Yes Household members: spouse Housing: House Marital status: Marital status details: Lives at home with Number of children: 3 service: No Current occupational status: retired 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 NIH SS of 2, cranial nerves II through XII intact, 5 out of 5 motor and sensation to all 4 extremities with some drift on the right, unable to ambulate. Mild diffuse abdominal tenderness, intact bowel sounds, no CVA tenderness, normal sinus rhythm with no murmurs. Course Vital Signs: Vital signs: Vital Signs Temperature 98.4 F 06/26/25 11:51 Pulse Rate 80 06/26/25 11:51 Respiratory Rate 18 06/26/25 11:51 Blood Pressure 167/77 06/26/25 11:51 Pulse Oximetry 95 06/26/25 11:51 Oxygen Delivery Me thod Room Air 06/26/25 08:52 MDM - Neuro Symptoms/Deficit Medical Decision Making -ddx: Stroke, TIA, vertebral dissection, toxic metabolic encephalopathy, UTI, URI, pneumonia, anxiety, ACS - Patient presented with NIH of 2, stroke alerted on arrival, CT head and CTA negative for any bleed, acute vascular stenosis or areas concerning for ischemia. Discussion was had with teleneurologist who saw patient and agreed this seemed like peripheral cause of dizziness and nothing central. Dizziness improved after she was given 2 rounds of nausea medication. Her tropes were more elevated from baseline than usual for her but her BMP and creatinine were lower than her baseline which made this more concerning in setting of today's presyncopal event, she was also found to have a very weakly positive UA but she had increased urinary frequency so this was treated, patient was then admitted to the hospitalist for management of her UTI, further cardiac and neuro evaluation, admitted in stable condition, daughter at bedside. Lab Data 06/26/25 03:57 06/26/25 03:[address] 06/24/25 21:58 IMPRESSION: No acute intracranial findings. ASSESSMENT: ASPECTS ([place] Stroke Program Early CT Score) is 10. ADDENDUM: 06/24/25 2698 COMMENT: THIS REPORT CONTAINS FINDINGS THAT MAY BE CRITICAL TO PATIENT CARE. The exam findings were verbally communicated by me to JACKIE JOHN via telephone conference at 10:21 PM INSULATION BLOWER on 06/24/2025. The findings were acknowledged and understood. Head/Neck CTA 06/24/25 21:58 IMPRESSION: No large vessel stenosis or occlusion. IMPRESSION: Proximal RIGHT carotid artery web and superimposed/surrounding noncalcified plaque resulting in up to moderate stenosis of the proximal segment (55-65%). REFERENCES: NASCET CRITERIA. The degree of stenosis in the cervical segment of the internal carotid artery is based on NASCET criteria. Normal is no stenosis. Mild is less than 50% stenosis. Moderate is 50-69% stenosis. Severe is 70% to 99% stenosis. Total occlusion is no detectable patent lumen. Chest X-Ray 06/25/25 01:18 IMPRESSION: No acute findings. Laboratory Results WBC 12.82 10^3/uL (3.29-11.43) H 06/24/25 22:21 RBC 3.45 10^6/uL (3.85-5.65) L 06/24/25 22:21 Hgb 10.70 g/dL (11.27-16.99) L 06/24/25 22:21 Hct 33.4 % (36-47) L 06/24/25 22:21 MCV 96.8 fl (85-98) 06/24/25 22:21 MCH 31.0 pg (27-33) 06/24/25 22:21 MCHC 32.0 g/dL (30-55) 06/24/25 22:21 RDW 13.8 % (12.1-15.1) 06/24/25 22:21 Plt Count 375 10^3/cmm (157-399) 06/24/25 22:21 MPV 8.4 fL (7.4-10.4) 06/24/25 22:21 Neut % (Auto) 75.2 % 06/24/25 22:21 Lymph % (Auto) 13.0 % 06/24/25 22:21 Grand % (Auto) 8.8 % 06/24/25 22:21 Eos % (Auto) 1.2 % 06/24/25 22: Baso % (Auto) 0.5 % 06/24/25 22: Neut # (Auto) 9.62 10^3/uL (1.8-7.7) H 06/24/25 22:21 Lymph # (Auto) 1.7 10^3/uL (0.8-4.8) 06/24/25 22:21 Grand # (Auto) 1.1 10^3/uL (0.2-0.9) H 06/24/25 22:21 Eos # (Auto) 0.2 10^3/uL (0.0-0.8) 06/24/25 22:21 Baso # (Auto) 0.1 10^3/uL (0.0-0.1) 06/24/25 22:21 Nucleated RBC % (auto) 0 % 06/24/25 22:21 Nucleated RBCs # 0.0 /100WBC 06/24/25 22:21 Sodium 132 mmol/L (136-145) L 06/24/25 22:21 Potassium 4.0 mmol/L (3.5-5.1) 06/24/25 22:21 Chloride 94 mmol/L (98-107) L 06/24/25 22:21 Carbon Dioxide 27 mmol/L (22-29) 06/24/25 22:21 Anion Gap 15.0 (5-19) 06/24/25 22:21 BUN 27 mg/dL (8-23) H 06/24/25 22:21 Creatinine 1.8 mg/dL (0.5-0.9) H 06/24/25 22:21 GFR Calculation Not Reportable 06/24/25 22:21 Glucose 242 mg/dL (65-115) H 06/24/25 22:21 Calculated Osmolality 287 mOsm/kg (285-295) 06/24/25 22:21 Calcium 9.0 mg/dL (8.5-10.5) 06/24/25 22:21 Phosphorus 3.2 mg/dL (2.5-4.5) 06/24/25 22:21 Magnesium 1.7 mg/dL (1.7-2.3) 06/24/25 22:21 Troponin T Baseline 72 ng/L (0-10) H 06/24/25 22:21 Troponin T 60 Minute 77.23 ng/L (0-10) H 06/24/25 23:23 Delta Troponin T 5.23 ABS# (0-10) 06/24/25 23:23 C-React Prot High Sens 0.440 mg/dL (0.0-0.3) H 06/24/25 22:21 NT-Pro-B Natriuret Pep 1429 pg/mL (0-450) H 06/24/25 22:21 TSH 2.59 uIU/mL (0.27-4.20) 06/24/25 22:21 Urine Color Yellow (Yellow) 06/24/25 22:55 Urine Appearance Clear (CLEAR) 06/24/25 22:55 Urine pH 7.5 (5-7) 06/24/25 22:55 Ur Specific Davis 1.021 (1.005-1.030) 06/24/25 22:55 Urine Protein Negative (Negative) 06/24/25 22:55 Urine Glucose (UA) Trace (Normal) H 06/24/25 22:55 Urine Ketones Negative (Negative) 06/24/25 22:55 Urine Blood Negative (Negative) 06/24/25 22:55 Urine Nitrate Negative (Negative) 06/24/25 22:55 Urine Bilirubin Negative (Negative) 06/24/25 22:55 Urine Urobilinogen 0.2 mg/dL (Negative) 06/24/25 22:55 Ur Leukocyte Esterase Trace (Negative) A 06/24/25 22:55 Urine RBC 0-2 /hpf (0-2) 06/24/25 22:55 Urine WBC 0-5 /hpf (0-5) 06/24/25 22:55 Ur Squamous Epith Cells 0-5 /hpf (0-5) 06/24/25 22:55 Amorphous Sediment Not Reportable 06/24/25 22:55 Urine Bacteria None seen /hpf (NONE) 06/24/25 22:55 Hyaline Casts 2.87 /lpf 06/24/25 22:55 All radiology interpretation(s) finalized by discharge Critical Care Time Critical Care Time: Critical Care Time: Yes Total Critical Care Time: 35 Attestation: Stroke alert requiring multiple conversations with subspecialists, decision not to give TNK, presyncopal episode in setting of elevated cardiac markers, urinary tract infection Discharge Plan Discharge Patient Disposition: Admitted As Inpatient Admit Provider: Thierry Hensley Clinical Impression: Vertigo, Acute UTI, Elevated troponin Condition: Stable Discharge Diet: Cardiac and Diabetic Discharge Activity: As per PT/OT instructions Coding Level of Care Code ED Stencil Printer for Ian Navarro
--- NOTE | 2025-06-25 02:19 | PC.NURSE ---
01:52 recv'd report from Jennie RUTHERFORD from ED; pt dx UTI and elev Troponin.... pt going to 259
--- NOTE | 2025-06-25 02:49 | PM.HP ---
Providers/Chief Complaint Admitting Physician: Thierry Hensley MD Primary Care Provider: Karla Gallegos, PROPELLANT CHARGE ZONE ASSEMBLER-C Chief Complaint: STROKE ALERT History of Present Illness Teresa Garcia is a 74 year old female with history of diabetes, hypertension, tobacco abuse, difficult to resolve C. difficile colitis most recently in January 2025 also had admission for acute blood loss anemia February 04, 2025. She was transfused 2 units packed red cells and found to have gastritis in the prepyloric region. Aspirin was stopped at that time. Patient came in today as a code stroke with symptoms of right upper extremity numbness weakness numbness of her right tongue and difficulty with speech. She states that she noticed this when she felt dizzy while bent over trying to address her 's leg wounds. She then stood and went to the bedroom to get medications to treat his leg and could not walk. She was listing to the right and her had to come help her to sit down. Patient states that those symptoms have largely resolved. She denies that the room was spinning but does admit to dizziness. She states she was blinking a lot but denies that the light was hurting her eyes or that closing her eyes made the dizziness better She had additional findings of troponin at 70 previous baseline troponin was 60. She also had leukocyte esterase positive in urine but squamous cells were 0-5 and white cells were 0-5 as well no bacteria seen patient admits to some dysuria but no blood Review of Systems Narrative: General No fevers chills Cardiovascular no chest pain palpitations or edema she states her blood pressure has been high in heart rate low Respiratory no shortness of breath cough wheezing GI positive for nausea vomiting with today's episode positive for dysuria but no blood MANAGER NEONATAL no vaginal bleeding or discharge Malignancy history negative Hematologic history negative Neuro no past history of seizures or strokes she did have a headache today right nose was numb tongue was numb throat was sore she felt like her right arm and leg were weaker than usual the right arm is weak from previous shoulder injury. She states her right congregational was painful and she had slurred speech Medications/Allergies Home Medications ?Medication ?Instructions ?Recorded ?Confirmed ?Last Taken ?Type aspirin 81 mg tablet,delayed 81 mg PO DAILY 10/19/19 06/15/25 01/10/25 08:00 History release Held on 03/05/25. Instructions: Hold until GI improved Diabetic shoes #1 ea 10/14/20 06/15/25 Unknown Rx cholecalciferol (vitamin D3) 25 25 mcg PO DAILY 10/27/20 06/15/25 01/10/25 08:00 History mcg (1,000 unit) capsule (Vitamin D3) vitamin E 268 mg (400 unit) capsule 400 unit PO DAILY 10/27/20 06/15/25 01/10/25 08:00 History nitroglycerin 0.4 mg sublingual 0.4 mg sublingual Q5M PRN chest 01/22/23 06/15/25 Unknown Rx tablet pain #20 tabs lancets (Accu-Chek Softclix #100 ea 04/16/23 06/15/25 Unknown Rx Lancets) right cmc splint #1 ea 01/07/24 06/15/25 Unknown Rx alendronate 70 mg tablet (Fosamax) 70 mg PO .weekly #12 tabs 07/27/24 06/15/25 Unknown Rx Held on 03/05/25. Instructions: Hold until GI improved blood sugar diagnostic (Accu-Chek #100 ea 07/27/24 06/15/25 Unknown Rx Guide test strips) prednisone 5 mg tablet 5 mg PO DAILY #90 tabs 09/07/24 06/15/25 01/10/25 08:00 Rx calcium 500 mg (as 1 tab PO BID 11/02/24 06/15/25 01/10/25 08:00 History carbonate)-vitamin D3 15 mcg (600 unit) tablet (Os-Jose Luis 500 + D3) omega-3 fatty acids 1,000 mg 1,000 mg PO DAILY 11/02/24 06/15/25 01/10/25 08:00 History capsule albuterol sulfate 90 mcg/actuation 2 puff inhalation QID PRN 12/19/24 06/15/25 Unknown Rx aerosol inhaler (Ventolin HFA) Shortness Of Breath #25.5 grams cyanocobalamin (vitamin B-12) 1,000 mcg SUBCUT Q30D 12/24/24 06/15/25 Unknown History 1,000 mcg/mL injection solution cholestyramine 4 gram oral powder 2 g PO BID 30 days #210 grams 12/28/24 06/15/25 01/10/25 08:00 Rx (Questran Light) glucagon HCl 1 mg solution for 1 mg IM Q20M PRN hypoglycemia #1 ea 12/28/24 06/15/25 Unknown Rx injection (Glucagon (HCl) Emergency Kit) acetaminophen 325 mg tablet 650 mg (2 x 325 mg) PO Q6H PRN 01/14/25 06/15/25 Unknown Rx Mild Pain #30 tabs sodium di- and 1 tab PO BID #20 tabs 01/14/25 06/15/25 Unknown Rx monophosphate-potassium phos monobasic 250 mg tablet (Phospha Neutral) Lactobacillus rhamnosus GG 20 See Rx Instructions .Route .COMPLEX 02/04/25 06/15/25 Unknown History billion cell capsule (Probiotic Digestive Care) levothyroxine 100 mcg tablet 100 mcg PO DAILY #90 tabs 03/05/25 06/15/25 Unknown Rx blood-glucose,sales representative printing paper,cont #1 ea 03/24/25 06/15/25 Unknown Rx (Dexcom G7 Medical Dermatologist) triamcinolone acetonide 0.1 % 1 applic topical BID PRN itching 03/24/25 06/15/25 Unknown Rx topical cream #454 grams pen needle, diabetic 33 gauge x #100 ea 04/28/25 06/15/25 Unknown Rx 5/32 quetiapine 50 mg tablet (Seroquel) 50 mg PO .at bedtime #90 tabs 04/29/25 06/15/25 Unknown Rx blood-glucose sensor (Dexcom G7 #12 ea 06/15/25 06/15/25 Unknown Rx Sensor device) doxepin 25 mg capsule 25 mg PO BID #180 caps 06/15/25 06/15/25 Unknown Rx duloxetine 60 mg capsule,delayed 60 mg PO BID #180 caps 06/15/25 06/15/25 Unknown Rx release fenofibrate nanocrystallized 145 145 mg PO DAILY #90 tabs 06/15/25 06/15/25 Unknown Rx mg tablet (Tricor) ferrous gluconate 324 mg (38 mg 324 mg PO DAILY #90 tabs 06/15/25 06/15/25 Unknown Rx iron) tablet fluticasone 250 mcg-salmeterol 50 1 inh inhalation Q12H Shortness Of 06/15/25 06/15/25 Unknown Rx mcg/dose blistr powdr for Breath #180 ea inhalation (Advair Diskus) furosemide 20 mg tablet 20 mg PO QAM #90 tabs 06/15/25 06/15/25 Unknown Rx glipizide 10 mg tablet, extended 10 mg PO QDAY #90 tabs 06/15/25 06/15/25 Unknown Rx release 24 hr hydralazine 50 mg tablet 50 mg PO TID #270 tabs 06/15/25 06/15/25 Unknown Rx insulin glargine 100 unit/mL (3 See Rx Instructions SUBCUT QAM 06/15/25 Unknown Rx mL) subcutaneous pen (Lantus #120 mL Solostar U-100 Insulin) metoprolol succinate 100 mg 100 mg PO DAILY #90 tabs 06/15/25 06/15/25 Unknown Rx tablet,extended release 24 hr pantoprazole 40 mg tablet,delayed 40 mg PO QAM #90 tabs 06/15/25 06/15/25 Unknown Rx release (Protonix) potassium chloride 10 mEq 10 meq PO BID #180 tabs 06/15/25 06/15/25 Unknown Rx tablet,extended release spironolactone 25 mg tablet 25 mg PO DAILY #90 tabs 06/15/25 06/15/25 Unknown Rx valsartan 320 mg tablet (Diovan) 320 mg PO DAILY #90 tabs 06/15/25 06/15/25 Unknown Rx Allergies Allergy/AdvReac Type Severity Reaction Status Date / Time Penicillins Allergy Severe Rash Verified 06/15/25 15:23 Sulfa (Sulfonamide Allergy Severe Rash Verified 06/15/25 15:23 Antibiotics) Latex, Natural Rubber AdvReac Severe Rash Verified 06/15/25 15:23 adhesive AdvReac Intermediate Rash Verified 06/15/25 15:23 trazodone AdvReac Do not Verified 06/15/25 15:23 tolerate PFSH Acute PFSH: Medical History (Updated 06/25/25 @ 03:05 by Thierry Hensley MD) Diabetes mellitus Tobacco abuse Diastolic dysfunction with chronic heart failure Type 2 diabetes mellitus with hyperglycemia, with long-term current use of insulin Osteoarthritis of hands, bilateral Immunization counseling High risk medication use Seropositive rheumatoid arthritis of multiple sites Osteoporosis Cigarette smoker COPD (chronic obstructive pulmonary disease) Unstable angina Hypertension Environmental and seasonal allergies Vitamin D deficiency Mixed hyperlipidemia Diverticulosis Adult hypothyroidism Surgical History History of lumbar surgery Rods in lumbar History of cholecystectomy History of tubal ligation History of foot surgery left Family History Father Diabetes Mother CAD (coronary artery disease) Other Dementia Social History (Updated 06/25/25 @ 02:58 by Thierry Hensley MD) Smoking and tobacco/nicotine status: current every day tobacco/nicotine user cigarettes Packs smoked per day: 1 Years cigarettes smoked: 25 [ Other cigarette details: Started smoking here 1999 while was out of town] Second hand smoke exposure: Yes Alcohol intake: never Substance/Drug Use: never Additional social history: She wants full code no prolong life support as discussed with Thierry Hensley MD on 06/25/2025 Adopted: No Caregiver/support person: No Lives independently: Yes Household members: spouse Housing: House Marital status: Marital status details: Lives at home with Number of children: 3 service: No Current occupational status: retired 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 Do you think of yourself as: Straight/Heterosexual Current gender identity: Female Vitals/I&O/Wt Last Vital Signs Temp 98.3 F 06/24/25 22:12 Pulse 58 L 06/25/25 02:40 Resp 18 06/25/25 02:40 BP 131/85 06/25/25 02:40 Pulse Ox 96 06/25/25 02:40 06/24/25 06/24/25 06/25/25 14:59 22:59 06:59 Intake Total 0 / 0 Balance 0 / 0 Weight last 48 hrs Weight 77.882 kg Physical Exam Narrative: General Well-developed overweight female in no acute cardiopulmonary stress CV regular rate and rhythm no loud murmurs neck no bruits Lungs trace left basilar crackles and completely clears with deep breaths no wheezing air movement is good Abdomen positive bowel tones soft nontender Calves left ankle with medial ankle surgical scar decreased range of motion 2+ edema right ankle normal function trace to 1 edema Neuro speech is clear tongue protrusion is straight motor strength 5-/5 right hand biceps triceps but patient reports some pain left side is 5/5 Ankles 5/5 bilaterally but left side with decreased range of motion. Patient is alert and orient x 3 Oropharynx Mallampati 1-2 no exudate Data 06/24/25 22:21 06/24/25 22:21 Other Labs: Magnesium 1.7 phosphorus 3.2 troponin 72 TSH 2.59 A1c 9.1 A&P Assessment and plan 1. Transient ischemic attack: Patient symptoms largely resolving. I counseled her regarding need to stop smoking to prevent further TIAs. Patient will be placed back on enteric-coated aspirin 81 mg daily and also put on H2 ya. Patient has history of C. difficile colitis that was difficult so I am avoiding the proton pump inhibitor. Patient will be on telemetry. CTA of the head was negative but there was right proximal 55 to 65% narrowing 2. CKD (chronic kidney disease): Creatinine running 1.8 she has had creatinines running from 1.3-3.4 through the course of this year 3. Tobacco abuse: Patient was counseled regarding need to stop but she states nicotine patch gives her a rash and she is not willing to stop smoking just yet. 4. History of upper gastrointestinal bleeding: Proton pump inhibitor 5. History of Clostridioides difficile colitis: Avoiding proton pump inhibitor for now 6. Diabetes mellitus: A1c recently 9.1. Patient was placed on diabetic diet start sliding scale insulin PDMP PDMP Reviewed: Not Reviewed Attestations Medical Necessity Statement*: Patient is admitted to hospital with TIA and anticipate hospital stay less than or equal to 2 midnights Coding Level of Care Code 97088 Diagnoses Transient ischemic attack G45.9 CKD (chronic kidney disease) N18.9 Tobacco abuse Z72.0 History of upper gastrointestinal bleeding Z87.19 History of Clostridioides difficile colitis Z86.19 Diabetes mellitus E11.9 Time Spent (min) 56
[2025-06-25] MEDS: metoprolol succinate ER (24 HR) 100 mg Tablet PO (05:35)
[2025-06-25] MEDS: LOSARTAN 100 MG TABLET PO (05:35)
--- NOTE | 2025-06-25 07:44 | USCV_ITS ---
Teresa Garcia Age: 74 Gender: F : 1950 Exam Date: 06/25/2025 16:59 Ordering Phys: Christopher Grubbs MD Technologist: SABRA Exam Location: [facility] [place] Indication: cva BP: 150 / 63 HR: 64 Rhythm: Sinus Technical Quality: Adequate MEASUREMENTS (Male / Female) Normal Values 2D ECHO LV Diastolic Diameter PLAX 6.1 cm 4.2 - 5.9 / 3.9 - 5.3 cm IVS Diastolic Thickness 0.9 cm 0.6 - 1.0 / 0.6 - 0.9 cm IVS Systolic Thickness 1.0 cm LVPW Diastolic Thickness 0.7 cm 0.6 - 1.0 / 0.6 - 0.9 cm LVPW Systolic Thickness 0.9 cm LVOT Diameter 2.0 cm LV Ejection Fraction 2D Teich 32.8 % LV Ejection Fraction MOD 4C 60.0 % LV Ejection Fraction MOD 2C 53.1 % LV Ejection Fraction 2C AL 52.8 % LA Diameter 3.5 cm RA Systolic Volume 4C AL 51.0 ml RA Systolic Volume 4C MOD 52.4 ml LA Sys Volume AL 53.8 cm cubed LA Sys Volume Index AL 28.9 cm cubed/m squared Aorta at Sinotubular Diameter 2.2 cm IVC Diameter 1.6 cm M-MODE LA Ao Ratio MM 2.1 AV Cusp Separation MM 1.3 cm DOPPLER AV Peak Velocity 233.0 cm/s LVOT Peak Velocity 99.0 cm/s AV Area Cont Eq vti 1.5 cm squared AV Area Cont Eq pk 1.3 cm squared MV Peak Velocity 130.0 cm/s MV Area PHT 3.1 cm squared Mitral E to A Ratio 0.8 TR Peak Velocity 272.0 cm/s TR Peak Gradient 29.6 mmHg TV Peak E Velocity 59.0 cm/s PV Peak Velocity 120.0 cm/s FINDINGS Left Ventricle Left ventricle is normal in size. LV systolic function is normal with EF of 55-60%. No regional wall motion abnormalities. Left ventricular hypertrophy. Grade 1 diastolic dysfunction Right Ventricle Normal in size and function Right Atrium Normal in size Left Atrium Normal in size IA Septum Grossly normal Mitral Valve Moderate mitral annular calcification. Moderate mitral regurgitation. Aortic Valve Structurally normal aortic valve. Mild aortic stenosis with aortic valve area of 1.51cm2 and mean gradient across aortic valve of 12mmHg. Tricuspid Valve Insufficient TR jet to calculate RVSP Pulmonic Valve Not well visualized Pericardium Normal Aorta Normal in size IVC Appears to be normal CONCLUSIONS LV systolic function is normal with EF of 55-60% Grade 1 diastolic dysfunction Moderate mitral regurgitation. Mild aortic stenosis Manoj Carrillo MD (Electronically Signed) Final Date: 27 June 2025 09:34 S
--- OUTSIDE RECORDS SUMMARY | 2025-06-25 08:08 | XMS_ITS | Encounter Summary ---
Author Organization [email or web address] [facility] Address [address] [place] [address] Care Team Providers Care Painter Maintenance Name Role Phone Unavailable Primary Care Provider [...] worry about transportation for future doctor visits, pick up attendant medication, etc.? 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
--- OUTSIDE RECORDS SUMMARY | 2025-06-25 08:08 | XMS_ITS | Clinical Summary ---
Author Organization [facility] Address [address] [place] [address] Phone Care Team Providers Care High [employer] Science Teacher Name Role Phone Unavailable Primary Care Provider [...] worry about transportation for future doctor visits, coal picker medication, etc.? 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 Gender Identity Not on file Sexual Orientation [...] Rey MD - 02/22/2025 1:18 PM CDT [facility] GI Patient Name: Teresa Garcia Procedure [...] Scope Out: 1:13:20 PM [address] [place], [place] Naveed Rey MD GI PROCEDURE ORDERA BLES Final Result * (ABNORMAL) HEMOGLOBIN A1C (07/27/2024) ABSTRACTED HGB A1C 7.5 % Blood Abstract Provider CHEMISTRY ORDERABLES Edited Re sult - Final from Last 3 Months or Most Recently Relevant to Health Maintenance Insurance [facility] Advance Directives For more information, please contact: [phone] * Full Code (Latest Code Status on File) Date Activated Date Inactivated Comments 02/20/2025 3:18 AM 02/23/2025 2:39 PM
--- NOTE | 2025-06-25 09:08 | PC.NURSE ---
public information coordinator rounds @ 0810- gave patient stroke education book and went through it with her, discussed risk factors and ways to reduce them including smoking cessation, monitoring and controlling blood pressure and blood sugars, diet and activity. Patient verbalized understanding.
--- NOTE | 2025-06-25 17:10 | P.PN_ITS ---
Subjective 2 Subjective: Denies current vertigo. Got mildly lightheaded when sitting up, but again denies vertigo. Vitals/I&O/Wt Last Vital Signs Temp 98.0 F 06/25/25 11:43 Pulse 69 06/25/25 15:20 Resp 16 06/25/25 15:19 BP 149/63 06/25/25 11:43 Pulse Ox 95 06/25/25 15:19 O2 Del Method Room Air 06/25/25 15:19 06/25/25 06/25/25 06/25/25 06:59 14:59 22:59 Intake Total 360 / 360 Output Total 400 / 400 Balance -400 / -400 360 / 360 Weight last 48 hrs Weight 74.933 kg Weight 74.979 kg Weight 74.933 kg Weight 77.882 kg Physical Exam 2 Const: COMMON NORMALS: patient oriented x3 and alert GENERAL APPEARANCE: c ooperative ORIENTATION/CONSCIOUSNESS: Yes awake HENMT: COMMON NORMALS: oropharynx normal Neck/C-Spine: COMMON NORMALS: no JVD Resp: COMMON NORMALS: normal respiratory effort and clear to auscultation bilaterally AUSCULTATION: clear to auscultation bilaterally Cardio: COMMON NORMALS: no JVD, regular rhythm, S1 normal heart sound present, S2 normal heart sound present and No murmurs present (Cardio) RHYTHM: regular rhythm HEART SOUNDS: S1 normal heart sound present and S2 normal heart sound present GI: COMMON NORMALS: Normal to inspection, nondistended, normoactive bowel sounds present, Soft to palpation and non-tender PALPATION: Yes Soft to palpation Extremity: COMMON NORMALS: no joint enlargement and no pedal edema Neuro: COMMON NORMALS: patient oriented x3 and moves all extremities S ENSORIUM/ORIENTATION: Yes alert OTHER: She is awake and alert, pleasant, conversant, following directions. No facial droop. No aphasia or dysarthria. No difficulty with tracking. No nystagmus. Visual beach full to confrontation, without visual extinction. FNF slightly slow but WNL. Sensory exam to light touch symmetrical, without sensory extinction. Having chronic troubles with her right shoulder with chronic pain. Could not raise the right arm as high as the left, but without drift. No drift in lower extremities. Skin: COMMON NORMALS: no rashes or lesions noted GENERAL SKIN EXAM: no rashes or lesions noted Urinary Catheter Management: Manuel: Cath Placed During This Visit: yes Reason for Continuing Indwelling Catheter: Accurate Measurement of Urinary Output in Critically Ill Patients Urinary Catheter Date of Insertion: 06/25/25 Urinary Catheter Time of Insertion: 04:05 Data 06/24/25 22:21 06/24/25 22:21 A&P Assessment and plan 1. Transient ischemic attack: Without persistent focal neurologic deficits, but does report getting lightheaded when sitting up this morning, pending PT evaluation. Previously reported some mild facial numbness which has resolved. Reporting mild numbness of the tip of the tongue. Obtain TTE. Check orthostatics. Monitor on telemetry. Reports has not been taking aspirin at home. Continue aspirin. Hold furosemide for now. Will benefit from smoking cessation. Continue to encourage. CTA of the head was negative but there was right proximal 55 to 65% narrowing Discussed with nursing, shelter case manager Home exercise program recommended on review of PT note. Will need to follow-up with neurology. 2. CKD (chronic kidney disease): Creatinine running 1.8 she has had creatinines running from 1.3-3.4 through the course of this year. Hold Lasix 3. Tobacco abuse: Continue to encourage cessation. Nicotine replacement as needed. 4. History of upper gastrointestinal bleeding: Proton pump inhibitor, monitor for risk of recurrent C. difficile 5. History of Clostridioides difficile colitis: So far without evidence of recurrence 6. Diabetes mellitus: A1c recently 9.1. Patient was placed on diabetic diet start sliding scale insulin Plan: Anemia: Hemoglobin down to 10.7. On prednisone, budesonide, aspirin. PPI. Monitor for risk of GI bleeding. Reassess blood counts Mild hypomagnesemia: Magnesium 1.7. Will give 1 g of mag. Recheck level. PDMP PDMP Reviewed: Not Reviewed Attestations 2 Medical Necessity Statement*: Continue hospitalization for further assessment after CVA/TIA. Diagnoses Transient ischemic attack G45.9 CKD (chronic kidney disease) N18.9 Tobacco abuse Z72.0 History of upper gastrointestinal bleeding Z87.19 History of Clostridioides difficile colitis Z86.19 Diabetes mellitus E11.9
[2025-06-25] MEDS: lactobacillus 1 Tablet 1 TAB PO (17:36)
[2025-06-25] MEDS: magnesium sulfate premix 1 GM/100 ML PIGGYBACK IV (18:38)
[2025-06-25] MEDS: calcium carb-vit d 500mg-200unit 1 Tablet 1 EACH PO (20:42)
[2025-06-25] MEDS: insulin glargine 100 units/1 mL 50 UNIT SUBCUT (23:27)
[2025-06-26] VITALS (7 sets, daily range): BP systolic 151–167; BP diastolic 68–77; PULSE 72–85; RESP 16–18; TEMP 36.7–37.2; O2SAT 92–96
[2025-06-26 04:28] LABS: Hematocrit 35.2 % (36-47); Hemoglobin 11.30 g/dL (11.27-16.99); Mean Corpuscular HGB Conc 32.1 g/dL (30-55); Mean Corpuscular Hemoglobin 30.5 pg (27-33); Mean Corpuscular Volume 95.1 fl (85-98); Nucleated Red Blood Cells % 0 %; Platelet Count 435 10^3/cmm (157-399); Red Blood Count 3.70 10^6/uL (3.85-5.65); White Blood Count 14.56 10^3/uL (3.29-11.43)
[2025-06-26 04:53] LABS: Anion Gap 15.5 (5-19); Blood Urea Nitrogen 29 mg/dL (8-23); Calcium 9.6 mg/dL (8.5-10.5); Carbon Dioxide 29 mmol/L (22-29); Chloride 96 mmol/L (98-107); Glucose 164 mg/dL (65-115); Osmolality Calculated 291 mOsm/kg (285-295); Potassium 4.5 mmol/L (3.5-5.1); Sodium 136 mmol/L (136-145)
[2025-06-26 04:57] LABS: Cholesterol 219 mg/dL (0-200); HDL Cholesterol 35 mg/dL (60-100); Triglycerides 233 mg/dL (0-150)
[2025-06-26] MEDS: metoprolol succinate ER (24 HR) 100 mg Tablet PO (08:13)
[2025-06-26] MEDS: LOSARTAN 100 MG TABLET PO (08:13)
[2025-06-26] MEDS: lactobacillus 1 Tablet 1 TAB PO (08:20)
[2025-06-26] MEDS: calcium carb-vit d 500mg-200unit 1 Tablet 1 EACH PO (08:21)
--- NOTE | 2025-06-26 09:23 | P.DS_ITS ---
Discharge Providers Date of Admission: 06/25/25 01:12 Date of Discharge: June 26, 2025 Attending Provider at Admission: Thierry Hensley MD Attending Provider at Discharge: Christopher Grubbs Primary Care Provider: HANK James Diagnoses at Discharge Discharge Diagnosis 1. Transient ischemic attack: 2. CKD (chronic kidney disease): 3. Tobacco abuse: 4. History of upper gastrointestinal bleedin. History of Clostridioides difficile colitis: 6. Diabetes mellitus: Reason for Visit Reason for Visit: STROKE ALERT Hospital Course Hospital Course Proximal right up to moderate carotid stenosis noted on CTA. Monitored on telemetry, and cardiac rehabilitation specialist is arranged at discharge for any atrial fibrillation. Echocardiogram is obtained prior to discharge but is not read yet. She has been started on aspirin. In the past she had concerns about simvastatin which she had discontinued and so has been on fenofibrate, but is willing to try atorvastatin. Discussed with her discontinuing fenofibrate when trying statin. In case of intolerance symptoms could consider PCSK9 inhibitors. Her symptoms have resolved without recurrence. She worked with physical therapy and is to continue home exercise program. She is instructed on smoking cessation please revisit and assist. Needs continued optimization of diabetes control, A1c is noted 9.1. She is asked to follow-up with regards to TIA, moderate carotid stenosis, and other risk factors. Physical Exam Const: COMMON NORMALS: patient oriented x3 and alert GENERAL APPEARANCE: cooperative ORIENTATION/CONSCIOUSNESS: Yes awake HENMT: COMMON NORMALS: oropharynx normal Neck/C-Spine: COMMON NORMALS: no JVD Resp: COMMON NORMALS: normal respiratory effort and clear to auscultation b ilaterally AUSCULTATION: clear to auscultation bilaterally Cardio: COMMON NORMALS: no JVD, regular rhythm, S1 normal heart sound present, S2 normal heart sound present and No murmurs present (Cardio) RHYTHM: regular rhythm HEART SOUNDS: S1 normal heart sound present and S2 normal heart sound present GI: COMMON NORMALS: Normal to inspection, nondistended, normoactive bowel sounds present, Soft to palpation and non-tender PALPATION: Yes Soft to palpation Extremity: COMMON NORMALS: no joint enlargement and no pedal edema Neuro: COMMON NORMALS: patient oriented x3 and moves all extremities SENSORIUM/ORIENTATION: Yes alert OTHER: She is awake and alert, pleasant, conversant, following directions. No facial droop. No aphasia or dysarthria. No difficulty with tracking. No nystagmus. Visual beach full to confrontation, without visual extinction. FNF slightly slow but WNL. Sensory exam to light touch symmetrical, without sensory extinction. Having chronic troubles with her right shoulder with chronic pain. Could not raise the right arm as high as the left, but without drift. No drift in lower extremities. Chronic pain in the right shoulder. Skin: COMMON NORMALS: no rashes or lesions noted GENERAL SKIN EXAM: no rashes or lesions noted Urinary Catheter Management: Manuel: Cath Placed During This Visit: yes Reason for Continuing Indwelling Catheter: Acute Urinary Retention or Obstruction Urinary Catheter Date of Insertion: 06/25/25 Urinary Catheter Time of Insertion: 04:05 Discharge Data Studies Completed and Pending Completed Studies During Hospitalization Category Date Time Status CT head thrombolytic [id number] Stat Cat Scan 06/24/25 21:58 Completed CTA head neck [CT angio headneck* [id number]] Stat Cat Scan 06/24/25 21:58 Completed XR chest 1V portable [id number] Stat Exams 06/25/25 01:18 Completed Pending at discharge Category Date Time Status Basic Metabolic Panel AM LABS Lab 06/27/25 04:00 Ordered Basic Metabolic Panel AM LABS Lab 06/28/25 04:00 Ordered CV. echo complete* [id number] Routine Ultrasound 06/25/25 07:44 Taken Radiology Impressions Head CT 06/24/25 21:58 IMPRESSION: No acute intracranial findings. ASSESSMENT: ASPECTS ([place] Stroke Program Early CT Score) is 10. ADDENDUM: 06/24/25 [id number] COMMENT: THIS REPORT CONTAINS FINDINGS THAT MAY BE CRITICAL TO PATIENT CARE. The exam findings were verbally communicated by me to JACKIE JOHN via telephone conference at 10:21 PM SEMICONDUCTOR PROCESSING TECHNICIAN on 06/24/2025. The findings were acknowledged and understood. Head/Neck CTA 06/24/25 21:58 IMPRESSION: No large vessel stenosis or occlusion. IMPRESSION: Proximal RIGHT carotid artery web and superimposed/surrounding noncalcified plaque resulting in up to moderate stenosis of the proximal segment (55-65%). REFERENCES: NASCET CRITERIA. The degree of stenosis in the cervical segment of the internal carotid artery is based on NASCET criteria. Normal is no stenosis. Mild is less than 50% stenosis. Moderate is 50-69% stenosis. Severe is 70% to 99% stenosis. Total occlusion is no detectable patent lumen. Chest X-Ray 06/25/25 01:18 IMPRESSION: No acute findings. Laboratory Results WBC 14.56 10^3/uL (3.29-11.43) H 06/26/25 03:57 RBC 3.70 10^6/uL (3.85-5.65) L 06/26/25 03:57 Hgb 11.30 g/dL (11.27-16.99) 06/26/25 03:57 Hct 35.2 % (36-47) L 06/26/25 03:57 MCV 95.1 fl (85-98) 06/26/25 03:57 MCH 30.5 pg (27-33) 06/26/25 03:57 MCHC 32.1 g/dL (30-55) 06/26/25 03:57 RDW 14.1 % (12.1-15.1) 06/26/25 03:57 Plt Count 435 10^3/cmm (157-399) H 06/26/25 03:57 MPV 8.9 fL (7.4-10.4) 06/26/25 03:57 Neut % (Auto) 73.8 % 06/26/25 03:57 Lymph % (Auto) 14.0 % 06/26/25 03:57 [place] % (Auto) 9.8 % 06/26/25 03:57 Eos % (Auto) 1.2 % 06/26/25 03:57 Baso % (Auto) 0.4 % 06/26/25 03:57 Neut # (Auto) 10.75 10^3/uL (1.8-7.7) H 06/26/25 03:57 Lymph # (Auto) 2.0 10^3/uL (0.8-4.8) 06/26/25 03:57 [place] # (Auto) 1.4 10^3/uL (0.2-0.9) H 06/26/25 03:57 Eos # (Auto) 0.2 10^3/uL (0.0-0.8) 06/26/25 03:57 Baso # (Auto) 0.1 10^3/uL (0.0-0.1) 06/26/25 03:57 Nucleated RBC % (auto) 0 % 06/26/25 03:57 Nucleated RBCs # 0.0 /100WBC 06/26/25 03:57 Sodium 136 mmol/L (136-145) 06/26/25 03:57 Potassium 4.5 mmol/L (3.5-5.1) 06/26/25 03:57 Chloride 96 mmol/L (98-107) L 06/26/25 03:57 Carbon Dioxide 29 mmol/L (22-29) 06/26/25 03:57 Anion Gap 15.5 (5-19) 06/26/25 03:57 BUN 29 mg/dL (8-23) H 06/26/25 03:57 Creatinine 1.9 mg/dL (0.5-0.9) H 06/26/25 03:57 GFR Calculation Not Reportable 06/26/25 03:57 Glucose 164 mg/dL (65-115) H 06/26/25 03:57 POC Glucose 169 mg/dL (70-110) H 06/26/25 06:30 Calculated Osmolality 291 mOsm/kg (285-295) 06/26/25 03:57 Calcium 9.6 mg/dL (8.5-10.5) 06/26/25 03:57 Phosphorus 3.2 mg/dL (2.5-4.5) 06/24/25 22:21 Magnesium 1.7 mg/dL (1.7-2.3) 06/24/25 22:21 Troponin T Baseline 72 ng/L (0-10) H 06/24/25 22:21 Troponin T 60 Minute 77.23 ng/L (0-10) H 06/24/25 23:23 Delta Troponin T 5.23 ABS# (0-10) 06/24/25 23:23 C-React Prot High Sens 0.440 mg/dL (0.0-0.3) H 06/24/25 22:21 NT-Pro-B Natriuret Pep 1429 pg/mL (0-450) H 06/24/25 22:21 Triglycerides 233 mg/dL (0-150) H 06/26/25 03:57 Cholesterol 219 mg/dL (0-200) H 06/26/25 03:57 LDL Cholesterol, Calc 137 mg/dL (50-129) H 06/26/25 03:57 HDL Cholesterol 35 mg/dL (60-100) L 06/26/25 03:57 LDL/HDL Ratio 3.91 RATIO (0.00-3.22) H 06/26/25 03:57 Cholesterol/HDL Ratio 6.26 mg/dL (0.0-4.40) H 06/26/25 03:57 TSH 2.59 uIU/mL (0.27-4.20) 06/24/25 22:21 Urine Color Yellow (Yellow) 06/24/25 22:55 Urine Appearance Clear (CLEAR) 06/24/25 22:55 Urine pH 7.5 (5-7) 06/24/25 22:55 Ur Specific [place] 1.021 (1.005-1.030) 06/24/25 22:55 Urine Protein Negative (Negative) 06/24/25 22:55 Urine Glucose (UA) Trace (Normal) H 06/24/25 22:55 Urine Ketones Negative (Negative) 06/24/25 22:55 Urine Blood Negative (Negative) 06/24/25 22:55 Urine Nitrate Negative (Negative) 06/24/25 22:55 Urine Bilirubin Negative (Negative) 06/24/25 22:55 Urine Urobilinogen 0.2 mg/dL (Negative) 06/24/25 22:55 Ur Leukocyte Esterase Trace (Negative) A 06/24/25 22:55 Urine RBC 0-2 /hpf (0-2) 06/24/25 22:55 Urine WBC 0-5 /hpf (0-5) 06/24/25 22:55 Ur Squamous Epith Cells 0-5 /hpf (0-5) 06/24/25 22:55 Amorphous Sediment Not Reportable 06/24/25 22:55 Urine Bacteria None seen /hpf (NONE) 06/24/25 22:55 Hyaline Casts 2.87 /lpf 06/24/25 22:55 Vitals Last Vital Signs Temp 98.4 F 06/26/25 08:00 Pulse 80 06/26/25 08:52 Resp 18 06/26/25 08:52 BP 167/77 06/26/25 08:00 Pulse Ox 95 06/26/25 08:52 O2 Del Method Room Air 06/26/25 08:52 Discharge Plan Discharge Patient Disposition: Home Condition: Stable Prescriptions: New atorvastatin 40 mg Tablet 40 mg PO BEDTIME Qty: 90 0RF aspirin 81 mg Tablet,Delayed Release (Dr/Ec) 81 mg PO 0900 Qty: 90 0RF nicotine 21 mg/24 hr patch 24 hour 1 patch transdermal DAILY Qty: 28 3RF nicotine (polacrilex) 4 mg lozenge 4 mg buccal Q6H PRN (Reason: nicotine cravings) Qty: 81 3RF doxepin 10 mg capsule 10 mg PO BID Qty: 180 0RF duloxetine 40 mg capsule,delayed release(DR/EC) 40 mg PO BID Qty: 180 0RF Continued (DME) Diabetic shoes See Rx Instructions .Route .MEDSUPPLY Qty: 1 0RF Rx Instructions: As directed nitroglycerin 0.4 mg tablet, sublingual 0.4 mg SUBLINGUAL Q5M PRN (Reason: chest pain) Qty: 20 0RF Rx Instructions: do not exceed 3 doses per episode (DME) lancets [Accu-Chek Softclix Lancets] Misc See Rx Instructions .Route Qty: 100 3RF Rx Instructions: use 1 day (DME) Dexcom G7 Director Traffic And Planning Misc See Rx Instructions .ROUTE .MEDSUPPLY Qty: 1 0RF Rx Instructions: As directed (DME) right cmc splint See Rx Instructions .Route .MEDSUPPLY Qty: 1 0RF Rx Instructions: As directed (DME) Accu-Chek Guide test strips Strip See Rx Instructions .Route Qty: 100 5RF Rx Instructions: use one daily levothyroxine 100 mcg tablet 100 mcg PO DAILY Qty: 90 1RF (DME) Dexcom G7 Sensor Device See Rx Instructions .ROUTE .MEDSUPPLY Qty: 12 3RF Rx Instructions: change every 10 days doxepin 25 mg capsule 25 mg PO BID Qty: 180 1RF ferrous gluconate 324 mg (38 mg iron) tablet 324 mg PO DAILY Qty: 90 0RF fluticasone propion-salmeterol [Advair Diskus] 250-50 mcg/dose blister with device 1 inh inhalation Q12H Qty: 180 1RF furosemide 20 mg tablet 20 mg PO QAM Qty: 90 1RF glipizide 10 mg tablet extended release 24hr 10 mg PO QDAY Qty: 90 1RF Rx Instructions: dose increase hydralazine 50 mg tablet 50 mg PO TID Qty: 270 1RF insulin glargine [Lantus Solostar U-100 Insulin] 100 unit/mL (3 mL) insulin pen See Rx Instructions SUBCUT QAM Qty: 120 0RF Rx Instructions: Inject up to 100U subcutaneously every morning. metoprolol succinate 100 mg tablet extended release 24 hr 100 mg PO DAILY Qty: 90 1RF pantoprazole [Protonix] 40 mg tablet,delayed release (DR/EC) 40 mg PO QAM Qty: 90 1RF potassium chloride 10 mEq tablet extended release 10 meq PO BID Qty: 180 1RF valsartan [Diovan] 320 mg tablet 320 mg PO DAILY Qty: 90 1RF spironolactone 25 mg tablet 25 mg PO DAILY Qty: 90 1RF albuterol sulfate [Ventolin HFA] 90 mcg/actuation HFA aerosol inhaler 2 puff INHALATION QID PRN (Reason: Shortness Of Breath) Qty: 25.5 1RF (DME) pen needle, diabetic 33 gauge x 5/32 needle See Rx Instructions .ROUTE .MEDSUPPLY Qty: 100 5RF Rx Instructions: 1 time day quetiapine [Seroquel] 50 mg tablet 50 mg PO .at bedtime Qty: 90 0RF vitamin E 400 unit Capsule 400 unit PO DAILY omega-3 fatty acids 1,000 mg Capsule 1,000 mg PO DAILY glucagon HCl [Glucagon (HCl) Emergency Kit] 1 mg recon soln 1 mg IM Q20M PRN (Reason: hypoglycemia) Qty: 1 0RF Rx Instructions: until target blood sugar attained acetaminophen 325 mg Tablet 650 mg PO Q6H PRN (Reason: Mild Pain) Qty: 30 0RF cyanocobalamin (vitamin B-12) [Vitamin B-12] 1,000 mcg Tablet 1,000 mcg PO DAILY calcium carbonate-vitamin D3 600 mg-5 mcg (200 unit) Tablet 1 tab PO DAILY tramadol 50 mg tablet 50 mg PO TID PRN (Reason: Pain) Probiotic 3 billion cell Capsule 3,000 mmu cells PO DAILY Rx Instructions: administer with a meal Discontinued fenofibrate nanocrystallized [Tricor] 145 mg tablet 145 mg PO DAILY Qty: 90 1RF duloxetine 60 mg capsule,delayed release(DR/EC) 60 mg PO BID Qty: 180 1RF Discharge Order = DC NOW: Discharge Order (Routine); Ordered 06/26/25 Ordered By: Christopher Grubbs Other Ambulatory Orders: MCT/Event Monitor 30 Days (Routine) Timeframe: 2 Days Facility: [facility] - Location: Radiology Ordered By: Christopher Grubbs Referrals: Nikki Benoit MD [Physician, Neurology] - 3 weeks Referral Note: We have notified your physician's clinic of the need for a follow-up appointment to be scheduled. If you have not heard from them within the next 2 business days, please call them directly. Karla Gallegos FNP-C [Primary Care Provider, Family Practice] - 4-7 days Referral Note: We have notified your physician's clinic of the need for a follow-up appointment to be scheduled. If you have not heard from them within the next 2 business days, please call them directly. Tameka Fair FNP [Nurse Practitioner, Cardiology] Referral Note: [facility] sent to [facility] for an [facility]. [facility] will be contacting you. Thank you! Discharge Diet: Cardiac and Diabetic Discharge Activity: As per PT/OT instructions Patient Instructions: Transient Ischemic Attack (GEN), Cigarette Smoking and Your Health (GEN), Opioid Safety, Stroke Stoplight, Patient Portal & Hira Instructions, Quitting Smoking Activity Restrictions/Additional Instructions: Follow-up with your primary provider as well as with neurology for reassessment after transient ischemic attack. In case of recurrence of any symptoms any numbness, weakness, dizziness or other symptoms, seek medical attention immediately. Please stop smoking. Continue smoking increases the risk of recurrent stroke, as well as heart attack, in addition to lung disease and various cancers. Restart taking aspirin 81 mg daily. Stop fenofibrate and you are started on atorvastatin, as discussed in case of muscle pain or weakness stop atorvastatin and reach out to medical provider. Follow-up with your primary doctor as well as with neurology to further discuss moderate carotid stenosis. Per admitting provider concern that doxepin and duloxetine may be contributing to dizziness, doses of this medications are decreased. Please continue to work on optimization of diabetes control with your primary provider. Target blood glucose 100-150. Increase Lantus dose gradually as long as you are not having any blood sugar readings below 100. Avoid hypoglycemia. Maintain consistent carbohydrate diet. Monitor blood pressures 3 times daily, long-term target blood pressures 120/80. Seek medical attention in case of any worsening or new concerning symptoms. Discharge Attestations Time Spent in Discharge Care*: greater than 30 min Status at Discharge: Cognitive status at discharge: cognitively intact , Behavioral status at discharge: cooperative , Quality Metrics Clinical Quality Measures [ Cerebrovascular Accident { Contraindication to Antithrombotic: None; antit hrombotic prescribed; Contraindication to Anticoagulation: Overlap treatment not indicated; Contraindication to Statin: None; Statin prescribed;}] Coding Level of Care Code 19350 Total time (in minutes) for Discharge: 55 Diagnoses Transient ischemic attack G45.9 CKD (chronic kidney disease) N18.9 Tobacco abuse Z72.0 History of upper gastrointestinal bleeding Z87.19 History of Clostridioides difficile colitis Z86.19 Diabetes mellitus E11.9
--- NOTE | 2025-06-26 11:10 | PC.CHAP ---
Pastoral Care Encounter/Spiritual Assessment Type of Contact [] Declined weapons officer naval activity visit [] Patient/Family/Request visit [] Outpatient visit [] Follow-up visit [] Physician referral [] Code/Alert [] Routine visit [] Staff referral [] Actively dying [x] Patient sleeping [] Family support [] [] Out of room [] Palliative care [] [] Receiving care in room [] Pre-surgical visit [] Trauma [] Long length of stay [] ICU visit [] Other: Relational/Emotional Strength [] Patient feels connected with others/family/visitors/staff [] Distress [] Loneliness/isolation [] Abandonment Spirituality of Patient [] Person of Thais [] Attends Jehov[employer] Witness of their Thais [] Believes in Prayer [] Reads Bible or Methodist materials [] There are Spiritual issues to be addressed [employer]er Interventions [] Prayer [] Active listening [] Non-anxious presence [] Spiritual/emotional support [] Crisis/trauma care [] Spiritual counseling [] Bereavement support [] Provided bereavement packet [] Provided Bible/devotional materials [] Provided toy/stuffed animal, coloring book to patient or family member [] Provided Communion [] Anointing/[place] [] Salvation [] Completed spiritual assessment [] Other: Impact on Illness or Injury [] Angry [] Fearful [] Anxious [] Often cries [] Exhaustion [] Unable to work [] Unable to attend adventism [] Unable to walk/stand [] Unable to read [] Unable to drive [] Unable to eat/drink [] Unable to sleep [] Unable to be with family [] Patient intubated [] Other: Summary Time spent with patient
== END 2025-06-26 11:30 | disposition home or self-care (01) ==
LOC: ER 06-25 01:44 → MEDSURG 06-25 06:44
PROVIDERS: Admitting Provider Internal Medicine; Emergency Provider Student in an Organized Health Care Education/Training Program; PCP Nurse Practitioner; Visit Provider Internal Medicine
DX: G45.9 Transient cerebral ischemic attack, unspecified (principal); E11.22 Type 2 diabetes mellitus with diabetic chronic kidney disease; I13.0 Hypertensive heart and chronic kidney disease with heart failure and stage 1 through stage 4 chronic kidney disease, or unspecified chronic kidney disease; N18.9 Chronic kidney disease, unspecified; I50.32 Chronic diastolic (congestive) heart failure; Z87.19 Personal history of other diseases of the digestive system; Z86.19 Personal history of other infectious and parasitic diseases; K21.9 Gastro-esophageal reflux disease without esophagitis; Z79.4 Long term (current) use of insulin; Z79.82 Long term (current) use of aspirin; F17.210 Nicotine dependence, cigarettes, uncomplicated; E78.2 Mixed hyperlipidemia; E03.9 Hypothyroidism, unspecified; J44.9 Chronic obstructive pulmonary disease, unspecified; Z83.3 Family history of diabetes mellitus; Z82.49 Family history of ischemic heart disease and other diseases of the circulatory system
CPT/HCPCS: 36415; 36416; 51702; 70450; 70496; 70498; 71045; 80048; 80061; 81001; 82962; 83735; 83880; 84100; 84443; 84484; 85025; 86141; 92523; 92610; 93005; 93306; 94640; 94664; 96365; 96372; 96375; 97110; 97161; 97165; 99285; G0378; J0696; J1650; J1815; J2765; J3475; J7512; J7613; J7626; J9999